=== PATIENT | female | born 1990 | race Caucasian/White ===

== ENCOUNTER 2017-10-03 16:07 | Emergency (ER) | payer BC ==
[2017-10-03] MEDS ORDERED: SODIUM CHLORIDE 0.9% 1,000 ML IV ONE (18:43)
--- NOTE | 2017-10-03 18:47 | ED ---
Anxiety HPI - General Chief Complaint: Anxiety Stated Complaint: Anxiety Time Seen by Provider: 10/03/17 18:28 Source: patient Mode of arrival: ambulatory - History of Present Illness Initial Comments: 27 year-old female patient presents to the emergency department today for complaints of tachycardia and increased anxiety. She states that beginning last evening just before bed she had a hot flushed feeling over her body and then she felt very anxious. She states that her heart was racing. She took 2 of her Xanax and went to sleep. She states that she woke this morning and felt similar. Went to work and continued to have symptoms are up-to-date. States she did check her vital signs at work multiple times and her blood pressure is elevated heart rate was in the 130s throughout the day. She states that she took her Xanax a couple of times today doesn't seem to be helping. She states that she has not ever had a panic attack to this degree. She states that she is being treated for depression, she was started on Celexa 2 weeks ago. She states that she does have counseling. She denies any triggering event in her life. She denies any chance of . She denies any significant past medical history other than the depression and anxiety. Patient denies any recent rash, fever, chills, shortness breath, chest pain, abdominal pain, nausea , vomiting, diarrhea, constipation, back pain, numbness, tingling, dizziness, weakness, hematuria, dysuria, urinary urgency, urinary frequency, headache, visual changes, or any other complaints. - Related Data Home Medications: Home Medications Medication Instructions Recorded Confirmed ALPRAZolam [Xanax] 0.25 - 0.5 mg PO DAILY PRN 08/16/16 10/03/17 Aviane 1 tab PO HS 06/23/17 10/03/17 Albuterol Inhaler [Ventolin Hfa 2 puff INHALATION RT-Q6H PRN 10/03/17 10/03/17 Inhaler] Amitriptyline HCl [Elavil] 25 mg PO HS 10/03/17 10/03/17 Citalopram Hydrobromide [CeleXA] 40 mg PO HS 10/03/17 10/03/17 diphenhydrAMINE HCL [Benadryl] 25 mg PO Q6H PRN 10/03/17 10/03/17 Allergies/Adverse Reactions: Allergies Allergy/AdvReac Type Severity Reaction Status Date / Time baclofen AdvReac DYSTONIA Verified 10/03/17 18:38 cefaclor [From Ceclor] AdvReac Abdominal Verified 10/03/17 18:38 Pain clindamycin AdvReac Nausea & Verified 10/03/17 18:38 Vomiting Review of Systems ROS Statement: Those systems with pertinent positive or pertinent negative responses have been documented in the HPI. ROS Other: All systems not noted in ROS Statement are negative. Past Medical History Past Medical History: Cancer, Osteoarthritis (OA) Additional Past Medical History / Comment(s): migranes and allergy/exercise induced asthma, anemia, arthritis bilateral knees, skin cancer with removals, constipation-past and current problem. History of Any Multi-Drug Resistant Organisms: None Reported Past Surgical History: Adenoidectomy, Orthopedic Surgery, Tonsillectomy Additional Past Surgical History / Comment(s): 08/19/16 tonsillectomy/ adenoidectomy, tympanoplasty/tubes in ears, skin cancer removed x3 and scope of left knee Past Anesthesia/Blood Transfusion Reactions: Previous Problems w/ Anesthesia, Postoperative Nausea & Vomiting (PONV) Past Psychological History: Anxiety, Depression, Panic Disorder Smoking Status: Never smoker Past Alcohol Use History: Occasional Past Drug Use History: None Reported - Past Family History Mother Family Medical History: No Reported History Father Family Medical History: Hyperlipidemia General Exam Limitations: no limitations General appearance: alert, in no apparent distress, other (Physical well- developed, well-nourished adult female patient in no acute distress. Vital signs upon presentation temperature 98.0F, pulse 110, respirations 20, blood pressure 138/83, pulse ox 100% on room air.) Eye exam: Present: normal appearance, PERRL, EOMI. Absent: scleral icterus, conjunctival injection, periorbital swelling ENT exam: Present: normal exam, normal oropharynx, mucous membranes moist, TM's normal bilaterally Neck exam: Present: normal inspection. Absent: tenderness, meningismus, lymphadenopathy Respiratory exam: Present: normal lung sounds bilaterally. Absent: respiratory distress, wheezes, rales, rhonchi, stridor Cardiovascular Exam: Present: normal rhythm, tachycardia, normal heart sounds. Absent: systolic murmur, diastolic murmur, rubs, gallop, clicks GI/Abdominal exam: Present: soft, normal bowel sounds. Absent: distended, tenderness, guarding, rebound, rigid Neurological exam: Present: alert, oriented X3, CN II-XII intact Psychiatric exam: Present: anxious, other (Tearful, rocking back and forth in the bed) Skin exam: Present: warm, dry, intact, normal color. Absent: rash Course Vital Signs 10/03/17 10/03/17 17:41 21:42 Temperature 98 F Pulse Rate 110 H 87 Respiratory 20 20 Rate Blood Pressure 138/83 114/71 O2 Sat by Pulse 100 99 Oximetry Medical Decision Making - Medical Decision Making 27 year-old female patient presented to the emergency department today for evaluation of increased anxiety and rapid heart rate. Physical examination was unremarkable., Patient was tachycardic in the low 100s. Labs reviewed and did reveal a mildly elevated white blood cell counts, no other evidence of infection. D-dimer was negative. EKG showed sinus tachycardia at 110. Patient is have a history of anxiety and does take Celexa and Xanax for this. She is feeling better upon reevaluation. Heart rate is within normal range. She'll be discharged home to follow-up with her primary care physician to discuss her prescription medication. She is instructed to return here immediate for any new, worsening, or concerning symptoms. She verbalizes understanding and agrees this plan. - Lab Data Result diagrams: 10/03/17 19:30 10/03/17 19:30 Lab Results 10/03/17 10/03/17 10/03/17 Range/Units 19:19 19:19 19:30 WBC (3.8-10.6) k/uL RBC (3.80-5.40) m/uL Hgb (11.4-16.0) gm/dL Hct (34.0-46.0) % MCV (80.0-100.0) fL MCH (25.0-35.0) pg MCHC (31.0-37.0) g/dL RDW (11.5-15.5) % Plt Count (150-450) k/uL Neutrophils % % Lymphocytes % % Monocytes % % Eosinophils % % Basophils % % Neutrophils # (1.3-7.7) k/uL Lymphocytes # (1.0-4.8) k/uL Monocytes # (0-1.0) k/uL Eosinophils # (0-0.7) k/uL Basophils # (0-0.2) k/uL Hypochromasia D-Dimer (<0.60) mg/L FEU Sodium 138 (137-145) mmol/L Potassium 3.8 (3.5-5.1) mmol/L Chloride 104 (98-107) mmol/L Carbon Dioxide 25 (22-30) mmol/L Anion Gap 9 mmol/L BUN 9 (7-17) mg/dL Creatinine 0.73 (0.52-1.04) mg/dL Est GFR (MDRD) Af Amer >60 (>60 ml/min/1.73 sqM) Est GFR (MDRD) Non-Af >60 (>60 ml/min/1.73 sqM) Glucose 83 (74-99) mg/dL Calcium 9.2 (8.4-10.2) mg/dL Magnesium 1.8 (1.6-2.3) mg/dL Total Bilirubin 0.4 (0.2-1.3) mg/dL AST 25 (14-36) U/L ALT 32 (9-52) U/L Alkaline Phosphatase 112 (38-126) U/L Total Protein 6.5 (6.3-8.2) g/dL Albumin 3.8 (3.5-5.0) g/dL TSH 1.080 (0.465-4.680) mIU/L Urine Color Yellow Urine Appearance Cloudy H (Clear) Urine pH 6.0 (5.0-8.0) Ur Specific [place] 1.014 (1.001-1.035) Urine Protein Negative (Negative) Urine Glucose (UA) Negative (Negative) Urine Ketones 1+ H (Negative) Urine Blood Negative (Negative) Urine Nitrite Negative (Negative) Urine Bilirubin Negative (Negative) Urine Urobilinogen <2.0 (<2.0) mg/dL Ur Leukocyte Esterase Moderate H (Negative) Urine RBC 4 (0-5) /hpf Urine WBC 7 H (0-5) /hpf Ur Squamous Epith Cells 3 (0-4) /hpf Urine Bacteria Occasional H (None) /hpf Urine Mucus Rare H (None) /hpf Urine HCG, Qual Not Detected (Not Detectd) Urine Opiates Screen Not Detected (NotDetected) Ur Oxycodone Screen Not Detected (NotDetected) Urine Methadone Screen Not Detected (NotDetected) Ur Propoxyphene Screen Not Detected (NotDetected) Ur Barbiturates Screen Not Detected (NotDetected) U Tricyclic Antidepress Detected H (NotDetected) Ur Phencyclidine Scrn Not Detected (NotDetected) Ur Amphetamines Screen Not Detected (NotDetected) U Methamphetamines Scrn Not Detected (NotDetected) U Benzodiazepines Scrn Detected H (NotDetected) Urine Cocaine Screen Not Detected (NotDetected) U Marijuana (THC) Screen Not Detected (NotDetected) 10/03/17 10/03/17 Range/Units 19:30 22:00 WBC 14.3 H (3.8-10.6) k/uL RBC 4.55 (3.80-5.40) m/uL Hgb 13.0 (11.4-16.0) gm/dL Hct 41.1 (34.0-46.0) % MCV 90.3 (80.0-100.0) fL MCH 28.6 (25.0-35.0) pg MCHC 31.7 (31.0-37.0) g/dL RDW 13.7 (11.5-15.5) % Plt Count 357 (150-450) k/uL Neutrophils % 63 % Lymphocytes % 26 % Monocytes % 3 % Eosinophils % 7 % Basophils % 0 % Neutrophils # 8.9 H (1.3-7.7) k/uL Lymphocytes # 3.7 (1.0-4.8) k/uL Monocytes # 0.4 (0-1.0) k/uL Eosinophils # 1.0 H (0-0.7) k/uL Basophils # 0.1 (0-0.2) k/uL Hypochromasia Slight D-Dimer 0.57 (<0.60) mg/L FEU Sodium (137-145) mmol/L Potassium (3.5-5.1) mmol/L Chloride (98-107) mmol/L Carbon Dioxide (22-30) mmol/L Anion Gap mmol/L BUN (7-17) mg/dL Creatinine (0.52-1.04) mg/dL Est GFR (MDRD) Af Amer (>60 ml/min/1.73 sqM) Est GFR (MDRD) Non-Af (>60 ml/min/1.73 sqM) Glucose (74-99) mg/dL Calcium (8.4-10.2) mg/dL Magnesium (1.6-2.3) mg/dL Total Bilirubin (0.2-1.3) mg/dL AST (14-36) U/L ALT (9-52) U/L Alkaline Phosphatase (38-126) U/L Total Protein (6.3-8.2) g/dL Albumin (3.5-5.0) g/dL TSH (0.465-4.680) mIU/L Urine Color Urine Appearance (Clear) Urine pH (5.0-8.0) Ur Specific [place] (1.001-1.035) Urine Protein (Negative) Urine Glucose (UA) (Negative) Urine Ketones (Negative) Urine Blood (Negative) Urine Nitrite (Negative) Urine Bilirubin (Negative) Urine Urobilinogen (<2.0) mg/dL Ur Leukocyte Esterase (Negative) Urine RBC (0-5) /hpf Urine WBC (0-5) /hpf Ur Squamous Epith Cells (0-4) /hpf Urine Bacteria (None) /hpf Urine Mucus (None) /hpf Urine HCG, Qual (Not Detectd) Urine Opiates Screen (NotDetected) Ur Oxycodone Screen (NotDetected) Urine Methadone Screen (NotDetected) Ur Propoxyphene Screen (NotDetected) Ur Barbiturates Screen (NotDetected) U Tricyclic Antidepress (NotDetected) Ur Phencyclidine Scrn (NotDetected) Ur Amphetamines Screen (NotDetected) U Methamphetamines Scrn (NotDetected) U Benzodiazepines Scrn (NotDetected) Urine Cocaine Screen (NotDetected) U Marijuana (THC) Screen (NotDetected) - EKG Data EKG Comments: EKG obtained at 2010 shows normal sinus rhythm with possible LVH, prolonged QT, ventricular rate is 91, MO interval 146, QRS duration 92, QT 404, QTC 496. Disposition Clinical Impression: Anxiety Disposition: HOME SELF-CARE Condition: Good Instructions: Generalized Anxiety Disorder (ED) Additional Instructions: Continue taking home medications as directed. Follow-up with your primary care physician to discuss prescription medications. Return here immediately for any new, worsening, or concerning symptoms. Referrals: Maykel Omalley MD [Primary Care Provider] - 1-2 days Time of Disposition: 22:27
[2017-10-03 19:26] LABS: Appearance,Urine Cloudy (Clear); Bacteria,Urine Occasional /hpf; Bilirubin,Urine Negative (Negative); Blood,Urine Negative (Negative); Color,Urine Yellow; Glucose,Urine (UA) Negative (Negative); Ketones,Urine 1+ (Negative); Leukocyte Esterase,Urine Moderate (Negative); Mucus,Urine Rare /hpf; Nitrite,Urine Negative (Negative); Protein,Urine Negative (Negative); RBC,Urine 4 /hpf (0-5); Specific Gravity,Urine 1.014 (1.001-1.035); Squamous Epithelial Cell,Urine 3 /hpf (0-4); Urobilinogen,Urine <2.0 mg/dL (<2.0); WBC,Urine 7 /hpf (0-5)
[2017-10-03 19:36] LABS: Amphetamine Screen,Urine Not Detected (NotDetected); Barbiturate Screen,Urine Not Detected (NotDetected); Benzodiazepines Screen,Urine Detected (NotDetected); Cocaine Screen,Urine Not Detected (NotDetected); Methadone Screen, Urine Not Detected (NotDetected); Opiate Screen,Urine Not Detected (NotDetected); Oxycodone Screen, Urine Not Detected (NotDetected); Phencyclidine Screen,Urine Not Detected (NotDetected); Tricyclic Antidepressant,Urine Detected (NotDetected); Urn Cannabinoid Scrn Not Detected (NotDetected)
[2017-10-03 19:53] LABS: Basophils # (A) 0.1 k/uL (0-0.2); Basophils % (A) 0 %; Eosinophils % (A) 7 %; HCT 41.1 % (34.0-46.0); Hypochromasia Slight; Lymphocytes # (A) 3.7 k/uL (1.0-4.8); Lymphocytes % (A) 26 %; MCH 28.6 pg (25.0-35.0); MCHC 31.7 g/dL (31.0-37.0); MCV 90.3 fL (80.0-100.0); Mean Platelet Volume 6.7; Monocytes # (A) 0.4 k/uL (0-1.0); Monocytes % (A) 3 %; Neutrophils # (A) 8.9 k/uL (1.3-7.7); Neutrophils % (A) 63 %; Platelet Count 357 k/uL (150-450); RBC 4.55 m/uL (3.80-5.40); RDW 13.7 % (11.5-15.5); WBC 14.3 k/uL (3.8-10.6)
[2017-10-03 19:59] LABS: ALT 32 U/L (9-52); AST 25 U/L (14-36); Albumin 3.8 g/dL (3.5-5.0); Alkaline Phosphatase 112 U/L (38-126); Anion Gap 9 mmol/L; Blood Urea Nitrogen 9 mg/dL (7-17); Calcium 9.2 mg/dL (8.4-10.2); Carbon Dioxide 25 mmol/L (22-30); Chloride 104 mmol/L (98-107); Glucose 83 mg/dL (74-99); Magnesium 1.8 mg/dL (1.6-2.3); Potassium 3.8 mmol/L (3.5-5.1); Sodium 138 mmol/L (137-145); Total Bilirubin 0.4 mg/dL (0.2-1.3); Total Protein 6.5 g/dL (6.3-8.2)
[2017-10-03] MEDS ORDERED: LORazepam 2 MG/ML INJ IV STA (22:31)
[2017-10-03 22:52] VITALS: BP 128/67; PULSE 92; RESP 16; TEMP 98.9
== END 2017-10-03 23:01 | disposition home or self-care (01) ==
LOC: EC 16:07
DX: F41.9 Anxiety disorder, unspecified (principal); R00.0 Tachycardia, unspecified; D72.829 Elevated white blood cell count, unspecified; F41.0 Panic disorder [episodic paroxysmal anxiety]; F32.9 Major depressive disorder, single episode, unspecified; Z85.828 Personal history of other malignant neoplasm of skin; Z79.3 Long term (current) use of hormonal contraceptives; Z79.899 Other long term (current) drug therapy; Z88.1 Allergy status to other antibiotic agents; Z88.8 Allergy status to other drugs, medicaments and biological substances
CPT/HCPCS: 99283; 96374; 96361 ×2; 36415; 93005; 85379; 80053; 84443; 83735; 85025; 81001; 81025; 80306; J2060

== ENCOUNTER → 2017-12-01 | Outpatient (CLI) | payer BC ==
--- NOTE | 2017-12-01 22:57 | MR ---
EXAMINATION TYPE: MR cervical spine wo con DATE OF EXAM: 12/01/2017 COMPARISON: NONE HISTORY: 27 year-old female cervical disc displacement, neck pain and headaches, tingling in both arm s. TECHNIQUE: Multiplanar, multisequence images of the cervical spine were acquired. FINDINGS: No craniocervical junction abnormalities, predental space widening, or prevertebral soft tissue swell ing. 9 mm cystic nodule posterior aspect of the right lower thyroid gland incidentally noted. Preserved alignment of the cervical spine. No suspicious bone marrow replacement. There is very minimal early intervertebral disc desiccation throughout the cervical spine. No focal disc herniation. No significant spinal canal or foraminal stenosis. Normal course, caliber, and signal intensity of the cervical cord. IMPRESSION: 1. Very minimal early degenerative signal changes of the intervertebral disks throughout the cervical spine. 2. No focal disc herniation or significant spinal canal or foraminal stenosis seen.
== END | disposition home or self-care (01) ==
LOC: RADMRIMAIN 20:07
PROVIDERS: ATTEND Psychiatry & Neurology Neurology
DX: M47.22 Other spondylosis with radiculopathy, cervical region (principal)
CPT/HCPCS: 72141

== ENCOUNTER → 2018-05-02 | Outpatient (CLI) | payer BC ==
[2018-05-02 11:49] LABS: Basophils # (A) 0.1 k/uL (0-0.2); Basophils % (A) 1 %; Eosinophils # (A) 0.6 k/uL (0-0.7); Eosinophils % (A) 6 %; HCT 42.5 % (34.0-46.0); HGB 13.4 gm/dL (11.4-16.0); Lymphocytes # (A) 2.5 k/uL (1.0-4.8); Lymphocytes % (A) 25 %; MCHC 31.5 g/dL (31.0-37.0); MCV 92.1 fL (80.0-100.0); Mean Platelet Volume 6.9; Monocytes # (A) 0.3 k/uL (0-1.0); Monocytes % (A) 3 %; Neutrophils # (A) 6.1 k/uL (1.3-7.7); Neutrophils % (A) 63 %; Platelet Count 373 k/uL (150-450); RBC 4.61 m/uL (3.80-5.40); RDW 13.4 % (11.5-15.5); WBC 9.7 k/uL (3.8-10.6)
== END | disposition home or self-care (01) ==
LOC: LABPAT 11:05
PROVIDERS: ATTEND Surgery
DX: Z01.812 Encounter for preprocedural laboratory examination (principal); K21.0 Gastro-esophageal reflux disease with esophagitis; D64.9 Anemia, unspecified; F17.200 Nicotine dependence, unspecified, uncomplicated
CPT/HCPCS: 36415; 85025; 86850; 86900; 86901

== ENCOUNTER 2018-05-10 09:15 | Inpatient (IN) | payer BC ==
[2018-05-02 16:03] VITALS: BMI 44.5
[~2018-05-10 09:15] MED LIST: LACTATED RINGERS 1,000 ML IV SCH; fentaNYL (PF) 50 MCG/ML 2 ML AMP IV PRN
[2018-05-10 12:16] LABS: Glucose,Whole Blood 90 mg/dL (75-99)
[2018-05-10] MEDS ORDERED: LIDOCAINE 1% 20 ML VIAL (10MG/ML) FOR IV START INTRADERMA ONE (12:20)
[2018-05-10] MEDS ORDERED: LACTATED RINGERS 1,000 ML IV ONE (12:22)
[2018-05-10] MEDS: SCOPOLAMINE 1.5MG/72HR PATCH TRANSDERM ONE ×2 (12:23→15:56)
[2018-05-10] MEDS ORDERED: DEXAMETHASONE SOD PHOSPHATE 10 MG/ML 1 ML VIAL IV ONE (12:23)
[2018-05-10] MEDS: HEPARIN SODIUM,PORCINE 5,000 UNIT/ML 1 ML VIAL SQ ONE ×2 (12:23→15:56)
[2018-05-10] MEDS ORDERED: ONDANSETRON 4 MG/2 ML VIAL IVP ONE ×2 (12:24→15:48)
[2018-05-10] MEDS ORDERED: MIDAZOLAM 2 MG/2 ML VIAL IVP ONE (12:37)
--- NOTE | 2018-05-10 13:39 | P.GSHP ---
History of Present Illness H&P Date: 05/10/18 Chief Complaint: GERD This a 27-year-old female who's had long-standing problems with reflux esophagitis. PThe patient has had long-standing problems with reflux esophagitis. The patient underwent recent EGD is found have evidence of esophagitis. Patient has been well informed on the procedure of laparoscopic Jess fundoplication. The patient is aware the risk of the conversion to the open procedure, risk of injury to the stomach, liver and spleen. The patient is also a risk of recurrent GERD and dysphagia symptoms. The patient understands there is a postoperative diet of full liquids for 2 weeks after surgery. Past Medical History Past Medical History: Cancer, GERD/Reflux, Hyperlipidemia, Osteoarthritis (OA) Additional Past Medical History / Comment(s): migranes and allergy/exercise induced asthma, anemia, arthritis bilateral knees, skin cancer with removals, constipation-past and current problem. History of Any Multi-Drug Resistant Organisms: None Reported Past Surgical History: Adenoidectomy, Orthopedic Surgery, Tonsillectomy Additional Past Surgical History / Comment(s): 08/19/16 tonsillectomy/ adenoidectomy, tympanoplasty/tubes in ears, skin cancer removed x3 and scope of left knee, lipoma removed rt lower back Past Anesthesia/Blood Transfusion Reactions: Previous Problems w/ Anesthesia, Postoperative Nausea & Vomiting (PONV) Additional Past Anesthesia/Blood Transfusion Reaction / Comment(s): "when waking from anesthesia experiences overwhelming fear" Smoking Status: Never smoker - Past Family History Mother Family Medical History: Thyroid Disorder Additional Family Medical History / Comment(s): hyperactive thyroid Father Family Medical History: Hyperlipidemia Medications and Allergies Home Medications Medication Instructions Recorded Confirmed Type ALPRAZolam [Xanax] 0.25 mg PO DAILY PRN 08/16/16 05/10/18 History Aviane 1 tab PO DAILY 06/23/17 05/10/18 History Albuterol Inhaler [Ventolin Hfa 2 puff INHALATION RT-Q6H PRN 10/03/17 05/10/18 History Inhaler] Citalopram Hydrobromide [CeleXA] 40 mg PO HS 10/03/17 05/10/18 History Biotin 1,000 mcg PO DAILY 05/02/18 05/10/18 History Folic Acid 0.4 mg PO DAILY 05/02/18 05/10/18 History Ondansetron [Zofran] 4 mg PO Q8HR PRN 05/02/18 05/10/18 History Propranolol HCl [Inderal LA] 80 mg PO HS 05/02/18 05/10/18 History Rizatriptan Benzoate [Maxalt] 10 mg PO DAILY PRN 05/02/18 05/10/18 History buPROPion SR [Wellbutrin Sr] 150 mg PO BID 05/02/18 05/10/18 History metFORMIN HCL [Glucophage] 850 mg PO BID 05/02/18 05/10/18 History traZODone HCL 50 mg PO HS 05/02/18 05/10/18 History Allergies Allergy/AdvReac Type Severity Reaction Status Date / Time adhesive tape Allergy peels skin Verified 05/10/18 11:42 and blisters baclofen AdvReac DYSTONIA Verified 05/10/18 11:42 cefaclor [From Ceclor] AdvReac Abdominal Verified 05/10/18 11:42 Pain clindamycin AdvReac Nausea & Verified 05/10/18 11:42 Vomiting Surgical - Exam Vital Signs Temp Pulse Resp BP Pulse Ox 97.4 F L 76 16 108/68 97 05/10/18 11:35 05/10/18 11:35 05/10/18 11:35 05/10/18 11:35 05/10/18 11:35 - General well developed, no distress - Eyes PERRL - ENT normal pinna - Neck no masses - Respiratory normal expansion - Cardiovascular Rhythm: regular - Abdomen Abdomen: soft, non tender Assessment and Plan Assessment: GERD. We'll perform laparoscopic Jess fundal plication.
[2018-05-10] MEDS ORDERED: ONDANSETRON 4 MG/2 ML VIAL ONE (14:06)
[2018-05-10] MEDS ORDERED: GLYCOPYRROLATE 0.2 MG/ML 2 ML VIAL ONE (14:06)
[2018-05-10] MEDS ORDERED: KETOROLAC 30 MG/ML 1 ML VIAL ONE (14:06)
[2018-05-10] MEDS ORDERED: fentaNYL (PF) 50 MCG/ML 2 ML AMP ONE (14:06)
[2018-05-10] MEDS ORDERED: MIDAZOLAM 2 MG/2 ML VIAL ONE (14:06)
[2018-05-10] MEDS ORDERED: PROPOFOL 10 MG/ML 20 ML VIAL IV ONE (14:06)
[2018-05-10] MEDS ORDERED: ROCURONIUM BROMIDE 10 MG/ML 10 ML VIAL IV ONE (14:06)
[2018-05-10] MEDS ORDERED: NEOSTIGMINE 1 MG/ML 10 ML VIAL ONE (14:06)
[2018-05-10] MEDS ORDERED: LIDOCAINE 1% INJ 10MG/ML (20 ML MDV) ONE (14:06)
[2018-05-10] MEDS ORDERED: BUPIVACAIN-EPI 0.25%-1:200,000 30 ML VIAL SQ ONE (14:29)
[2018-05-10] MEDS ORDERED: ONDANSETRON 4 MG/2 ML VIAL IVP PRN (14:54)
--- NOTE | 2018-05-10 14:54 | P.OP ---
Date of Procedure: 05/10/18 Preoperative Diagnosis: GERD Postoperative Diagnosis: GERD Procedure(s) Performed: Laparoscopic Jess fundoplication Anesthesia: JASON Surgeon: Ryne Pedro Estimated Blood Loss (ml): 5 Pathology: none sent Condition: stable Disposition: PACU Description of Procedure: The patient was placed on the operating table in the supine position. The patient received general anesthesia. And was placed in dorsal lithotomy position. The patient was prepped and draped in the usual sterile fashion. The skin incision sites were anesthetized with 1% local Xylocaine. The skin was incised in the left periumbilical area and then using a blade less 5 mm trocar under direct visualization panel cavity was entered. After adequate insufflation the laparoscope was then placed into the peritoneal cavity. Next a 5 mm trochars placed in the right epigastric position. Another 5 millimeter trocar the right lateral position. Another 5 millimeter trocar in the left lateral position a 5 mm trocar is placed in the left epigastric position. And then the initial 5 mm trocar was exchanged for a 10 mm trocar. The left lateral lobe liver was retracted. The hernia was seen. The crural defect was then dissected using the Harmonic scissors device. A 360 crural dissection was performed the esophagus stomach was reduced back into the peritoneal Cavity. The crural defect was then closed using 2-0 Ethibond suture. Next the fundus of the stomach was mobilized using the [place] scissors device. and then a 58-Polish bougie dilator was placed oropharynx passed into the esophagus and stomach the fundal plication wrap was then performed by grasping the fundus posteriorly and bringing it around the esophagus and stomach fundoplication was then performed using 2-0 Ethibond suture. Care was taken that the fundal location rested over top of the intra-abdominal esophagus. There was no injury seen to the stomach or esophagus. The dilator was then withdrawn. The abdomen was irrigated there is no bleeding seen. The trochars were then withdrawn and then skin incision sites were closed using 3-0 Monocryl suture Steri-Strips are applied. Patient thought procedure well and sent to recovery room in stable condition.
[2018-05-10] MEDS: HYDROmorphone 0.5 MG/0.5 ML SYRINGE IVP PRN ×2 (15:24→15:29)
[2018-05-10] MEDS: D5-0.45% NACL WITH KCL 20MEQ/L 1,000 ML IV SCH (17:53)
[2018-05-10] MEDS ORDERED: ALPRAZolam 0.25 MG TAB PO PRN (17:55)
[2018-05-10] MEDS ORDERED: SUMAtriptan SUCCINATE 50 MG TAB PO PRN (17:55)
[2018-05-10] MEDS ORDERED: ALBUTEROL NEBULIZED 2.5 MG/3 ML INHALATION PRN (17:55)
[2018-05-10] MEDS: FAMOTIDINE 20 MG/2 ML VIAL IV SCH (20:20)
[2018-05-10] MEDS: buPROPion SR 150 MG TABLET.ER PO SCH (20:20)
[2018-05-10] MEDS: HYDROmorphone 1 MG/ML 1 ML SYRINGE IVP PRN (20:21)
[2018-05-10] MEDS ORDERED: PROPRANOLOL LA 80 MG CAP.SA.24H PO SCH (21:00)
[2018-05-10] MEDS ORDERED: CITALOPRAM HYDROBROMIDE 20 MG TAB PO SCH (21:00)
--- NOTE | 2018-05-10 23:30 | CONS ---
CONSULTATION REASON FOR CONSULTATION: Advice regarding hyperlipidemia and other medical issues requested by Dr. Pedro. HISTORY OF PRESENT ILLNESS: This 27-year-old woman with a past medical history of GERD, hyperlipidemia, DJD, history migraine, orthopedic surgery, anxiety, depression, panic disorder, being followed by Dr. Fior Dickey in the outpatient setting, was admitted after laparoscopic Jess fundoplication. There is no history of any fever, rigors. No history of headache, loss of consciousness, seizures. PAST MEDICAL HISTORY: History of GERD, hyperlipidemia, DJD, history of anxiety, depression. MEDICATIONS PRIOR TO ADMISSION: Include home medications are: 1. Trazodone 50 mg p.o. q.h.s. 2. Glucophage 850 mg p.o. b.i.d. 3. Wellbutrin XR 150 mg p.o. b.i.d. 4. Maxalt 10 mg daily p.r.n. 5. Inderal 80 mg p.o. q.h.s. 6. Zofran 4 mg q.8h p.r.n. 7. Folic acid 0.4 mg p.o. daily. 8. Celexa 40 mg p.o. q.h.s. 9. Biotin 1000 mcg 1 p.o. daily. 11.Ventolin HFA 1-2 puffs every 6 hours p.r.n. 12.Xanax 0.5 daily p.r.n. ALLERGIES: ADHESIVE TAPES, BACLOFEN, CEFACLOR, CLINDAMYCIN. FAMILY HISTORY: History of hyperactive thyroid. SOCIAL HISTORY: No history of smoking. Occasional alcohol intake. REVIEW OF SYSTEMS: ENT: No diminished hearing, diminished vision. CARDIOVASCULAR: No angina. RESPIRATORY: No cough. GI: As mentioned earlier. : No dysuria. NERVOUS: No numbness, weakness. ALLERGY/IMMUNOLOGY: Asthma. MUSCULOSKELETAL: As mentioned earlier. HEMATOLOGY/ONCOLOGY: No history of anemia. ENDOCRINE: As mentioned earlier. CONSTITUTIONAL: As mentioned earlier. DERMATOLOGY: Negative. RHEUMATOLOGY: Negative. PSYCHIATRY: As mentioned earlier. PHYSICAL EXAMINATION: Alert and oriented x3. Pulse 88, blood pressure 102/66, respirations 16, temperature 97.5, pulse ox 95% on room air. HEENT: Conjunctivae normal. Oral mucosa moist. NECK: No jugular venous distention. No carotid bruits. No lymph node enlargement. CARDIOVASCULAR: S1, S2 muffled. RESPIRATORY: Breath sounds diminished in the bases. No rhonchi. No crackles. ABDOMEN: Soft, status post surgery. LEGS: No edema. No swelling. NERVOUS SYSTEM: Higher functions as mentioned earlier. Moves all 4 limbs. No focal motor or sensory deficits. LYMPHATIC: No lymphadenopathy in neck or axillae. SKIN: No ulcer, rash or bleeding. LABS: Glucose 90 and preop labs are reviewed, including hematology, coags and chemistry within normal limits except hyperlipidemia. Cholesterol is 219. ALT is 138. ASSESSMENT: 1. Status post laparoscopic Jess fundoplication for gastroesophageal reflux disease. 2. Hyperlipidemia. 3. Degenerative joint disease. 4. History of migraines. 5. Exercise-induced asthma. 6. adenoidectomy. 7. Degenerative joint disease. 8. Anxiety, depression, panic disorder. 9. Obesity with body mass of 44.6. RECOMMENDATION AND DISCUSSION: In this 27-year-old woman who presented with multiple medical issues, at this time I recommend to continue current medication, continue symptomatic treatment. Continue incentive spirometry, DVT prophylaxis. Resume the home medications, proton pump inhibitors. I would recommend close followup with primary physician including recheck of the lipids. Otherwise, will follow the patient closely. Thank you, Dr. Pedro, for letting us participate in this patient. Repeat labs in the morning has been also recommended. MMODL / IJN: [id number] / MTDD
[2018-05-11] MEDS: D5-0.45% NACL WITH KCL 20MEQ/L 1,000 ML IV SCH ×2 (00:22→09:17)
[2018-05-11] MEDS: HYDROmorphone 1 MG/ML 1 ML SYRINGE IVP PRN ×2 (02:54→08:09)
[2018-05-11 07:49] LABS: Basophils % (A) 0 %; Eosinophils % (A) 0 %; HGB 11.9 gm/dL (11.4-16.0); Lymphocytes # (A) 1.8 k/uL (1.0-4.8); Lymphocytes % (A) 14 %; MCH 28.4 pg (25.0-35.0); MCHC 30.4 g/dL (31.0-37.0); MCV 93.2 fL (80.0-100.0); Mean Platelet Volume 6.8; Monocytes # (A) 0.6 k/uL (0-1.0); Monocytes % (A) 5 %; Neutrophils # (A) 10.1 k/uL (1.3-7.7); Neutrophils % (A) 80 %; Platelet Count 338 k/uL (150-450); RBC 4.18 m/uL (3.80-5.40); RDW 13.3 % (11.5-15.5); WBC 12.7 k/uL (3.8-10.6)
[2018-05-11 08:01] LABS: Anion Gap 7 mmol/L; Blood Urea Nitrogen 5 mg/dL (7-17); Calcium 8.7 mg/dL (8.4-10.2); Carbon Dioxide 27 mmol/L (22-30); Chloride 105 mmol/L (98-107); Glucose 112 mg/dL (74-99); Potassium 4.5 mmol/L (3.5-5.1); Sodium 139 mmol/L (137-145)
[2018-05-11] MEDS ORDERED: FOLIC ACID 1 MG TAB PO SCH (09:00)
[2018-05-11] MEDS: buPROPion SR 150 MG TABLET.ER PO SCH (09:17)
[2018-05-11] MEDS: FAMOTIDINE 20 MG/2 ML VIAL IV SCH (09:18)
--- NOTE | 2018-05-11 09:18 | FL ---
SINGLE CONTRAST ESOPHAGRAM: CLINICAL HISTORY: 27-year-old female status post Jess fundoplication yesterday, rule out leak/obst ruction. TECHNIQUE: Single contrast exam performed with total 25 ml [id number] contrast. Fluoroscopy time: 1 minute 20 seconds. Total images: 15 FINDINGS: The patient swallowed oral contrast without difficulty or delay. Esophageal peristalsis and motility are within normal limits. There is mild delay in passage of contrast from the lower esophagus into the stomach with post surgical changes of Jess fundoplication demonstrated. At the end of the exam, the patient had ingested only half of the oral contrast and a small amount remained pooled in the di stal esophagus. There is no evidence of contrast extravasation to suggest leak. Mild postsurgical hunter e air below the right hemidiaphragm. IMPRESSION: No evidence of leak status post Jess fundoplication. There is very mild post operative obstruction. Additional mild postsurgical free air below the right hemidiaphragm.
[2018-05-11 09:50] VITALS: BP 96/64; RESP 16; TEMP 97.7
[2018-05-11 09:53] VITALS: PULSE 76
--- NOTE | 2018-05-11 11:26 | P.DS ---
Providers Date of admission: 05/10/18 09:55 Expected date of discharge: 05/11/18 Attending physician: Ryne Pedro Consults: 05/10/18 14:54 Consult Physician Routine Consulting Provider: Kaushal Kraft Consult Reason/Comments: Medical management Do you want consulting provider notified?: Yes Primary care physician: [facility] Course: 7-year-old female who has had long-standing problems with reflux esophagitis. Patient underwent a recent EGD and was found to have esophagitis. Patient elected to undergo laparoscopic jess fundoplication on May 10. The day of discharge patient was up ambulatory on the unit pain medication effective for pain control passing gas no stool tolerating surgical dressing sites were dry and tolerating jess clear liquid diet. Patient also was seen by the dietitian with information provided regarding diet Patient was felt to be hemodynamically stable and appropriate proceed with a discharge to home Impression discharge diagnoses Symptomatic reflux esophagitis failed outpatient treatment Recent EGD showed esophagitis Morbid obesity BMI 44 Postop May 10 laparoscopic Jess fundoplication for symptomatic esophageal reflex The above impression and plan of care have been discussed and directed by signing physician. Padmini Light nurse practitioner acting as scribe for signing physician. Plan - Discharge Summary Discharge Rx Participant: No New Discharge Prescriptions: New HYDROcodone/APAP 5-325MG [[place] 5-325] 1 tab PO Q6HR PRN 3 Days #12 tab PRN Reason: Mild Discomfort Continue ALPRAZolam [Xanax] 0.25 mg PO DAILY PRN PRN Reason: Anxiety Aviane 1 tab PO DAILY Citalopram Hydrobromide [CeleXA] 40 mg PO HS Albuterol Inhaler [Ventolin Hfa Inhaler] 2 puff INHALATION RT-Q6H PRN PRN Reason: Shortness Of Breath Folic Acid 0.4 mg PO DAILY metFORMIN HCL [Glucophage] 850 mg PO BID Rizatriptan Benzoate [Maxalt] 10 mg PO DAILY PRN PRN Reason: migraines Ondansetron [Zofran] 4 mg PO Q8HR PRN PRN Reason: Nausea traZODone HCL 50 mg PO HS buPROPion SR [Wellbutrin SR] 150 mg PO BID Propranolol HCl [Inderal LA] 80 mg PO HS Biotin 1000 Mcg 1 tab PO DAILY Discharge Medication List ALPRAZolam [Xanax] 0.25 mg PO DAILY PRN 08/16/16 [History] Aviane 1 tab PO DAILY 06/23/17 [History] Albuterol Inhaler [Ventolin Hfa Inhaler] 2 puff INHALATION RT-Q6H PRN 10/03/17 [ History] Citalopram Hydrobromide [CeleXA] 40 mg PO HS 10/03/17 [History] Folic Acid 0.4 mg PO DAILY 05/02/18 [History] Ondansetron [Zofran] 4 mg PO Q8HR PRN 05/02/18 [History] Propranolol HCl [Inderal LA] 80 mg PO HS 05/02/18 [History] Rizatriptan Benzoate [Maxalt] 10 mg PO DAILY PRN 05/02/18 [History] buPROPion SR [Wellbutrin SR] 150 mg PO BID 05/02/18 [History] metFORMIN HCL [Glucophage] 850 mg PO BID 05/02/18 [History] traZODone HCL 50 mg PO HS 05/02/18 [History] Biotin 1000 Mcg 1 tab PO DAILY 05/10/18 [History] HYDROcodone/APAP 5-325MG [[place] 5-325] 1 tab PO Q6HR PRN 3 Days #12 tab [Rx] Follow up Appointment(s)/Referral(s): Ryne Pedro MD [STAFF PHYSICIAN] - 1 Week Patient Instructions/Handouts: *Surgery [facility] - ([facility]) Lap Jess Fundiplication Post-Op Instructions, Fundoplication in Adults (DC) Activity/Diet/Wound Care/Special Instructions: No tub bath for six weeks. Shower daily. No lifting over 10 pounds for the next 1 weeks. May use ice packs to surgical site. No driving while taking narcotic for pain. Leave plastic dressings on will be removed in the office was Discharge Disposition: HOME SELF-CARE
[2018-05-11] MEDS ORDERED: ATORVASTATIN 20 MG TAB PO SCH (21:00)
== END 2018-05-11 12:50 | disposition home or self-care (01) | DRG 327 ==
LOC: 2ORMAIN 09:55 → 6PED 15:20
PROVIDERS: ADMIT Surgery; ATTEND Surgery
PROC: 0DV44ZZ Restriction of Esophagogastric Junction, Percutaneous Endoscopic Approach (ICD-10-PCS; principal; 2018-05-10 11:00)
DX: K21.0 Gastro-esophageal reflux disease with esophagitis (principal); Z68.41 Body mass index [BMI] 40.0-44.9, adult; E66.01 Morbid (severe) obesity due to excess calories; E78.5 Hyperlipidemia, unspecified; K44.9 Diaphragmatic hernia without obstruction or gangrene; F32.9 Major depressive disorder, single episode, unspecified; F41.0 Panic disorder [episodic paroxysmal anxiety]; J45.990 Exercise induced bronchospasm; M17.0 Bilateral primary osteoarthritis of knee; G43.909 Migraine, unspecified, not intractable, without status migrainosus; Z79.84 Long term (current) use of oral hypoglycemic drugs; Z79.899 Other long term (current) drug therapy; Z85.828 Personal history of other malignant neoplasm of skin; Z88.1 Allergy status to other antibiotic agents; Z91.048 Other nonmedicinal substance allergy status; Z83.49 Family history of other endocrine, nutritional and metabolic diseases
CPT/HCPCS: 74210; 80048; 81025; 85025; 86850; 86900; 86901

== ENCOUNTER 2018-08-18 23:59 | Emergency (ER) | payer BC ==
[2018-08-19 00:04] VITALS: RESP 16
[2018-08-19] MEDS ORDERED: diphenhydrAMINE 50 MG/ML 1 ML VIAL IVP STA (01:37)
[2018-08-19] MEDS ORDERED: METOCLOPRAMIDE 5 MG/ML 2 ML VIAL IVP STA (01:37)
[2018-08-19] MEDS ORDERED: KETOROLAC 30 MG/ML 1 ML VIAL IVP STA (01:38)
[2018-08-19] MEDS ORDERED: SODIUM CHLORIDE 0.9% 1,000 ML IV STA (01:39)
--- NOTE | 2018-08-19 01:42 | ED ---
General Adult HPI - General Chief complaint: Headache Stated complaint: Headache Time Seen by Provider: 08/19/18 01:30 Source: patient, RN notes reviewed Mode of arrival: ambulatory Limitations: no limitations - History of Present Illness Initial comments: 28-year-old female with a past medical history of migraines presents to the emergency department for a chief complaint of headache. Patient states she has been getting headaches on and off for the past few weeks. She states she has generally been able to control these with her home medications. However today her home medications did not help. Patient admits to sensitivity to lights and sound. She also admits to mild nausea. Patient states these symptoms are consistent with her previous migraines.Patient has no other complaints at this time including shortness of breath, chest pain, abdominal pain, vomiting, or visual changes. - Related Data Home Medications Medication Instructions Recorded Confirmed ALPRAZolam [Xanax] 0.25 mg PO DAILY PRN 08/16/16 05/10/18 Aviane 1 tab PO DAILY 06/23/17 05/10/18 Albuterol Inhaler [Ventolin Hfa 2 puff INHALATION RT-Q6H PRN 10/03/17 05/10/18 Inhaler] Citalopram Hydrobromide [CeleXA] 40 mg PO HS 10/03/17 05/10/18 Folic Acid 0.4 mg PO DAILY 05/02/18 05/10/18 Ondansetron [Zofran] 4 mg PO Q8HR PRN 05/02/18 05/10/18 Propranolol HCl [Inderal LA] 80 mg PO HS 05/02/18 05/10/18 Rizatriptan Benzoate [Maxalt] 10 mg PO DAILY PRN 05/02/18 05/10/18 buPROPion SR [Wellbutrin SR] 150 mg PO BID 05/02/18 05/10/18 metFORMIN HCL [Glucophage] 850 mg PO BID 05/02/18 05/10/18 traZODone HCL 50 mg PO HS 05/02/18 05/10/18 Biotin 1000 Mcg 1 tab PO DAILY 05/10/18 05/10/18 Previous Rx's Medication Instructions Recorded HYDROcodone/APAP 5-325MG [[place] 1 tab PO Q6HR PRN 3 Days #12 tab 05/11/18 5-325] Allergies Allergy/AdvReac Type Severity Reaction Status Date / Time adhesive tape Allergy peels skin Verified 08/19/18 00:03 and blisters baclofen AdvReac DYSTONIA Verified 08/19/18 00:03 cefaclor [From Ceclor] AdvReac Abdominal Verified 08/19/18 00:03 Pain clindamycin AdvReac Nausea & Verified 08/19/18 00:03 Vomiting Review of Systems ROS Statement: Those systems with pertinent positive or pertinent negative responses have been documented in the HPI. ROS Other: All systems not noted in ROS Statement are negative. Past Medical History Past Medical History: Cancer, GERD/Reflux, Hyperlipidemia, Osteoarthritis (OA) Additional Past Medical History / Comment(s): migranes and allergy/exercise induced asthma, anemia, arthritis bilateral knees, skin cancer with removals, constipation-past and current problem. History of Any Multi-Drug Resistant Organisms: None Reported Past Surgical History: Adenoidectomy, Hernia Repair, Orthopedic Surgery, Tonsillectomy Additional Past Surgical History / Comment(s): 08/19/16 tonsillectomy/ adenoidectomy, tympanoplasty/tubes in ears, skin cancer removed x3 and scope of left knee, lipoma removed rt lower back Past Anesthesia/Blood Transfusion Reactions: Previous Problems w/ Anesthesia, Postoperative Nausea & Vomiting (PONV) Additional Past Anesthesia/Blood Transfusion Reaction / Comment(s): "when waking from anesthesia experiences overwhelming fear" Past Psychological History: Anxiety, Depression, Panic Disorder Smoking Status: Never smoker Past Alcohol Use History: Occasional Past Drug Use History: None Reported - Past Family History Mother Family Medical History: Thyroid Disorder Additional Family Medical History / Comment(s): hyperactive thyroid Father Family Medical History: Hyperlipidemia General Exam Limitations: no limitations General appearance: alert, in no apparent distress Head exam: Present: atraumatic, normocephalic, normal inspection Eye exam: Present: normal appearance, PERRL, EOMI. Absent: scleral icterus, conjunctival injection, periorbital swelling ENT exam: Present: normal exam, normal oropharynx, mucous membranes moist, TM's normal bilaterally, normal external ear exam Neck exam: Present: normal inspection, full ROM. Absent: tenderness, meningismus, lymphadenopathy Respiratory exam: Present: normal lung sounds bilaterally. Absent: respiratory distress, wheezes, rales, rhonchi, stridor Cardiovascular Exam: Present: regular rate, normal rhythm, normal heart sounds. Absent: systolic murmur, diastolic murmur, rubs, gallop, clicks GI/Abdominal exam: Present: soft, normal bowel sounds. Absent: distended, tenderness, guarding, rebound, rigid Neurological exam: Present: alert, oriented X3, CN II-XII intact, normal gait Expanded Patient oriented to: Present: person, place, time Speech: Present: fluid speech Cranial nerves: EOM's Intact: Normal, Tongue Deviation: Normal, Nystagmus: Normal, Facial Sensation: Normal Cerebellar function: Finger to Nose: Normal, Heel to Frey: Normal Upper motor neuron: Pronator Drift: Normal Sensory exam: Upper Extremity Light Touch: Normal, Upper Extremity Pin Prick: Normal, Lower Extremity Light Touch: Normal, Lower Extremity Pin Prick: Normal Motor strength exam: RUE: 5, LUE: 5, RLE: 5, LLE: 5 Eye Response: (4) open spontaneously Motor Response: (6) obeys commands Verbal Response: (5) oriented Yonas Total: 15 Psychiatric exam: Present: normal affect, normal mood Course Vital Signs 08/19/18 00:00 Temperature 97.6 F Pulse Rate 88 Respiratory 16 Rate Blood Pressure 139/92 O2 Sat by Pulse 97 Oximetry Medical Decision Making - Medical Decision Making 28-year-old female presents to the emergency department for a chief complaint of headache. Patient has a history of migraines. She states this headache is consistent with previous migraines. She states it is across her forehead. She admits to sensitivity of light. Patient states has been ongoing for the past few weeks and worsened today. Patient has previously followed up with neurology for this about 6 months ago. On exam no focal neuro deficits. Patient is well-appearing. Patient was given Toradol Reglan and Benadryl and had significant improvement. On reevaluation she states her pain is much better and the pounding has stopped. She states she is ready to go home. She will follow up with primary care in 1-2 days. She'll return if she has any worsening symptoms. Disposition Clinical Impression: Headache Disposition: HOME SELF-CARE Condition: Good Instructions: Acute Headache (ED), Migraine Headache (ED) Additional Instructions: Please take medications at home as prescribed. Please follow-up with primary care and neurology. Return to the emergency department if you have any worsening symptoms. Is patient prescribed a controlled substance at d/c from ED?: No Referrals: Dane Narayan MD [Primary Care Provider] - 1-2 days Time of Disposition: 03:01
[2018-08-19 03:26] VITALS: BP 113/55; PULSE 84; TEMP 98.6
== END 2018-08-19 03:24 | disposition home or self-care (01) ==
LOC: EC 23:59
DX: R51 Headache (principal); R11.0 Nausea; E78.5 Hyperlipidemia, unspecified; M19.90 Unspecified osteoarthritis, unspecified site; D64.9 Anemia, unspecified; F32.9 Major depressive disorder, single episode, unspecified; F41.0 Panic disorder [episodic paroxysmal anxiety]; Z79.3 Long term (current) use of hormonal contraceptives; Z85.828 Personal history of other malignant neoplasm of skin; Z79.84 Long term (current) use of oral hypoglycemic drugs; Z79.899 Other long term (current) drug therapy; Z88.1 Allergy status to other antibiotic agents; Z88.8 Allergy status to other drugs, medicaments and biological substances; Z91.048 Other nonmedicinal substance allergy status
CPT/HCPCS: 99283; 96374; 96375 ×2; 96361; J1200; J2765; J1885

== ENCOUNTER 2018-12-05 09:01 | Emergency (ER) | payer BC ==
[2018-12-05 09:08] VITALS: PULSE 79; TEMP 97.6
[2018-12-05] MEDS ORDERED: SODIUM CHLORIDE 0.9% 500 ML 500 ML IV STA (09:59)
[2018-12-05] MEDS ORDERED: PROMETHAZ-COD 6.25-10 MG/5 ML 5 ML CUP PO STA (10:00)
[2018-12-05] MEDS ORDERED: KETOROLAC 30 MG/ML 1 ML VIAL IVP STA (10:27)
[2018-12-05 10:54] LABS: Basophils % (A) 0 %; Eosinophils % (A) 1 %; HGB 13.6 gm/dL (11.4-16.0); Lymphocytes # (A) 0.4 k/uL (1.0-4.8); Lymphocytes % (A) 6 %; MCH 29.5 pg (25.0-35.0); MCHC 34.1 g/dL (31.0-37.0); MCV 86.6 fL (80.0-100.0); Mean Platelet Volume 6.3; Monocytes # (A) 0.3 k/uL (0-1.0); Monocytes % (A) 4 %; Neutrophils # (A) 5.9 k/uL (1.3-7.7); Neutrophils % (A) 89 %; Platelet Count 318 k/uL (150-450); RBC 4.62 m/uL (3.80-5.40); RDW 12.2 % (11.5-15.5); WBC 6.7 k/uL (3.8-10.6)
--- NOTE | 2018-12-05 10:55 | XR ---
EXAMINATION TYPE: XR chest 2V DATE OF EXAM: 12/05/2018 COMPARISON: 01/23/2015 HISTORY: Chest pain TECHNIQUE: Frontal and lateral views of the chest are obtained. FINDINGS: There is no focal air space opacity. No evidence for pneumothorax. No pleural effusion. The cardiac silhouette size is within normal limits. The osseous structures are grossly intact. IMPRESSION: 1. No acute cardiopulmonary process.
[2018-12-05 11:03] LABS: ALT 22 U/L (9-52); AST 19 U/L (14-36); Albumin 4.3 g/dL (3.5-5.0); Alkaline Phosphatase 71 U/L (38-126); Anion Gap 11 mmol/L; Blood Urea Nitrogen 10 mg/dL (7-17); Calcium 9.7 mg/dL (8.4-10.2); Carbon Dioxide 25 mmol/L (22-30); Chloride 105 mmol/L (98-107); Glucose 107 mg/dL (74-99); Potassium 4.1 mmol/L (3.5-5.1); Sodium 141 mmol/L (137-145); Total Bilirubin 0.4 mg/dL (0.2-1.3); Total Protein 7.2 g/dL (6.3-8.2)
[2018-12-05 11:12] LABS: D-Dimer 0.4 mg/L FEU (<0.60); Partial Thromboplastin Time 24.4 sec (22.0-30.0); Prothrombin Time 10.3 sec (9.0-12.0)
[2018-12-05 11:39] VITALS: BP 115/69; RESP 16
[2018-12-05] MEDS ORDERED: ACET/COD 300 MG/30 MG STARTER PACK 6 TAB BTL PO STA (11:52)
--- NOTE | 2018-12-05 11:53 | ED ---
General Adult HPI - General Chief complaint: Recheck/Abnormal Lab/Rx Stated complaint: chest & back pain Time Seen by Provider: 12/05/18 09:48 Source: patient, RN notes reviewed Mode of arrival: ambulatory Limitations: no limitations - History of Present Illness Initial comments: 28-year-old female presents emergency Department with chief complaint of right- sided chest wall pain. Patient states that she started this with yesterday worsened today she developed a dry cough. Patient states worse with movement and deep inspiration. Patient denies any prior cardiac disease. Patient does have underlying asthma but states that she is having no difficulty with this. Patient denies nausea, vomiting diarrhea constipation no abdominal pain. Patient states pain is radiating up slightly. Patient denies any trauma no rashes. - Related Data Home Medications Medication Instructions Recorded Confirmed ALPRAZolam [Xanax] 0.25 mg PO DAILY PRN 08/16/16 12/05/18 Aviane 1 tab PO DAILY 06/23/17 12/05/18 Albuterol Inhaler [Ventolin Hfa 2 puff INHALATION RT-Q6H PRN 10/03/17 12/05/18 Inhaler] Citalopram Hydrobromide [CeleXA] 40 mg PO HS 10/03/17 12/05/18 Ondansetron [Zofran] 4 mg PO Q8HR PRN 05/02/18 12/05/18 Rizatriptan Benzoate [Maxalt] 10 mg PO DAILY PRN 05/02/18 12/05/18 buPROPion SR [Wellbutrin SR] 150 mg PO HS 05/02/18 12/05/18 metFORMIN HCL [Glucophage] 850 mg PO HS 05/02/18 12/05/18 Aspirin/Acetaminophen/Caffeine 2 tab PO Q12H PRN 12/05/18 12/05/18 [Excedrin Migraine Caplet] Ibuprofen [Motrin] 800 mg PO Q6H PRN 12/05/18 12/05/18 Vitamin C/Biotin [Hair, Skin and 1 tab PO DAILY 12/05/18 12/05/18 Nails] Zonisamide [Zonegran] 100 mg PO Q12HR 12/05/18 12/05/18 Previous Rx's Medication Instructions Recorded predniSONE 50 mg PO DAILY #3 tab 12/05/18 Allergies Allergy/AdvReac Type Severity Reaction Status Date / Time adhesive tape Allergy peels skin Verified 12/05/18 09:39 and blisters baclofen AdvReac DYSTONIA Verified 12/05/18 09:39 cefaclor [From Ceclor] AdvReac Abdominal Verified 12/05/18 09:39 Pain clindamycin AdvReac Nausea & Verified 12/05/18 09:39 Vomiting Review of Systems ROS Statement: Those systems with pertinent positive or pertinent negative responses have been documented in the HPI. ROS Other: All systems not noted in ROS Statement are negative. Past Medical History Past Medical History: Cancer, GERD/Reflux, Hyperlipidemia, Osteoarthritis (OA) Additional Past Medical History / Comment(s): migranes and allergy/exercise induced asthma, anemia, arthritis bilateral knees, skin cancer with removals, constipation-past and current problem. History of Any Multi-Drug Resistant Organisms: None Reported Past Surgical History: Adenoidectomy, Hernia Repair, Orthopedic Surgery, Tonsillectomy Additional Past Surgical History / Comment(s): 08/19/16 tonsillectomy/adenoidectomy, tympanoplasty/tubes in ears, skin cancer removed x3 and scope of left knee, lipoma removed rt lower back Past Anesthesia/Blood Transfusion Reactions: Previous Problems w/ Anesthesia, Postoperative Nausea & Vomiting (PONV) Additional Past Anesthesia/Blood Transfusion Reaction / Comment(s): "when waking from anesthesia experiences overwhelming fear" Past Psychological History: Anxiety, Depression, Panic Disorder Smoking Status: Never smoker Past Alcohol Use History: Occasional Past Drug Use History: None Reported - Past Family History Mother Family Medical History: Thyroid Disorder Additional Family Medical History / Comment(s): hyperactive thyroid Father Family Medical History: Hyperlipidemia General Exam Limitations: no limitations General appearance: alert, in no apparent distress Head exam: Present: atraumatic, normocephalic, normal inspection Eye exam: Present: normal appearance, PERRL, EOMI. Absent: scleral icterus, conjunctival injection, periorbital swelling ENT exam: Present: normal exam, normal oropharynx, mucous membranes moist Neck exam: Present: normal inspection, full ROM. Absent: tenderness, meningismus, lymphadenopathy Respiratory exam: Present: normal lung sounds bilaterally, chest wall tenderness (Moderate tenderness with palpation of the right side of the chest). Absent: respiratory distress, wheezes, rales, rhonchi, stridor Cardiovascular Exam: Present: regular rate, normal rhythm, normal heart sounds. Absent: systolic murmur, diastolic murmur, rubs, gallop, clicks GI/Abdominal exam: Present: soft, normal bowel sounds. Absent: distended, tenderness, guarding, rebound, rigid Back exam: Absent: CVA tenderness (R), CVA tenderness (L) Neurological exam: Present: alert, oriented X3, CN II-XII intact Skin exam: Present: warm, dry, intact, normal color. Absent: rash Course Vital Signs 12/05/18 12/05/18 09:05 11:39 Temperature 97.6 F Pulse Rate 79 79 Respiratory 18 16 Rate Blood Pressure 137/84 115/69 O2 Sat by Pulse 100 98 Oximetry EKG Findings - EKG Comments: EKG Findings:: EKG performed at 10:22 sinus tachycardia with a rate of 103 TN 132 QRS 84 QT/QTC 374/489 Medical Decision Making - Medical Decision Making 28-year-old female present for right-sided chest wall pain. This is reproducible chest pain. Patient's pain is worse with movement and deep inspiration. Patient has a dry cough which worsened symptoms. This is con sistent with costochondritis versus pleurisy. Patient is improved after Toradol, cough suppressant. Patient will be discharged with steroids, Tylenol with codeine. Return parameters were discussed. - Lab Data Result diagrams: 12/05/18 10:26 12/05/18 10:26 Lab Results 12/05/18 12/05/18 12/05/18 Range/Units 10:26 10:26 10:26 WBC 6.7 (3.8-10.6) k/uL RBC 4.62 (3.80-5.40) m/uL Hgb 13.6 (11.4-16.0) gm/dL Hct 40.0 (34.0-46.0) % MCV 86.6 (80.0-100.0) fL MCH 29.5 (25.0-35.0) pg MCHC 34.1 (31.0-37.0) g/dL RDW 12.2 (11.5-15.5) % Plt Count 318 (150-450) k/uL Neutrophils % 89 % Lymphocytes % 6 % Monocytes % 4 % Eosinophils % 1 % Basophils % 0 % Neutrophils # 5.9 (1.3-7.7) k/uL Lymphocytes # 0.4 L (1.0-4.8) k/uL Monocytes # 0.3 (0-1.0) k/uL Eosinophils # 0.0 (0-0.7) k/uL Basophils # 0.0 (0-0.2) k/uL PT 10.3 (9.0-12.0) sec INR 1.0 (<1.2) APTT 24.4 (22.0-30.0) sec D-Dimer 0.40 (<0.60) mg/L FEU Sodium 141 (137-145) mmol/L Potassium 4.1 (3.5-5.1) mmol/L Chloride 105 (98-107) mmol/L Carbon Dioxide 25 (22-30) mmol/L Anion Gap 11 mmol/L BUN 10 (7-17) mg/dL Creatinine 0.47 L (0.52-1.04) mg/dL Est GFR (CKD-EPI)AfAm >90 (>60 ml/min/1.73 sqM) Est GFR (CKD-EPI)NonAf >90 (>60 ml/min/1.73 sqM) Glucose 107 H (74-99) mg/dL Calcium 9.7 (8.4-10.2) mg/dL Magnesium 2.0 (1.6-2.3) mg/dL Total Bilirubin 0.4 (0.2-1.3) mg/dL AST 19 (14-36) U/L ALT 22 (9-52) U/L Alkaline Phosphatase 71 (38-126) U/L Troponin I (0.000-0.034) ng/mL Total Protein 7.2 (6.3-8.2) g/dL Albumin 4.3 (3.5-5.0) g/dL 12/05/18 Range/Units 10:26 WBC (3.8-10.6) k/uL RBC (3.80-5.40) m/uL Hgb (11.4-16.0) gm/dL Hct (34.0-46.0) % MCV (80.0-100.0) fL MCH (25.0-35.0) pg MCHC (31.0-37.0) g/dL RDW (11.5-15.5) % Plt Count (150-450) k/uL Neutrophils % % Lymphocytes % % Monocytes % % Eosinophils % % Basophils % % Neutrophils # (1.3-7.7) k/uL Lymphocytes # (1.0-4.8) k/uL Monocytes # (0-1.0) k/uL Eosinophils # (0-0.7) k/uL Basophils # (0-0.2) k/uL PT (9.0-12.0) sec INR (<1.2) APTT (22.0-30.0) sec D-Dimer (<0.60) mg/L FEU Sodium (137-145) mmol/L Potassium (3.5-5.1) mmol/L Chloride (98-107) mmol/L Carbon Dioxide (22-30) mmol/L Anion Gap mmol/L BUN (7-17) mg/dL Creatinine (0.52-1.04) mg/dL Est GFR (CKD-EPI)AfAm (>60 ml/min/1.73 sqM) Est GFR (CKD-EPI)NonAf (>60 ml/min/1.73 sqM) Glucose (74-99) mg/dL Calcium (8.4-10.2) mg/dL Magnesium (1.6-2.3) mg/dL Total Bilirubin (0.2-1.3) mg/dL AST (14-36) U/L ALT (9-52) U/L Alkaline Phosphatase (38-126) U/L Troponin I <0.012 (0.000-0.034) ng/mL Total Protein (6.3-8.2) g/dL Albumin (3.5-5.0) g/dL Disposition Clinical Impression: Costochondritis, acute, Pleurisy Disposition: HOME SELF-CARE Condition: Stable Instructions (If sedation given, give patient instructions): Costochondritis (ED) Additional Instructions: Please return to the Emergency Department if symptoms worsen or any other concerns. Prescriptions: predniSONE 50 mg PO DAILY #3 tab Is patient prescribed a controlled substance at d/c from ED?: No Referrals: Dane Narayan MD [Primary Care Provider] - 1-2 days Time of Disposition: 11:52
== END 2018-12-05 11:59 | disposition home or self-care (01) ==
LOC: EC 09:01
DX: M94.0 Chondrocostal junction syndrome [Tietze] (principal); R09.1 Pleurisy; R05 Cough; J45.909 Unspecified asthma, uncomplicated; F41.9 Anxiety disorder, unspecified; F32.9 Major depressive disorder, single episode, unspecified; Z85.828 Personal history of other malignant neoplasm of skin; Z96.22 Myringotomy tube(s) status; Z98.890 Other specified postprocedural states; Z79.3 Long term (current) use of hormonal contraceptives; Z79.84 Long term (current) use of oral hypoglycemic drugs; Z79.899 Other long term (current) drug therapy; Z88.1 Allergy status to other antibiotic agents; Z91.048 Other nonmedicinal substance allergy status
CPT/HCPCS: 36415; 93005; 85379; 80053; 83735; 84484; 85025; 85610; 85730; 71046; 99285; 96374; 96361 ×2; J1885

== ENCOUNTER 2018-12-14 22:52 | Inpatient (IN) | payer BC ==
[2018-12-14] MEDS ORDERED: ACETAMINOPHEN TAB 325 MG TAB PO STA (23:21)
--- NOTE | 2018-12-14 23:28 | ED ---
Psych HPI - General Chief Complaint: Psychiatric Symptoms Stated Complaint: Suicidal Time Seen by Provider: 12/14/18 23:05 Source: patient Mode of arrival: ambulatory - History of Present Illness Initial Comments: Alis is a pleasant 28 yo female with past medical history of depression who presents the emergency department today for evaluation of suicidal thoughts. Patient has recently been undergoing outpatient evaluation for her chronic migraines she's also been evaluated in the emergency department due to her palpitations and pleuritic chest pain. She is an outpatient workup was negative for pulmonary embolism earlier today. Patient reports that she continues to have headaches and feels overwhelmed and states that she just wants to be done with life. Patient states that after being evaluated at the hospital she went home and thought maybe if she took a nap she would feel better however she laid in bed thinking that she doesn't want to live anymore she began thinking of ways she could end her life including overdosing on any of her home medications. Patient states she did not take any of her medications or attempted overdose but did feel to him to deduce at which time she asked her boyfriend to call her mother who brought her to the ER for evaluation. - Related Data Home Medications Medication Instructions Recorded Confirmed ALPRAZolam [Xanax] 0.25 mg PO BID PRN 08/16/16 12/14/18 Aviane 1 tab PO DAILY 06/23/17 12/14/18 Albuterol Inhaler [Ventolin Hfa 2 puff INHALATION RT-Q6H PRN 10/03/17 12/14/18 Inhaler] Citalopram Hydrobromide [CeleXA] 40 mg PO HS 10/03/17 12/14/18 Ondansetron [Zofran] 4 mg PO Q8HR PRN 05/02/18 12/14/18 Rizatriptan Benzoate [Maxalt] 10 mg PO DAILY PRN 05/02/18 12/14/18 buPROPion SR [Wellbutrin SR] 150 mg PO HS 05/02/18 12/14/18 Ibuprofen [Motrin] 800 mg PO Q6H PRN 12/05/18 12/14/18 Vitamin C/Biotin [Hair, Skin and 1 tab PO DAILY 12/05/18 12/14/18 Nails] Citalopram Hydrobromide [CeleXA] 20 mg PO HS 12/14/18 12/14/18 Allergies Allergy/AdvReac Type Severity Reaction Status Date / Time adhesive tape Allergy peels skin Verified 12/14/18 23:11 and blisters baclofen AdvReac DYSTONIA Verified 12/14/18 23:11 cefaclor [From Ceclor] AdvReac Abdominal Verified 12/14/18 23:11 Pain clindamycin AdvReac Nausea & Verified 12/14/18 23:11 Vomiting Review of Systems ROS Statement: Those systems with pertinent positive or pertinent negative responses have been documented in the HPI. ROS Other: All systems not noted in ROS Statement are negative. Past Medical History Past Medical History: Cancer, GERD/Reflux, Hyperlipidemia, Osteoarthritis (OA) Additional Past Medical History / Comment(s): migranes and allergy/exercise induced asthma, anemia, arthritis bilateral knees, skin cancer with removals, constipation-past and current problem. History of Any Multi-Drug Resistant Organisms: None Reported Past Surgical History: Adenoidectomy, Hernia Repair, Orthopedic Surgery, Tonsillectomy Additional Past Surgical History / Comment(s): 08/19/16 tonsillectomy/adenoidectomy, tympanoplasty/tubes in ears, skin cancer removed x3 and scope of left knee, lipoma removed rt lower back Past Anesthesia/Blood Transfusion Reactions: Previous Problems w/ Anesthesia, Postoperative Nausea & Vomiting (PONV) Additional Past Anesthesia/Blood Transfusion Reaction / Comment(s): "when waking from anesthesia experiences overwhelming fear" Past Psychological History: Anxiety, Depression, Panic Disorder Smoking Status: Never smoker Past Alcohol Use History: Occasional Past Drug Use History: None Reported - Past Family History Mother Family Medical History: Thyroid Disorder Additional Family Medical History / Comment(s): hyperactive thyroid Father Family Medical History: Hyperlipidemia General Exam - General Exam Comments Initial Comments: Physical Exam GENERAL: Patient is well-developed and well-nourished. Patient is nontoxic and well-hydrated and is in no distress. HENT: Normocephalic, Atraumatic. EYES: PERRL, EOMI PULMONARY: Unlabored respirations. CARDIOVASCULAR: RRR ABDOMEN: Soft and nontender with normal bowel sounds. SKIN: Skin is clear with no lesions or rashes and otherwise unremarkable. : Deferred NEUROLOGIC: Patient is alert and oriented x3. Moving all extremities spontaneously MUSCULOSKELETAL: Normal extremities with adequate strength and full range of motion. No lower extremity swelling or edema. No calf tenderness. PSYCHIATRIC: Crying, depressed, suicidal Limitations: no limitations Limitations: no limitations Course Vital Signs 12/14/18 12/15/18 22:58 02:09 Temperature 98.1 F Pulse Rate 116 H 104 H Respiratory 20 16 Rate Blood Pressure 126/74 129/86 O2 Sat by Pulse 97 97 Oximetry Medical Decision Making - Medical Decision Making The patient was seen and evaluated, history obtained from patient. Patient presenting with depression not wanting to live anymore thoughts of overdosing on her home medications Patient medically cleared for evaluation by EPS, patient was evaluated at [facility] and it was determined the patient should be admitted for inpatient care. Patient signed in voluntarily. - Lab Data Lab Results 12/14/18 12/14/18 Range/Units 23:20 23:20 Urine Color Yellow Urine Appearance Clear (Clear) Urine pH 6.5 (5.0-8.0) Ur Specific [place] 1.019 (1.001-1.035) Urine Protein Negative (Negative) Urine Glucose (UA) Negative (Negative) Urine Ketones Negative (Negative) Urine Blood Trace H (Negative) Urine Nitrite Negative (Negative) Urine Bilirubin Negative (Negative) Urine Urobilinogen <2.0 (<2.0) mg/dL Ur Leukocyte Esterase Negative (Negative) Urine RBC 3 (0-5) /hpf Urine WBC 2 (0-5) /hpf Ur Squamous Epith Cells <1 (0-4) /hpf Amorphous Sediment Rare H (None) /hpf Urine Bacteria Rare H (None) /hpf Hyaline Casts 4 H (0-2) /lpf Urine Mucus Rare H (None) /hpf Urine HCG, Qual Not Detected (Not Detectd) Urine Opiates Screen Not Detected (NotDetected) Ur Oxycodone Screen Not Detected (NotDetected) Urine Methadone Screen Not Detected (NotDetected) Ur Propoxyphene Screen Not Detected (NotDetected) Ur Barbiturates Screen Not Detected (NotDetected) U Tricyclic Antidepress Not Detected (NotDetected) Ur Phencyclidine Scrn Not Detected (NotDetected) Ur Amphetamines Screen Not Detected (NotDetected) U Methamphetamines Scrn Not Detected (NotDetected) U Benzodiazepines Scrn Detected H (NotDetected) Urine Cocaine Screen Not Detected (NotDetected) U Marijuana (THC) Screen Not Detected (NotDetected) Disposition Clinical Impression: Depression Disposition: TRANSFER TO PSYCH HOSP/UNIT Condition: Serious
[2018-12-14 23:51] LABS: Amorphous Sediment,Urine Rare /hpf; Appearance,Urine Clear (Clear); Bacteria,Urine Rare /hpf; Bilirubin,Urine Negative (Negative); Blood,Urine Trace (Negative); Color,Urine Yellow; Glucose,Urine (UA) Negative (Negative); Hyaline Casts,Urine 4 /lpf (0-2); Ketones,Urine Negative (Negative); Leukocyte Esterase,Urine Negative (Negative); Mucus,Urine Rare /hpf; Nitrite,Urine Negative (Negative); PH, Urine 6.5 (5.0-8.0); Protein,Urine Negative (Negative); RBC,Urine 3 /hpf (0-5); Specific Gravity,Urine 1.019 (1.001-1.035); Squamous Epithelial Cell,Urine <1 /hpf (0-4); Urobilinogen,Urine <2.0 mg/dL (<2.0); WBC,Urine 2 /hpf (0-5)
[2018-12-15 00:01] LABS: Amphetamine Screen,Urine Not Detected (NotDetected); Barbiturate Screen,Urine Not Detected (NotDetected); Benzodiazepines Screen,Urine Detected (NotDetected); Cocaine Screen,Urine Not Detected (NotDetected); Methadone Screen, Urine Not Detected (NotDetected); Opiate Screen,Urine Not Detected (NotDetected); Oxycodone Screen, Urine Not Detected (NotDetected); Phencyclidine Screen,Urine Not Detected (NotDetected); Tricyclic Antidepressant,Urine Not Detected (NotDetected); Urn Cannabinoid Scrn Not Detected (NotDetected)
[2018-12-15] MEDS ORDERED: ACETAMINOPHEN TAB 325 MG TAB PO PRN (02:22)
[2018-12-15] MEDS ORDERED: ALBUTEROL NEBULIZED 2.5 MG/3 ML INHALATION PRN (02:46)
[2018-12-15 03:20] VITALS: BMI 44.3
[2018-12-15] MEDS: SUMAtriptan SUCCINATE 50 MG TAB PO PRN (03:41)
[2018-12-15] MEDS: LORazepam 1 MG TAB PO PRN ×3 (03:42→21:04)
[2018-12-15] MEDS ORDERED: MAG HYDROX/AL HYDROX/SIMETH 30 ML CUP PO PRN (04:00)
[2018-12-15] MEDS ORDERED: ONDANSETRON 4 MG TAB PO PRN (08:00)
[2018-12-15] MEDS ORDERED: ALBUTEROL NEBULIZED 2.5 MG/3 ML INHALATION SCH (08:00)
[2018-12-15] MEDS ORDERED: VITAMIN C PO SCH (09:00)
[2018-12-15] MEDS ORDERED: buPROPion SR 150 MG TABLET.ER PO SCH (09:00)
[2018-12-15] MEDS ORDERED: MAGNESIUM HYDROXIDE 2,400 MG/10 ML CUP PO PRN (09:00)
[2018-12-15] MEDS ORDERED: ZIPRASIDONE 20 MG VIAL IM PRN (09:00)
[2018-12-15] MEDS ORDERED: BIOTIN PO SCH (09:00)
[2018-12-15] MEDS: AVIANE PO SCH (09:03)
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
[2018-12-15] MEDS: IBUPROFEN 800 MG TAB PO PRN (16:07)
[2018-12-15] MEDS: VENLAFAXINE HCL ER 37.5 MG CAP PO SCH (20:39)
[2018-12-15] MEDS: lamoTRIgine 25 MG TAB PO SCH (20:39)
--- NOTE | 2018-12-15 21:21 | P.MDCNMH ---
History of Present Illness H&P Date: 12/15/18 Chief Complaint: Suicidal ideation Patient is a 28-year-old female with a known history of asthma, hyperlipidemia, GERD, chronic migraine headaches and history of depression presents to ER due to suicidal ideation. Patient states that she planned to take excess amount of me dications. Patient has been undergoing outpatient evaluation for chronic migraine and is not improving symptomatically. Patient also was evaluated in the ER due to palpitations and pleuritic chest pain. Patient was given prednisone for 3 days. Patient had workup for PE negative. Patient says that she continues to have headache and feels overwhelmed and states that she does want to kill herself. Patient states that after being evaluated at the hospital she went home and thought maybe if she took a nap she would feel better however she laid in bed thinking that she doesn't want to live anymore she began thinking of ways she could end her life including overdosing on any of her home medications. Patient states she did not take any of her medications or attempted overdose but did feel to him to deduce at which time she asked her boyfriend to call her mother who brought her to the ER for evaluation. Patient says that she is having left frontal and temporal headache and also states that her eyes are strained. Patient states that she stopped her medications since Tuesday and is has been having daily headaches. UDS is positive for benzodiazepines Review of Systems Constitutional: Patient denies any fever or chills . No generalized weakness or weight loss. Abdomen: Patient denied nausea vomiting and diarrhea and abdominal pain. Cardiovascular: Patient denies any chest pain or short of breath no palpitations. Respiratory: patient denied any cough is from production. No shortness of breath Neurologic: Patient denied any numbness or tingling or patient does have frontal headache. Musculoskeletal: Patient denies any complaints of joint swelling or deformity. Skin: Negative Psychiatric: Feels depressed Endocrine: No heat or cold intolerance. No recent weight gain. Genitourinary: No dysuria or hematuria. All other 14 point ROS negative except the above Past Medical History Past Medical History: Cancer, GERD/Reflux, Hyperlipidemia, Osteoarthritis (OA) Additional Past Medical History / Comment(s): migranes and allergy/exercise induced asthma, anemia, arthritis bilateral knees, skin cancer with removals, constipation-past and current problem. History of Any Multi-Drug Resistant Organisms: None Reported Past Surgical History: Adenoidectomy, Hernia Repair, Orthopedic Surgery, Tonsillectomy Additional Past Surgical History / Comment(s): 08/19/16 tonsillectomy/adenoide ctomy, tympanoplasty/tubes in ears, skin cancer removed x3 and scope of left knee, lipoma removed rt lower back Past Anesthesia/Blood Transfusion Reactions: Previous Problems w/ Anesthesia, Postoperative Nausea & Vomiting (PONV) Additional Past Anesthesia/Blood Transfusion Reaction / Comment(s): "when waking from anesthesia experiences overwhelming fear" Smoking Status: Never smoker - Past Family History Mother Family Medical History: Thyroid Disorder Additional Family Medical History / Comment(s): hyperactive thyroid Father Family Medical History: Hyperlipidemia Medications and Allergies Home Medications Medication Instructions Recorded Confirmed Type ALPRAZolam [Xanax] 0.25 mg PO BID PRN 08/16/16 12/15/18 History Aviane 1 tab PO DAILY 06/23/17 12/15/18 History Albuterol Inhaler [Ventolin Hfa 2 puff INHALATION RT-Q6H PRN 10/03/17 12/15/18 History Inhaler] Citalopram Hydrobromide [CeleXA] 40 mg PO HS 10/03/17 12/15/18 History Ondansetron [Zofran] 4 mg PO Q8HR PRN 05/02/18 12/15/18 History Rizatriptan Benzoate [Maxalt] 10 mg PO DAILY PRN 05/02/18 12/15/18 History buPROPion SR [Wellbutrin SR] 150 mg PO HS 05/02/18 12/15/18 History Ibuprofen [Motrin] 800 mg PO Q6H PRN 12/05/18 12/15/18 History Vitamin C/Biotin [Hair, Skin and 1 tab PO DAILY 12/05/18 12/15/18 History Nails] Citalopram Hydrobromide [CeleXA] 20 mg PO HS 12/14/18 12/15/18 History Allergies Allergy/AdvReac Type Severity Reaction Status Date / Time adhesive tape Allergy peels skin Verified 12/15/18 02:49 and blisters baclofen AdvReac DYSTONIA Verified 12/15/18 02:49 cefaclor [From Ceclor] AdvReac Abdominal Verified 12/15/18 02:49 Pain clindamycin AdvReac Nausea & Verified 12/15/18 02:49 Vomiting Physical Exam Vitals: Vital Signs Temp Pulse Pulse Resp BP BP Pulse Ox 12/15/18 02:58 98.7 F 104 H 18 144/84 97 12/15/18 02:09 104 H 16 129/86 97 12/14/18 22:58 98.1 F 116 H 20 126/74 97 Intake and Output 12/14/18 12/15/18 12/15/18 22:59 06:59 14:59 Other: Weight 132.903 kg PHYSICAL EXAMINATION: Patient is lying in the bed comfortably, no acute distress, awake alert and oriented.. HEENT: Normocephalic. Neck is supple. Pupils reactive. Nostrils clear. Oral cavity is moist. Ears reveal no drainage. Neck reveals no JVD, carotid bruits, or thyromegaly. CHEST EXAMINATION: Trachea is central. Symmetrical expansion. Lung cabral clear to auscultation and percussion. CARDIAC: Normal S1, S2 with no gallops. No murmurs ABDOMEN: Soft. Bowel sounds normal. No organomegaly. No abdominal bruits. Extremities: reveal no edema. No clubbing or cyanosis Neurologically awake, alert, oriented x3 with well-coordinated movements. No focal deficits noted Skin: No rash or skin lesions. Psychiatric: Coperative. Depressed with out suicidal ideation currently. Musculoskeletal: No joint swelling or deformity. Normal range of motion. Cranial Nerve Examination - Cranial Nerves Cranial Nerve I- Olfactory: Intact Cranial Nerve II- Optic: Intact Cranial Nerve III- Oculomotor: Intact Cranial Nerve IV- Trochlear: Intact Cranial Nerve V- Trigeminal: Intact Cranial Nerve - Abducens: Intact Cranial Nerve VII- Facial: Intact Cranial Nerve VIII- Auditory: Intact Cranial Nerve IX- Glossopharyngeal: Intact Cranial Nerve X- Vagus: Intact Cranial Nerve XI- Accessory: Intact Cranial Nerve XII- Hypoglossal: Intact Results Labs: Abnormal Lab Results - Last 24 Hours (Table) 12/14/18 Range/Units 23:20 Urine Blood Trace H (Negative) Amorphous Sediment Rare H (None) /hpf Urine Bacteria Rare H (None) /hpf Hyaline Casts 4 H (0-2) /lpf Urine Mucus Rare H (None) /hpf U Benzodiazepines Scrn Detected H (NotDetected) Assessment and Plan Assessment: Severe depression with suicidal ideation Acute on Chronic migraine headaches Hyperlipidemia Osteoarthritis GERD History of skin cancer removal Exercise in induced asthma early ambulation for DVT prophylaxis Plan: Patient will be continued on current medications for depression. Continue with Imitrex for migraine headaches. Current with home medications and follow up closely. Further conditions based on the clinical course. We will continue to follow with you. Thank you for your consult. Time with Patient: Greater than 30
[2018-12-16] MEDS: AVIANE PO SCH (08:19)
[2018-12-16] MEDS: IBUPROFEN 800 MG TAB PO PRN ×2 (08:29→20:17)
[2018-12-16] MEDS: LORazepam 1 MG TAB PO PRN (08:29)
[2018-12-16 09:50] LABS: Basophils # (A) 0.1 k/uL (0-0.2); Basophils % (A) 1 %; Eosinophils # (A) 0.7 k/uL (0-0.7); Eosinophils % (A) 6 %; HCT 43.9 % (34.0-46.0); HGB 13.7 gm/dL (11.4-16.0); Lymphocytes # (A) 2.3 k/uL (1.0-4.8); Lymphocytes % (A) 20 %; MCHC 31.2 g/dL (31.0-37.0); Mean Platelet Volume 6.6; Monocytes # (A) 0.5 k/uL (0-1.0); Monocytes % (A) 4 %; Neutrophils # (A) 7.8 k/uL (1.3-7.7); Neutrophils % (A) 68 %; Platelet Count 414 k/uL (150-450); RBC 4.72 m/uL (3.80-5.40); RDW 13.2 % (11.5-15.5); WBC 11.5 k/uL (3.8-10.6)
[2018-12-16 10:00] LABS: MCV 92.9 fL (80.0-100.0)
[2018-12-16 10:10] LABS: ALT 37 U/L (9-52); AST 26 U/L (14-36); Albumin 4.1 g/dL (3.5-5.0); Alkaline Phosphatase 100 U/L (38-126); Anion Gap 12 mmol/L; Bilirubin, Delta 0.1 mg/dL (0.0-0.2); Bilirubin,Unconjugated 0.6 mg/dL (0.0-1.1); Blood Urea Nitrogen 11 mg/dL (7-17); Calcium 9.7 mg/dL (8.4-10.2); Carbon Dioxide 21 mmol/L (22-30); Chloride 107 mmol/L (98-107); Cholesterol 246 mg/dL (<200); Glucose 107 mg/dL (74-99); HDL Cholesterol 54 mg/dL (40-60); LDL Cholesterol,Calculated 176 mg/dL (0-99); Potassium 4.3 mmol/L (3.5-5.1); Sodium 140 mmol/L (137-145); Total Bilirubin 0.7 mg/dL (0.2-1.3); Total Protein 6.8 g/dL (6.3-8.2); Triglycerides 80 mg/dL (<150)
[2018-12-16] MEDS ORDERED: traZODone HCL 50 MG TAB PO PRN (17:25)
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
[2018-12-16] MEDS: lamoTRIgine 25 MG TAB PO SCH (20:17)
[2018-12-16] MEDS: VENLAFAXINE HCL ER 37.5 MG CAP PO SCH (20:17)
[2018-12-16 20:22] LABS: Hemoglobin A1C 5.2 % (4.0-6.0)
[2018-12-17] MEDS: AVIANE PO SCH (08:46)
--- NOTE | 2018-12-17 18:53 | PN ---
PROGRESS NOTE DATE OF SERVICE: 12/17/2018. CHIEF COMPLAINT: The patient had depression, anxiety and suicide thoughts. INTERVAL HISTORY: The patient has been doing fairly well. She said she had some difficulties last evening where towards bedtime she started getting racing thoughts. The said she was able to get to bed about 11:30 at night. She says she slept fairly well today. She has been up. She says her mood is better. She has a better outlook. She notes that she had has not taken any Ativan today and she feels anxiety is less since she has been able to be a little more active. She says that she has had a lot of things to process as far as what she will be facing when she is back home. She says she has had some ups and downs in her mood as she goes through this though overall feels that she is making progress. She engages in group activities. She tolerates psychotropic medications. MENTAL STATUS: Patient gave good eye contact. Psychomotor activity and speech were clear. Her thoughts were coherent and goal directed. Her affect was in the reasonable range. She had a quiet manner. Her mood was reserved, though not clearly down or depressed. She did appear to be significantly distressed. There was no indication of thought disorder. Cognition was clear. ASSESSMENT: I will continue the current diagnosis and treatment plan. I will continue psychotropic medications the same. I encouraged the patient to engage in some therapeutic walking and other activities to help manage some of her anxiety complaints without needing to turn to medications. The patient is making progress. We will continue to focus on stabilization and discharge planning. GABBI / REBECCA: [id number] /
[2018-12-17] MEDS: VENLAFAXINE HCL ER 37.5 MG CAP PO SCH (20:41)
[2018-12-17] MEDS: lamoTRIgine 25 MG TAB PO SCH (20:41)
[2018-12-17] MEDS: IBUPROFEN 800 MG TAB PO PRN (23:35)
[2018-12-17] MEDS: LORazepam 1 MG TAB PO PRN (23:35)
[2018-12-18] MEDS: AVIANE PO SCH (08:31)
[2018-12-18] MEDS: LORazepam 1 MG TAB PO PRN ×2 (08:33→23:12)
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
[2018-12-18] MEDS: ALBUTEROL INHALER 60 PUFF/8 GM INHALER INHALATION PRN ×2 (13:32→22:06)
[2018-12-18] MEDS: VENLAFAXINE HCL ER 75 MG CAP PO SCH (20:49)
[2018-12-18] MEDS ORDERED: lamoTRIgine 25 MG TAB PO SCH (21:00)
[2018-12-18] MEDS: cloNIDine HCL 0.1 MG TAB PO SCH (21:36)
[2018-12-19] MEDS: cloNIDine HCL 0.1 MG TAB PO SCH ×2 (08:54→19:46)
[2018-12-19] MEDS: AVIANE PO SCH (08:55)
[2018-12-19] MEDS: ALBUTEROL INHALER 60 PUFF/8 GM INHALER INHALATION PRN ×3 (09:04→19:53)
[2018-12-19] MEDS: LORazepam 1 MG TAB PO PRN ×2 (13:49→23:09)
--- NOTE | 2018-12-19 16:32 | PN ---
PROGRESS NOTE DATE OF SERVICE: 12/19/2018. CHIEF COMPLAINT: The patient had depression, anxiety and suicide thoughts. INTERVAL HISTORY: The patient has been doing fair. She had a quiet evening last night. She slept well. Today she has been up and she comes out in the day area. She attends groups. She is appropriate and makes good effort in group. She will interact with others. She says that she has been a little more anxious and down today compared to how she had been doing. She said on Tuesday, she had a very bright day. Today she did ask for Ativan for anxiety at 1:45 in the afternoon and she did not really identify what may be setting off anxiety for her. She has been cooperative with all aspects of care. The patient does note that the morning times can sometimes be harder for her. She said that a few different times during the day today, her pulse was running high. If she said once it was taken, it was 145 and another time 120. Staff documented vital signs after her medications this morning were normal with a pulse of 80. It is noted that at 0700 her blood pressure was down to 88/53 with a pulse of 98. She reports that she has been drinking plenty of fluid. She tolerates her psychotropic medications. MENTAL STATUS: Patient gave good eye contact. Psychomotor activity was slowed. Speech was somewhat monotone. She answered questions appropriately. Her thoughts were clear. Her affect was somewhat constricted. Her mood was quiet, was not clear that she was depressed. She did appear to be significantly distressed. She did have somewhat anxious manner. There was no indication of thought disorder. Cognition was clear. She was ambulatory with normal gait and strength. ASSESSMENT: I will continue the current diagnosis and treatment plan. I will continue psychotropic medications the same. We will monitor vital signs q shift. I encouraged the patient to come to staff if she does feel she is having any rapid heart rate. The patient appears to be making progress. We will continue to focus on stabilization and discharge planning. MMCATL / IJN: [id number] /
[2018-12-19] MEDS: VENLAFAXINE HCL ER 75 MG CAP PO SCH (19:46)
[2018-12-19] MEDS: diphenhydrAMINE 50 MG CAP PO PRN (19:46)
[2018-12-19] MEDS: IBUPROFEN 800 MG TAB PO PRN (19:47)
[2018-12-20 06:46] VITALS: TEMP 98.1
[2018-12-20] MEDS: cloNIDine HCL 0.1 MG TAB PO SCH (08:25)
[2018-12-20] MEDS: AVIANE PO SCH (08:26)
[2018-12-20] MEDS: ALBUTEROL INHALER 60 PUFF/8 GM INHALER INHALATION PRN ×2 (08:31→12:05)
[2018-12-20] MEDS: diphenhydrAMINE 50 MG CAP PO PRN ×2 (09:03→20:55)
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
[2018-12-20] MEDS: cloNIDine HCL 0.2 MG TAB PO SCH ×2 (15:17→20:55)
[2018-12-20] MEDS: SUMAtriptan SUCCINATE 50 MG TAB PO PRN (15:17)
[2018-12-20] MEDS ORDERED: DIVALPROEX ER 250 MG TAB.ER.24H PO SCH (21:00)
[2018-12-20] MEDS ORDERED: VENLAFAXINE HCL ER 150 MG CAP PO SCH (21:00)
[2018-12-21 07:00] VITALS: BP 99/55; PULSE 93; RESP 18
[2018-12-21] MEDS: AVIANE PO SCH (08:32)
[2018-12-21] MEDS: IBUPROFEN 800 MG TAB PO PRN (08:35)
[2018-12-21] MEDS: cloNIDine HCL 0.2 MG TAB PO SCH (08:36)
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
== END 2018-12-21 15:01 | disposition home or self-care (01) | DRG 881 ==
LOC: EC 22:52 → 3MHU 12-15 02:11
PROVIDERS: ADMIT Psychiatry & Neurology Psychiatry; ATTEND Psychiatry & Neurology Psychiatry
DX: F32.9 Major depressive disorder, single episode, unspecified (principal); R45.851 Suicidal ideations; G43.909 Migraine, unspecified, not intractable, without status migrainosus; K21.9 Gastro-esophageal reflux disease without esophagitis; E78.5 Hyperlipidemia, unspecified; M19.90 Unspecified osteoarthritis, unspecified site; F43.10 Post-traumatic stress disorder, unspecified; M17.0 Bilateral primary osteoarthritis of knee; F41.0 Panic disorder [episodic paroxysmal anxiety]; J45.990 Exercise induced bronchospasm; Z79.899 Other long term (current) drug therapy; Z85.828 Personal history of other malignant neoplasm of skin; Z91.410 Personal history of adult physical and sexual abuse; Z91.048 Other nonmedicinal substance allergy status; Z88.1 Allergy status to other antibiotic agents; Z88.8 Allergy status to other drugs, medicaments and biological substances; Z83.438 Family history of other disorder of lipoprotein metabolism and other lipidemia; Z83.49 Family history of other endocrine, nutritional and metabolic diseases
CPT/HCPCS: 80053; 80061; 80306; 81001; 81025; 82075; 82248; 83036; 84439; 84443; 84480; 85025; 93005; 94640; 99285

== ENCOUNTER 2019-10-24 14:21 | Emergency (ER) | payer BC ==
[2019-10-24 14:30] VITALS: TEMP 97.6
[2019-10-24] MEDS ORDERED: diphenhydrAMINE 50 MG/ML 1 ML VIAL IVP STA (14:51)
[2019-10-24] MEDS ORDERED: SODIUM CHLORIDE 0.9% 1,000 ML IV STA (14:51)
[2019-10-24] MEDS ORDERED: ONDANSETRON 4 MG/2 ML VIAL IVP STA (14:51)
[2019-10-24] MEDS ORDERED: KETOROLAC 30 MG/ML 1 ML VIAL IVP STA (14:51)
--- NOTE | 2019-10-24 15:32 | ED ---
Headache HPI - General Chief Complaint: Headache Stated Complaint: migraine Time Seen by Provider: 10/24/19 14:31 Mode of arrival: ambulatory Limitations: no limitations - History of Present Illness Initial Comments: Patient is a 29-year-old female presenting to emergency Department with complaints of a headache 4 days. Patient states she has a history of migraines and this feels similar. Patient states her headache has been progressing over the past few days and she is now having nausea and vomiting. Patient reports symptoms increased by light. She denies dizziness, fever, abdominal pain, diarrhea, chest pain, shortness of breath. Denies history of trauma or falls. She denies any numbness and tingling into her extremities. She has no other complaints at this time. Upon arrival to the ER her vital signs are stable. - Related Data Home Medications Medication Instructions Recorded Confirmed Aviane 1 tab PO DAILY 06/23/17 12/15/18 Rizatriptan Benzoate [Maxalt] 10 mg PO DAILY PRN 05/02/18 12/15/18 Ibuprofen [Motrin] 800 mg PO Q6H PRN 12/05/18 12/15/18 Vitamin C/Biotin [Hair, Skin and 1 tab PO DAILY 12/05/18 12/15/18 Nails] Previous Rx's Medication Instructions Recorded Albuterol Inhaler [Ventolin Hfa 2 puff INHALATION RT-QID PRN 30 12/21/18 Inhaler] Days #1 puff Aviane 1 tab PO DAILY 12/21/18 Divalproex ER [Depakote ER] 250 mg PO 2100 30 Days #30 12/21/18 tab.er.24h Venlafaxine HCl ER [Effexor XR] 150 mg PO 2100 30 Days #30 12/21/18 cap.er.24h cloNIDine HCL [Catapres] 0.2 mg PO TID 30 Days #90 tab 12/21/18 Metoclopramide [Reglan] 10 mg PO TID PRN #15 tab 10/24/19 Allergies Allergy/AdvReac Type Severity Reaction Status Date / Time adhesive tape Allergy peels skin Verified 12/15/18 02:49 and blisters lamotrigine [From Lamictal] Allergy Rash/Hives Verified 10/24/19 14:30 zonisamide Allergy anxiety Verified 10/24/19 14:30 baclofen AdvReac DYSTONIA Verified 12/15/18 02:49 cefaclor [From Ceclor] AdvReac Abdominal Verified 12/15/18 02:49 Pain clindamycin AdvReac Nausea & Verified 12/15/18 02:49 Vomiting Review of Systems ROS Statement: Those systems with pertinent positive or pertinent negative responses have been documented in the HPI. ROS Other: All systems not noted in ROS Statement are negative. Past Medical History Past Medical History: Cancer, GERD/Reflux, Hyperlipidemia, Osteoarthritis (OA) Additional Past Medical History / Comment(s): migranes and allergy/exercise induced asthma, anemia, arthritis bilateral knees, skin cancer with removals, constipation-past and current problem. History of Any Multi-Drug Resistant Organisms: None Reported Past Surgical History: Adenoidectomy, Hernia Repair, Orthopedic Surgery, Tonsillectomy Additional Past Surgical History / Comment(s): 08/19/16 tonsillectomy/adenoidectomy, tympanoplasty/tubes in ears, skin cancer removed x3 and scope of left knee, lipoma removed rt lower back Past Anesthesia/Blood Transfusion Reactions: Previous Problems w/ Anesthesia, Postoperative Nausea & Vomiting (PONV) Additional Past Anesthesia/Blood Transfusion Reaction / Comment(s): "when waking from anesthesia experiences overwhelming fear" Past Psychological History: Anxiety, Depression, Panic Disorder Smoking Status: Never smoker Past Alcohol Use History: None Reported Past Drug Use History: None Reported - Past Family History Mother Family Medical History: Thyroid Disorder Additional Family Medical History / Comment(s): hyperactive thyroid Father Family Medical History: Hyperlipidemia General Exam - General Exam Comments Initial Comments: GENERAL: Well-appearing, well-nourished and in no acute distress, but appears uncomfortable. HEAD: Atraumatic, normocephalic. EYES: Pupils equal round and reactive to light, extraocular movements intact, sclera anicteric, conjunctiva are normal. ENT: TMs normal, nares patent, oropharynx clear without exudates. Moist mucous membranes. NECK: Normal range of motion, supple without lymphadenopathy or JVD. LUNGS: Breath sounds clear to auscultation bilaterally and equal. No wheezes rales or rhonchi. HEART: Regular rate and rhythm without murmurs, rubs or gallops. ABDOMEN: Soft, nontender, normoactive bowel sounds. No guarding, no rebound. No masses appreciated. : Deferred EXTREMITIES: Normal range of motion, no pitting or edema. No clubbing or cyanosis. NEUROLOGICAL: Cranial nerves II through XII grossly intact. Normal speech, normal gait. PSYCH: Normal mood, normal affect. SKIN: Warm, Dry, normal turgor, no rashes or lesions noted. Limitations: no limitations Course Vital Signs 10/24/19 10/24/19 10/24/19 14:28 14:29 15:29 Temperature 97.6 F Pulse Rate 95 82 Respiratory 20 20 20 Rate Blood Pressure 135/86 138/83 O2 Sat by Pulse 99 100 Oximetry Medical Decision Making - Medical Decision Making Patient is a 29-year-old female presenting with a migraine 4 days. She has history of migraines and this feels similar. No trauma or injury. No neurological deficit. Patient was given fluids, pain meds, and nausea meds. She reports improvement in her symptoms. Patient is resting comfortably. She states she feels well to go home. She will follow-up with her neurologist. Return parameters were discussed with the patient she verbalized understanding. Patient is in agreement with this plan of care. Disposition Clinical Impression: Migraine headache Disposition: HOME SELF-CARE Condition: Stable Instructions (If sedation given, give patient instructions): Acute Headache (ED) Additional Instructions: Please return to the Emergency Department if symptoms worsen or any other concerns. May use the Reglan as needed for nausea. Follow up with neurologist Prescriptions: Metoclopramide [Reglan] 10 mg PO TID PRN #15 tab PRN Reason: GERD Is patient prescribed a controlled substance at d/c from ED?: No Referrals: Dane Narayan MD [Primary Care Provider] - 1-2 days
[2019-10-24] MEDS ORDERED: METOCLOPRAMIDE 5 MG/ML 2 ML VIAL IVP STA (16:30)
[2019-10-24 17:39] VITALS: BP 106/64; PULSE 80
[2019-10-24 17:40] VITALS: RESP 20
== END 2019-10-24 17:40 | disposition home or self-care (01) ==
LOC: EC 14:21
DX: G43.909 Migraine, unspecified, not intractable, without status migrainosus (principal); M17.0 Bilateral primary osteoarthritis of knee; K59.00 Constipation, unspecified; Z88.1 Allergy status to other antibiotic agents; Z88.2 Allergy status to sulfonamides; Z88.8 Allergy status to other drugs, medicaments and biological substances; Z91.048 Other nonmedicinal substance allergy status; Z79.1 Long term (current) use of non-steroidal anti-inflammatories (NSAID); Z79.3 Long term (current) use of hormonal contraceptives; Z85.828 Personal history of other malignant neoplasm of skin; Z98.890 Other specified postprocedural states
CPT/HCPCS: 99283; 96374; 96375 ×3; 96361 ×2; J1200; J2765; J2405; J1885

== ENCOUNTER 2019-10-27 21:24 | Emergency (ER) | payer BC ==
[2019-10-27] MEDS ORDERED: SODIUM CHLORIDE 0.9% 1,000 ML IV STA (21:37)
[2019-10-27] MEDS ORDERED: ONDANSETRON 4 MG/2 ML VIAL IVP STA (21:37)
[2019-10-27] MEDS ORDERED: MAG HYDROX/AL HYDROX/SIMETH 30 ML, HYOSCYAMINE ELIXIR 10 ML, LIDOCAINE VISCOUS 2% 10 ML PO STA ×3 (21:38)
[2019-10-27] MEDS ORDERED: ONDANSETRON ODT 4 MG TAB PO STA (21:43)
[2019-10-27 22:13] LABS: Appearance,Urine Cloudy (Clear); Bacteria,Urine Rare /hpf; Bilirubin,Urine Negative (Negative); Blood,Urine Small (Negative); Color,Urine Yellow; Glucose,Urine (UA) Negative (Negative); Ketones,Urine Negative (Negative); Leukocyte Esterase,Urine Moderate (Negative); Mucus,Urine Rare /hpf; Nitrite,Urine Negative (Negative); Protein,Urine Trace (Negative); RBC,Urine 4 /hpf (0-5); Specific Gravity,Urine 1.026 (1.001-1.035); Squamous Epithelial Cell,Urine 9 /hpf (0-4); Urobilinogen,Urine <2.0 mg/dL (<2.0); WBC,Urine 16 /hpf (0-5)
--- NOTE | 2019-10-27 22:23 | XR ---
EXAMINATION TYPE: XR KUB DATE OF EXAM: 10/27/2019 COMPARISON: NONE HISTORY: Abdominal pain TECHNIQUE: 3 views upright FINDINGS: Bowel gas pattern is normal. There is no sign of intestinal obstruction or pneumoperitoneum . Fecal pattern is normal. There is no sign of a mass. There are no pathologic calcifications over th e kidneys. IMPRESSION: Nonacute abdomen.
[2019-10-27 22:36] LABS: ALT 24 U/L (4-34); AST 27 U/L (14-36); African American GFR (CKD) >90 (>60 ml/min/1.73 sqM); Albumin 4.1 g/dL (3.5-5.0); Alkaline Phosphatase 112 U/L (38-126); Amylase 46 U/L (30-110); Anion Gap 9 mmol/L; Blood Urea Nitrogen 13 mg/dL (7-17); Calcium 9.3 mg/dL (8.4-10.2); Carbon Dioxide 27 mmol/L (22-30); Chloride 102 mmol/L (98-107); Glucose 91 mg/dL (74-99); Non-African American GFR(CKD) >90 (>60 ml/min/1.73 sqM); Potassium 4.4 mmol/L (3.5-5.1); Sodium 138 mmol/L (137-145); Total Bilirubin 0.2 mg/dL (0.2-1.3); Total Protein 6.9 g/dL (6.3-8.2)
[2019-10-27 22:50] LABS: Basophils # (A) 0.1 k/uL (0-0.2); Basophils % (A) 1 %; Eosinophils # (A) 0.7 k/uL (0-0.7); Eosinophils % (A) 5 %; HCT 44.5 % (34.0-46.0); HGB 13.9 gm/dL (11.4-16.0); Lymphocytes # (A) 3.6 k/uL (1.0-4.8); Lymphocytes % (A) 26 %; MCH 28.2 pg (25.0-35.0); MCHC 31.1 g/dL (31.0-37.0); MCV 90.6 fL (80.0-100.0); Mean Platelet Volume 7.2; Monocytes # (A) 0.6 k/uL (0-1.0); Monocytes % (A) 4 %; Neutrophils # (A) 8.8 k/uL (1.3-7.7); Neutrophils % (A) 63 %; Platelet Count 361 k/uL (150-450); RBC 4.91 m/uL (3.80-5.40); RDW 13.4 % (11.5-15.5); WBC 13.9 k/uL (3.8-10.6)
[2019-10-27 22:55] VITALS: RESP 16
--- NOTE | 2019-10-27 23:04 | US ---
EXAMINATION TYPE: US gallbladder DATE OF EXAM: 10/27/2019 COMPARISON: NONE CLINICAL HISTORY: gallbladder. EXAM MEASUREMENTS: Liver Length: 17.8 cm Gallbladder Wall: 0.3 cm CBD: 0.2 cm Right Kidney: 11.4 x 4.5 x 5.5 cm Patient 5'8", 340lbs, 3 hours post prandial. Exam severely limited by these factors. Pancreas: Obscured by bowel gas Liver: upper limits of normal in size, limited views due to overlying bowel gas and obesity Gallbladder: wnl as visualized, however due to post prandial status gallbladder is contracted and pa rtially obscured by overlying bowel gas, test could be repeated with patient properly prepped for priscilla t Evidence for sonographic King's sign: no CBD: wnl as seen, very limited visualization Right Kidney: No hydronephrosis or masses seen IMPRESSION: Limited exam. No gallstones or dilated ducts. No focal liver defect.
[2019-10-27 23:42] VITALS: BP 134/90; PULSE 92; TEMP 97.7
--- NOTE | 2019-10-27 23:48 | ED ---
General Adult HPI - General Chief complaint: Abdominal Pain Stated complaint: Abd pain Time Seen by Provider: 10/27/19 21:30 Source: patient, RN notes reviewed, old records reviewed Mode of arrival: ambulatory Limitations: no limitations - History of Present Illness Initial comments: 29-year-old female patient past history of acid hernia which was repaired approximately one year ago presents to ED for chief complaint of abdominal pain, nausea and vomiting. Patient reports that after eating dinner she began experiencing epigastric right upper quadrant pain nausea and vomiting. Denies any chance of being . Denies any other complaints. Systemic: Pt denies fatigue, fever/chills, rash. Pt denies weakness, night sweats, weight loss. Neuro: Pt denies headache, visual disturbances, syncope or pre-syncope. HEENT: Pt denies ocular discharge or irritation, otalgia, rhinorrhea, pharyngitis or notable lymphadenopathy. Cardiopulmonary: Pt denies chest pain, SOB, heart palpitations, dyspnea on exertion. : Pt denies dysuria, burning w/ urination, frequency/urgency. Denies new onset urinary or bowel incontinence. MSK: Pt denies myalgia, loss of strength or function in extremities. Neuro: Pt denies new onset weakness, paresthesias. - Related Data Home Medications Medication Instructions Recorded Confirmed Aviane 1 tab PO DAILY 06/23/17 12/15/18 Rizatriptan Benzoate [Maxalt] 10 mg PO DAILY PRN 05/02/18 12/15/18 Ibuprofen [Motrin] 800 mg PO Q6H PRN 12/05/18 12/15/18 Vitamin C/Biotin [Hair, Skin and 1 tab PO DAILY 12/05/18 12/15/18 Nails] Previous Rx's Medication Instructions Recorded Albuterol Inhaler [Ventolin Hfa 2 puff INHALATION RT-QID PRN 30 12/21/18 Inhaler] Days #1 puff Aviane 1 tab PO DAILY 12/21/18 Divalproex ER [Depakote ER] 250 mg PO 2100 30 Days #30 12/21/18 tab.er.24h Venlafaxine HCl ER [Effexor XR] 150 mg PO 2100 30 Days #30 12/21/18 cap.er.24h cloNIDine HCL [Catapres] 0.2 mg PO TID 30 Days #90 tab 12/21/18 Metoclopramide [Reglan] 10 mg PO TID PRN #15 tab 10/24/19 Pantoprazole Sodium [Protonix] 40 mg PO Q24HR 10 Days #10 10/27/19 tablet. Allergies Allergy/AdvReac Type Severity Reaction Status Date / Time adhesive tape Allergy peels skin Verified 10/27/19 21:28 and blisters lamotrigine [From Lamictal] Allergy Rash/Hives Verified 10/27/19 21:28 zonisamide Allergy anxiety Verified 10/27/19 21:28 baclofen AdvReac DYSTONIA Verified 10/27/19 21:28 cefaclor [From Ceclor] AdvReac Abdominal Verified 10/27/19 21:28 Pain clindamycin AdvReac Nausea & Verified 10/27/19 21:28 Vomiting Review of Systems ROS Statement: Those systems with pertinent positive or pertinent negative responses have been documented in the HPI. ROS Other: All systems not noted in ROS Statement are negative. Past Medical History Past Medical History: Cancer, GERD/Reflux, Hyperlipidemia, Osteoarthritis (OA) Additional Past Medical History / Comment(s): migranes and allergy/exercise induced asthma, anemia, arthritis bilateral knees, skin cancer with removals, constipation-past and current problem. History of Any Multi-Drug Resistant Organisms: None Reported Past Surgical History: Adenoidectomy, Hernia Repair, Orthopedic Surgery, Tonsillectomy Additional Past Surgical History / Comment(s): 08/19/16 tonsillectomy/adenoidectomy, tympanoplasty/tubes in ears, skin cancer removed x3 and scope of left knee, lipoma removed rt lower back Past Anesthesia/Blood Transfusion Reactions: Previous Problems w/ Anesthesia, Postoperative Nausea & Vomiting (PONV) Additional Past Anesthesia/Blood Transfusion Reaction / Comment(s): "when waking from anesthesia experiences overwhelming fear" Past Psychological History: Anxiety, Depression, Panic Disorder Smoking Status: Never smoker Past Alcohol Use History: None Reported Past Drug Use History: None Reported - Past Family History Mother Family Medical History: Thyroid Disorder Additional Family Medical History / Comment(s): hyperactive thyroid Father Family Medical History: Hyperlipidemia General Exam - General Exam Comments Initial Comments: Constitutional: NAD, AOX3, Pt has pleasant affect. HEENT: NC/AT, trachea midline, neck supple, no lymphadenopathy. Posterior pharynx non erythematous, without exudates. External ears appear normal, without discharge. Mucous membranes moist. Eyes PERRLA, EOM intact. There is no scleral icterus. No pallor noted. Cardiopulmonary: RRR, no murmurs, rubs or gallops, no JVD noted. Lungs CTAB in anterior and posterior cabral. No peripheral edema. Abdominal exam: Abdomen soft and non-distended. Abdomen mildly tender to palpation in epigastric right upper quadrant region. King sign is negative.. Bowel sounds active in LLQ. No hepatosplenomegaly. No ecchymosis Neuro: CN II-XII grossly intact. No nuchal rigidity. No raccon eyes, no ivy sign, no hemotympanum. No cervical spinal tenderness. MSK: No posterior calf tenderness bilaterally, homans sign negative bilaterally. Posterior tibialis and radial pulse +2 bilaterally. Sensation intact in upper and lower extremities. Full active ROM in upper and lower extremities, 5/5 stregnth. Limitations: no limitations Course Vital Signs 10/27/19 10/27/19 10/27/19 21:25 22:54 23:41 Temperature 97.2 F L 97.7 F Pulse Rate 131 H 89 92 Respiratory 20 16 16 Rate Blood Pressure 128/77 134/90 O2 Sat by Pulse 99 100 98 Oximetry Medical Decision Making - Medical Decision Making 29-year-old female patient past history of acid hernia which was repaired approx imately one year ago presents to ED for chief complaint of abdominal pain, nausea and vomiting. Patient reports that after eating dinner she began experiencing epigastric right upper quadrant pain nausea and vomiting. Denies any chance of being . Denies any other complaints. Patient vital signs are stable, afebrile. Physical exam displayed mild tenderness right upper quadrant epigastric region. Laboratory investigation displayed mild leukocytosis, likely reactive, otherwise are non-impressive. UA contaminated with squamous epithelial cells, patient denies dysuria. KUB displayed no acute abdoen. US was limited but did not display any dilated ducts or stones. Pt feeling much improved with GI coctail, zofran. Pt will be discharged with outpatient GI and surgical follow up. Will be DC with protonix. Will return to ED if condition worsens. Case dicussed with Dr. Cervantes. - Lab Data Result diagrams: 10/27/19 22:13 10/27/19 22:13 Lab Results 10/27/19 10/27/19 10/27/19 Range/Units 22:00 22:00 22:13 WBC 13.9 H (3.8-10.6) k/uL RBC 4.91 (3.80-5.40) m/uL Hgb 13.9 (11.4-16.0) gm/dL Hct 44.5 (34.0-46.0) % MCV 90.6 (80.0-100.0) fL MCH 28.2 (25.0-35.0) pg MCHC 31.1 (31.0-37.0) g/dL RDW 13.4 (11.5-15.5) % Plt Count 361 (150-450) k/uL Neutrophils % 63 % Lymphocytes % 26 % Monocytes % 4 % Eosinophils % 5 % Basophils % 1 % Neutrophils # 8.8 H (1.3-7.7) k/uL Lymphocytes # 3.6 (1.0-4.8) k/uL Monocytes # 0.6 (0-1.0) k/uL Eosinophils # 0.7 (0-0.7) k/uL Basophils # 0.1 (0-0.2) k/uL Sodium (137-145) mmol/L Potassium (3.5-5.1) mmol/L Chloride (98-107) mmol/L Carbon Dioxide (22-30) mmol/L Anion Gap mmol/L BUN (7-17) mg/dL Creatinine (0.52-1.04) mg/dL Est GFR (CKD-EPI)AfAm (>60 ml/min/1.73 sqM) Est GFR (CKD-EPI)NonAf (>60 ml/min/1.73 sqM) Glucose (74-99) mg/dL Plasma Lactic Acid Kvng (0.7-2.0) mmol/L Calcium (8.4-10.2) mg/dL Total Bilirubin (0.2-1.3) mg/dL AST (14-36) U/L ALT (4-34) U/L Alkaline Phosphatase (38-126) U/L Total Protein (6.3-8.2) g/dL Albumin (3.5-5.0) g/dL Amylase (30-110) U/L Lipase (23-300) U/L Urine Color Yellow Urine Appearance Cloudy H (Clear) Urine pH 6.0 (5.0-8.0) Ur Specific [place] 1.026 (1.001-1.035) Urine Protein Trace H (Negative) Urine Glucose (UA) Negative (Negative) Urine Ketones Negative (Negative) Urine Blood Small H (Negative) Urine Nitrite Negative (Negative) Urine Bilirubin Negative (Negative) Urine Urobilinogen <2.0 (<2.0) mg/dL Ur Leukocyte Esterase Moderate H (Negative) Urine RBC 4 (0-5) /hpf Urine WBC 16 H (0-5) /hpf Ur Squamous Epith Cells 9 H (0-4) /hpf Urine Bacteria Rare H (None) /hpf Urine Mucus Rare H (None) /hpf Urine HCG, Qual Not Detected (Not Detectd) 10/27/19 10/27/19 Range/Units 22:13 22:13 WBC (3.8-10.6) k/uL RBC (3.80-5.40) m/uL Hgb (11.4-16.0) gm/dL Hct (34.0-46.0) % MCV (80.0-100.0) fL MCH (25.0-35.0) pg MCHC (31.0-37.0) g/dL RDW (11.5-15.5) % Plt Count (150-450) k/uL Neutrophils % % Lymphocytes % % Monocytes % % Eosinophils % % Basophils % % Neutrophils # (1.3-7.7) k/uL Lymphocytes # (1.0-4.8) k/uL Monocytes # (0-1.0) k/uL Eosinophils # (0-0.7) k/uL Basophils # (0-0.2) k/uL Sodium 138 (137-145) mmol/L Potassium 4.4 (3.5-5.1) mmol/L Chloride 102 (98-107) mmol/L Carbon Dioxide 27 (22-30) mmol/L Anion Gap 9 mmol/L BUN 13 (7-17) mg/dL Creatinine 0.85 (0.52-1.04) mg/dL Est GFR (CKD-EPI)AfAm >90 (>60 ml/min/1.73 sqM) Est GFR (CKD-EPI)NonAf >90 (>60 ml/min/1.73 sqM) Glucose 91 (74-99) mg/dL Plasma Lactic Acid Kvng 2.0 (0.7-2.0) mmol/L Calcium 9.3 (8.4-10.2) mg/dL Total Bilirubin 0.2 (0.2-1.3) mg/dL AST 27 (14-36) U/L ALT 24 (4-34) U/L Alkaline Phosphatase 112 (38-126) U/L Total Protein 6.9 (6.3-8.2) g/dL Albumin 4.1 (3.5-5.0) g/dL Amylase 46 (30-110) U/L Lipase 113 (23-300) U/L Urine Color Urine Appearance (Clear) Urine pH (5.0-8.0) Ur Specific [place] (1.001-1.035) Urine Protein (Negative) Urine Glucose (UA) (Negative) Urine Ketones (Negative) Urine Blood (Negative) Urine Nitrite (Negative) Urine Bilirubin (Negative) Urine Urobilinogen (<2.0) mg/dL Ur Leukocyte Esterase (Negative) Urine RBC (0-5) /hpf Urine WBC (0-5) /hpf Ur Squamous Epith Cells (0-4) /hpf Urine Bacteria (None) /hpf Urine Mucus (None) /hpf Urine HCG, Qual (Not Detectd) Disposition Clinical Impression: Abdominal pain, Gastritis Disposition: HOME SELF-CARE Condition: Stable Instructions (If sedation given, give patient instructions): Gastritis (ED), Abdominal Pain (ED) Additional Instructions: Follow up with PCP, GI and surgical consult tomorrow. Take medications as directed. Return to ED if condition worsens in anyway. Prescriptions: Pantoprazole Sodium [Protonix] 40 mg PO Q24HR 10 Days #10 tablet.dr Is patient prescribed a controlled substance at d/c from ED?: No Referrals: Dane Narayan MD [Primary Care Provider] - 1-2 days Wayne Amaya MD [STAFF PHYSICIAN] - 1-2 days Estephanie Honeycutt MD [STAFF PHYSICIAN] - 1-2 days
== END 2019-10-28 00:02 | disposition home or self-care (01) ==
LOC: EC 21:24
DX: K29.70 Gastritis, unspecified, without bleeding (principal); D72.829 Elevated white blood cell count, unspecified; M19.90 Unspecified osteoarthritis, unspecified site; Z88.1 Allergy status to other antibiotic agents; Z88.2 Allergy status to sulfonamides; Z88.8 Allergy status to other drugs, medicaments and biological substances; Z91.048 Other nonmedicinal substance allergy status; Z79.1 Long term (current) use of non-steroidal anti-inflammatories (NSAID); Z79.3 Long term (current) use of hormonal contraceptives; Z85.828 Personal history of other malignant neoplasm of skin; Z87.19 Personal history of other diseases of the digestive system; Z98.890 Other specified postprocedural states; Z53.8 Procedure and treatment not carried out for other reasons
CPT/HCPCS: 36415; 74018; 76705; 80053; 81001; 81025; 82150; 83605; 83690; 85025; 87086; 96360; 96361; 99285

== ENCOUNTER → 2020-01-10 | Outpatient (CLI) | payer BC ==
--- NOTE | 2020-01-10 09:56 | FL ---
Barium swallow HISTORY: Dysphagia, heartburn, history fundoplasty April 2018 Patient was given high density barium to drink. Patient was evaluated under real-time fluoroscopy. 1. 19 seconds fluoroscopy time, 14 intraoperative images obtained. Swallowing mechanism is normal. No intrinsic or extrinsic esophageal lesion. The site of patient's ga stroesophageal junction there is fundoplasty change. The cephalad location there is recurrent small h iatal hernia present. No evident gastroesophageal reflux. IMPRESSION: Recurrent hiatal hernia. Postop changes.
== END | disposition home or self-care (01) ==
LOC: RADUSWWP 08:44
PROVIDERS: ATTEND Surgery Plastic and Reconstructive Surgery
DX: Z98.890 Other specified postprocedural states (principal); Z88.1 Allergy status to other antibiotic agents; Z88.8 Allergy status to other drugs, medicaments and biological substances; Z91.048 Other nonmedicinal substance allergy status
CPT/HCPCS: 74220

== ENCOUNTER → 2020-01-15 | Outpatient (CLI) | payer BC | END | disposition home or self-care (01) | LOC: LABWHC1 10:34 | PROVIDERS: ATTEND Surgery Plastic and Reconstructive Surgery | DX: Z11.59 Encounter for screening for other viral diseases (principal) | CPT/HCPCS: 87635 ==

== ENCOUNTER 2020-01-17 09:19 | Day surgery (SDC) | payer BC ==
[2020-01-15 15:57] VITALS: BMI 49.7
--- NOTE | 2020-01-16 19:37 | P.GSHP ---
History of Present Illness H&P Date: 01/17/20 CHIEF COMPLAINT: Dysphagia HISTORY OF PRESENT ILLNESS: The patient is a 29-year-old female who presents reports dysphagia. Upper endoscopy was offered for further evaluation and management. PAST MEDICAL HISTORY: Please see list. PAST SURGICAL HISTORY: Please see list. MEDICATIONS: Please see list. ALLERGIES: Please see list. SOCIAL HISTORY: No illicit drug use FAMILY HISTORY: No reports of Crohn disease or ulcerative colitis. REVIEW OF ORGAN SYSTEMS: CONSTITUTIONAL: No reports of fevers or chills. GI: Denies any blood in stools or constipation. PHYSICAL EXAM: VITAL SIGNS: Stable GENERAL: Well-developed and pleasant in no acute distress. HEENT: No scleral icterus. Extraocular movements grossly intact. Moist buccal mucosa. NECK: Supple without lymphadenopathy. CHEST: Unlabored respirations. Equal bilateral excursions. CARDIOVASCULAR: Regular rate and rhythm. Distal 2+ pulses. ABDOMEN: Soft, nondistended. MUSCULOSKELETAL: No clubbing, cyanosis, or edema. ASSESSMENT: 1. Dysphagia PLAN: 1. Recommend proceeding with an upper endoscopy Past Medical History Past Medical History: Cancer, GERD/Reflux, Hyperlipidemia, Osteoarthritis (OA) Additional Past Medical History / Comment(s): migranes, allergy/exercise induced asthma, anemia, arthritis knees, skin cancer ,. pneumonia February 2019, Takes metoprolol for elevated heart rate caused by effexor., states recurrent hiatal hernia (previous surgery)., hx of right foot surgery 01/04/20- has walking shoe. History of Any Multi-Drug Resistant Organisms: None Reported Past Surgical History: Adenoidectomy, Hernia Repair, Orthopedic Surgery, Tonsillectomy Additional Past Surgical History / Comment(s): 08/19/16 tonsillectomy/adenoidectomy, tympanoplasty/tubes in ears, skin cancer removed x3 ,scope left knee, lipoma removed on back, Hiatal Hernia repair (Apr 2018), Right foot plantar fasciotomy (01/04/20). Past Anesthesia/Blood Transfusion Reactions: Previous Problems w/ Anesthesia, Postoperative Nausea & Vomiting (PONV) Additional Past Anesthesia/Blood Transfusion Reaction / Comment(s): "when waking from anesthesia experiences overwhelming fear" Past Psychological History: Anxiety, Depression, Panic Disorder Additional Psychological History / Comment(s): . Smoking Status: Never smoker Past Alcohol Use History: Rare Past Drug Use History: None Reported - Past Family History Mother Family Medical History: Thyroid Disorder Additional Family Medical History / Comment(s): hyperactive thyroid Father Family Medical History: Hyperlipidemia Medications and Allergies Home Medications Medication Instructions Recorded Confirmed Type Rizatriptan Benzoate [Maxalt] 10 mg PO DAILY PRN 05/02/18 01/15/20 History Vitamin C/Biotin [Hair, Skin and 1 tab PO DAILY 12/05/18 01/15/20 History Nails] Albuterol Inhaler (Mhu) [Ventolin 2 puff INHALATION RT-QID PRN 30 12/21/18 01/15/20 Rx Hfa Inhaler (Mhu)] Days #1 puff Acetaminophen-Codeine 300-30mg 1 tab PO DIRECTED PRN 01/15/20 01/15/20 History [Tylenol w/codeine #3] Divalproex ER [Depakote ER] 250 mg PO HS 01/15/20 01/15/20 History Metoprolol Tartrate [Lopressor] 50 mg PO BID 01/15/20 01/15/20 History Ondansetron [Zofran] 4 mg PO Q8HR PRN 01/15/20 01/15/20 History Pnv No.95/Ferrous Fum/Folic AC 1 each PO DAILY 01/15/20 01/15/20 History [ Multivitamin Tablet] Allergies Allergy/AdvReac Type Severity Reaction Status Date / Time adhesive tape Allergy peels skin Verified 01/15/20 15:25 and blisters lamotrigine [From Lamictal] Allergy Rash/Hives Verified 01/15/20 15:25 zonisamide Allergy anxiety Verified 01/15/20 15:25 tuberculin,PPD,multi-puncture AdvReac Unknown FALSE Verified 01/15/20 15:41 POSITIVE baclofen AdvReac DYSTONIA Verified 01/15/20 15:25 cefaclor [From Ceclor] AdvReac Abdominal Verified 01/15/20 15:25 Pain clindamycin AdvReac Nausea & Verified 01/15/20 15:25 Vomiting
[~2020-01-17 09:19] MED LIST changes: -fentaNYL (PF) 50 MCG/ML 2 ML AMP IV PRN
[2020-01-17] MEDS ORDERED: LIDOCAINE 1% (10MG/ML) FOR IV START INTRADERMA ONE (09:45)
[2020-01-17 09:48] VITALS: RESP 16; TEMP 96.8
[2020-01-17] MEDS ORDERED: DEXAMETHASONE SOD PHOS (MDV) 100 MG/10 ML VIAL IVP ONE (10:06)
[2020-01-17] MEDS ORDERED: SCOPOLAMINE 1.5MG/72HR PATCH TRANSDERM ONE (10:06)
[2020-01-17] MEDS ORDERED: ONDANSETRON 4 MG/2 ML VIAL IVP ONE (10:06)
[2020-01-17] MEDS ORDERED: PROPOFOL 10 MG/ML 20 ML VIAL IV ONE (10:46)
[2020-01-17] MEDS ORDERED: LIDOCAINE 1% INJ 10MG/ML (20 ML MDV) ONE (10:46)
--- NOTE | 2020-01-17 10:57 | P.HPADDEND ---
H&P Addendum H&P Addendum Date: 01/17/20 Patient reports recurrent abdominal pain with hiatal hernia. We'll pursue upper endoscopy.
--- NOTE | 2020-01-17 11:02 | P.PCN ---
Date of Procedure: 01/17/20 Description of Procedure: PREOPERATIVE DIAGNOSIS: Dysphagia History of hiatal hernia repair Gastroesophageal reflux disease. Morbid obesity. POSTOPERATIVE DIAGNOSIS: Recurrent diaphragmatic hiatal hernia, incarcerated History of hiatal hernia repair Gastroesophageal reflux disease. Morbid obesity. OPERATION: Esophagogastroduodenoscopy with biopsies along antrum. SURGEON: Estephanie Honeycutt MD ANESTHESIA: MAC. INDICATIONS: The patient is a 29-year-old female who presents with a history of dysphagia following hiatal hernia repair. Benefits and risks of the procedure were described. Informed consent was obtained. DESCRIPTION: The patient was brought into the endoscopy suite and laid in the left lateral decubitus position. An Olympus gastroscope was passed along the posterior oropharynx down to the distal esophagus where the squamocolumnar junction was encountered at 40 cm from the incisors. The stomach was entered and no bile reflux was found. Additional findings are listed below. Biopsies with cold forceps were obtained of the antrum. The first through third portion of the duodenum was examined and unremarkable. Retroflexion of the scope confirmed Hill grade 4 lower esophageal valve. The squamocolumnar junction demonstrated LA grade A erosive esophagitis. The stomach was desufflated. The patient tolerated the procedure well. FINDINGS: Squamocolumnar junction 35 cm from the incisors. Diaphragmatic hiatus at 38 cm. Hiatal hernia, 3 cm Hill grade 4 lower esophageal valve. LA grade B erosive esophagitis. No active duodenitis. Chronic gastritis RECOMMENDATIONS: Upper endoscopy as needed. Plan - Discharge Summary New Discharge Prescriptions: Continue Rizatriptan Benzoate [Maxalt] 10 mg PO DAILY PRN PRN Reason: migraines Vitamin C/Biotin [Hair, Skin and Nails] 1 tab PO DAILY Albuterol Inhaler (Mhu) [Ventolin Hfa Inhaler (Mhu)] 2 puff INHALATION RT-QID PRN 30 Days #1 puff PRN Reason: Shortness Of Breath Divalproex ER [Depakote ER] 250 mg PO HS Acetaminophen-Codeine 300-30mg [Tylenol w/codeine #3] 1 tab PO DIRECTED PRN PRN Reason: Pain Ondansetron [Zofran] 4 mg PO Q8HR PRN PRN Reason: Nausea Metoprolol Tartrate [Lopressor] 50 mg PO BID Pnv No.95/Ferrous Fum/Folic AC [ Multivitamin Tablet] 1 each PO DAILY Discharge Medication List Rizatriptan Benzoate [Maxalt] 10 mg PO DAILY PRN 05/02/18 [History] Vitamin C/Biotin [Hair, Skin and Nails] 1 tab PO DAILY 12/05/18 [History] Albuterol Inhaler (Mhu) [Ventolin Hfa Inhaler (Mhu)] 2 puff INHALATION RT-QID PRN 30 Days #1 puff 12/21/18 [Rx] Acetaminophen-Codeine 300-30mg [Tylenol w/codeine #3] 1 tab PO DIRECTED PRN 01/15/20 [History] Divalproex ER [Depakote ER] 250 mg PO HS 01/15/20 [History] Metoprolol Tartrate [Lopressor] 50 mg PO BID 01/15/20 [History] Ondansetron [Zofran] 4 mg PO Q8HR PRN 01/15/20 [History] Pnv No.95/Ferrous Fum/Folic AC [ Multivitamin Tablet] 1 each PO DAILY 01/15/20 [History] Follow up Appointment(s)/Referral(s): Estephanie Honeycutt MD [STAFF PHYSICIAN] - 02/05/20 Patient Instructions/Handouts: *Surgery [facility] - Scopalamine Patch Instructions, Hiatal Hernia (DC) Discharge Disposition: HOME SELF-CARE
[2020-01-17 11:39] VITALS: BP 110/78; PULSE 68
== END 2020-01-17 11:40 | disposition home or self-care (01) ==
LOC: ORWHC2ENDO 09:19
PROVIDERS: ATTEND Surgery Plastic and Reconstructive Surgery
DX: K44.0 Diaphragmatic hernia with obstruction, without gangrene (principal); K21.0 Gastro-esophageal reflux disease with esophagitis; K22.10 Ulcer of esophagus without bleeding; K29.50 Unspecified chronic gastritis without bleeding; E66.01 Morbid (severe) obesity due to excess calories; M19.90 Unspecified osteoarthritis, unspecified site; G43.909 Migraine, unspecified, not intractable, without status migrainosus; E78.5 Hyperlipidemia, unspecified; F41.9 Anxiety disorder, unspecified; F41.0 Panic disorder [episodic paroxysmal anxiety]; F32.9 Major depressive disorder, single episode, unspecified; J45.909 Unspecified asthma, uncomplicated; Z91.048 Other nonmedicinal substance allergy status; Z88.1 Allergy status to other antibiotic agents; Z79.899 Other long term (current) drug therapy; Z68.42 Body mass index [BMI] 45.0-49.9, adult; Z90.49 Acquired absence of other specified parts of digestive tract; Z98.890 Other specified postprocedural states; Z88.8 Allergy status to other drugs, medicaments and biological substances; Z90.89 Acquired absence of other organs; Z87.01 Personal history of pneumonia (recurrent); Z85.828 Personal history of other malignant neoplasm of skin; Z83.49 Family history of other endocrine, nutritional and metabolic diseases
CPT/HCPCS: 81025; 88305; 43239; J2405; J2001; J1100; J2704

== ENCOUNTER → 2020-01-22 | Outpatient (CLI) | payer BC ==
--- NOTE | 2020-01-23 07:42 | NM ---
Nuclear medicine hepatobiliary scan. HISTORY: Pain. DOSAGE: The patient received 8 ounces of ensure plus micrograms of CCK and 5.4 mCi of Technetium 9 9m Choletec. FINDINGS: There is normal hepatic extraction. The gallbladder is seen by 15 minutes. There is bilia ry to bowel clearance by 50 minutes. Ejection fraction is 78%. IMPRESSION: 1. Normal hepatobiliary exam
== END | disposition home or self-care (01) ==
LOC: RADNMMAIN 13:06
PROVIDERS: ATTEND Surgery Plastic and Reconstructive Surgery
DX: K81.1 Chronic cholecystitis (principal); Z91.048 Other nonmedicinal substance allergy status; Z88.1 Allergy status to other antibiotic agents; Z88.8 Allergy status to other drugs, medicaments and biological substances
CPT/HCPCS: 78226; A9537

== ENCOUNTER 2020-02-20 09:28 | Day surgery (SDC) | payer BC ==
[2020-02-18 12:54] VITALS: BMI 48.6
--- NOTE | 2020-02-20 08:32 | P.GSHP ---
History of Present Illness H&P Date: 02/20/20 CHIEF COMPLAINT: Abdominal pain with diarrhea HISTORY OF PRESENT ILLNESS: The patient is a 29-year-old female who presents with abdominal pain including diarrhea. Lower endoscopy was offered for further evaluation and management. PAST MEDICAL HISTORY: Please see list. PAST SURGICAL HISTORY: Please see list. MEDICATIONS: Please see list. ALLERGIES: Please see list. SOCIAL HISTORY: No illicit drug use FAMILY HISTORY: No reports of Crohn disease or ulcerative colitis. REVIEW OF ORGAN SYSTEMS: CONSTITUTIONAL: No reports of fevers or chills. No reports of weight loss despite prior attempts. GI: Has diarrhea including change in bowel habits. PHYSICAL EXAM: VITAL SIGNS: Stable GENERAL: Well-developed pleasant male in no acute distress. HEENT: No scleral icterus. Extraocular movements grossly intact. Moist buccal mucosa. NECK: Supple without lymphadenopathy. CHEST: Unlabored respirations. Equal bilateral excursions. CARDIOVASCULAR: Regular rate and rhythm. Distal 2+ pulses. ABDOMEN: Soft, nontender, nondistended. MUSCULOSKELETAL: No clubbing, cyanosis, or edema. ASSESSMENT: 1. Change in bowel habits. 2. Diarrhea PLAN: 1. Recommend proceeding with a lower endoscopy Past Medical History Past Medical History: Cancer, GERD/Reflux, Hyperlipidemia, Osteoarthritis (OA) Additional Past Medical History / Comment(s): migraines, allergy/exercise induced asthma, past hx. anemia, arthritis bilateral knees, skin cancer with removals, constipation-past and current problem, irregular BM's, takes metoprolol for past hx. arrythmia/tachycardia, taking antibiotic for cyst lanced recently near groin area History of Any Multi-Drug Resistant Organisms: None Reported Past Surgical History: Adenoidectomy, Hernia Repair, Orthopedic Surgery, Tonsillectomy Additional Past Surgical History / Comment(s): 08/19/16 tonsillectomy/adenoidectomy, tympanoplasty/tubes in ears, skin cancer removed x3 and scope of left knee, lipoma removed rt lower back, deviated septoplasty, plantar fasciotomy right foot, recent EGD Past Anesthesia/Blood Transfusion Reactions: Previous Problems w/ Anesthesia, Motion Sickness, Postoperative Nausea & Vomiting (PONV) Additional Past Anesthesia/Blood Transfusion Reaction / Comment(s): "when waking from anesthesia experiences overwhelming fear" Smoking Status: Never smoker - Past Family History Mother Family Medical History: Thyroid Disorder Additional Family Medical History / Comment(s): hyperactive thyroid Father Family Medical History: Hyperlipidemia Medications and Allergies Home Medications Medication Instructions Recorded Confirmed Type Rizatriptan Benzoate [Maxalt] 10 mg PO DAILY PRN 05/02/18 02/18/20 History Vitamin C/Biotin [Hair, Skin and 1 tab PO DAILY 12/05/18 02/18/20 History Nails] Albuterol Inhaler (Mhu) [Ventolin 2 puff INHALATION RT-QID PRN 30 12/21/18 02/18/20 Rx Hfa Inhaler (u)] Days #1 puff Divalproex ER [Depakote ER] 250 mg PO HS 01/15/20 02/18/20 History Metoprolol Tartrate [Lopressor] 50 mg PO BID 01/15/20 02/18/20 History Ondansetron [Zofran] 4 mg PO Q8HR PRN 01/15/20 02/18/20 History Pnv No.95/Ferrous Fum/Folic AC 1 each PO DAILY 01/15/20 02/18/20 History [ Multivitamin Tablet] Cephalexin [Keflex] 500 mg PO Q12HR 02/18/20 02/18/20 History Ibuprofen [Motrin] 800 mg PO Q8H PRN 02/18/20 02/18/20 History Allergies Allergy/AdvReac Type Severity Reaction Status Date / Time adhesive tape Allergy peels skin Verified 02/18/20 12:37 and blisters lamotrigine [From Lamictal] Allergy Rash/Hives Verified 02/18/20 12:37 zonisamide Allergy anxiety Verified 02/18/20 12:37 tuberculin,PPD,multi-puncture AdvReac Unknown FALSE Verified 02/18/20 12:37 POSITIVE baclofen AdvReac DYSTONIA Verified 02/18/20 12:37 cefaclor [From Ceclor] AdvReac Abdominal Verified 02/18/20 12:37 Pain clindamycin AdvReac Nausea & Verified 02/18/20 12:37 Vomiting
[2020-02-20] MEDS ORDERED: LACTATED RINGERS 1,000 ML IV ONE (09:44)
[2020-02-20 09:50] VITALS: TEMP 97.3
[2020-02-20] MEDS ORDERED: LIDOCAINE 1% (10MG/ML) FOR IV START INTRADERMA ONE (09:59)
[2020-02-20] MEDS ORDERED: fentaNYL (PF) 50 MCG/ML 2 ML AMP ONE (10:39)
[2020-02-20] MEDS ORDERED: LIDOCAINE 1% INJ 10MG/ML (20 ML MDV) ONE (10:39)
[2020-02-20] MEDS ORDERED: PROPOFOL 10 MG/ML 20 ML VIAL IV ONE (10:39)
[2020-02-20] MEDS ORDERED: MIDAZOLAM 2 MG/2 ML VIAL ONE (10:39)
[2020-02-20 11:05] VITALS: RESP 16
--- NOTE | 2020-02-20 11:14 | P.PCN ---
Date of Procedure: 02/20/20 Description of Procedure: PREOPERATIVE DIAGNOSIS: Change in bowel habits POSTOPERATIVE DIAGNOSIS: Change in bowel habits OPERATION: Colonoscopy to the cecum, ileocecal valve and appendiceal orifice. Colonoscopy with random cold forceps biopsies for microscopic colitis SURGEON: Estephanie Honeycutt MD. ANESTHESIA: MAC. INDICATIONS: The patient is a 29-year-old female who presents with abdominal pain and change in bowel habits. Benefits and risks were described and informed consent was obtained. DESCRIPTION OF PROCEDURE: The patient had Suprep. She had been brought into the operating room and laid in the left lateral decubitus position. After adequate intravenous sedation, the rectum was examined with 2% lidocaine jelly. No external hemorrhoids were encountered. The rectal tone was within normal limits. No lesions were palpated in the rectal vault. An Olympus colonoscope was advanced until the cecum, ileocecal valve and appendiceal orifice were clearly viewed. The prep was excellent with clear visualization of the mucosal folds. The scope was removed with visualization of each mucosal fold. Random biopsies on the colon were obtained particular of the ascending colon cecum and proximal transverse colon for microscopic colitis. No scattered diverticulosis was encountered. No colo katie polyps were found. Retroflexion of the scope demonstrated grade 1 internal hemorrhoids without active bleeding or inflammation. The colon was desufflated. The patient had tolerated the procedure well. Withdrawal time was over 6 minutes. FINDINGS: Aronchick preparation quality scale 1 (1-5) Internal hemorrhoids, grade 1 No external prolapsed hemorrhoids. No arteriovenous malformations. No adenomatous polyps. Random cold forceps biopsies obtained for microscopic colitis RECOMMENDATIONS: Repeat colonoscopy as needed Plan - Discharge Summary Discharge Rx Participant: No New Discharge Prescriptions: Continue Rizatriptan Benzoate [Maxalt] 10 mg PO DAILY PRN PRN Reason: migraines Vitamin C/Biotin [Hair, Skin and Nails] 1 tab PO DAILY Albuterol Inhaler (Mhu) [Ventolin Hfa Inhaler (Mhu)] 2 puff INHALATION RT-QID PRN 30 Days #1 puff PRN Reason: Shortness Of Breath Divalproex ER [Depakote ER] 250 mg PO HS Ondansetron [Zofran] 4 mg PO Q8HR PRN PRN Reason: Nausea Metoprolol Tartrate [Lopressor] 50 mg PO BID Pnv No.95/Ferrous Fum/Folic AC [ Multivitamin Tablet] 1 each PO DAILY Ibuprofen [Motrin] 800 mg PO Q8H PRN PRN Reason: Pain Cephalexin [Keflex] 500 mg PO Q12HR Discharge Medication List Rizatriptan Benzoate [Maxalt] 10 mg PO DAILY PRN 05/02/18 [History] Vitamin C/Biotin [Hair, Skin and Nails] 1 tab PO DAILY 12/05/18 [History] Albuterol Inhaler (Mhu) [Ventolin Hfa Inhaler (Mhu)] 2 puff INHALATION RT-QID PRN 30 Days #1 puff 12/21/18 [Rx] Divalproex ER [Depakote ER] 250 mg PO HS 01/15/20 [History] Metoprolol Tartrate [Lopressor] 50 mg PO BID 01/15/20 [History] Ondansetron [Zofran] 4 mg PO Q8HR PRN 01/15/20 [History] Pnv No.95/Ferrous Fum/Folic AC [ Multivitamin Tablet] 1 each PO DAILY 01/15/20 [History] Cephalexin [Keflex] 500 mg PO Q12HR 02/18/20 [History] Ibuprofen [Motrin] 800 mg PO Q8H PRN 02/18/20 [History] Follow up Appointment(s)/Referral(s): Estephanie Honeycutt MD [STAFF PHYSICIAN] - 03/11/20 Patient Instructions/Handouts: *[facility] - (Anesthesia) Endoscopy Discharge Instructions, Colonoscopy (DC) Discharge Disposition: HOME SELF-CARE
[2020-02-20 11:22] VITALS: BP 113/67; PULSE 72
== END 2020-02-20 11:57 | disposition home or self-care (01) ==
LOC: ORWHC2ENDO 09:28
PROVIDERS: ATTEND Surgery Plastic and Reconstructive Surgery
DX: K64.0 First degree hemorrhoids (principal); E66.01 Morbid (severe) obesity due to excess calories; K21.9 Gastro-esophageal reflux disease without esophagitis; M19.90 Unspecified osteoarthritis, unspecified site; E78.5 Hyperlipidemia, unspecified; G43.909 Migraine, unspecified, not intractable, without status migrainosus; J45.909 Unspecified asthma, uncomplicated; Z79.899 Other long term (current) drug therapy; Z88.1 Allergy status to other antibiotic agents; Z88.8 Allergy status to other drugs, medicaments and biological substances; Z90.89 Acquired absence of other organs; Z98.890 Other specified postprocedural states; Z91.048 Other nonmedicinal substance allergy status; Z85.828 Personal history of other malignant neoplasm of skin; Z83.49 Family history of other endocrine, nutritional and metabolic diseases; Z68.42 Body mass index [BMI] 45.0-49.9, adult
CPT/HCPCS: 81025; 88305; 45380; J2250; J2001; J3010; J2704

== ENCOUNTER → 2020-03-05 | Outpatient (CLI) | payer BC ==
--- NOTE | 2020-03-05 15:23 | P.HPBAR ---
Bariatric H&P - History & Physicial H&P Date: 03/05/20 History & Physicial: Visit/CC: Initial Visit Patient initial contact: Initial weight: 149.856 kg Initial weight in pounds: 330.38 Height: 5 ft 8 in Initial BMI: 50.2 Last weight: Current weight: 149.856 kg Current weight in pounds: 330.38 Current BMI: 50.2 [place] body weight (based on NIH guidelines): 63.503 kg Excess body weight loss: 0.0% The patient is a 29 year-old F who presents for Bariatric Assessment. She comes in for the bypass due to severe reflux disease. Already hiatal hernia repair. She reports trouble with epigastric fullness along the abdomen. She wants to get . Risks of malnutrition. Needs blood work. Recommend labs later as she just got blood work yesterday. Needs cardiology. Past Medical History Past Medical History: Cancer, GERD/Reflux, Hyperlipidemia, Osteoarthritis (OA) Additional Past Medical History / Comment(s): migraines, allergy/exercise induced asthma, past hx. anemia, arthritis bilateral knees, skin cancer with r emovals, constipation-past and current problem, irregular BM's, takes metoprolol for past hx. arrythmia/tachycardia, taking antibiotic for cyst lanced recently near groin area History of Any Multi-Drug Resistant Organisms: None Reported Past Surgical History: Adenoidectomy, Hernia Repair, Orthopedic Surgery, Tonsillectomy Additional Past Surgical History / Comment(s): 08/19/16 tonsillectomy/adenoidectomy, tympanoplasty/tubes in ears, skin cancer removed x3 and scope of left knee, lipoma removed rt lower back, deviated septoplasty, plantar fasciotomy right foot, recent EGD Past Anesthesia/Blood Transfusion Reactions: Previous Problems w/ Anesthesia, Motion Sickness, Postoperative Nausea & Vomiting (PONV) Additional Past Anesthesia/Blood Transfusion Reaction / Comm: "when waking from anesthesia experiences overwhelming fear" Smoking Status: Never smoker - Past Family History Mother Family Medical History: Thyroid Disorder Additional Family Medical History / Comment(s): hyperactive thyroid Father Family Medical History: Hyperlipidemia Surgical - Exam Vital Signs Temp Pulse Resp BP 98.7 F 119 H 16 146/81 03/05/20 14:57 03/05/20 14:57 03/05/20 14:57 03/05/20 14:57 Bariatric Checklist Checklist: Plan: Checklist: EGD: 1. Hiatal hernia: 2. H. Pylori: HgbA1c: Vitamin D: Smoking: Never smoker Primary care physician referral: Dane Narayan MD Psychiatry clearance: Cardiology clearance: Sleep study: Diet journal: VTE risk score: VTE risk level: Rehab needs at discharge:
[2020-03-07 09:31] VITALS: BP 146/81; PULSE 119; RESP 16; TEMP 98.7; BMI 50.2
== END | disposition home or self-care (01) ==
LOC: BARWHC3 14:19
PROVIDERS: ATTEND Surgery Plastic and Reconstructive Surgery
DX: K21.9 Gastro-esophageal reflux disease without esophagitis (principal); R93.3 Abnormal findings on diagnostic imaging of other parts of digestive tract; Z98.890 Other specified postprocedural states
CPT/HCPCS: 99211

== ENCOUNTER → 2020-03-19 | Outpatient (CLI) | payer BC ==
[2020-03-19 09:52] LABS: HCT 44.3 % (34.0-46.0); MCH 29.7 pg (25.0-35.0); MCHC 31.5 g/dL (31.0-37.0); MCV 94.3 fL (80.0-100.0); Mean Platelet Volume 7.4; Platelet Count 352 k/uL (150-450); RDW 13.5 % (11.5-15.5); WBC 12.5 k/uL (3.8-10.6)
[2020-03-19 16:48] LABS: % Iron Saturation 15.47 (12.00-45.00); ALT 23 U/L (8-44); AST 19 U/L (13-35); African American GFR (CKD) 116.3 (60.0-200.0); Albumin/Globulin Ratio 2.32 (1.60-3.17); Alkaline Phosphatase 120 U/L (41-126); BUN/Creat Ratio 18.75 Ratio (12.00-20.00); Calcium 9.8 mg/dL (8.7-10.3); Carbon Dioxide 27.5 mmol/L (21.6-31.8); Chloride 101 mmol/L (96-109); Cholesterol 240 mg/dL (0-200); Globulin 1.9 g/dL (1.6-3.3); Glucose 90 mg/dL (70-110); Iron 56 ug/dL (50-170); Magnesium 1.9 mg/dL (1.5-2.4); Non-African American GFR(CKD) 100.3 (60.0-200.0); Phosphorus 3.9 mg/dL (2.4-5.1); Potassium 4.4 mmol/L (3.5-5.5); Sodium 139 mmol/L (135-145); Total Bilirubin 0.6 mg/dL (0.3-1.2); Total Iron Binding Capacity 362 ug/dL (228-460); Total Protein 6.3 g/dL (6.2-8.2)
[2020-03-19 16:58] LABS: Ferritin 73.8 ng/mL (10.0-291.0)
[2020-03-19 16:59] LABS: Folate, Serum >24.0 ng/mL
[2020-03-19 17:37] LABS: INR 0.97 (0.90-1.11); Partial Thromboplastin Time 28.7 sec (24.7-29.9); Prothrombin Time 10.4 sec (9.9-11.9)
[2020-03-19 20:18] LABS: Hemoglobin A1C 5.4 % (4.0-6.0)
[2020-03-20 13:25] LABS: Zinc, Serum 118 ug/dL (60-130)
[2020-03-21 06:52] LABS: Vitamin A 51 ug/dL (38-106)
[2020-03-21 13:34] LABS: Vit B1(Thiamine) 91 ug/L (38-122)
[2020-03-23 04:13] LABS: Selenium 91 mcg/L (63-160)
== END | disposition home or self-care (01) ==
LOC: LABWHC1 08:48
PROVIDERS: ATTEND Surgery Plastic and Reconstructive Surgery
DX: E21.1 Secondary hyperparathyroidism, not elsewhere classified (principal); D50.9 Iron deficiency anemia, unspecified; E44.0 Moderate protein-calorie malnutrition; E55.9 Vitamin D deficiency, unspecified; K74.1 Hepatic sclerosis; N19 Unspecified kidney failure; K50.90 Crohn's disease, unspecified, without complications
CPT/HCPCS: 36415; 80053; 80061; 82306; 82525; 82607; 82728; 82746; 83036; 83540; 83550; 83735; 83970; 84100; 84134; 84255; 84425; 84443; 84590; 84630; 85027; 85610; 85730

== ENCOUNTER → 2020-04-16 | Outpatient (CLI) | payer BC ==
[2020-04-16 15:23] VITALS: BP 140/86; PULSE 106; RESP 18; TEMP 98.2
--- NOTE | 2020-04-16 15:41 | P.PN ---
Subjective Progress Note Date: 04/16/20 She is looking into gastric bypass for GERD. Depakote and Metoprolol. She is trying to get . Labs reviewed. Objective - Vital Signs Vital signs: Vital Signs Temp 98.2 F 04/16/20 15:15 Pulse 106 H 04/16/20 15:15 Resp 18 04/16/20 15:15 BP 140/86 04/16/20 15:15 Pulse Ox Intake & Output 04/15/20 04/16/20 04/16/20 18:59 06:59 18:59 Weight 150.593 kg
== END | disposition home or self-care (01) ==
LOC: BARWHC3 14:21
PROVIDERS: ATTEND Surgery Plastic and Reconstructive Surgery
DX: K21.9 Gastro-esophageal reflux disease without esophagitis (principal); Z79.899 Other long term (current) drug therapy
CPT/HCPCS: 99211

== ENCOUNTER → 2020-04-16 | Outpatient (CLI) | payer BC | END | disposition home or self-care (01) | LOC: BARWHC3 14:21 | PROVIDERS: ATTEND Surgery Plastic and Reconstructive Surgery | DX: Z53.9 Procedure and treatment not carried out, unspecified reason (principal) ==

== ENCOUNTER → 2020-04-21 | Outpatient (CLI) | payer BC ==
[2020-04-21 11:13] VITALS: BMI 50.5
== END | disposition home or self-care (01) ==
LOC: BARWHC3 09:24
PROVIDERS: ATTEND Surgery Plastic and Reconstructive Surgery
DX: Z13.21 Encounter for screening for nutritional disorder (principal); Z71.3 Dietary counseling and surveillance
CPT/HCPCS: 97804

== ENCOUNTER → 2020-05-16 | Outpatient (CLI) | payer BC | END | disposition home or self-care (01) | LOC: LABPAT 13:11 | PROVIDERS: ATTEND Surgery Plastic and Reconstructive Surgery | DX: Z01.818 Encounter for other preprocedural examination (principal) | CPT/HCPCS: 93005 ==

== ENCOUNTER 2020-05-19 09:29 | Inpatient (IN) | payer BC ==
[2020-05-15 09:05] VITALS: BMI 49.7
--- NOTE | 2020-05-19 06:43 | P.GSHP ---
History of Present Illness H&P Date: 05/19/20 CHIEF COMPLAINT: Paraesophageal hiatal hernia with gastroesophageal reflux disease. HISTORY OF PRESENT ILLNESS: The patient is a 29-year-old female who presents with paraesophageal hiatal hernia. She has completed an upper endoscopy workup. Now she presents for surgical intervention. PAST MEDICAL HISTORY: Please see list. PAST SURGICAL HISTORY: Please see list. MEDICATIONS: Please see list. ALLERGIES: Please see list. SOCIAL HISTORY: Please see list. FAMILY HISTORY: Please see list. REVIEW OF ORGAN SYSTEMS: CONSTITUTIONAL: No reports of fevers or chills. GI: Denies any blood in stools or constipation. PHYSICAL EXAM: VITAL SIGNS: Stable GENERAL: Well-developed pleasant and in no acute distress. HEENT: No scleral icterus. Extraocular movements grossly intact. Moist buccal mucosa. NECK: Supple without lymphadenopathy. CHEST: Unlabored respirations. Equal bilateral excursions. CARDIOVASCULAR: Regular rate and rhythm. Distal 2+ pulses. ABDOMEN: Soft, nondistended. No peritoneal signs. MUSCULOSKELETAL: No clubbing, cyanosis, or edema. SKIN: Well-perfused. Good skin turgor. ASSESSMENT: 1. Diaphragmatic paraesophageal hiatal hernia with severe gastroesophageal reflux disease. PLAN: 1. Recommend proceeding with a robotic paraesophageal hiatal hernia with possible mesh. 2. Benefits and risks of surgical intervention was discussed including possibility of open technique. 3. Inpatient hospitalization recommended of 2 nights 4. DVT prophylaxis. 5. Antibiotic prophylaxis. 6. She has also completed a very low caloric high-protein diet to address underlying hepatomegaly. Past Medical History Past Medical History: Cancer, GERD/Reflux, Hyperlipidemia, Osteoarthritis (OA) Additional Past Medical History / Comment(s): migraines, allergy/exercise induced asthma, past hx. anemia, arthritis bilateral knees, skin cancer with removals, constipation-past and current problem, irregular BM's, takes metoprolol for past hx. arrythmia/tachycardia, History of Any Multi-Drug Resistant Organisms: None Reported Past Surgical History: Adenoidectomy, Hernia Repair, Orthopedic Surgery, Tonsillectomy Additional Past Surgical History / Comment(s): 08/19/16 tonsillectomy/adenoidectomy, tympanoplasty/tubes in ears, skin cancer removed x3 and scope of left knee, lipoma removed rt lower back, deviated septoplasty, plantar fasciotomy right foot, recent EGD Past Anesthesia/Blood Transfusion Reactions: Previous Problems w/ Anesthesia, Motion Sickness, Postoperative Nausea & Vomiting (PONV) Additional Past Anesthesia/Blood Transfusion Reaction / Comment(s): "when waking from anesthesia experiences overwhelming fear" Smoking Status: Never smoker - Past Family History Mother Family Medical History: Thyroid Disorder Additional Family Medical History / Comment(s): hyperactive thyroid Father Family Medical History: Hyperlipidemia Medications and Allergies Home Medications Medication Instructions Recorded Confirmed Type Rizatriptan Benzoate [Maxalt] 10 mg PO DAILY PRN 05/02/18 05/15/20 History Vitamin C/Biotin [Hair, Skin and 1 tab PO DAILY 12/05/18 05/15/20 History Nails] Albuterol Inhaler (Mhu) [Ventolin 2 puff INHALATION RT-QID PRN 30 12/21/18 05/15/20 Rx Hfa Inhaler (Mhu)] Days #1 puff Metoprolol Tartrate [Lopressor] 50 mg PO BID 01/15/20 05/15/20 History Ondansetron [Zofran] 4 mg PO Q8HR PRN 01/15/20 05/15/20 History Pnv No.95/Ferrous Fum/Folic AC 1 each PO DAILY 01/15/20 05/15/20 History [ Multivitamin Tablet] Ergocalciferol (Vitamin D2) 50,000 unit PO ONCE 04/16/20 05/15/20 History [Vitamin D2] Cyclobenzaprine [Flexeril] 10 mg PO BID 05/15/20 05/15/20 History Allergies Allergy/AdvReac Type Severity Reaction Status Date / Time adhesive tape Allergy peels skin Verified 05/15/20 08:56 and blisters lamotrigine [From Lamictal] Allergy Rash/Hives Verified 05/15/20 08:56 zonisamide Allergy anxiety Verified 05/15/20 08:56 tuberculin,PPD,multi-puncture AdvReac Unknown FALSE Verified 05/15/20 08:56 POSITIVE baclofen AdvReac DYSTONIA Verified 05/15/20 08:56 cefaclor [From Ceclor] AdvReac Abdominal Verified 05/15/20 08:56 Pain clindamycin AdvReac Nausea & Verified 05/15/20 08:56 Vomiting
[~2020-05-19 09:29] MED LIST changes: +ACETAMINOPHEN TAB 500 MG TAB PO STA; +CHLORHEXIDINE GLUCONATE 15 ML CUP MUCOUS MEM ONE; +DEXAMETHASONE SOD PHOSPHATE 10 MG/ML 1 ML VIAL IV ONE; +ENOXAPARIN 40 MG/0.4 ML SYRINGE SQ STA; +GABAPENTIN 300 MG CAP PO STA; +HYDROmorphone 0.5 MG/0.5 ML SYRINGE IVP PRN; +ONDANSETRON 4 MG/2 ML VIAL IVP ONE; +PANTOPRAZOLE 40 MG/10 ML VIAL IV STA; +SCOPOLAMINE 1.5MG/72HR PATCH TRANSDERM ONE; +ceFAZolin 3 GM in SODIUM CHLORIDE 0.9% 100 ML IVPB ONE
[2020-05-19 10:13] LABS: Basophils # (A) 0.1 k/uL (0-0.2); Basophils % (A) 1 %; Eosinophils # (A) 0.7 k/uL (0-0.7); Eosinophils % (A) 7 %; HCT 44.7 % (34.0-46.0); HGB 14.7 gm/dL (11.4-16.0); Lymphocytes # (A) 2.8 k/uL (1.0-4.8); Lymphocytes % (A) 27 %; MCH 29.3 pg (25.0-35.0); Monocytes # (A) 0.4 k/uL (0-1.0); Monocytes % (A) 4 %; Neutrophils # (A) 6.2 k/uL (1.3-7.7); Neutrophils % (A) 60 %; Platelet Count 409 k/uL (150-450); RBC 5.02 m/uL (3.80-5.40); WBC 10.3 k/uL (3.8-10.6)
[2020-05-19] MEDS ORDERED: fentaNYL (PF) 50 MCG/ML 2 ML AMP ONE (10:14)
[2020-05-19] MEDS ORDERED: PROPOFOL 10 MG/ML 20 ML VIAL IV ONE (10:14)
[2020-05-19] MEDS ORDERED: KETAMINE 10 MG/ML 20 ML VIAL ONE (10:14)
[2020-05-19] MEDS ORDERED: ROCURONIUM BROMIDE 10 MG/ML 5 ML VIAL IV ONE (10:14)
[2020-05-19] MEDS ORDERED: LIDOCAINE 1% INJ 10MG/ML (20 ML MDV) ONE (10:14)
[2020-05-19] MEDS ORDERED: MIDAZOLAM 2 MG/2 ML VIAL ONE (10:14)
[2020-05-19] MEDS ORDERED: METOPROLOL TARTRATE 5 MG/5 ML VIAL IVP ONE (10:14)
[2020-05-19] MEDS ORDERED: HYDROmorphone (PF) 1 MG/ML ONE (10:14)
[2020-05-19] MEDS ORDERED: ESMOLOL 100 MG/10 ML VIAL ONE (10:14)
[2020-05-19] MEDS ORDERED: NEOSTIGMINE 1 MG/ML 10 ML VIAL ONE (10:14)
[2020-05-19] MEDS ORDERED: GLYCOPYRROLATE 0.2 MG/ML 2 ML VIAL ONE (10:14)
[2020-05-19] MEDS ORDERED: SUCCINYLCHOLINE CHLORIDE VIAL 200 MG/10 ML VIAL IV ONE (10:14)
[2020-05-19 10:22] LABS: ALT 68 U/L (4-34); AST 67 U/L (14-36); African American GFR (CKD) >90 (>60 ml/min/1.73 sqM); Albumin 4.7 g/dL (3.5-5.0); Alkaline Phosphatase 104 U/L (38-126); Anion Gap 13 mmol/L; Blood Urea Nitrogen 9 mg/dL (7-17); Calcium 9.6 mg/dL (8.4-10.2); Carbon Dioxide 18 mmol/L (22-30); Chloride 107 mmol/L (98-107); Glucose 92 mg/dL (74-99); Non-African American GFR(CKD) >90 (>60 ml/min/1.73 sqM); Sodium 138 mmol/L (137-145); Total Bilirubin 1.1 mg/dL (0.2-1.3); Total Protein 7.6 g/dL (6.3-8.2)
[2020-05-19 10:32] LABS: Potassium 4.6 mmol/L (3.5-5.1)
[2020-05-19] MEDS ORDERED: LIDOCAINE 1%-EPI 1:100,000 20 ML VIAL SQ ONE (10:46)
[2020-05-19] MEDS ORDERED: NALOXONE 0.4 MG/ML 1 ML VIAL IV PRN (12:18)
[2020-05-19] MEDS ORDERED: ALBUTEROL NEBULIZED 2.5 MG/3 ML INHALATION PRN (12:22)
--- NOTE | 2020-05-19 12:33 | P.OP ---
Date of Procedure: 05/19/20 Description of Procedure: SURGEON: AMARI WILEY MD PREOPERATIVE DIAGNOSES: 1. Paraesophageal hiatal hernia, midline, recurrent 2. Gastroesophageal reflux disease. 3. History of previous Jess fundoplasty 4. Epigastric abdominal pain 5. Hypertensive heart disease POSTOPERATIVE DIAGNOSES: 1. Paraesophageal hiatal hernia, midline, recurrent 2. Gastroesophageal reflux disease. 3. History of previous Jess fundoplasty 4. Epigastric abdominal pain 5. Hypertensive heart disease OPERATION: 1. Robotic-assisted da Darlyn Xi laparoscopic takedown of Jess fundoplasty 2. Robotic-assisted da Darlyn Xi laparoscopic extensive lysis of adhesions over 30 minutes for perigastric adhesions 3. Robotic-assisted da Darlyn Xi laparoscopic reduction and repair of recurrent incarcerated paraesophageal hiatal hernia, 4 x 4 cm, with Nash Biopatch A 7 x 10 cm. 4. Intraoperative esophagogastroduodenoscopy 5. Placement of 56-Swiss bougie for pre-existing esophageal dysmotility Implants: Nash Biopatch A 7 x 10 cm Anesthesia: GETA, local Estimated Blood Loss (ml): 5 Pathology: none sent Condition: stable Disposition: floor Operative Findings: 1. Recurrent incarcerated paraesophageal hiatal hernia, x 4 cm 2. Adhesions perigastric with incarcerated hiatal hernia with previous Jess fundoplasty requiring over 39 minutes 3. Division and take down of fundoplasty using vessel sealer 4. Placement of 56 Fr bougie 5. Hill grade 1 lower esophageal sphincter confirmed upon upper endoscopy with mid esophageal mucosal defect, 3-cm INDICATIONS: The patient is a 29-year-old female who presents with gastroesophageal reflux and a symptomatic diaphragmatic hiatal hernia. Pr eoperative workup including upper endoscopy demonstrated recurrent hiatal hernia Jess fundoplasty. Given the severity of his symptoms, particularly of her symptomatic diaphragmatic hiatal hernia, surgical intervention was offered. Benefits and risks including bleeding, infection, recurrence, dysphagia, injury to the esophagus, and stomach injury to the lung, need for further surgery was described at length. Informed consent was obtained. DESCRIPTION: The patient was brought into the operating room and placed in supine position. Preoperatively she had received subcutaneously DVT prophylaxis. After general induction, the abdomen was prepped and draped in standard sterile fashion. Ioban draping was placed along the abdomen. A timeout protocol was confirmed with the surgical team, for which the patient's name, procedure to be performed including DVT prophylaxis with bilateral SCDs, and preoperative antibiotics were also confirmed. Robotic da Darlyn Xi system was prepped and primed. At 12 cm from the xiphoid to just below the umbilicus, proposed port sites were marked with indelible marker along the left axillary line, left mid-clavicular line with each ports were marked 10 cm from each other. A 5 mm 0 degrees laparoscopic trocar entry was performed along the left upper quadrant. The abdomen was insufflated to 15 mmHg pressure was tolerated well. Diagnostic laparoscopy demonstrated no injury to bowel, viscera, or mesentery. No injury had occurred to the small bowel or viscera. Along the hiatus, perigastric adhesions were found from the previous fundoplasty. Next, one 8 mm robotic port was placed along the right upper abdomen. An 8-mm port was were placed along the left lateral abdominal wall. The camera 8-mm port was maintained along the epigastrium. A 12 mm port was placed along the left upper abdominal wall after exchanging the 5 mm port. Please note that the ports were placed at least 20 cm away from the target anatomy. Care was taken to check that each robotic arm were safely away from collision with the bed or the patient. At the epigastrium, a medium sized Jayshree liver retractor was placed under direct visualization with the Iron Engine Assembly Supervisor placed under the right shoulder of the patient. The additional third robotic arm was used. The patient was repositioned in reverse Trendelenburg position at 21-degrees after lowering the bed. The robot was docked at the left side of the patient. Using a grasper for arm 3, a grasper for arm 1, including vessel sealer for arm 4, the robotic system was docked and primed as described. Instruments were interchanged by the mortgage loan assistant. I had sat at the console. The phrenoesophageal ligament had moderate scarring where the distal esophagus was mobilized circumferentially. Care was taken to avoid any injury to the stomach and esophagus. The hiatal hernia sac was incarcerated into the mediastinum and divided to allow complete mobilization and freeing of the distal esophagus into the abdominal cavity. Care was taken to avoid any gastrotomy with takedown of the Jess fundoplasty. Lysis of adhesions went for 30 minutes for dissection of the adherent stomach. The hernia sac was divided to release mobility of the esophagus. Dissection went to the mid esophagus. The measured defect was consistent with 4 cm axial length and 4 cm in width. Intra-abdominal esophageal length of over 3 cm was obtained. Once the hiatus and crura was dissected, nonabsorbable2-0 VLOC suture was placed as a running suture to re-approximate the diaphragmatic hiatus posteriorly. To buttress the repair, a Nash Biopatch A was prepared along the back table and cut to reinforce the repair as an underlay. The mesh was placed along the crural repair posteriorly then cut in half and tagged using horizontal mattress sutures using 2-0 VLOC. I went to the head of the bed to perform intraoperative esophagogastroduodenoscopy. An Olympus gastroscope was passed through posterior oropharynx, where the GE junction was found just distal to the diaphragmatic hiatus. Complete takedown of the Jess was confirmed as a tortuous winding stomach was unraveled. The stomach was entered. Chronic gastritis was found. Retroflexion of the scope confirmed Hill grade 1 lower esophageal sphincter. Intra-abdominal length of 3 cm was confirmed. The diaphragmatic hiatus was confirmed at 33 cm. The squamocolumnar junction was found at 36 cm. A 56-Swiss bougie was placed for 1 minute. The scope was reintroduced demonstrating a small 2 cm esophageal superficial mucosal defect. The stomach had been desufflated. This concluded the endoscopic portion of the case. The robot was undocked from the patient. I re-scrubbed into the case. All instruments and pneumoperitoneum were evacuated from the abdominal cavity. Incisions were reapproximated using 4-0 Monocryl in an interrupted subcuticular fashion. All incisions were cleaned using dilute hydrogen peroxide. Fascial incisions were less than 8 mm in size. Liquid glue was applied to the skin. Local anesthetic was infiltrated in all wounds for postop analgesia. Multiple intra-abdominal films were obtained. At the end of the procedure, needle, sponge, and instrument count was verified correct by the surgical garment assembly supervisor. The patient had tolerated the procedure well and was taken to the postanesthesia unit in stable condition. Intraoperative films were reviewed with the patient's family who were pleased with the level of care. Console time 45 minutes
[2020-05-19] MEDS: ALBUTEROL NEBULIZED 2.5 MG/3 ML INHALATION SCH ×2 (15:59→19:27)
[2020-05-19] MEDS: PIPERACILLIN-TAZOBACTAM 3.375 GM in SODIUM CHLORIDE 0.9% 100 ML IVPB SCH (16:50)
[2020-05-19] MEDS: 0.9% NACL WITH KCL 20 MEQ/L 1,000 ML IV SCH (16:50)
[2020-05-19] MEDS: HYOSCYAMINE ORAL DROPS 1.875 MG/15 ML BOTTLE PO SCH (16:54)
[2020-05-19] MEDS: SIMETHICONE 40 MG/0.6 ML DROPS 2,000 MG/30 ML BOTTLE PO SCH (16:54)
[2020-05-19] MEDS: KETOROLAC 15 MG/ML 1 ML VIAL IVP SCH (16:55)
--- NOTE | 2020-05-19 19:01 | P.PN ---
Progress Note - Text Progress Note Date: 05/19/20 Patient seen and evaluated. She reports dry throat. Otherwise no troubles with swallowing. Findings of upper endoscopy including surgery reviewed. Patient will continue with nothing by mouth except ice chips including antibiotics for small mucosal defect. Upper GI to be scheduled in 48 hours. Continue hospitalization for antibiotics including IV fluid hydration following complex hiatal hernia repair with takedown of Jess fundoplasty
[2020-05-19] MEDS: HYDROmorphone 1 MG/ML 1 ML SYRINGE IVP PRN (20:13)
[2020-05-19] MEDS: METOPROLOL TARTRATE 50 MG TAB PO SCH (20:14)
[2020-05-20] MEDS: 0.9% NACL WITH KCL 20 MEQ/L 1,000 ML IV SCH ×4 (00:03→17:23)
[2020-05-20] MEDS: PIPERACILLIN-TAZOBACTAM 3.375 GM in SODIUM CHLORIDE 0.9% 100 ML IVPB SCH ×4 (00:03→23:43)
[2020-05-20] MEDS: SIMETHICONE 40 MG/0.6 ML DROPS 2,000 MG/30 ML BOTTLE PO SCH ×5 (00:03→23:42)
[2020-05-20] MEDS: HYOSCYAMINE ORAL DROPS 1.875 MG/15 ML BOTTLE PO SCH ×5 (00:05→23:42)
[2020-05-20] MEDS: KETOROLAC 15 MG/ML 1 ML VIAL IVP SCH ×5 (00:05→23:41)
[2020-05-20] MEDS: ALBUTEROL NEBULIZED 2.5 MG/3 ML INHALATION SCH ×4 (07:26→20:39)
[2020-05-20] MEDS: PANTOPRAZOLE 40 MG/10 ML VIAL IV SCH (08:36)
[2020-05-20] MEDS: ENOXAPARIN 40 MG/0.4 ML SYRINGE SQ SCH (08:36)
[2020-05-20] MEDS: METOPROLOL TARTRATE 50 MG TAB PO SCH ×2 (08:36→20:57)
[2020-05-20 09:15] LABS: Basophils % (A) 0 %; Eosinophils # (A) 0.1 k/uL (0-0.7); Eosinophils % (A) 0 %; HCT 45.3 % (34.0-46.0); HGB 14.4 gm/dL (11.4-16.0); Lymphocytes # (A) 2.3 k/uL (1.0-4.8); Lymphocytes % (A) 18 %; MCH 28.9 pg (25.0-35.0); MCHC 31.7 g/dL (31.0-37.0); MCV 91.2 fL (80.0-100.0); Mean Platelet Volume 7.1; Monocytes # (A) 0.5 k/uL (0-1.0); Monocytes % (A) 4 %; Neutrophils # (A) 9.9 k/uL (1.3-7.7); Neutrophils % (A) 77 %; Platelet Count 361 k/uL (150-450); RBC 4.97 m/uL (3.80-5.40); RDW 13.2 % (11.5-15.5); WBC 12.9 k/uL (3.8-10.6)
[2020-05-20 09:19] LABS: African American GFR (CKD) >90 (>60 ml/min/1.73 sqM); Anion Gap 12 mmol/L; Blood Urea Nitrogen 6 mg/dL (7-17); Calcium 9.1 mg/dL (8.4-10.2); Carbon Dioxide 18 mmol/L (22-30); Chloride 109 mmol/L (98-107); Non-African American GFR(CKD) >90 (>60 ml/min/1.73 sqM); Phosphorus 2.9 mg/dL (2.5-4.5); Potassium 4.1 mmol/L (3.5-5.1); Sodium 139 mmol/L (137-145)
[2020-05-20] MEDS: HYDROmorphone 1 MG/ML 1 ML SYRINGE IVP PRN ×2 (09:54→21:44)
[2020-05-20] MEDS ORDERED: SCOPOLAMINE 1.5MG/72HR PATCH TRANSDERM SCH (12:30)
--- NOTE | 2020-05-20 14:49 | P.PN ---
Subjective Progress Note Date: 05/20/20 CHIEF COMPLAINT: Paraesophageal hiatal hernia with gastroesophageal reflux disease. HISTORY OF PRESENT ILLNESS: Patient is reporting abdominal pain. She is rating her pain 5 out of 10. She is reporting more pain in the left upper abdomen. She is passing gas. Denies any nausea or vomiting. She is tolerating ice chips. She is afebrile. White count 12.9. PHYSICAL EXAM: VITAL SIGNS: Reviewed GENERAL: Well-developed in no acute distress. HEENT: No sclera icterus. Extraocular movements grossly intact. Moist buccal mucosa. Head is atraumatic, normocephalic. Hears conversational speech. No nasal drainage. NECK: Supple without lymphadenopathy. CHEST: Non-labored respirations and equal bilateral excursions. CARDIOVASCULAR: Regular rate with regular rhythm. Palpable 2+ radial pulses. ABDOMEN: Soft. Nondistended. Incision sites clean dry and intact MUSCULOSKELETAL: No clubbing or cyanosis. NEUROLOGIC: No focal or lateralizing signs. Cranial nerves II through XII grossly intact. PSYCH: Appropriate affect. Alert and oriented to person, place and time. SKIN: Well perfused. Good skin turgor. ASSESSMENT: 1. Paraesophageal hiatal hernia, midline, recurrent . Status post Robotic- assisted da Darlyn Xi laparoscopic takedown of Jess fundoplasty, Robotic- assisted da Darlyn Xi laparoscopic extensive lysis of adhesions over 30 minutes for perigastric adhesions, Robotic-assisted da Darlyn Xi laparoscopic reduction and repair of recurrent incarcerated paraesophageal hiatal hernia,Intraoperative esophagogastroduodenoscopy and placement of 56-Romanian bougie for pre-existing e sophageal dysmotility 2. Gastroesophageal reflux disease. 3. History of previous Jess fundoplasty 4. Epigastric abdominal pain 5. Hypertensive heart disease PLAN: -Continue nothing by mouth except for ice chips -Check CBC and BMP in a.m. -Continue IV fluids -Continue pain medication as needed -Encourage patient to ambulate and use incentive spirometer Physician Cable Former note has been reviewed by physician. Signing provider agrees with the documented findings, assessment, and plan of care. Objective - Vital Signs Vital signs: Vital Signs Temp 98.2 F 05/20/20 12:10 Pulse 74 05/20/20 12:10 Resp 16 05/20/20 12:10 BP 102/56 05/20/20 12:10 Pulse Ox 95 05/20/20 12:10 Intake & Output 05/19/20 05/20/20 05/20/20 18:59 06:59 18:59 Intake Total 900 1740 770 Output Total 305 700 800 Balance 595 1040 -30 Weight 148.325 kg Intake: IV 900 Intake, IV Titration 650 Amount 0.9% NaCl with KCl 20 Meq 650 /l 1,000 ml @ 100 mls/hr IV .Q10H VISHAL Rx#: [id number] Oral 1740 Other 120 Output: Urine 300 700 800 Estimated Blood Loss 5 Other: # Voids 2 - Labs CBC & Chem 7: 05/20/20 08:43 05/20/20 08:43 Labs: Abnormal Lab Results - Last 24 Hours (Table) 05/20/20 05/20/20 Range/Units 08:43 08:43 WBC 12.9 H (3.8-10.6) k/uL Neutrophils # 9.9 H (1.3-7.7) k/uL Chloride 109 H (98-107) mmol/L Carbon Dioxide 18 L (22-30) mmol/L BUN 6 L (7-17) mg/dL
[2020-05-21] MEDS: HYDROmorphone 1 MG/ML 1 ML SYRINGE IVP PRN (01:12)
[2020-05-21 04:51] LABS: Basophils # (A) 0.1 k/uL (0-0.2); Basophils % (A) 1 %; Eosinophils # (A) 0.6 k/uL (0-0.7); Eosinophils % (A) 6 %; HCT 39.9 % (34.0-46.0); HGB 12.6 gm/dL (11.4-16.0); Lymphocytes # (A) 3.7 k/uL (1.0-4.8); Lymphocytes % (A) 37 %; MCH 28.5 pg (25.0-35.0); MCHC 31.5 g/dL (31.0-37.0); MCV 90.5 fL (80.0-100.0); Mean Platelet Volume 7.3; Monocytes # (A) 0.4 k/uL (0-1.0); Monocytes % (A) 4 %; Neutrophils % (A) 52 %; Platelet Count 282 k/uL (150-450); RBC 4.41 m/uL (3.80-5.40); RDW 13.4 % (11.5-15.5); WBC 9.8 k/uL (3.8-10.6)
[2020-05-21 04:58] LABS: African American GFR (CKD) >90 (>60 ml/min/1.73 sqM); Anion Gap 7 mmol/L; Blood Urea Nitrogen 4 mg/dL (7-17); Calcium 8.6 mg/dL (8.4-10.2); Carbon Dioxide 21 mmol/L (22-30); Chloride 109 mmol/L (98-107); Glucose 77 mg/dL (74-99); Non-African American GFR(CKD) >90 (>60 ml/min/1.73 sqM); Potassium 3.9 mmol/L (3.5-5.1); Sodium 137 mmol/L (137-145)
[2020-05-21] MEDS: KETOROLAC 15 MG/ML 1 ML VIAL IVP SCH ×2 (06:15→10:50)
[2020-05-21] MEDS: SIMETHICONE 40 MG/0.6 ML DROPS 2,000 MG/30 ML BOTTLE PO SCH ×4 (06:15→23:38)
[2020-05-21] MEDS: HYOSCYAMINE ORAL DROPS 1.875 MG/15 ML BOTTLE PO SCH ×4 (06:15→23:37)
[2020-05-21] MEDS: 0.9% NACL WITH KCL 20 MEQ/L 1,000 ML IV SCH ×4 (06:23→23:49)
[2020-05-21] MEDS: ALBUTEROL NEBULIZED 2.5 MG/3 ML INHALATION SCH ×4 (07:39→20:26)
[2020-05-21] MEDS: PIPERACILLIN-TAZOBACTAM 3.375 GM in SODIUM CHLORIDE 0.9% 100 ML IVPB SCH ×3 (08:37→23:41)
[2020-05-21] MEDS: ENOXAPARIN 40 MG/0.4 ML SYRINGE SQ SCH (08:38)
[2020-05-21] MEDS: PANTOPRAZOLE 40 MG/10 ML VIAL IV SCH (08:40)
[2020-05-21] MEDS: METOPROLOL TARTRATE 50 MG TAB PO SCH ×2 (08:43→21:21)
[2020-05-21] MEDS ORDERED: diphenhydrAMINE 50 MG/ML 1 ML VIAL IVP STA (09:40)
[2020-05-21] MEDS ORDERED: DEXAMETHASONE SOD PHOSPHATE 10 MG/ML 1 ML VIAL IV STA (09:40)
--- NOTE | 2020-05-21 13:28 | P.PN ---
Subjective Progress Note Date: 05/21/20 CHIEF COMPLAINT: Paraesophageal hiatal hernia with gastroesophageal reflux disease. HISTORY OF PRESENT ILLNESS: Patient is reporting improvement in her pain. She is passing gas. Denies any nausea or vomiting. She started on a bariatric clears. Esophagram results are pending. She is complaining of a rash underneath her breasts that goes in a straight line likely related to tape or dressing. It is itchy. White count normalized at 9.8 hemoglobin 12.6. She is afebrile. PHYSICAL EXAM: VITAL SIGNS: Reviewed GENERAL: Well-developed in no acute distress. HEENT: No sclera icterus. Extraocular movements grossly intact. Moist buccal mucosa. Head is atraumatic, normocephalic. Hears conversational speech. No nasal drainage. NECK: Supple without lymphadenopathy. CHEST: Non-labored respirations and equal bilateral excursions. CARDIOVASCULAR: Regular rate with regular rhythm. Palpable 2+ radial pulses. ABDOMEN: Soft. Nondistended. Incision sites clean dry and intact. Except mild erythema around 2 lower abdomen incisions MUSCULOSKELETAL: No clubbing or cyanosis. NEUROLOGIC: No focal or lateralizing signs. Cranial nerves II through XII grossly intact. PSYCH: Appropriate affect. Alert and oriented to person, place and time. SKIN: Well perfused. Good skin turgor. Patient has a rash noted underneath her breasts. ASSESSMENT: 1. Paraesophageal hiatal hernia, midline, recurrent. Status post Robotic- assisted da Darlyn Xi laparoscopic takedown of Jess fundoplasty, Robotic- assisted da Darlyn Xi laparoscopic extensive lysis of adhesions over 30 minutes for perigastric adhesions, Robotic-assisted da Darlyn Xi laparoscopic reduction and repair of recurrent incarcerated paraesophageal hiatal hernia,Intraoperative esophagogastroduodenoscopy and placement of 56-Albanian bougie for pre-existing esophageal dysmotility 2. Gastroesophageal reflux disease. 3. History of previous Jess fundoplasty 4. Epigastric abdominal pain 5. Hypertensive heart disease PLAN: -Patient started on bariatric clear liquid diet -Follow up on esophagram results -1 dose of Decadron and IV Benadryl given for rash -Continue IV fluids -Continue IV Zosyn -Continue pain medication as needed -Encourage patient to ambulate and use incentive spirometer -Lovenox for DVT prophylaxis and GI prophylaxis Protonix Physician Associate Professor Of Communication note has been reviewed by physician. Signing provider agrees with the documented findings, assessment, and plan of care. Objective - Vital Signs Vital signs: Vital Signs Temp 97.7 F 05/21/20 12:15 Pulse 94 05/21/20 12:15 Resp 18 05/21/20 12:15 BP 107/66 05/21/20 12:15 Pulse Ox 95 05/21/20 12:15 Intake & Output 05/20/20 05/21/20 05/21/20 18:59 06:59 18:59 Intake Total 770 3160 705 Output Total 800 3450 1100 Balance -30 -290 -395 Weight 148.325 kg Intake: Intake, IV Titration 650 800 525 Amount 0.9% NaCl with KCl 20 Meq 650 700 450 /l 1,000 ml @ 100 mls/hr IV .Q10H VISHAL Rx#: [id number] Piperacillin-Tazobactam 3 100 75 .375 gm In Sodium Chloride 0.9% 100 ml @ 25 mls/hr IVPB Q8HR VISHAL Rx# :[id number] Oral 1740 Other 120 620 180 Output: Urine 800 3450 1100 Other: # Voids 2 1 2 - Labs CBC & Chem 7: 05/21/20 04:21 05/21/20 04:21 Labs: Abnormal Lab Results - Last 24 Hours (Table) 05/21/20 Range/Units 04:21 Chloride 109 H (98-107) mmol/L Carbon Dioxide 21 L (22-30) mmol/L BUN 4 L (7-17) mg/dL
--- NOTE | 2020-05-21 13:45 | FL ---
EXAMINATION TYPE: FL esophagus cervic/pharynx DATE OF EXAM: 05/21/2020 COMPARISON: None HISTORY: Post Giovanny fundoplication TECHNIQUE: Fluoroscopy time: 0.53 minutes Contrast: 2 ounces [id number] Images: 14 Esophagus dilates to normal caliber has normal contour to the gastroesophageal junction. The gastroes ophageal junction is tight with moderate hesitancy of contrast passing through the post Giovanny fundop lication. No extravasation of contrast is evident. No free air is identified. The stomach is visualized appears normal. IMPRESSIONS: 1. Moderate hesitancy passing through the Giovanny fundoplication level. 2. No extravasation of contrast is evident.
[2020-05-21] MEDS: DEXAMETHASONE SOD PHOSPHATE 4 MG/ML 1 ML VIAL IV SCH ×2 (16:57→23:40)
[2020-05-21] MEDS: diphenhydrAMINE 50 MG/ML 1 ML VIAL IVP PRN ×2 (16:57→23:00)
[2020-05-22] MEDS: diphenhydrAMINE 50 MG/ML 1 ML VIAL IVP PRN ×2 (04:53→11:51)
[2020-05-22] MEDS: DEXAMETHASONE SOD PHOSPHATE 4 MG/ML 1 ML VIAL IV SCH ×2 (05:49→11:51)
[2020-05-22] MEDS: HYOSCYAMINE ORAL DROPS 1.875 MG/15 ML BOTTLE PO SCH ×2 (05:49→11:52)
[2020-05-22] MEDS: SIMETHICONE 40 MG/0.6 ML DROPS 2,000 MG/30 ML BOTTLE PO SCH ×2 (05:50→11:51)
[2020-05-22] MEDS: ALBUTEROL NEBULIZED 2.5 MG/3 ML INHALATION SCH ×3 (07:32→15:13)
[2020-05-22] MEDS: PIPERACILLIN-TAZOBACTAM 3.375 GM in SODIUM CHLORIDE 0.9% 100 ML IVPB SCH ×2 (08:45→15:59)
[2020-05-22] MEDS: 0.9% NACL WITH KCL 20 MEQ/L 1,000 ML IV SCH (08:45)
[2020-05-22] MEDS: METOPROLOL TARTRATE 50 MG TAB PO SCH (08:46)
[2020-05-22] MEDS: ENOXAPARIN 40 MG/0.4 ML SYRINGE SQ SCH (08:46)
[2020-05-22] MEDS: PANTOPRAZOLE 40 MG/10 ML VIAL IV SCH (08:46)
[2020-05-22 10:31] LABS: Basophils % (A) 0 %; Eosinophils # (A) 0.1 k/uL (0-0.7); Eosinophils % (A) 1 %; HGB 14.1 gm/dL (11.4-16.0); Lymphocytes # (A) 0.8 k/uL (1.0-4.8); Lymphocytes % (A) 7 %; MCH 30.1 pg (25.0-35.0); MCHC 33.5 g/dL (31.0-37.0); MCV 89.8 fL (80.0-100.0); Mean Platelet Volume 7.4; Monocytes # (A) 0.4 k/uL (0-1.0); Monocytes % (A) 3 %; Neutrophils # (A) 10.2 k/uL (1.3-7.7); Neutrophils % (A) 89 %; Platelet Count 352 k/uL (150-450); RBC 4.68 m/uL (3.80-5.40); RDW 13.4 % (11.5-15.5); WBC 11.4 k/uL (3.8-10.6)
--- NOTE | 2020-05-22 14:47 | P.DS ---
Providers Date of admission: 05/19/20 09:29 Expected date of discharge: 05/22/20 Attending physician: Estephanie Honeycutt Primary care physician: Dane [place] Hospital Course: Discharge diagnosis 1. Paraesophageal hiatal hernia, midline, recurrent. Status post Robotic- assisted da Darlyn Xi laparoscopic takedown of Jess fundoplasty, Robotic- assisted da Darlyn Xi laparoscopic extensive lysis of adhesions over 30 minutes for perigastric adhesions, Robotic-assisted da Darlyn Xi laparoscopic reduction and repair of recurrent incarcerated paraesophageal hiatal hernia, Intraoperative esophagogastroduodenoscopy and placement of 56-[place]icarag[place] bougie for pre-existing esophageal dysmotility 2. Gastroesophageal reflux disease. 3. History of previous Jess fundoplasty 4. Epigastric abdominal pain 5. Hypertensive heart disease 6. Leukocytosis secondary to Decadron Hospital course The patient is a 29-year-old female who presents with paraesophageal hiatal hernia. She is status post Robotic-assisted da Darlyn Xi laparoscopic takedown of Jess fundoplasty, Robotic-assisted da Darlyn Xi laparoscopic extensive lysis of adhesions over 30 minutes for perigastric adhesions, Robotic-assisted da Darlyn Xi laparoscopic reduction and repair of recurrent incarcerated paraesophageal hiatal hernia, Intraoperative esophagogastroduodenoscopy and placement of 56-Nicarag[place] bougie for pre-existing esophageal dysmotility. She had esophagram completed showing moderate hesitancy passing through the niece and publication level. No extravasation of contrast is evident. Patient has tolerated diet. Denies any difficulty swallowing. She is afebrile. She's up and ambulating. She is passing gas. She denies any abdominal pain. Physician Parasitology Teacher note has been reviewed by physician. Signing provider agrees with the documented findings, assessment, and plan of care. Patient Condition at Discharge: Stable Plan - Discharge Summary Discharge Rx Participant: Yes New Discharge Prescriptions: New bisacodyL [Dulcolax] 5 mg PO DAILY PRN #10 tablet.dr PRN Reason: Constipation Simethicone 40 mg/0.6 ml Drops [Mylicon Drops] 40 mg PO PCHS PRN #30 ml PRN Reason: Gas Omeprazole [PriLOSEC] 40 mg PO DAILY #30 capsule.dr Acetaminophen Oral Susp [Tylenol Oral Susp] 500 mg PO Q4-6H PRN #400 ml PRN Reason: Pain Ondansetron Odt [Zofran Odt] 4 mg PO Q8HR PRN #9 tab PRN Reason: Nausea Continue Rizatriptan Benzoate [Maxalt] 10 mg PO DAILY PRN PRN Reason: migraines Albuterol Inhaler (Mhu) [Ventolin Hfa Inhaler (Mhu)] 2 puff INHALATION RT-QID PRN 30 Days #1 puff PRN Reason: Shortness Of Breath Ondansetron [Zofran] 4 mg PO Q8HR PRN PRN Reason: Nausea Metoprolol Tartrate [Lopressor] 50 mg PO BID Cyclobenzaprine [Flexeril] 10 mg PO BID Discontinued Vitamin C/Biotin [Hair, Skin and Nails] 1 tab PO DAILY Pnv No.95/Ferrous Fum/Folic AC [ Multivitamin Tablet] 1 each PO DAILY Ergocalciferol (Vitamin D2) [Vitamin D2] 50,000 unit PO ONCE Acetaminophen [Tylenol] 500 mg PO DAILY PRN PRN Reason: Pain Discharge Medication List Rizatriptan Benzoate [Maxalt] 10 mg PO DAILY PRN 05/02/18 [History] Albuterol Inhaler (Mhu) [Ventolin Hfa Inhaler (Mhu)] 2 puff INHALATION RT-QID PRN 30 Days #1 puff 12/21/18 [Rx] Metoprolol Tartrate [Lopressor] 50 mg PO BID 01/15/20 [History] Ondansetron [Zofran] 4 mg PO Q8HR PRN 01/15/20 [History] Cyclobenzaprine [Flexeril] 10 mg PO BID 05/15/20 [History] Acetaminophen Oral Susp [Tylenol Oral Susp] 500 mg PO Q4-6H PRN #400 ml 05/22/20 [Rx] Omeprazole [PriLOSEC] 40 mg PO DAILY #30 capsule. 05/22/20 [Rx] Ondansetron Odt [Zofran Odt] 4 mg PO Q8HR PRN #9 tab 05/22/20 [Rx] Simethicone 40 mg/0.6 ml Drops [Mylicon Drops] 40 mg PO PCHS PRN #30 ml 05/22/20 [Rx] bisacodyL [Dulcolax] 5 mg PO DAILY PRN #10 tablet. 05/22/20 [Rx] Follow [facility]ment(s[facility] [place] [place] [facility] [place] [facility] Patient Instructions/Handouts: Ketorolac (By injection), Pain Management (ED), Laparoscopic Hiatal Hernia Repair (DC) Activity/Diet/Wound Care/Special Instructions: Liquid diet only. No carbonated beverages. No straws. No lifting over 4 pounds in 4 weeks, March 12. May shower. No bath tub soaks for 2 weeks until February 26. May take [id number] Tylenol for pain. Do not remove scopolamine patch for 3 days, if present Discharge Disposition: HOME SELF-CARE
[2020-05-22 16:06] VITALS: BP 101/57; PULSE 102; RESP 20; TEMP 97.1
== END 2020-05-22 17:10 | disposition home or self-care (01) | DRG 327 ==
LOC: 2ORMAIN 09:29 → 6PED 13:13
PROVIDERS: ADMIT Surgery Plastic and Reconstructive Surgery; ATTEND Surgery Plastic and Reconstructive Surgery
PROC: 0DN64ZZ Release Stomach, Percutaneous Endoscopic Approach (ICD-10-PCS; principal; 2020-05-19 11:25)
PROC: 8E0W4CZ Robotic Assisted Procedure of Trunk Region, Percutaneous Endoscopic Approach (ICD-10-PCS; principal; 2020-05-19 11:25)
PROC: 0DV44ZZ Restriction of Esophagogastric Junction, Percutaneous Endoscopic Approach (ICD-10-PCS; principal; 2020-05-19 11:25)
PROC: 0BUT4JZ Supplement Diaphragm with Synthetic Substitute, Percutaneous Endoscopic Approach (ICD-10-PCS; principal; 2020-05-19 11:25)
PROC: 0DJ08ZZ Inspection of Upper Intestinal Tract, Via Natural or Artificial Opening Endoscopic (ICD-10-PCS; principal; 2020-05-19 11:25)
DX: K44.0 Diaphragmatic hernia with obstruction, without gangrene (principal); Z68.42 Body mass index [BMI] 45.0-49.9, adult; I27.20 Pulmonary hypertension, unspecified; I11.9 Hypertensive heart disease without heart failure; E66.01 Morbid (severe) obesity due to excess calories; I73.9 Peripheral vascular disease, unspecified; R16.0 Hepatomegaly, not elsewhere classified; K21.9 Gastro-esophageal reflux disease without esophagitis; K29.50 Unspecified chronic gastritis without bleeding; K22.4 Dyskinesia of esophagus; K66.0 Peritoneal adhesions (postprocedural) (postinfection); D72.829 Elevated white blood cell count, unspecified; T38.0X5A Adverse effect of glucocorticoids and synthetic analogues, initial encounter; E78.5 Hyperlipidemia, unspecified; M17.0 Bilateral primary osteoarthritis of knee; G43.909 Migraine, unspecified, not intractable, without status migrainosus; K59.00 Constipation, unspecified; J45.990 Exercise induced bronchospasm; R21 Rash and other nonspecific skin eruption; Z79.899 Other long term (current) drug therapy; Z85.828 Personal history of other malignant neoplasm of skin; Z90.89 Acquired absence of other organs; Z87.19 Personal history of other diseases of the digestive system; Z87.39 Personal history of other diseases of the musculoskeletal system and connective tissue; Z87.2 Personal history of diseases of the skin and subcutaneous tissue; Z86.2 Personal history of diseases of the blood and blood-forming organs and certain disorders involving the immune mechanism; Z87.09 Personal history of other diseases of the respiratory system; Z86.79 Personal history of other diseases of the circulatory system; Z98.890 Other specified postprocedural states; Z71.3 Dietary counseling and surveillance; Z88.1 Allergy status to other antibiotic agents; Z88.7 Allergy status to serum and vaccine; Z88.8 Allergy status to other drugs, medicaments and biological substances; Z91.048 Other nonmedicinal substance allergy status; Z83.49 Family history of other endocrine, nutritional and metabolic diseases
CPT/HCPCS: 74210; 80048; 80051; 80053; 81025; 82310; 82565; 83735; 84100; 84520; 85025; 94640

== ENCOUNTER → 2020-07-02 | Outpatient (CLI) | payer BC ==
[2020-07-02 15:59] VITALS: BP 129/84; PULSE 66; TEMP 98.5; BMI 47.2
--- NOTE | 2020-07-02 16:18 | P.PN ---
Subjective Progress Note Date: 07/02/20 DATE OF SERVICE: 07/02/2020 CHIEF COMPLAINT: Morbid Obesity HISTORY OF PRESENT ILLNESS: Alis Bah is a 30-year-old female who comes with lifelong morbid obesity. She comes in looking into the gastric bypass. She has a long-standing history of gastroesophageal reflux disease including prior Jess fundoplication with hiatal hernia with recurrence. She is status post takedown of fundoplication including repair of recurrent hiatal hernia. She reports 5 pound weight gain in 1 month. She has occasional reflux with spicey foods however not like before since her recurrent hiatal hernia repair. She has undergone medical supervised weight loss over 6 months with overall success with net weight loss. Her highest weight was 340 pounds. She takes Omeprazole as needed for gastroesophageal reflux disease. She has a family with obesity. She does family support. She has developed hypertensive heart disease, osteoarthritis of the bilateral knees and hips, hyperlipidemia as a result of her morbid obesity. Now she is looking into permanent options for weight loss. She is looking into the gastric bypass for history of recurrent reflux disease. At height of 5 feet 8 inches, her ideal body weight is 163 pounds. Her highest weight was 340 pounds, BMI 51.8. She comes in 310 pounds, BMI 47.3. She has lost 30 pounds from her highest. She is 147 pounds overweight. PAST MEDICAL HISTORY: 1. Morbid obesity due to excess calories 2. Body mass index of 51.8 initial 3. Osteoarthritis of the knees. 4. Osteoarthritis of the lower back. 5. Hypertensive heart disease. 6. Gastroesophageal reflux disease 7. Hyperlipidemia 8. Asthma 9. Migraines 10. Tachyarrhythmia 11. Skin cancer, resected 12. Plantar fasciitis 13. Postoperative nausea and vomiting 14. Anxiety disorder 15. Depressive disorder 16. Panic disorder PAST SURGICAL HISTORY: 1. Jess fundoplication with hiatal hernia repair 2. Takedown this of fundoplication with repair of recurrent hiatal hernia 3. Tonsillectomy/adenoidectomy 4. Upper endoscopy 5. Repair of deviated septum 6. Plantar fasciotomy 7. Left knee arthroscopy 8. Skin cancer removal 3 9. Excision of back lipoma HOME MEDICATIONS: Home Medications Medication Instructions Recorded Confirmed Rizatriptan Benzoate [Maxalt] 10 mg PO DAILY PRN 05/02/18 05/28/20 Metoprolol Tartrate [Lopressor] 50 mg PO BID 01/15/20 05/28/20 Ondansetron [Zofran] 4 mg PO Q8HR PRN 01/15/20 05/28/20 Cyclobenzaprine [Flexeril] 10 mg PO BID 05/15/20 05/28/20 Previous Rx's Medication Instructions Recorded Albuterol Inhaler (Mhu) [Ventolin 2 puff INHALATION RT-QID PRN 30 12/21/18 Hfa Inhaler (Mhu)] Days #1 puff Acetaminophen Oral Susp [Tylenol 500 mg PO Q4-6H PRN #400 ml 05/22/20 Oral Susp] Omeprazole [PriLOSEC] 40 mg PO DAILY #30 capsule. 05/22/20 Ondansetron Odt [Zofran Odt] 4 mg PO Q8HR PRN #9 tab 05/22/20 Simethicone 40 mg/0.6 ml Drops 40 mg PO PCHS PRN #30 ml 05/22/20 [Mylicon Drops] bisacodyL [Dulcolax] 5 mg PO DAILY PRN #10 tablet. 05/22/20 ALLERGIES: Allergies Allergy/AdvReac Type Severity Reaction Status Date / Time adhesive tape Allergy peels skin Verified 05/28/20 15:05 and blisters lamotrigine [From Lamictal] Allergy Rash/Hives Verified 05/28/20 15:05 zonisamide Allergy anxiety Verified 05/28/20 15:05 tuberculin,PPD,multi-puncture AdvReac Unknown FALSE Verified 05/28/20 15:05 POSITIVE baclofen AdvReac DYSTONIA Verified 05/28/20 15:05 cefaclor [From Ceclor] AdvReac Abdominal Verified 05/28/20 15:05 Pain clindamycin AdvReac Nausea & Verified 05/28/20 15:05 Vomiting SOCIAL HISTORY: No past tobacco use. FAMILY HISTORY: No family history of ulcerative colitis disease or Crohn's disease. Family history of morbid obesity. No lupus in the family. No reports of stomach or esophageal cancer. REVIEW OF ORGAN SYSTEMS: CONSTITUTIONAL: At height of 5 feet 8 inches, her ideal body weight is 163 pounds. Her highest weight was 340 pounds, BMI 51.8. HEENT: Denies any active troubles with vision or hearing. Has troubles with swallowing. ENDOCRINE: No diabetes. No hypothyroidism. CARDIOVASCULAR: Past reports of palpitations or heart attacks or chest pain. RESPIRATORY: No daytime somnolence. Has asthma. GASTROINTESTINAL: Denies any bright red blood per rectum. Occasional diarrhea and constipation. MUSCULOSKELETAL: Has lower back pain and joint pain. Has osteoarthritis of the knees and hips NEURO: Has headaches. No seizure disorders. PSYCH: Has depression. No suicidal ideation. Has anxiety. RHEUMATOLOGIC: No lupus. No rheumatoid arthritis. HEMATOLOGIC: Denies any abnormal bleeding or bruising. No personal history of DVTs. SKIN: No rash. Past skin cancer. PHYSICAL EXAM: VITAL SIGNS: Height 5 foot 8 inches, weight 310 pounds. BMI 47.3 Vital Signs Temp 98.5 F 07/02/20 15:51 Pulse 66 07/02/20 15:51 Resp BP 129/84 07/02/20 15:51 Pulse Ox GENERAL: Well-developed in no acute distress. HEENT: No scleral icterus. Extraocular movements grossly intact. Hears conversational speech. No nasal drainage. NECK: Supple without lymphadenopathy. CHEST: Nonlabored respirations with equal bilateral excursions. CARDIOVASCULAR: Regular rate and regular rhythm. Distal 2+ pulses. ABDOMEN: Obese, soft, nontender, nondistended. MUSCULOSKELETAL: No clubbing, cyanosis. NEURO: No focal or lateralizing signs. Cranial nerves 2 through 12 grossly within normal limits. PSYCH: Appropriate affect. Alert and oriented to person, place and time. SKIN: Good skin turgor. Well perfused. LABS: Reviewed. Hemoglobin normal 14.1. Hemoglobin A1c normal at 5.4%. Total cholesterol elevated 240. Vitamin D low 24 ASSESSMENT: 1. Morbid obesity due to excess calories 2. Body mass index of 51.8 initial 3. Osteoarthritis of the knees. 4. Osteoarthritis of the lower back. 5. Hypertensive heart disease. 6. Gastroesophageal reflux disease 7. Hyperlipidemia 8. Asthma 9. Migraines 10. Tachyarrhythmia 11. Skin cancer, resected 12. Plantar fasciitis 13. Postoperative nausea and vomiting 14. Anxiety disorder 15. Depressive disorder 16. Panic disorder 17. Vitamin D deficiency PLAN: 1. Bariatric options between a sleeve, band and a Zion-en-Y gastric bypass were reviewed in detail. The patient elected for a gastric bypass. Robotic assisted approach described. 2. The [place] [facility] Data was also reviewed with benefits and risks as described. 3. An 8 page second-generation bariatric consent form was reviewed in detail including potential of bleeding, infection, leaks, adequate weight loss, nutritional deficiencies which the patient demonstrated understanding of the risks. 4. A 2 week high-protein low caloric 800 kcal diet described to address hepatomegaly. 5. Preoperative labs including complete metabolic panel and CBC with type and screen recommended. 6. DVT prophylaxis per [place] [facility]. 7. Antibiotic prophylaxis. 8. Inpatient hospitalization anticipated for more than 2 nights. 9. All questions and concerns were addressed with the patient. 10. She is at elevated risk for perioperative complications due to previous gastric surgeries. 11. Overall, patient has expressed understanding of bariatric care including postoperative diet and commitment of lifestyle. Patient should should benefit from surgical intervention for correction of her morbid obesity. Objective - Vital Signs Vital signs: Vital Signs Temp 98.5 F 07/02/20 15:51 Pulse 66 07/02/20 15:51 Resp BP 129/84 07/02/20 15:51 Pulse Ox Intake & Output 07/01/20 07/02/20 07/02/20 18:59 06:59 18:59 Weight 141.067 kg
--- NOTE | 2020-07-02 16:24 | P.PN ---
Progress Note - Text Progress Note Date: 07/02/20 To whom it may concern: Alis Bah is under my surgical care. She may return to work immediately without restrictions. Regards, Estephanie Honeycutt MD
== END | disposition home or self-care (01) ==
LOC: BARWHC3 14:48
PROVIDERS: ATTEND Surgery Plastic and Reconstructive Surgery
DX: E66.01 Morbid (severe) obesity due to excess calories (principal); Z68.43 Body mass index [BMI] 50.0-59.9, adult; M17.0 Bilateral primary osteoarthritis of knee; I11.9 Hypertensive heart disease without heart failure; K21.9 Gastro-esophageal reflux disease without esophagitis; E78.5 Hyperlipidemia, unspecified; J45.909 Unspecified asthma, uncomplicated; G43.909 Migraine, unspecified, not intractable, without status migrainosus; R00.0 Tachycardia, unspecified; M72.2 Plantar fascial fibromatosis; R11.2 Nausea with vomiting, unspecified; F41.9 Anxiety disorder, unspecified; F32.9 Major depressive disorder, single episode, unspecified; F41.0 Panic disorder [episodic paroxysmal anxiety]; E55.9 Vitamin D deficiency, unspecified; Z85.828 Personal history of other malignant neoplasm of skin
CPT/HCPCS: 99211

== ENCOUNTER → 2020-09-24 | Outpatient (CLI) | payer BC ==
[2020-09-24 13:20] VITALS: BP 135/81; PULSE 111; RESP 18; TEMP 98.6; BMI 47.4
--- NOTE | 2020-09-24 14:17 | P.PN ---
Subjective Progress Note Date: 09/24/20 DATE OF SERVICE: 09/24/2020 CHIEF COMPLAINT: Morbid Obesity HISTORY OF PRESENT ILLNESS: Alis Bah is a 30-year-old female who comes with lifelong morbid obesity. She comes in with recurrent gastroesophageal reflux disease despite previous hiatal hernia repair at least twice. She has developed hypertensive heart disease, osteoarthritis of the bilateral knees and hips, hyperlipidemia as a result of her morbid obesity. She is looking into the gastric bypass for history of recurrent reflux disease and morbid obesity. She has completed medical supervised weight loss. At height of 5 feet 8 inches, her ideal body weight is 163 pounds. Her highest weight was 340 pounds, BMI 51.8. She comes in 311 pounds from 310 pounds, 2 months ago. She has gained 1 pound in 2 months. She is 148 pounds overweight. PAST MEDICAL HISTORY: 1. Morbid obesity due to excess calories 2. Body mass index of 51.8 initial 3. Osteoarthritis of the knees. 4. Osteoarthritis of the lower back. 5. Hypertensive heart disease. 6. Gastroesophageal reflux disease 7. Hyperlipidemia 8. Asthma 9. Migraines 10. Tachyarrhythmia 11. Skin cancer, resected 12. Plantar fasciitis 13. Postoperative nausea and vomiting 14. Anxiety disorder 15. Depressive disorder 16. Panic disorder PAST SURGICAL HISTORY: 1. Jess fundoplication with hiatal hernia repair 2. Takedown this of fundoplication with repair of recurrent hiatal hernia 3. Tonsillectomy/adenoidectomy 4. Upper endoscopy 5. Repair of deviated septum 6. Plantar fasciotomy 7. Left knee arthroscopy 8. Skin cancer removal 3 9. Excision of back lipoma HOME MEDICATIONS: Home Medications Medication Instructions Recorded Confirmed Rizatriptan Benzoate [Maxalt] 10 mg PO DAILY PRN 05/02/18 09/24/20 Ondansetron [Zofran] 4 mg PO Q8HR PRN 01/15/20 09/24/20 Previous Rx's Medication Instructions Recorded Albuterol Inhaler (Mhu) [Ventolin 2 puff INHALATION RT-QID PRN 30 12/21/18 Hfa Inhaler (Mhu)] Days #1 puff Acetaminophen Oral Susp [Tylenol 500 mg PO Q4-6H PRN #400 ml 05/22/20 Oral Susp] Omeprazole [PriLOSEC] 40 mg PO DAILY #30 capsule. 05/22/20 Ondansetron Odt [Zofran Odt] 4 mg PO Q8HR PRN #9 tab 05/22/20 Simethicone 40 mg/0.6 ml Drops 40 mg PO PCHS PRN #30 ml 05/22/20 [Mylicon Drops] bisacodyL [Dulcolax] 5 mg PO DAILY PRN #10 tablet. 05/22/20 ALLERGIES: Allergies Allergy/AdvReac Type Severity Reaction Status Date / Time adhesive tape Allergy peels skin Verified 09/24/20 13:16 and blisters lamotrigine [From Lamictal] Allergy Rash/Hives Verified 09/24/20 13:16 zonisamide Allergy anxiety Verified 09/24/20 13:16 tuberculin,PPD,multi-puncture AdvReac Unknown FALSE Verified 09/24/20 13:16 POSITIVE baclofen AdvReac DYSTONIA Verified 09/24/20 13:16 cefaclor [From Ceclor] AdvReac Abdominal Verified 09/24/20 13:16 Pain clindamycin AdvReac Nausea & Verified 09/24/20 13:16 Vomiting SOCIAL HISTORY: No past tobacco use. FAMILY HISTORY: No family history of ulcerative colitis disease or Crohn's disease. Family history of morbid obesity. No lupus in the family. No reports of stomach or esophageal cancer. REVIEW OF ORGAN SYSTEMS: CONSTITUTIONAL: At height of 5 feet 8 inches, her ideal body weight is 163 pounds. Her highest weight was 340 pounds, BMI 51.8. HEENT: Denies any active troubles with vision or hearing. Has troubles with swallowing. ENDOCRINE: No diabetes. No hypothyroidism. CARDIOVASCULAR: Past reports of palpitations or heart attacks or chest pain. RESPIRATORY: No daytime somnolence. Has asthma. GASTROINTESTINAL: Denies any bright red blood per rectum. Occasional diarrhea and constipation. MUSCULOSKELETAL: Has lower back pain and joint pain. Has osteoarthritis of the knees and hips NEURO: Has headaches. No seizure disorders. PSYCH: Has depression. No suicidal ideation. Has anxiety. RHEUMATOLOGIC: No lupus. No rheumatoid arthritis. HEMATOLOGIC: Denies any abnormal bleeding or bruising. No personal history of DVTs. SKIN: No rash. Past skin cancer. PHYSICAL EXAM: VITAL SIGNS: Height 5 foot 8 inches, weight 311 pounds. BMI 47.4 Vital Signs Temp 98.6 F 09/24/20 13:14 Pulse 111 H 09/24/20 13:14 Resp 18 09/24/20 13:14 BP 135/81 09/24/20 13:14 Pulse Ox GENERAL: Well-developed in no acute distress. HEENT: No scleral icterus. Extraocular movements grossly intact. Hears conversational speech. No nasal drainage. NECK: Supple without lymphadenopathy. CHEST: Nonlabored respirations with equal bilateral excursions. CARDIOVASCULAR: Tachycardia. Distal 2+ pulses. ABDOMEN: Obese, soft, nontender, nondistended. MUSCULOSKELETAL: No clubbing, cyanosis. NEURO: No focal or lateralizing signs. Cranial nerves 2 through 12 grossly within normal limits. PSYCH: Appropriate affect. Alert and oriented to person, place and time. SKIN: Good skin turgor. Well perfused. ASSESSMENT: 1. Morbid obesity due to excess calories 2. Body mass index of 51.8 initial to 47.4 3. Osteoarthritis of the knees. 4. Osteoarthritis of the lower back. 5. Hypertensive heart disease. 6. Gastroesophageal reflux disease, intractable 7. Hyperlipidemia 8. Asthma 9. Migraines 10. Tachyarrhythmia 11. Skin cancer, resected 12. Plantar fasciitis 13. Postoperative nausea and vomiting 14. Anxiety disorder 15. Depressive disorder 16. Panic disorder 17. Vitamin D deficiency 18. Status post hiatal hernia repair PLAN: 1. Bariatric options between a sleeve, band and a Zion-en-Y gastric bypass were reviewed in detail. To address her reflux disease and morbid obesity, she elected for a gastric bypass. Robotic assisted approach described. 2. The [place] [facility] Data was also reviewed with benefits and risks described. 3. She is elevated risk for complications with multiple gastric operations including risk for leaks, stricture for which her risks are high. 4. A 2 week high-protein low caloric 800 kcal diet described to address hepatomegaly. 5. Preoperative labs including complete metabolic panel and CBC with type and screen recommended. 6. DVT prophylaxis per [place] [facility]. 7. Antibiotic prophylaxis. 8. Inpatient hospitalization anticipated for more than 2 nights. 9. All questions and concerns were addressed with the patient. Objective - Vital Signs Vital signs: Vital Signs Temp 98.6 F 09/24/20 13:14 Pulse 111 H 09/24/20 13:14 Resp 18 09/24/20 13:14 BP 135/81 09/24/20 13:14 Pulse Ox Intake & Output 09/23/20 09/24/20 09/24/20 18:59 06:59 18:59 Weight 141.521 kg
== END | disposition home or self-care (01) ==
LOC: BARWHC3 12:45
PROVIDERS: ATTEND Surgery Plastic and Reconstructive Surgery
DX: E66.01 Morbid (severe) obesity due to excess calories (principal); Z68.43 Body mass index [BMI] 50.0-59.9, adult; M17.0 Bilateral primary osteoarthritis of knee; M47.816 Spondylosis without myelopathy or radiculopathy, lumbar region; I11.9 Hypertensive heart disease without heart failure; K21.9 Gastro-esophageal reflux disease without esophagitis; E78.5 Hyperlipidemia, unspecified; J45.909 Unspecified asthma, uncomplicated; G43.909 Migraine, unspecified, not intractable, without status migrainosus; R00.0 Tachycardia, unspecified; M72.2 Plantar fascial fibromatosis; R11.2 Nausea with vomiting, unspecified; F41.9 Anxiety disorder, unspecified; F32.9 Major depressive disorder, single episode, unspecified; F41.0 Panic disorder [episodic paroxysmal anxiety]; Z85.828 Personal history of other malignant neoplasm of skin; Z98.890 Other specified postprocedural states; Z79.899 Other long term (current) drug therapy
CPT/HCPCS: 99211

== ENCOUNTER → 2020-09-30 | Outpatient (CLI) | payer BC ==
[2020-09-30 14:03] LABS: Basophils # (A) 0.1 k/uL (0-0.2); Basophils % (A) 1 %; Eosinophils # (A) 0.7 k/uL (0-0.7); Eosinophils % (A) 5 %; HCT 46.4 % (34.0-46.0); HGB 15.2 gm/dL (11.4-16.0); Lymphocytes # (A) 3.1 k/uL (1.0-4.8); Lymphocytes % (A) 23 %; MCH 29.6 pg (25.0-35.0); MCHC 32.8 g/dL (31.0-37.0); MCV 90.5 fL (80.0-100.0); Mean Platelet Volume 6.9; Monocytes # (A) 0.4 k/uL (0-1.0); Monocytes % (A) 3 %; Neutrophils # (A) 9.2 k/uL (1.3-7.7); Neutrophils % (A) 68 %; Platelet Count 358 k/uL (150-450); RBC 5.13 m/uL (3.80-5.40); RDW 13.9 % (11.5-15.5); WBC 13.6 k/uL (3.8-10.6)
[2020-09-30 14:14] LABS: ALT 37 U/L (4-34); AST 34 U/L (14-36); African American GFR (CKD) >90 (>60 ml/min/1.73 sqM); Albumin 4.8 g/dL (3.5-5.0); Alkaline Phosphatase 105 U/L (38-126); Anion Gap 13 mmol/L; Blood Urea Nitrogen 16 mg/dL (7-17); Calcium 9.9 mg/dL (8.4-10.2); Carbon Dioxide 24 mmol/L (22-30); Chloride 102 mmol/L (98-107); Glucose 82 mg/dL (74-99); Non-African American GFR(CKD) >90 (>60 ml/min/1.73 sqM); Potassium 4.2 mmol/L (3.5-5.1); Sodium 139 mmol/L (137-145); Total Bilirubin 0.8 mg/dL (0.2-1.3); Total Protein 7.8 g/dL (6.3-8.2)
== END | disposition home or self-care (01) ==
LOC: LABPAT 12:56
PROVIDERS: ATTEND Surgery Plastic and Reconstructive Surgery
DX: Z01.818 Encounter for other preprocedural examination (principal)
CPT/HCPCS: 80053; 85025

== ENCOUNTER 2020-10-06 07:30 | Inpatient (IN) | payer BC ==
--- NOTE | 2020-10-06 06:29 | P.GSHP ---
History of Present Illness H&P Date: 10/06/20 CHIEF COMPLAINT: Morbid Obesity HISTORY OF PRESENT ILLNESS: Alis Bah is a 30-year-old female who comes with lifelong morbid obesity. She comes in with recurrent gastroesophageal reflux disease despite previous hiatal hernia repair at least twice. She has developed hypertensive heart disease, osteoarthritis of the bilateral knees and hips, hyperlipidemia as a result of her morbid obesity. She is looking into the gastric bypass for history of recurrent reflux disease and morbid obesity. She has completed medical supervised weight loss. At height of 5 feet 8 inches, her ideal body weight is 163 pounds. Her highest weight was 340 pounds, BMI 51.8. She comes in 311 pounds from 310 pounds, 2 months ago. She has gained 1 pound in 2 months. She is 148 pounds overweight. PAST MEDICAL HISTORY: 1. Morbid obesity due to excess calories 2. Body mass index of 51.8 initial 3. Osteoarthritis of the knees. 4. Osteoarthritis of the lower back. 5. Hypertensive heart disease. 6. Gastroesophageal reflux disease 7. Hyperlipidemia 8. Asthma 9. Migraines 10. Tachyarrhythmia 11. Skin cancer, resected 12. Plantar fasciitis 13. Postoperative nausea and vomiting 14. Anxiety disorder 15. Depressive disorder 16. Panic disorder PAST SURGICAL HISTORY: 1. Jess fundoplication with hiatal hernia repair 2. Takedown this of fundoplication with repair of recurrent hiatal hernia 3. Tonsillectomy/adenoidectomy 4. Upper endoscopy 5. Repair of deviated septum 6. Plantar fasciotomy 7. Left knee arthroscopy 8. Skin cancer removal 3 9. Excision of back lipoma HOME MEDICATIONS: Home Medications Medication Instructions Recorded Confirmed Rizatriptan Benzoate [Maxalt] 10 mg PO DAILY PRN 05/02/18 09/24/20 Ondansetron [Zofran] 4 mg PO Q8HR PRN 01/15/20 09/24/20 Previous Rx's Medication Instructions Recorded Albuterol Inhaler (Mhu) [Ventolin 2 puff INHALATION RT-QID PRN 30 12/21/18 Hfa Inhaler (Mhu)] Days #1 puff Acetaminophen Oral Susp [Tylenol 500 mg PO Q4-6H PRN #400 ml 05/22/20 Oral Susp] Omeprazole [PriLOSEC] 40 mg PO DAILY #30 mynor. 05/22/20 Ondansetron Odt [Zofran Odt] 4 mg PO Q8HR PRN #9 tab 05/22/20 Simethicone 40 mg/0.6 ml Drops 40 mg PO PCHS PRN #30 ml 05/22/20 [Mylicon Drops] bisacodyL [Dulcolax] 5 mg PO DAILY PRN #10 tablet. 05/22/20 ALLERGIES: Allergies Allergy/AdvReac Type Severity Reaction Status Date / Time adhesive tape Allergy peels skin Verified 09/24/20 13:16 and blisters lamotrigine [From Lamictal] Allergy Rash/Hives Verified 09/24/20 13:16 zonisamide Allergy anxiety Verified 09/24/20 13:16 tuberculin,PPD,multi-puncture AdvReac Unknown FALSE Verified 09/24/20 13:16 POSITIVE baclofen AdvReac DYSTONIA Verified 09/24/20 13:16 cefaclor [From Ceclor] AdvReac Abdominal Verified 09/24/20 13:16 Pain clindamycin AdvReac Nausea & Verified 09/24/20 13:16 Vomiting SOCIAL HISTORY: No past tobacco use. FAMILY HISTORY: No family history of ulcerative colitis disease or Crohn's dis ease. Family history of morbid obesity. No lupus in the family. No reports of stomach or esophageal cancer. REVIEW OF ORGAN SYSTEMS: CONSTITUTIONAL: At height of 5 feet 8 inches, her ideal body weight is 163 pounds. Her highest weight was 340 pounds, BMI 51.8. HEENT: Denies any active troubles with vision or hearing. Has troubles with swallowing. ENDOCRINE: No diabetes. No hypothyroidism. CARDIOVASCULAR: Past reports of palpitations or heart attacks or chest pain. RESPIRATORY: No daytime somnolence. Has asthma. GASTROINTESTINAL: Denies any bright red blood per rectum. Occasional diarrhea and constipation. MUSCULOSKELETAL: Has lower back pain and joint pain. Has osteoarthritis of the knees and hips NEURO: Has headaches. No seizure disorders. PSYCH: Has depression. No suicidal ideation. Has anxiety. RHEUMATOLOGIC: No lupus. No rheumatoid arthritis. HEMATOLOGIC: Denies any abnormal bleeding or bruising. No personal history of DVTs. SKIN: No rash. Past skin cancer. PHYSICAL EXAM: VITAL SIGNS: Height 5 foot 8 inches, weight 311 pounds. BMI 47.4 GENERAL: Well-developed in no acute distress. HEENT: No scleral icterus. Extraocular movements grossly intact. Hears conversational speech. No nasal drainage. NECK: Supple without lymphadenopathy. CHEST: Nonlabored respirations with equal bilateral excursions. CARDIOVASCULAR: Tachycardia. Distal 2+ pulses. ABDOMEN: Obese, soft, nontender, nondistended. MUSCULOSKELETAL: No clubbing, cyanosis. NEURO: No focal or lateralizing signs. Cranial nerves 2 through 12 grossly within normal limits. PSYCH: Appropriate affect. Alert and oriented to person, place and time. SKIN: Good skin turgor. Well perfused. ASSESSMENT: 1. Morbid obesity due to excess calories 2. Body mass index of 51.8 initial to 47.4 3. Osteoarthritis of the knees. 4. Osteoarthritis of the lower back. 5. Hypertensive heart disease. 6. Gastroesophageal reflux disease, intractable 7. Hyperlipidemia 8. Asthma 9. Migraines 10. Tachyarrhythmia 11. Skin cancer, resected 12. Plantar fasciitis 13. Postoperative nausea and vomiting 14. Anxiety disorder 15. Depressive disorder 16. Panic disorder 17. Vitamin D deficiency 18. Status post hiatal hernia repair PLAN: 1. Bariatric options between a sleeve, band and a Izon-en-Y gastric bypass were reviewed in detail. To address her reflux disease and morbid obesity, she elected for a gastric bypass. Robotic assisted approach described. 2. The [place] [facility] Data was also reviewed with benefits and risks described. 3. She is elevated risk for complications with multiple gastric operations including risk for leaks, stricture for which her risks are high. 4. A 2 week high-protein low caloric 800 kcal diet described to address hepatomegaly. 5. Preoperative labs including complete metabolic panel and CBC with type and screen recommended. 6. DVT prophylaxis per [place] [facility]. 7. Antibiotic prophylaxis. 8. Inpatient hospitalization anticipated for more than 2 nights. 9. All questions and concerns were addressed with the patient. Past Medical History Past Medical History: Cancer, GERD/Reflux, Hyperlipidemia, Osteoarthritis (OA) Additional Past Medical History / Comment(s): migraines, allergy/exercise induced asthma, past hx. anemia, arthritis bilateral knees, skin cancer with removals, constipation-past and current problem, irregular BM's, History of Any Multi-Drug Resistant Organisms: None Reported Past Surgical History: Adenoidectomy, Hernia Repair, Orthopedic Surgery, Tonsillectomy Additional Past Surgical History / Comment(s): tympanoplasty/tubes in ears, skin cancer removed x3 and scope of left knee, lipoma removed rt lower back, deviated septoplasty, plantar fasciotomy right foot, recent EGD take down of jess 05-19-20 Past Anesthesia/Blood Transfusion Reactions: Previous Problems w/ Anesthesia, Motion Sickness, Postoperative Nausea & Vomiting (PONV) Additional Past Anesthesia/Blood Transfusion Reaction / Comment(s): "when waking from anesthesia experiences overwhelming fear" Smoking Status: Never smoker - Past Family History Mother Family Medical History: Thyroid Disorder Additional Family Medical History / Comment(s): hyperactive thyroid Father Family Medical History: Hyperlipidemia Medications and Allergies Home Medications Medication Instructions Recorded Confirmed Type Rizatriptan Benzoate [Maxalt] 10 mg PO DAILY PRN 05/02/18 09/29/20 History Albuterol Inhaler (Mhu) [Ventolin 2 puff INHALATION RT-QID PRN 30 12/21/18 09/29/20 Rx Hfa Inhaler (Mhu)] Days #1 puff Ondansetron [Zofran] 4 mg PO Q8HR PRN 01/15/20 09/29/20 History Omeprazole [PriLOSEC] 40 mg PO DAILY #30 capsule. 05/22/20 09/29/20 Rx Allergies Allergy/AdvReac Type Severity Reaction Status Date / Time adhesive tape Allergy peels skin Verified 09/29/20 15:15 and blisters lamotrigine [From Lamictal] Allergy Rash/Hives Verified 09/29/20 15:15 zonisamide Allergy anxiety Verified 09/29/20 15:15 tuberculin,PPD,multi-puncture AdvReac Unknown FALSE Verified 09/29/20 15:15 POSITIVE baclofen AdvReac DYSTONIA Verified 09/29/20 15:15 cefaclor [From Ceclor] AdvReac Abdominal Verified 09/29/20 15:15 Pain clindamycin AdvReac Nausea & Verified 09/29/20 15:15 Vomiting
[~2020-10-06 07:30] MED LIST changes: +ACETAMINOPHEN TAB 500 MG TAB PO ONE; -ACETAMINOPHEN TAB 500 MG TAB PO STA; -CHLORHEXIDINE GLUCONATE 15 ML CUP MUCOUS MEM ONE; +CHLORHEXIDINE GLUCONATE 15 ML CUP MUCOUS MEM PRN; -DEXAMETHASONE SOD PHOSPHATE 10 MG/ML 1 ML VIAL IV ONE; +DEXAMETHASONE SOD PHOSPHATE 4 MG/ML 1 ML VIAL IV ONE; +ENOXAPARIN 40 MG/0.4 ML SYRINGE SQ PRN; -ENOXAPARIN 40 MG/0.4 ML SYRINGE SQ STA; +GABAPENTIN 300 MG CAP PO ONE; -GABAPENTIN 300 MG CAP PO STA; -LACTATED RINGERS 1,000 ML IV SCH; -ONDANSETRON 4 MG/2 ML VIAL IVP ONE; -PANTOPRAZOLE 40 MG/10 ML VIAL IV STA; +PANTOPRAZOLE 40 MG/10 ML VIAL IVP PRN; -SCOPOLAMINE 1.5MG/72HR PATCH TRANSDERM ONE; +SCOPOLAMINE 1.5MG/72HR PATCH TRANSDERM SCH; -ceFAZolin 3 GM in SODIUM CHLORIDE 0.9% 100 ML IVPB ONE; +ceFAZolin 3 GM in SODIUM CHLORIDE 0.9% 100 ML IVPB PRN
[2020-10-06] MEDS ORDERED: MELOXICAM 7.5 MG TAB PO SCH (09:00)
[2020-10-06] MEDS: LACTATED RINGERS 1,000 ML IV SCH (11:51)
[2020-10-06] MEDS: ONDANSETRON 4 MG/2 ML VIAL IVP ONE ×3 (11:52→17:04)
[2020-10-06] MEDS ORDERED: MIDAZOLAM 2 MG/2 ML VIAL IV ONE (11:52)
[2020-10-06] MEDS ORDERED: KETOROLAC 15 MG/ML 1 ML VIAL ONE (13:32)
[2020-10-06] MEDS ORDERED: ROCURONIUM 10 MG/ML (10 ML VIAL) IV ONE (13:32)
[2020-10-06] MEDS ORDERED: HYDROmorphone (PF) 1 MG/ML ONE (13:32)
[2020-10-06] MEDS ORDERED: GLYCOPYRROLATE 0.2 MG/ML 2 ML VIAL ONE (13:32)
[2020-10-06] MEDS ORDERED: PROPOFOL 10 MG/ML 20 ML VIAL IV ONE (13:32)
[2020-10-06] MEDS ORDERED: fentaNYL (PF) 50 MCG/ML 2 ML AMP ONE (13:32)
[2020-10-06] MEDS ORDERED: NEOSTIGMINE 1 MG/ML 10 ML VIAL ONE (13:32)
[2020-10-06] MEDS ORDERED: LABETALOL 5 MG/ML VIAL MDV ONE (13:32)
[2020-10-06] MEDS ORDERED: MIDAZOLAM 2 MG/2 ML VIAL ONE (13:32)
[2020-10-06] MEDS ORDERED: LIDOCAINE 1%-EPI 1:100,000 20 ML VIAL SQ ONE (15:05)
[2020-10-06] MEDS ORDERED: LACTATED RINGERS 1,000 ML IV ONE ×3 (15:06→16:23)
--- NOTE | 2020-10-06 16:50 | P.OP ---
Date of Procedure: 10/06/20 Description of Procedure: SURGEON: AMARI WILEY MD PREOPERATIVE DIAGNOSES: 1. Morbid obesity due to excess calories 2. Body mass index of 51.8 initial to 47.4 3. Osteoarthritis of the knees. 4. Osteoarthritis of the lower back. 5. Hypertensive heart disease. 6. Gastroesophageal reflux disease, intractable 7. Hyperlipidemia 8. Asthma 9. Migraines 10. Tachyarrhythmia 11. Skin cancer, resected 12. Plantar fasciitis 13. Postoperative nausea and vomiting 14. Anxiety disorder 15. Depressive disorder 16. Panic disorder 17. Vitamin D deficiency 18. Status post hiatal hernia repair POSTOPERATIVE DIAGNOSES: 1. Morbid obesity due to excess calories 2. Body mass index of 51.8 initial to 47.4 3. Osteoarthritis of the knees. 4. Osteoarthritis of the lower back. 5. Hypertensive heart disease. 6. Gastroesophageal reflux disease, intractable 7. Hyperlipidemia 8. Asthma 9. Migraines 10. Tachyarrhythmia 11. Skin cancer, resected 12. Plantar fasciitis 13. Postoperative nausea and vomiting 14. Anxiety disorder 15. Depressive disorder 16. Panic disorder 17. Vitamin D deficiency 18. Status post hiatal hernia repair OPERATION: 1. Robotic assisted da Darlyn Xi laparoscopic Michael-en-Y gastric bypass, 100 cm antecolic antegastric Michael limb, with 25 mm EEA. 2. Intraoperative esophagogastrojejunoscopy and snare of Jorden 25 mm anvil ANESTHESIA: GETA and local ESTIMATED BLOOD LOSS: 5 mL SPECIMENS REMOVED: None. COMPLICATIONS: NONE. INDICATIONS: Alis Bah is a 30-year-old female who comes with lifelong morbid obesity. She comes in with recurrent gastroesophageal reflux disease despite previous hiatal hernia repair at least twice. She has developed hypertensive heart disease, osteoarthritis of the bilateral knees and hips, hyperlipidemia as a result of her morbid obesity. She is looking into the gastric bypass for history of recurrent reflux disease and morbid obesity. At height of 5 feet 8 inches, her ideal body weight is 163 pounds. Her highest weight was 340 pounds, BMI 51.8. She comes in 300 pounds from 311 pounds, 2 months ago. She has lost 11 pounds in 2 months. She is 137 pounds overweight. A second-generation bariatric consent form was described in detail including the possibility of protein malnutrition, leaks, gastrojejunal stricture, venous thrombosis, need for further surgery for which she demonstrated understanding. Benefits and risks of the procedure were described at length. Informed consent was obtained. DESCRIPTION: The patient was brought into the operating room theater. She was placed supine. She had received Lovenox subcutaneously for DVT prophylaxis. Additionally she Peridex oral solution as an oral decontaminant was placed per anesthesia. After general induction, the abdomen was prepped and draped in standard sterile fashion. Ioban draping was placed along the abdomen. Barney catheter was placed A robotic da Darlyn Xi system was prepped and primed. Incisions were proposed at 15 cm from the xiphoid. Proposed port sites were marked with indelible marker along the anterior axillary line bilaterally, mid clavicular line bilaterally with each port marked 10 cm from each other. The robotic stapler port was marked for the right midclavicular line including along the left midclavicular line. A 5 mm 0 degrees laparoscopic trocar entry was performed along the left upper quadrant. The abdomen was insufflated to 15 mmHg pressure, which she tolerated well. Diagnostic laparoscopy demonstrated no injury to bowel, viscera, or mesentery. The liver had round edge after her her 2-week protein diet. A recurrent hiatal hernia anteriorly was identified. An 8 mm camera port was placed left lateral to the umbilicus at the epigastrium, 15 cm distal to the xiphoid. Next, 12-mm robot stapler port was placed along the right mid abdomen. An 12 mm port was exchanged along the left upper quadrant. An 8 mm port was placed on the left lateral abdominal wall under direct visualization Please note that the ports were placed 18 to 20 cm away from the target anatomy of the stomach. Care was taken to check that each robotic arm was safely away from collision with the bed or the patient. At the epigastrium, a medium sized Jayshree liver retractor was placed under direct visualization with the [employer] Licensed [employer] Spray Technician placed under the right shoulder of the patient. The patient was repositioned in reverse Trendelenburg position at 21-degrees after lowering the bed. The robot was docked over the patient. Using grasper for arm 3, a grasper for arm 1, including vessel sealer for arm 4, the robotic system was docked and primed as described. Instruments were interchanged by the assistant professor of communication including endoscissors, the needle motor pool driver, and stapler. I had sat at the console. Next, the transverse mesocolon was reflected into the upper abdomen after dividing the mesentery and preparing for the jejunojejunostomy portion of the case. The ligament of Treitz was identified and measured 60 cm antegrade and marked using 3-0 Silk. The jejunum was divided at the 60 cm point using 60-mm white loads above the suture measurement. The biliopancreatic limb was held in place. The Michael limb was measured 100 cm in an antegrade fashion to avoid tension along the proposed gastrojejunal anastomosis. At 100 cm along the anti-mesenteric border of the Michael limb, a jejunojejunostomy was proposed whereby enterotomies were created along the biliopancreatic limb including the Michael limb using a Bovie cautery. A stay suture of 3-0 Slik was placed to align and create the anastomosis. The enterotomies along the anti- mesenteric borders were created followed by unidirectional fire from the patient's right side using 60 mm blue loads Smart technology robotic stapler. The jejunojejunostomy was found to be hemostatic. The enterotomy was closed after horizontal mattress stitch of 3-0 silk used to elevate the enterotomy followed by closure with the robotic stapler blue load. The jejunal limb was temporarily tacked along the left upper quadrant. Attention was now brought to the creation of the gastrojejunostomy. Along the lesser curvature of the stomach, dissection was made along the retrogastric space to allow first firing of the robotic staple. Green loads of 60 mm staplers were used to divide the stomach to create the gastric pouch. The patient was then prepared for placement of a Orvil. The patient was Mallampati 2. A 25-mm Orvil was placed by the nurse obstetrics teacher however unable to pass by the hiatus. I went to the head of the bed. An Olympus gastroscope was placed along the stomach after snaring the anvil into the gastric pouch. The Orvil tubing was further passed by the obstetrics teacher assist placed anterior to the staple line of the gastric pouch and brought out through the left inferior lateral port. I re-scrubbed into the case. The robotic arms were temporarily undocked. The Orvil was then carefully and successfully navigated with the help of the nurse obstetrics teacher into the gastric pouch. The sutures were identified and divided. The tubing was from the 25 mm anvil. As the Orvil had been placed, the blind jejunal limb was brought proximally into the upper abdomen. No torsion was found upon the Michael limb. No tension was identified as the limb was brought along the upper abdomen. The blind jejunal limb was previously opened using endo-scissors with cautery. The 25-mm EEA stapler was brought through the left anterior lateral port site from the left side. The EEA stapler was brought through the open jejunal limb and its needle was deployed at the antimesenteric border where the anvil were mated for approximately 1 minute upon firing. The stapler was removed after irrigating the shaft of the instrument with warm normal saline. Donuts were found to be intact and on both sides. The [employer] Xi robot arms were then re-docked. I sat at the console. The open jejunal limb defect was closed using 60 mm blue loads after releasing any tension from the blind jejunal limb. Care was taken to avoid any long blind limb to avoid candycane syndrome. Reinforcement sutures were placed along the gastrojejunal anastomosis and placed along the 9:00 and 3 o'clock position using 3-0 Vicryl. The jejunojejunostomy and Aragon mesenteric defect were closed using 2-0 VLOC. I then went to the head of the bed to perform the esophagogastrojejunoscopy and a leak test. An Olympus gastroscope was passed alongthe posterior oropharynx which was unremarkable for any injury to the vocal cords. The scope was passed down to the proximal portion of the pouch, whereby no active bleeding was encountered. Excellent visualization of the gastrojejunostomy anastomosis, including the Michael limb was encountered with endoscopic image obtained. The anastomosis was found to be patent. The gastrointestinal tract was desufflated. No evidence of intraoperative leak was encountered as the gastric pouch and anastomosis were submerged under normal saline solution. The robot was then undocked. I then went back to the bedside of the patient, whereby with coordinated effort of the assistant professor of communication, irrigation was aspirated from the upper abdominal cavity. Tisseel was placed circumferentially over the anastomosis of the gastrojejunostomy. The fascial defect of the EEA stapler was closed using Louis Torrez and 0 Vicryl. All instruments and pneumoperitoneum were evacuated from the abdominal cavity. The port correlating with the EEA stapler device was cleansed with normal saline solution and hydrogen peroxide. The rest of incisions were reapproximated using 4-0 Monocryl in an interrupted subcuticular fashion. Local anesthetic was infiltrated along the skin for postop analgesia. Liquid glue was applied to the skin. OptiFoam dressing was placed along the EEA stapler site. At the end of the procedure, needle, sponge and instrument count had been verified correct by the medical or surgical instrument maker. The patient had tolerated the procedure well and was extubated and taken to the postanesthesia unit in stable condition. Intraoperative findings were described to the patient's family who were very pleased with the level of care. Operative Findings: 1. Biliopancreatic limb 60 cm 2. Bypass performed using 100 cm michael limb secondary to avoid increased tension at 150 cm. 3. Jejunojejunostomy and Aragon defects closed using 2-0 VLOC 4. Leak test negative with gastrojejunal anastomosis patent and hemostatic. 5. Reinforcement sutures were placed along the gastrojejunal anastomosis at 9:00 and 3:00 6. Gastric pouch made with 460 millimeter hector , 3 green loads and 1 blue staple loads
[2020-10-06] MEDS ORDERED: NALOXONE 0.4 MG/ML 1 ML VIAL IV PRN (17:04)
[2020-10-06] MEDS ORDERED: diphenhydrAMINE 50 MG/ML 1 ML VIAL IVP PRN (17:04)
[2020-10-06] MEDS ORDERED: DEXAMETHASONE SOD PHOSPHATE 10 MG/ML 1 ML VIAL IV PRN (17:04)
[2020-10-06] MEDS ORDERED: TRIMETHOBENZAMIDE 100 MG/ML 2 ML VIAL IM PRN (17:04)
[2020-10-06] MEDS ORDERED: ALBUTEROL NEBULIZED 2.5 MG/3 ML INHALATION PRN (17:08)
[2020-10-06] MEDS ORDERED: SUMAtriptan succinate 50 MG TAB PO PRN (17:08)
[2020-10-06] MEDS ORDERED: ACETAMINOPHEN IV (For NPO) 1,000 MG in EMPTY BAG 1 BAG IVPB ONE (17:30)
[2020-10-06] MEDS: DEXAMETHASONE SOD PHOSPHATE 4 MG/ML 1 ML VIAL IV SCH ×2 (18:08→22:40)
[2020-10-06] MEDS: ACETAMINOPHEN IV (For NPO) 1,000 MG in EMPTY BAG 1 BAG IVPB SCH ×2 (18:09→22:45)
[2020-10-06] MEDS: SIMETHICONE 40 MG/0.6 ML DROPS 2,000 MG/30 ML BOTTLE PO SCH ×2 (18:09→22:41)
[2020-10-06] MEDS: ALBUTEROL NEBULIZED 2.5 MG/3 ML INHALATION SCH (19:50)
[2020-10-06] MEDS: 0.9% NACL WITH KCL 20 MEQ/L 1,000 ML IV SCH ×2 (21:03→23:34)
[2020-10-06] MEDS: ceFAZolin 3 GM in SODIUM CHLORIDE 0.9% 100 ML IVPB SCH (21:03)
[2020-10-06] MEDS: HYDROmorphone 1 MG/ML 1 ML SYRINGE IVP PRN (21:16)
[2020-10-06] MEDS: ONDANSETRON 4 MG/2 ML VIAL IVP SCH (22:41)
[2020-10-07] MEDS: LACTATED RINGERS 1,000 ML IV SCH ×2 (03:50→23:58)
[2020-10-07] MEDS: HYDROmorphone 1 MG/ML 1 ML SYRINGE IVP PRN ×4 (03:52→19:40)
[2020-10-07] MEDS: DEXAMETHASONE SOD PHOSPHATE 4 MG/ML 1 ML VIAL IV SCH ×4 (05:04→23:55)
[2020-10-07] MEDS: SIMETHICONE 40 MG/0.6 ML DROPS 2,000 MG/30 ML BOTTLE PO SCH ×4 (05:04→23:55)
[2020-10-07] MEDS: ONDANSETRON 4 MG/2 ML VIAL IVP SCH ×4 (05:04→23:55)
[2020-10-07] MEDS: ENOXAPARIN 40 MG/0.4 ML SYRINGE SQ SCH (05:05)
[2020-10-07] MEDS: ACETAMINOPHEN IV (For NPO) 1,000 MG in EMPTY BAG 1 BAG IVPB SCH ×2 (05:05→12:23)
[2020-10-07] MEDS: 0.9% NACL WITH KCL 20 MEQ/L 1,000 ML IV SCH ×3 (05:06→19:43)
[2020-10-07] MEDS: ceFAZolin 3 GM in SODIUM CHLORIDE 0.9% 100 ML IVPB SCH (05:56)
[2020-10-07] MEDS: PANTOPRAZOLE 40 MG/10 ML VIAL IV SCH (07:21)
[2020-10-07] MEDS: ALBUTEROL NEBULIZED 2.5 MG/3 ML INHALATION SCH ×4 (07:54→21:23)
[2020-10-07 09:31] LABS: Basophils # (A) 0.02 X 10*3/uL (0.00-0.10); Basophils % (A) 0.1 %; Eosinophils # (A) 0 X 10*3/uL (0.04-0.35); Eosinophils % (A) 0 %; HCT 40.1 % (37.2-46.3); HGB 12.8 g/dL (12.0-15.0); Lymphocytes # (A) 0.74 X 10*3/uL (0.90-5.00); Lymphocytes % (A) 3.7 %; MCH 29.6 pg (27.0-32.0); MCHC 31.9 g/dL (32.0-37.0); MCV 92.8 fL (80.0-97.0); Mean Platelet Volume 10.7 fL (9.5-12.2); Neutrophils # (A) 18.65 X 10*3/uL (1.80-7.70); Neutrophils % (A) 92.8 %; Platelet Count 328 X 10*3/uL (140-440); RBC 4.32 X 10*6/uL (4.10-5.20); RDW 13.3 % (11.5-14.5); WBC 20.09 X 10*3/uL (4.50-10.00)
[2020-10-07 10:04] LABS: African American GFR (CKD) 115.5 (60.0-200.0); Calcium 8.6 mg/dL (8.7-10.3); Magnesium 1.7 mg/dL (1.5-2.4); Non-African American GFR(CKD) 99.6 (60.0-200.0); Phosphorus 3.3 mg/dL (2.4-5.1); Potassium 4.6 mmol/L (3.5-5.5)
--- NOTE | 2020-10-07 11:57 | P.PN ---
Subjective Progress Note Date: 10/07/20 CHIEF COMPLAINT: Morbid obesity HISTORY OF PRESENT ILLNESS: Patient is status post Robotic assisted da Darlyn Xi laparoscopic Zion-en-Y gastric bypass and intraoperative esophagogastrojejunoscopy. Patient is sitting in bed receiving nebulizer treatment. She is complaining of nausea and abdominal pain. She does report improvement with medication. She has been ambulating. She is currently on a bariatric clears. Afebrile. WBC 20.09 elevated Hgb 12.8 magnesium 1.7 PHYSICAL EXAM: VITAL SIGNS: Reviewed GENERAL: Well-developed in no acute distress. HEENT: No sclera icterus. Extraocular movements grossly intact. Moist buccal mucosa. Head is atraumatic, normocephalic. Hears conversational speech. No nasal drainage. NECK: Supple without lymphadenopathy. CHEST: Non-labored respirations and equal bilateral excursions. CARDIOVASCULAR: Palpable 2+ radial pulses. ABDOMEN: Soft. Nondistended. Incision sites clean dry and intact MUSCULOSKELETAL: No clubbing or cyanosis. NEUROLOGIC: No focal or lateralizing signs. Cranial nerves II through XII grossly intact. PSYCH: Appropriate affect. Alert and oriented to person, place and time. SKIN: Well perfused. Good skin turgor. ASSESSMENT: 1. Morbid obesity due to excess calories status post Robotic assisted da Darlyn Xi laparoscopic Zion-en-Y gastric bypass and intraoperative esophagogastrojejunoscopy 2. Body mass index of 51.8 initial to 47.4 3. Osteoarthritis of the knees. 4. Osteoarthritis of the lower back. 5. Hypertensive heart disease. 6. Gastroesophageal reflux disease, intractable 7. Hyperlipidemia 8. Asthma 9. Migraines 10. Tachyarrhythmia 11. Skin cancer, resected 12. Plantar fasciitis 13. Postoperative nausea and vomiting 14. Anxiety disorder 15. Depressive disorder 16. Panic disorder 17. Vitamin D deficiency 18. Status post hiatal hernia repair PLAN: -Continue bariatric clear liquid diet -Continue IV Tylenol and IV Dilaudid for pain -Continue the dexamethasone and Zofran for nausea -Encourage patient to ambulate -Continue to use ice as needed -GI prophylaxis Protonix and DVT prophylaxis Lovenox Physician Contact Lens Blocker And Cutter note has been reviewed by physician. Signing provider agrees with the documented findings, assessment, and plan of care. Objective - Vital Signs Vital signs: Vital Signs Temp 98.3 F 10/07/20 07:28 Pulse 60 10/07/20 11:14 Resp 16 10/07/20 11:14 BP 109/68 10/07/20 07:28 Pulse Ox 94 L 10/07/20 07:28 Intake & Output 10/06/20 10/07/20 10/07/20 18:59 06:59 18:59 Intake Total 2600 Output Total 105 Balance 2495 Weight 136.2 kg Intake: IV 2600 Output: Urine 100 Estimated Blood Loss 5 Other: Voiding Method Toilet Toilet # Voids 3 - Labs CBC & Chem 7: 10/07/20 06:16 10/07/20 06:16 Labs: Abnormal Lab Results - Last 24 Hours (Table) 10/07/20 10/07/20 Range/Units 06:16 06:16 WBC 20.09 H (4.50-10.00) X 10*3/uL MCHC 31.9 L (32.0-37.0) g/dL Immature Gran # 0.08 H (0.00-0.04) X 10*3/uL Neutrophils # 18.65 H (1.80-7.70) X 10*3/uL Lymphocytes # 0.74 L (0.90-5.00) X 10*3/uL Eosinophils # 0 L (0.04-0.35) X 10*3/uL Carbon Dioxide 19.0 L (21.6-31.8) mmol/L BUN 7.0 L (9.0-27.0) mg/dL Calcium 8.6 L (8.7-10.3) mg/dL
[2020-10-07] MEDS: PIPERACILLIN-TAZOBACTAM 3.375 GM in SODIUM CHLORIDE 0.9% 100 ML IVPB SCH ×2 (12:24→19:40)
[2020-10-07 14:06] VITALS: BMI 45.6
[2020-10-08] MEDS: HYDROmorphone 1 MG/ML 1 ML SYRINGE IVP PRN ×2 (02:43→07:26)
[2020-10-08] MEDS: 0.9% NACL WITH KCL 20 MEQ/L 1,000 ML IV SCH (02:56)
[2020-10-08] MEDS: PIPERACILLIN-TAZOBACTAM 3.375 GM in SODIUM CHLORIDE 0.9% 100 ML IVPB SCH ×2 (02:57→12:14)
[2020-10-08] MEDS: SIMETHICONE 40 MG/0.6 ML DROPS 2,000 MG/30 ML BOTTLE PO SCH ×2 (05:26→12:14)
[2020-10-08] MEDS: ENOXAPARIN 40 MG/0.4 ML SYRINGE SQ SCH (05:27)
[2020-10-08] MEDS: DEXAMETHASONE SOD PHOSPHATE 4 MG/ML 1 ML VIAL IV SCH ×2 (05:27→12:14)
[2020-10-08] MEDS: ONDANSETRON 4 MG/2 ML VIAL IVP SCH ×2 (05:27→12:14)
[2020-10-08] MEDS: MAGNESIUM SULFATE-D5W PMX 1 GM in DEXTROSE/WATER 1 100ML.BAG IVPB SCH ×2 (07:25→10:16)
[2020-10-08] MEDS: PANTOPRAZOLE 40 MG/10 ML VIAL IV SCH (07:25)
[2020-10-08 07:38] LABS: Basophils % (A) 0 %; Eosinophils # (A) 0.2 k/uL (0-0.7); Eosinophils % (A) 1 %; HCT 38.9 % (34.0-46.0); HGB 12.6 gm/dL (11.4-16.0); Lymphocytes # (A) 0.9 k/uL (1.0-4.8); Lymphocytes % (A) 5 %; MCH 29.6 pg (25.0-35.0); MCHC 32.3 g/dL (31.0-37.0); MCV 91.8 fL (80.0-100.0); Mean Platelet Volume 7.6; Monocytes # (A) 0.3 k/uL (0-1.0); Monocytes % (A) 2 %; Neutrophils # (A) 14.4 k/uL (1.3-7.7); Neutrophils % (A) 91 %; Platelet Count 311 k/uL (150-450); RBC 4.24 m/uL (3.80-5.40); RDW 13.6 % (11.5-15.5); WBC 15.7 k/uL (3.8-10.6)
[2020-10-08 07:40] VITALS: BP 135/66; RESP 20; TEMP 98
[2020-10-08 07:48] LABS: African American GFR (CKD) >90 (>60 ml/min/1.73 sqM); Anion Gap 10 mmol/L; Blood Urea Nitrogen 6 mg/dL (7-17); Calcium 8.8 mg/dL (8.4-10.2); Carbon Dioxide 21 mmol/L (22-30); Chloride 106 mmol/L (98-107); Glucose 135 mg/dL (74-99); Non-African American GFR(CKD) >90 (>60 ml/min/1.73 sqM); Phosphorus 2.6 mg/dL (2.5-4.5); Potassium 4.6 mmol/L (3.5-5.1); Sodium 137 mmol/L (137-145)
[2020-10-08] MEDS ORDERED: bisacodyL 5 MG TABLET.DR PO PRN (08:00)
[2020-10-08] MEDS: ALBUTEROL NEBULIZED 2.5 MG/3 ML INHALATION SCH ×2 (09:10→12:06)
[2020-10-08 12:09] VITALS: PULSE 66
--- NOTE | 2020-10-08 12:59 | P.DS ---
Providers Date of admission: 10/06/20 11:19 Expected date of discharge: 10/08/20 Attending physician: Estephanie Honeycutt Primary care physician: D[facility] [place] [facility] Hospital Course: Discharge diagnosis 1. Morbid obesity due to excess calories status post Robotic assisted da Darlyn Xi laparoscopic Zion-en-Y gastric bypass and intraoperative esophagogastrojejunoscopy 2. Body mass index of 51.8 initial to 47.4 3. Osteoarthritis of the knees. 4. Osteoarthritis of the lower back. 5. Hypertensive heart disease. 6. Gastroesophageal reflux disease, intractable 7. Hyperlipidemia 8. Asthma 9. Migraines 10. Tachyarrhythmia 11. Skin cancer, resected 12. Plantar fasciitis 13. Postoperative nausea and vomiting 14. Anxiety disorder 15. Depressive disorder 16. Panic disorder 17. Vitamin D deficiency 18. Status post hiatal hernia repair Hospital course Alis Bah is a 30-year-old female who comes with lifelong morbid obesity. She comes in with recurrent gastroesophageal reflux disease despite previous hiatal hernia repair at least twice. She has developed hypertensive heart disease, osteoarthritis of the bilateral knees and hips, hyperlipidemia as a result of her morbid obesity. Patient is status post Robotic assisted da Darlyn Xi laparoscopic Zion-en-Y gastric bypass and intraoperative esophagogastrojejunoscopy. Patient tolerated surgery well. She is tolerating diet. She is ambulating. She is afebrile. She is stable for discharge. Physician Glass Etcher Helper note has been reviewed by physician. Signing provider agrees with the documented findings, assessment, and plan of care. Patient Condition at Discharge: Stable Plan - Discharge Summary Discharge Rx Participant: Yes New Discharge Prescriptions: New bisacodyL [Dulcolax] 5 mg PO DAILY PRN #10 tablet. PRN Reason: Constipation Simethicone 40 mg/0.6 ml Drops [Mylicon Drops] 40 mg PO PCHS PRN #30 ml PRN Reason: Gas Omeprazole [PriLOSEC] 40 mg PO DAILY #30 capsule. Ondansetron Odt [Zofran Odt] 4 mg PO Q8HR PRN #9 tab PRN Reason: Nausea Acetaminophen Oral Susp [Tylenol Oral Susp] 1,000 mg PO Q4-6H PRN #400 ml PRN Reason: Pain Continue Rizatriptan Benzoate [Maxalt] 10 mg PO DAILY PRN PRN Reason: migraines Albuterol Inhaler (Mhu) [Ventolin Hfa Inhaler (Mhu)] 2 puff INHALATION RT-QID PRN 30 Days #1 puff PRN Reason: Shortness Of Breath Ondansetron [Zofran] 4 mg PO Q8HR PRN PRN Reason: Nausea Discontinued Omeprazole [PriLOSEC] 40 mg PO DAILY #30 capsule. Discharge Medication List Rizatriptan Benzoate [Maxalt] 10 mg PO DAILY PRN 05/02/18 [History] Albuterol Inhaler (Mhu) [Ventolin Hfa Inhaler (Mhu)] 2 puff INHALATION RT-QID PRN 30 Days #1 puff 12/21/18 [Rx] Ondansetron [Zofran] 4 mg PO Q8HR PRN 01/15/20 [History] Acetaminophen Oral Susp [Tylenol Oral Susp] 1,000 mg PO Q4-6H PRN #400 ml 10/06/20 [Rx] Omeprazole [PriLOSEC] 40 mg PO DAILY #30 capsule. 10/06/20 [Rx] Ondansetron Odt [Zofran Odt] 4 mg PO Q8HR PRN #9 tab 10/06/20 [Rx] Simethicone 40 mg/0.6 ml Drops [Mylicon Drops] 40 mg PO PCHS PRN #30 ml 10/06/20 [Rx] bisacodyL [Dulcolax] 5 mg PO DAILY PRN #10 tablet. 10/06/20 [Rx] Follow up Appointment(s)/Referral(s): [place], [place] [NON-STAFF] - 10/10/20 10:00 am Patient Instructions/Handouts: Abdominal Binder (DC), Nutrition after Bariatric Surgery (GEN), Zion-en-Y Gastric Bypass (DC) Activity/Diet/Wound Care/Special Instructions: Liquid diet only for 2 weeks until Oct 20 No lifting over 4 pounds in 4 weeks, November 03December Shower. No soaking in bath tubs, until Oct 20 Please notify your surgeon if you develop nausea and vomiting including new onset of abdominal pain. Continue to use incentive spirometry to prevent pneumonias. Please continue to ambulate at home to prevent blood clots in legs. You have new prescriptions at your local pharmacy. Follow-up at the bariatric center. May shower. Dressings to be discontinued by surgeon in the office. Drink 64 oz of fluid daily. Start protein shakes on . Notify bariatric center for temp over 101.0, increased pain, drainage from incisions. No straws or carbonated beverages. Liquid diet only. Sugar content should be less than 6 g to avoid dumping syndrome. Take MOM for constipation. CRUSH, OPEN, OR CUT TABLETS LARGER THAN A SIZE OF A TIC TAC Discharge Disposition: HOME SELF-CARE
== END 2020-10-08 14:48 | disposition home or self-care (01) | DRG 621 ==
LOC: 2ORMAIN 11:19 → 4SSUR 16:40
PROVIDERS: ADMIT Surgery Plastic and Reconstructive Surgery; ATTEND Surgery Plastic and Reconstructive Surgery
PROC: 8E0W4CZ Robotic Assisted Procedure of Trunk Region, Percutaneous Endoscopic Approach (ICD-10-PCS; 2020-10-06)
PROC: 0DJ08ZZ Inspection of Upper Intestinal Tract, Via Natural or Artificial Opening Endoscopic (ICD-10-PCS; 2020-10-06)
PROC: 0D164ZA Bypass Stomach to Jejunum, Percutaneous Endoscopic Approach (ICD-10-PCS; principal; 2020-10-06 12:50)
DX: E66.01 Morbid (severe) obesity due to excess calories (principal); Z68.42 Body mass index [BMI] 45.0-49.9, adult; I11.9 Hypertensive heart disease without heart failure; K21.9 Gastro-esophageal reflux disease without esophagitis; E78.5 Hyperlipidemia, unspecified; M15.9 Polyosteoarthritis, unspecified; M47.816 Spondylosis without myelopathy or radiculopathy, lumbar region; J45.909 Unspecified asthma, uncomplicated; G43.909 Migraine, unspecified, not intractable, without status migrainosus; F41.0 Panic disorder [episodic paroxysmal anxiety]; F32.9 Major depressive disorder, single episode, unspecified; E55.9 Vitamin D deficiency, unspecified; Z71.3 Dietary counseling and surveillance; Z79.899 Other long term (current) drug therapy; Z85.828 Personal history of other malignant neoplasm of skin; Z98.890 Other specified postprocedural states; Z88.1 Allergy status to other antibiotic agents; Z88.8 Allergy status to other drugs, medicaments and biological substances; Z91.048 Other nonmedicinal substance allergy status; Z83.49 Family history of other endocrine, nutritional and metabolic diseases; Z83.438 Family history of other disorder of lipoprotein metabolism and other lipidemia
CPT/HCPCS: 80048; 80051; 81025; 82310; 82565; 83735; 84100; 84520; 85025; 86850; 86900; 86901; 94640

== ENCOUNTER → 2020-10-10 | Outpatient (CLI) | payer BC ==
--- NOTE | 2020-10-10 10:23 | P.PN ---
Subjective Progress Note Date: 10/10/20 DATE OF SERVICE: 10/10/2020 CHIEF COMPLAINT: Status post gastric bypass HISTORY OF PRESENT ILLNESS: Alis Bah is a 30-year-old female status post gastric bypass, 10/06/2020. She is POD 4. She confirms resolved gastroesophageal reflux disease following her gastric bypass. She reports appropriate left upper quadrant incisional tenderness. She is wearing an abdominal binder. She had a bowel movement that was dark as to be expected. She is only taking down one protein shake which is inadequate. At height of 5 feet 8 inches, her ideal body weight is 163 pounds. Her highest weight was 340 pounds, BMI 51.8. She comes in 311 pounds from 310 pounds, 2 months ago. She has gained 1 pound in 2 months. She is 148 pounds overweight. PHYSICAL EXAM: VITAL SIGNS: Height 5 foot 8 inches, weight 300 pounds. BMI 45.8 Vital Signs Temp 98.2 F 10/10/20 11:13 Pulse 80 10/10/20 11:13 Resp BP 101/70 10/10/20 11:13 Pulse Ox GENERAL: Well-developed in no acute distress. HEENT: No scleral icterus. Extraocular movements grossly intact. Hears conversational speech. No nasal drainage. NECK: Supple without lymphadenopathy. CHEST: Nonlabored respirations with equal bilateral excursions. CARDIOVASCULAR: Tachycardia. Distal 2+ pulses. ABDOMEN: No signs of infection otherwise noted. Dressing at left upper quadrant removed. MUSCULOSKELETAL: No clubbing, cyanosis. NEURO: No focal or lateralizing signs. Cranial nerves 2 through 12 grossly within normal limits. PSYCH: Appropriate affect. Alert and oriented to person, place and time. SKIN: Good skin turgor. Well perfused. ASSESSMENT: 1. Morbid obesity due to excess calories 2. Body mass index of 51.8 initial to 45.8 3. Osteoarthritis of the knees. 4. Osteoarthritis of the lower back. 5. Hypertensive heart disease. 6. Gastroesophageal reflux disease, intractable 7. Hyperlipidemia 8. Asthma 9. Migraines 10. Tachyarrhythmia 11. Skin cancer, resected 12. Plantar fasciitis 13. Postoperative nausea and vomiting 14. Anxiety disorder 15. Depressive disorder 16. Panic disorder 17. Vitamin D deficiency 18. Status post hiatal hernia repair 19. Status post gastric bypass PLAN: 1. Recommend increased protein shake as tolerated. 2. Follow-up in one week.
[2020-10-10 11:16] VITALS: BP 101/70; PULSE 80; TEMP 98.2; BMI 44.4
== END | disposition home or self-care (01) ==
LOC: BARWHC3 09:57
PROVIDERS: ATTEND Surgery Plastic and Reconstructive Surgery
DX: E66.01 Morbid (severe) obesity due to excess calories (principal); M17.0 Bilateral primary osteoarthritis of knee; M47.9 Spondylosis, unspecified; E78.5 Hyperlipidemia, unspecified; J45.909 Unspecified asthma, uncomplicated; K21.9 Gastro-esophageal reflux disease without esophagitis; G43.909 Migraine, unspecified, not intractable, without status migrainosus; F41.9 Anxiety disorder, unspecified; F32.9 Major depressive disorder, single episode, unspecified; E55.9 Vitamin D deficiency, unspecified; R00.0 Tachycardia, unspecified; F41.0 Panic disorder [episodic paroxysmal anxiety]; R11.2 Nausea with vomiting, unspecified; I11.9 Hypertensive heart disease without heart failure; M72.2 Plantar fascial fibromatosis; Z85.828 Personal history of other malignant neoplasm of skin; Z68.42 Body mass index [BMI] 45.0-49.9, adult; Z98.84 Bariatric surgery status; Z98.890 Other specified postprocedural states
CPT/HCPCS: 99211

== ENCOUNTER 2020-10-12 04:10 | Emergency (ER) | payer BC ==
[2020-10-12 04:19] VITALS: TEMP 98.6
[2020-10-12] MEDS ORDERED: SODIUM CHLORIDE 0.9% 500 ML 500 ML IV STA (04:38)
[2020-10-12] MEDS ORDERED: PANTOPRAZOLE 40 MG/10 ML VIAL IVP STA (04:38)
[2020-10-12] MEDS ORDERED: MORPHINE SULFATE 4 MG/ML SYRINGE IV STA (04:38)
[2020-10-12] MEDS ORDERED: ONDANSETRON 4 MG/2 ML VIAL IVP STA (04:38)
[2020-10-12] MEDS ORDERED: SODIUM CHLORIDE 0.9% 1,000 ML IV STA ×2 (04:38)
--- NOTE | 2020-10-12 04:38 | ED ---
Nausea/Vomiting/Diarrhea HPI - General Chief complaint: Nausea/Vomiting/Diarrhea Stated complaint: Dehydrated Time Seen by Provider: 10/12/20 04:13 Source: patient, RN notes reviewed, old records reviewed Mode of arrival: ambulatory Limitations: no limitations - History of Present Illness Initial comments: This is a 30-year-old female DF for evaluation patient Dese for evaluation for persistent nausea and vomiting. Nausea vomiting pain severe abdominal pain patient also has recent Zion-en-Y gastric bypass surgery. Patient is 6 days out of surgery pain became significant worse last night into today. A no fevers. Without vomiting or without her puking she has no pain MD complaint: nausea, vomiting, abdominal pain (When she is vomiting) -: hour(s) Description of Vomiting: watery Description of Diarrhea: water Associated Abdominal Pain: Yes Location: periumbilical Radiation: none Severity: moderate Severity scale (1-10): 4 Quality: cramping, stabbing Consistency: intermittent Improves with: none Worsens with: vomiting Context: history of abdominal surgery Associated Symptoms: denies other symptoms - Related Data Home Medications Medication Instructions Recorded Confirmed Rizatriptan Benzoate [Maxalt] 10 mg PO DAILY PRN 05/02/18 10/10/20 Ondansetron [Zofran] 4 mg PO Q8HR PRN 01/15/20 10/10/20 Previous Rx's Medication Instructions Recorded Albuterol Inhaler (Mhu) [Ventolin 2 puff INHALATION RT-QID PRN 30 12/21/18 Hfa Inhaler (Mhu)] Days #1 puff Acetaminophen Oral Susp [Tylenol 1,000 mg PO Q4-6H PRN #400 ml 10/06/20 Oral Susp] Omeprazole [PriLOSEC] 40 mg PO DAILY #30 capsule. 10/06/20 Ondansetron Odt [Zofran Odt] 4 mg PO Q8HR PRN #9 tab 10/06/20 Simethicone 40 mg/0.6 ml Drops 40 mg PO PCHS PRN #30 ml 10/06/20 [Mylicon Drops] bisacodyL [Dulcolax] 5 mg PO DAILY PRN #10 tablet. 10/06/20 Allergies Allergy/AdvReac Type Severity Reaction Status Date / Time adhesive tape Allergy peels skin Verified 10/12/20 04:19 and blisters lamotrigine [From Lamictal] Allergy Rash/Hives Verified 10/12/20 04:19 zonisamide Allergy anxiety Verified 10/12/20 04:19 tuberculin,PPD,multi-puncture AdvReac Unknown FALSE Verified 10/12/20 04:19 POSITIVE baclofen AdvReac DYSTONIA Verified 10/12/20 04:19 cefaclor [From Ceclor] AdvReac Abdominal Verified 10/12/20 04:19 Pain clindamycin AdvReac Nausea & Verified 10/12/20 04:19 Vomiting Review of Systems ROS Statement: Those systems with pertinent positive or pertinent negative responses have been documented in the HPI. ROS Other: All systems not noted in ROS Statement are negative. Past Medical History Past Medical History: Cancer, GERD/Reflux, Hyperlipidemia, Osteoarthritis (OA) Additional Past Medical History / Comment(s): migraines, allergy/exercise induced asthma, past hx. anemia, arthritis bilateral knees, skin cancer with removals, constipation-past and current problem, irregular BM's, takes metopr olol for past hx. arrythmia/tachycardia, COVID Jul 2020 History of Any Multi-Drug Resistant Organisms: None Reported Past Surgical History: Adenoidectomy, Bariatric Surgery, Hernia Repair, Orthopedic Surgery, Tonsillectomy Additional Past Surgical History / Comment(s): 08/19/16 tonsillectomy/adenoidectomy, tympanoplasty/tubes in ears, skin cancer removed x3 and scope of left knee, lipoma removed rt lower back, deviated septoplasty, plantar fasciotomy right foot, recent EGD take down of kristal 05-19-20 gastric bypass 10-06-20 Past Anesthesia/Blood Transfusion Reactions: Previous Problems w/ Anesthesia, Motion Sickness, Postoperative Nausea & Vomiting (PONV) Additional Past Anesthesia/Blood Transfusion Reaction / Comment(s): "when waking from anesthesia experiences overwhelming fear" Past Psychological History: Anxiety, Depression, Panic Disorder Smoking Status: Never smoker Past Alcohol Use History: Rare Past Drug Use History: None Reported - Past Family History Mother Family Medical History: Thyroid Disorder Additional Family Medical History / Comment(s): hyperactive thyroid Father Family Medical History: Hyperlipidemia General Exam Limitations: no limitations General appearance: alert, in no apparent distress, obese Head exam: Present: atraumatic, normocephalic, normal inspection Eye exam: Present: normal appearance, PERRL, EOMI. Absent: scleral icterus, conjunctival injection, periorbital swelling ENT exam: Present: normal exam, mucous membranes moist Neck exam: Present: normal inspection. Absent: tenderness, meningismus, lymphadenopathy Respiratory exam: Present: normal lung sounds bilaterally. Absent: respiratory distress, wheezes, rales, rhonchi, stridor Cardiovascular Exam: Present: regular rate, normal rhythm, normal heart sounds. Absent: systolic murmur, diastolic murmur, rubs, gallop, clicks GI/Abdominal exam: Present: soft, normal bowel sounds. Absent: distended, tenderness, guarding, rebound, rigid Extremities exam: Present: normal inspection, full ROM, normal capillary refill. Absent: tenderness, pedal edema, joint swelling, calf tenderness Back exam: Present: normal inspection Neurological exam: Present: alert, oriented X3, CN II-XII intact Psychiatric exam: Present: normal affect, normal mood Skin exam: Present: warm, dry, intact, normal color. Absent: rash Course Vital Signs 10/12/20 10/12/20 10/12/20 04:16 05:20 06:10 Temperature 98.6 F Pulse Rate 89 87 84 Respiratory 18 20 18 Rate Blood Pressure 148/81 118/71 110/73 O2 Sat by Pulse 97 97 97 Oximetry 10/12/20 10/12/20 08:00 08:45 Temperature 98.6 F Pulse Rate 84 82 Respiratory 18 18 Rate Blood Pressure 106/62 113/71 O2 Sat by Pulse 97 97 Oximetry - Reevaluation(s) Reevaluation #1: 10/12/20 06:06 Medical record is reviewed - Consultations Consultation #1: spoke w Dr Honeycutt who will see patirent this week Medical Decision Making - Medical Decision Making 30 female DF for evaluation of persistent nausea vomiting. Patient presents today for evaluation of persistent nausea vomiting postop abdominal pain. Symptoms resolved improved here in the ER, patient discharged from the fall with general surgery - Lab Data Result diagrams: 10/12/20 05:13 10/12/20 05:50 Lab Results 10/12/20 10/12/20 10/12/20 Range/Units 05:13 05:13 05:50 WBC 12.5 H (3.8-10.6) k/uL RBC 5.06 (3.80-5.40) m/uL Hgb 14.5 (11.4-16.0) gm/dL Hct 44.8 (34.0-46.0) % MCV 88.5 (80.0-100.0) fL MCH 28.7 (25.0-35.0) pg MCHC 32.5 (31.0-37.0) g/dL RDW 13.7 (11.5-15.5) % Plt Count 412 (150-450) k/uL MPV 7.1 Neutrophils % 64 % Lymphocytes % 23 % Monocytes % 3 % Eosinophils % 8 % Basophils % 0 % Neutrophils # 8.0 H (1.3-7.7) k/uL Lymphocytes # 2.9 (1.0-4.8) k/uL Monocytes # 0.4 (0-1.0) k/uL Eosinophils # 1.0 H (0-0.7) k/uL Basophils # 0.1 (0-0.2) k/uL Sodium 136 L (137-145) mmol/L Potassium 4.1 (3.5-5.1) mmol/L Chloride 99 (98-107) mmol/L Carbon Dioxide 24 (22-30) mmol/L Anion Gap 13 mmol/L BUN 11 (7-17) mg/dL Creatinine 0.75 (0.52-1.04) mg/dL Est GFR (CKD-EPI)AfAm >90 (>60 ml/min/1.73 sqM) Est GFR (CKD-EPI)NonAf >90 (>60 ml/min/1.73 sqM) Glucose 91 (74-99) mg/dL Plasma Lactic Acid Kvng 1.0 (0.7-2.0) mmol/L Calcium 9.6 (8.4-10.2) mg/dL Total Bilirubin 1.8 H (0.2-1.3) mg/dL AST 25 (14-36) U/L ALT 27 (4-34) U/L Alkaline Phosphatase 92 (38-126) U/L Total Protein 7.2 (6.3-8.2) g/dL Albumin 4.3 (3.5-5.0) g/dL Amylase 49 (30-110) U/L Lipase 99 (23-300) U/L - Radiology Data Radiology results: report reviewed (CT of the abdomenand pelvis negative for acute disease), image reviewed Disposition Clinical Impression: Dehydration, Nausea & vomiting Disposition: HOME SELF-CARE Condition: Good Instructions (If sedation given, give patient instructions): Acute Nausea and Vomiting (ED) Is patient prescribed a controlled substance at d/c from ED?: No Referrals: Dane Narayan MD [Primary Care Provider] - 1-2 days
[2020-10-12 05:30] LABS: Basophils # (A) 0.1 k/uL (0-0.2); Basophils % (A) 0 %; Eosinophils % (A) 8 %; HCT 44.8 % (34.0-46.0); HGB 14.5 gm/dL (11.4-16.0); Lymphocytes # (A) 2.9 k/uL (1.0-4.8); Lymphocytes % (A) 23 %; MCH 28.7 pg (25.0-35.0); MCHC 32.5 g/dL (31.0-37.0); MCV 88.5 fL (80.0-100.0); Mean Platelet Volume 7.1; Monocytes # (A) 0.4 k/uL (0-1.0); Monocytes % (A) 3 %; Neutrophils % (A) 64 %; Platelet Count 412 k/uL (150-450); RBC 5.06 m/uL (3.80-5.40); RDW 13.7 % (11.5-15.5); WBC 12.5 k/uL (3.8-10.6)
[2020-10-12 06:11] LABS: ALT 27 U/L (4-34); AST 25 U/L (14-36); African American GFR (CKD) >90 (>60 ml/min/1.73 sqM); Albumin 4.3 g/dL (3.5-5.0); Alkaline Phosphatase 92 U/L (38-126); Amylase 49 U/L (30-110); Anion Gap 13 mmol/L; Blood Urea Nitrogen 11 mg/dL (7-17); Calcium 9.6 mg/dL (8.4-10.2); Carbon Dioxide 24 mmol/L (22-30); Chloride 99 mmol/L (98-107); Glucose 91 mg/dL (74-99); Lipase 99 U/L (23-300); Non-African American GFR(CKD) >90 (>60 ml/min/1.73 sqM); Potassium 4.1 mmol/L (3.5-5.1); Sodium 136 mmol/L (137-145); Total Bilirubin 1.8 mg/dL (0.2-1.3); Total Protein 7.2 g/dL (6.3-8.2)
--- NOTE | 2020-10-12 06:33 | CT ---
EXAM: CT Abdomen and Pelvis With Intravenous Contrast CLINICAL HISTORY: ITS.REASON CT Reason: abdominal pain TECHNIQUE: Axial computed tomography images of the abdomen and pelvis with intravenous contrast. CTDI is 50.37 mGy and DLP is 2274.9 mGy-cm. This CT exam was performed using one or more of the following dose reduction techniques: automated exposure control, adjustment of the mA and/or kV according to patient size, and/or use of iterative reconstruction technique. COMPARISON: Ultrasound study of 10/27/2019. CT imaging of 08/01/2015. FINDINGS: Lung bases: Minimal areas of scarring and presumed atelectasis posterior medially at the lung bases. Heart: Heart is normal in size. ABDOMEN: Liver: Fatty liver. Gallbladder and bile ducts: Gallbladder is unremarkable. No calcified stones. No ductal dilation. Pancreas: See below. Spleen: Spleen enhance uniformly peered Adrenals: The adrenal glands, the head, body, tail of the pancreas are unremarkable. Kidneys and ureters: Both kidneys are shown to excrete contrast bilaterally without renal calculus or hydronephrosis per Stomach and bowel: Post surgical changes about the stomach to Moderate quantity of stool throughout the colon. No bowel obstruction. No evidence of bowel surgery left epigastrium involving small bowel loops. No mucosal thickening. PELVIS: Appendix: The appendix is seen on coronal image 64 and is unremarkable. Bladder: The bladder is underdistended. Reproductive: Unremarkable as visualized. ABDOMEN and PELVIS: Intraperitoneal space: Moderate quantity of free fluid within the pelvis. No free air. Bones/joints: Mild to moderate osteoarthritic changes about the sacral iliac joints. No spondylolysis or spondylolisthesis. No acute fracture. No dislocation. Soft tissues: Ischiorectal fat is clean. There is haziness within the subcutaneous tissues of the mid anterior abdominal wall possibly on the basis of bruising or edema versus cellulitis. Clinical correlation is advised. Vasculature: Flow is demonstrated within the celiac, SMA, renal arteries, and RODRIGUEZ. Portal vein is patent. No abdominal aortic aneurysm. Lymph nodes: No retroperitoneal lymphadenopathy. No pelvic or inguinal lymphadenopathy. Other findings: Elevation of the right hemidiaphragm. IMPRESSION: 1. Gallbladder is unremarkable. 2. No renal calculus or hydronephrosis. 3. Appendix is unremarkable. 4. No bowel obstruction. 5. Moderate simple free fluid within the pelvis.
[2020-10-12] MEDS ORDERED: DEXAMETHASONE SOD PHOSPHATE 10 MG/ML 1 ML VIAL IV STA (07:04)
[2020-10-12] MEDS ORDERED: SCOPOLAMINE 1.5MG/72HR PATCH TRANSDERM STA (07:04)
[2020-10-12 07:12] VITALS: RESP 18
[2020-10-12 08:58] VITALS: BP 113/71; PULSE 82
== END 2020-10-12 08:47 | disposition home or self-care (01) ==
LOC: EC 04:10
DX: E86.0 Dehydration (principal); R11.2 Nausea with vomiting, unspecified; G43.909 Migraine, unspecified, not intractable, without status migrainosus; Z91.048 Other nonmedicinal substance allergy status; Z88.1 Allergy status to other antibiotic agents; Z88.8 Allergy status to other drugs, medicaments and biological substances; Z98.84 Bariatric surgery status; Z85.828 Personal history of other malignant neoplasm of skin
CPT/HCPCS: 80053; 82150; 83605; 83690; 85025; 74177; 99284; 96374; 96375 ×3; 96361 ×3; J2270; J1100; J2405; C9113; Q9967; 99285

== ENCOUNTER → 2020-10-15 | Outpatient (CLI) | payer BC ==
--- NOTE | 2020-10-15 14:10 | P.PN ---
Subjective Progress Note Date: 10/15/20 DATE OF SERVICE: 10/15/2020 CHIEF COMPLAINT: Status post gastric bypass HISTORY OF PRESENT ILLNESS: Alis Bah is a 30-year-old female status post gastric bypass, 10/06/2020. She is 1 week out. She came into the ER over the weekend for dehydration. Her incisional pain has improved. She is usually a nxious. She is taking Prilosec for pouch care. She reports no more heartburn. Her protein intake is inadequate at 1 protein shake daily. She is still struggling with dietary recommendations and fluid intake. Her bowel movements are daily. She reports being recently engaged. At height of 5 feet 8 inches, her ideal body weight is 163 pounds. Her highest weight was 340 pounds, BMI 51.8. She comes in 288 pounds from 311 pounds, 1 week ago. She has lost 12 pounds in 1 week. Lifetime weight loss 52 pounds. Lifetime percent excess weight loss of 29%. She is 125 pounds overweight. PHYSICAL EXAM: VITAL SIGNS: Height 5 foot 8 inches, weight 288 pounds. BMI 43.9 Vital Signs Temp 97.7 F 10/15/20 13:11 Pulse 82 10/15/20 13:29 Resp 16 10/15/20 13:11 BP 113/79 10/15/20 13:11 Pulse Ox GENERAL: Well-developed in no acute distress. HEENT: No scleral icterus. Extraocular movements grossly intact. Hears conversational speech. No nasal drainage. NECK: Supple without lymphadenopathy. CHEST: Nonlabored respirations with equal bilateral excursions. CARDIOVASCULAR: Regular rate and rhythm. Distal 2+ pulses. ABDOMEN: No cellulitis, infection. No incisional hernia MUSCULOSKELETAL: No clubbing, cyanosis. NEURO: No focal or lateralizing signs. Cranial nerves 2 through 12 grossly within normal limits. PSYCH: Appropriate affect. Alert and oriented to person, place and time. SKIN: Good skin turgor. Well perfused. ASSESSMENT: 1. Morbid obesity due to excess calories 2. Body mass index of 51.8 initial to 43.9 3. Osteoarthritis of the knees. 4. Osteoarthritis of the lower back. 5. Hypertensive heart disease. 6. Gastroesophageal reflux disease, intractable 7. Hyperlipidemia 8. Asthma 9. Migraines 10. Tachyarrhythmia 11. Skin cancer, resected 12. Plantar fasciitis 13. Postoperative nausea and vomiting 14. Anxiety disorder 15. Depressive disorder 16. Panic disorder 17. Vitamin D deficiency 18. Status post hiatal hernia repair 19. Status post gastric bypass PLAN: 1. Recommend increase protein intake to 75 grams daily. 2. Increase fluid intake 64 oz daily. 3. Follow up 1 month post op or sooner for issues. Objective - Vital Signs Vital signs: Vital Signs Temp 97.7 F 10/15/20 13:11 Pulse 82 10/15/20 13:29 Resp 16 10/15/20 13:11 BP 113/79 10/15/20 13:11 Pulse Ox Intake & Output 10/14/20 10/15/20 10/15/20 18:59 06:59 18:59 Weight 131.088 kg
== END | disposition home or self-care (01) ==
CPT/HCPCS: 97803; 99211

== ENCOUNTER → 2020-10-25 | Outpatient (CLI) | payer BC ==
[~2020-10-25] MED LIST changes: -ACETAMINOPHEN TAB 500 MG TAB PO ONE; -CHLORHEXIDINE GLUCONATE 15 ML CUP MUCOUS MEM PRN; -DEXAMETHASONE SOD PHOSPHATE 4 MG/ML 1 ML VIAL IV ONE; -ENOXAPARIN 40 MG/0.4 ML SYRINGE SQ PRN; -GABAPENTIN 300 MG CAP PO ONE; -HYDROmorphone 0.5 MG/0.5 ML SYRINGE IVP PRN; +LACTATED RINGERS 1,000 ML IV SCH; -PANTOPRAZOLE 40 MG/10 ML VIAL IVP PRN; +SCOPOLAMINE 1.5MG/72HR PATCH TRANSDERM ONE; -SCOPOLAMINE 1.5MG/72HR PATCH TRANSDERM SCH; +SODIUM CHLORIDE 0.9% 2,000 ML IV ONE; -ceFAZolin 3 GM in SODIUM CHLORIDE 0.9% 100 ML IVPB PRN
[2020-10-25 17:33] LABS: Basophils # (A) 0.1 k/uL (0-0.2); Basophils % (A) 1 %; Eosinophils # (A) 0.6 k/uL (0-0.7); Eosinophils % (A) 6 %; HCT 42.4 % (34.0-46.0); HGB 13.9 gm/dL (11.4-16.0); Lymphocytes # (A) 2.8 k/uL (1.0-4.8); Lymphocytes % (A) 29 %; MCH 29.2 pg (25.0-35.0); MCHC 32.9 g/dL (31.0-37.0); MCV 88.9 fL (80.0-100.0); Mean Platelet Volume 7.7; Monocytes # (A) 0.4 k/uL (0-1.0); Monocytes % (A) 4 %; Neutrophils # (A) 5.7 k/uL (1.3-7.7); Neutrophils % (A) 59 %; Platelet Count 346 k/uL (150-450); RBC 4.78 m/uL (3.80-5.40); RDW 13.2 % (11.5-15.5); WBC 9.6 k/uL (3.8-10.6)
--- NOTE | 2020-10-25 17:37 | P.PN ---
Subjective Progress Note Date: 10/25/20 She reports new troubles with swallowed pureed today from this morning. Reports she tolerated chicken salad, protein shake and water yesterday. She is 3 weeks out from surgery. CBC obtained and normal. Plan for IV fluid hydration. May need EGD with dilation pending clinical course. Pre-op patient was deemed high risk to develop stricture due to multiple gastric procedures. Objective - Vital Signs Vital signs: Intake & Output 10/24/20 10/25/20 10/25/20 18:59 06:59 18:59 Weight 128.8 kg - Labs CBC & Chem 7: 10/25/20 17:15
[2020-10-25 17:43] LABS: African American GFR (CKD) >90 (>60 ml/min/1.73 sqM); Anion Gap 12 mmol/L; Blood Urea Nitrogen 13 mg/dL (7-17); Calcium 9.7 mg/dL (8.4-10.2); Carbon Dioxide 23 mmol/L (22-30); Chloride 103 mmol/L (98-107); Glucose 88 mg/dL (74-99); Magnesium 1.9 mg/dL (1.6-2.3); Non-African American GFR(CKD) >90 (>60 ml/min/1.73 sqM); Potassium 4.2 mmol/L (3.5-5.1); Sodium 138 mmol/L (137-145)
== END | disposition home or self-care (01) ==
LOC: PEDOP 19:13
PROVIDERS: ATTEND Surgery Plastic and Reconstructive Surgery
DX: E86.0 Dehydration (principal)
CPT/HCPCS: 80048; 83735; 85025; 96360; 96361

== ENCOUNTER → 2020-10-27 | Outpatient (CLI) | payer BC ==
[2020-10-27 11:46] VITALS: BP 125/77; RESP 16; TEMP 97.8
[2020-10-27] MEDS: SODIUM CHLORIDE 0.9% 1,000 ML IV ONE ×2 (11:53→12:43)
--- NOTE | 2020-10-27 12:09 | P.PN ---
Subjective Progress Note Date: 10/27/20 She reports trouble swallowing thick liquids. She is behind on her fluids. She is brought in for IV fluids. Recommend esophogram. Objective - Vital Signs Vital signs: Vital Signs Temp 97.8 F 10/27/20 11:42 Pulse Resp 16 10/27/20 11:42 BP 125/77 10/27/20 11:42 Pulse Ox Intake & Output 10/26/20 10/27/20 10/27/20 18:59 06:59 18:59 Weight 128.82 kg
--- NOTE | 2020-10-27 14:43 | FL ---
EXAMINATION TYPE: FL barium swallow DATE OF EXAM: 10/27/2020 LIMITED upper GI/esophagram: CLINICAL HISTORY: Morbid Obesity, status post gastric bypass surgery October 06 New onset dysphagia for 3 days with vomiting. History of hiatal hernia repair twice in the past befo re bypass surgery. TECHNIQUE: Limited esophagram is performed utilizing 30 oz of Omnipaque 350. A total of 122 seconds of fluoroscopic time was utilized during procedure and 57 images obtained. COMPARISON: CT abdomen and pelvis September 2020.. FINDINGS: The patient swallowed contrast without difficulty or delay. Esophageal peristalsis and mo tility are satisfactory. There is good flow of contrast along the diaphragmatic hiatus into gastric remnant which appears within normal limits. There is less than moderate to severe delay in passing fr om remnant into the anastomotic small bowel loop. There are subsequent reflux of contrast into the di stal esophagus. After roughly 2 minutes there is eventual slow passage of contrast into the efferent small bowel loop which is initially slow but then eventually shows improved passage and caliber chann el documented on 2 projections appears perhaps mildly narrowed at best. There is satisfactory flow af ter this point. Patient remained asymptomatic without increased nausea or vomiting. Patient tolerated procedure well and left the department in satisfactory condition. IMPRESSION: Initial moderate to severe obstruction but eventual passage into anastomotic small bowel loop with perhaps mild to minimal narrowing at the anastomosis after initial 2 to 3 minute delay.
== END ==
LOC: PROCWHC3 11:35
PROVIDERS: ATTEND Surgery Plastic and Reconstructive Surgery
DX: E86.0 Dehydration (principal)
CPT/HCPCS: 74220; 96360; 96361

== ENCOUNTER 2020-10-29 09:56 | Day surgery (SDC) | payer BC ==
[2020-10-28 12:46] VITALS: BMI 43.2
--- NOTE | 2020-10-29 08:55 | P.GSHP ---
History of Present Illness H&P Date: 10/29/20 CHIEF COMPLAINT: GERD HISTORY OF PRESENT ILLNESS: The patient is a 30-year-old female who presents reports gastroesophageal reflux disease. Upper endoscopy was offered for further evaluation and management. PAST MEDICAL HISTORY: Please see list. PAST SURGICAL HISTORY: Please see list. MEDICATIONS: Please see list. ALLERGIES: Please see list. SOCIAL HISTORY: No illicit drug use FAMILY HISTORY: No reports of Crohn disease or ulcerative colitis. REVIEW OF ORGAN SYSTEMS: CONSTITUTIONAL: No reports of fevers or chills. GI: Denies any blood in stools or constipation. PHYSICAL EXAM: VITAL SIGNS: Stable GENERAL: Well-developed and pleasant in no acute distress. HEENT: No scleral icterus. Extraocular movements grossly intact. Moist buccal mucosa. NECK: Supple without lymphadenopathy. CHEST: Unlabored respirations. Equal bilateral excursions. CARDIOVASCULAR: Regular rate and rhythm. Distal 2+ pulses. ABDOMEN: Soft, nondistended. MUSCULOSKELETAL: No clubbing, cyanosis, or edema. ASSESSMENT: 1. Gastroesophageal reflux disease PLAN: 1. Recommend proceeding with an upper endoscopy Past Medical History Past Medical History: Cancer, GERD/Reflux, Hyperlipidemia, Osteoarthritis (OA) Additional Past Medical History / Comment(s): migraines, allergy/exercise induced asthma, hx. anemia, arthritis bilateral knees, skin cancer, constipation,, irregular BM's, past hx arrythmia/tachycardia after pneumonia -no current problems, COVID Jul 2020, hiatal hernia x 2, History of Any Multi-Drug Resistant Organisms: None Reported Past Surgical History: Adenoidectomy, Bariatric Surgery, Ear Surgery, Hernia Repair, Orthopedic Surgery, Tonsillectomy Additional Past Surgical History / Comment(s): tympanoplasty/tubes in ears, skin cancer removed x3, arthroscopy left knee, lipoma removed rt lower back, deviated septoplasty, plantar fasciotomy right foot, EGD take down of kristal/hernia repair 05-19-20, gastric bypass 10-06-20 Past Anesthesia/Blood Transfusion Reactions: Previous Problems w/ Anesthesia, Motion Sickness, Postoperative Nausea & Vomiting (PONV) Additional Past Anesthesia/Blood Transfusion Reaction / Comment(s): "when waking from anesthesia experiences overwhelming anxiety/ fear" Smoking Status: Never smoker - Past Family History Mother Family Medical History: No Reported History Additional Family Medical History / Comment(s): . Father Family Medical History: Hyperlipidemia Medications and Allergies Home Medications Medication Instructions Recorded Confirmed Type Rizatriptan Benzoate [Maxalt] 10 mg PO DAILY PRN 05/02/18 10/28/20 History Albuterol Inhaler (Mhu) [Ventolin 2 puff INHALATION RT-QID PRN 30 12/21/18 10/28/20 Rx Hfa Inhaler (Mhu)] Days #1 puff Ondansetron [Zofran] 4 mg PO Q8HR PRN 01/15/20 10/28/20 History Omeprazole [PriLOSEC] 40 mg PO DAILY #30 capsule. 10/06/20 10/28/20 Rx Simethicone 40 mg/0.6 ml Drops 40 mg PO PCHS PRN #30 ml 10/06/20 10/28/20 Rx [Mylicon Drops] bisacodyL [Dulcolax] 5 mg PO DAILY PRN #10 tablet. 10/06/20 10/28/20 Rx Allergies Allergy/AdvReac Type Severity Reaction Status Date / Time adhesive tape Allergy peels skin Verified 10/28/20 12:36 and blisters lamotrigine [From Lamictal] Allergy Rash/Hives Verified 10/28/20 12:36 zonisamide Allergy anxiety Verified 10/28/20 12:36 tuberculin,PPD,multi-puncture AdvReac Unknown FALSE Verified 10/28/20 12:36 POSITIVE baclofen AdvReac DYSTONIA Verified 10/28/20 12:36 cefaclor [From Ceclor] AdvReac Abdominal Verified 10/28/20 12:36 Pain clindamycin AdvReac Nausea & Verified 10/28/20 12:36 Vomiting
[2020-10-29] MEDS ORDERED: LACTATED RINGERS 1,000 ML IV ONE (10:31)
[2020-10-29 10:32] VITALS: TEMP 97
[2020-10-29] MEDS ORDERED: LIDOCAINE 1% (10MG/ML) FOR IV START INTRADERMA ONE (10:33)
[2020-10-29] MEDS ORDERED: PROPOFOL 10 MG/ML 20 ML VIAL IV ONE (10:55)
[2020-10-29] MEDS ORDERED: LIDOCAINE 1% INJ 10MG/ML (20 ML MDV) ONE (10:55)
--- NOTE | 2020-10-29 11:23 | P.PCN ---
Date of Procedure: 10/29/20 Description of Procedure: PREOPERATIVE DIAGNOSIS: Dysphagia. Intractable nausea and vomiting Abnormal barium swallow demonstrated stricture POSTOPERATIVE DIAGNOSIS: Dysphagia. Intractable nausea and vomiting Gastric stricture Gastrojejunal stricture without chronic ulcer without perforation OPERATION: Esophagogastrojejunoscopy with balloon dilatation from 8 to 12 mm. SURGEON: Estephanie Honeycutt MD ANESTHESIA: MAC. INDICATIONS: The patient is a 30-year-old female who presents with a history of dysphagia including new-onset nausea and vomiting. Benefits and risks of the procedure were described. Informed consent was obtained. DESCRIPTION: The patient was brought into the endoscopy suite and laid in the left lateral decubitus position. After a timeout was confirmed, the procedure was initiated. An Olympus gastroscope was passed along the posterior oropharynx down to the distal esophagus where the squamocolumnar junction was unremarkable. The gastric pouch was entered. A gastrojejunal stricture of 8 mm was found as the adult gastroscope was 9.5 mm in size. A [employer] balloon dilator was placed through the scope. Final insufflation up to 12 mm was performed with a total of 2 minutes. The scope was advanced up to 60 cm from the incisors into the [place] limb. The mucosa of the gastrojejunal anastomosis was intact. No chronic gastrojejunal marginal ulcer was encountered. No full-thickness injury was encountered. The GI tract was desufflated. The patient tolerated the procedure well. FINDINGS: Squamocolumnar junction unremarkable at 35 cm Diaphragmatic hiatal hernia, 2 cm Stricture of approximately 8 mm encountered. No chronic gastrojejunal ulceration encountered. Successful balloon dilatation to 12 mm. RECOMMENDATIONS: Start combined therapy of Carafate and omeprazole of at least 4 weeks. Repeat upper endoscopy in 4 weeks Plan - Discharge Summary New Discharge Prescriptions: New Sucralfate [Carafate] 1 gm PO BID #60 tab Continue Rizatriptan Benzoate [Maxalt] 10 mg PO DAILY PRN PRN Reason: migraines Albuterol Inhaler (Mhu) [Ventolin Hfa Inhaler (Mhu)] 2 puff INHALATION RT-QID PRN 30 Days #1 puff PRN Reason: Shortness Of Breath Ondansetron [Zofran] 4 mg PO Q8HR PRN PRN Reason: Nausea bisacodyL [Dulcolax] 5 mg PO DAILY PRN #10 tablet.dr PRN Reason: Constipation Simethicone 40 mg/0.6 ml Drops [Mylicon Drops] 40 mg PO PCHS PRN #30 ml PRN Reason: Gas Omeprazole [PriLOSEC] 40 mg PO DAILY #30 capsule. Discharge Medication List Rizatriptan Benzoate [Maxalt] 10 mg PO DAILY PRN 05/02/18 [History] Albuterol Inhaler (Mhu) [Ventolin Hfa Inhaler (Mhu)] 2 puff INHALATION RT-QID PRN 30 Days #1 puff 12/21/18 [Rx] Ondansetron [Zofran] 4 mg PO Q8HR PRN 01/15/20 [History] Omeprazole [PriLOSEC] 40 mg PO DAILY #30 capsule. 10/06/20 [Rx] Simethicone 40 mg/0.6 ml Drops [Mylicon Drops] 40 mg PO PCHS PRN #30 ml 10/06/20 [Rx] bisacodyL [Dulcolax] 5 mg PO DAILY PRN #10 tablet. 10/06/20 [Rx] Sucralfate [Carafate] 1 gm PO BID #60 tab 10/29/20 [Rx] Follow up Appointment(s[facility] [place] [facility] - 11/26/20 Patient Instructions/Handouts: Esophageal Dilation (GEN) Activity/Diet/Wound Care/Special Instructions: Liquid diet today. Start Carafate with Protonix/Omeprazole Discharge Disposition: HOME SELF-CARE
[2020-10-29 11:31] VITALS: BP 110/70; PULSE 77; RESP 16
== END 2020-10-29 12:19 | disposition home or self-care (01) ==
LOC: ORWHC2ENDO 09:56
PROVIDERS: ATTEND Surgery Plastic and Reconstructive Surgery
DX: K95.89 Other complications of other bariatric procedure (principal); K21.9 Gastro-esophageal reflux disease without esophagitis; E78.5 Hyperlipidemia, unspecified; M19.90 Unspecified osteoarthritis, unspecified site; G43.909 Migraine, unspecified, not intractable, without status migrainosus; J45.990 Exercise induced bronchospasm; D64.9 Anemia, unspecified; J45.909 Unspecified asthma, uncomplicated; Z86.16 Personal history of COVID-19; M17.0 Bilateral primary osteoarthritis of knee; Z85.828 Personal history of other malignant neoplasm of skin; Z87.01 Personal history of pneumonia (recurrent); I49.9 Cardiac arrhythmia, unspecified; Z98.890 Other specified postprocedural states; Z90.89 Acquired absence of other organs; Z83.438 Family history of other disorder of lipoprotein metabolism and other lipidemia; Z79.899 Other long term (current) drug therapy; Z88.1 Allergy status to other antibiotic agents; Z88.7 Allergy status to serum and vaccine; Z88.8 Allergy status to other drugs, medicaments and biological substances; Z91.09 Other allergy status, other than to drugs and biological substances
CPT/HCPCS: 81025; 43245; J2001; J2704; C1727

== ENCOUNTER → 2020-10-29 | Outpatient (CLI) | payer BC ==
[2020-10-29 10:23] LABS: HCT 44.4 % (34.0-46.0); HGB 14.6 gm/dL (11.4-16.0); MCH 29.5 pg (25.0-35.0); MCHC 32.8 g/dL (31.0-37.0); MCV 89.9 fL (80.0-100.0); Mean Platelet Volume 7.9; Platelet Count 350 k/uL (150-450); RBC 4.94 m/uL (3.80-5.40); RDW 13.4 % (11.5-15.5); WBC 9.2 k/uL (3.8-10.6)
[2020-10-29 13:36] VITALS: BP 134/74; PULSE 85; RESP 18; TEMP 97.9; BMI 42.4
--- NOTE | 2020-10-29 14:01 | P.PN ---
Subjective Progress Note Date: 10/29/20 She is now feeling better from the upper endoscopy. Follow up at 4 weeks. Needs more omeprazole. Objective - Vital Signs Vital signs: Vital Signs Temp 97.9 F 10/29/20 13:14 Pulse 85 10/29/20 13:14 Resp 18 10/29/20 13:14 BP 134/74 10/29/20 13:14 Pulse Ox Intake & Output 10/28/20 10/29/20 10/29/20 18:59 06:59 18:59 Weight 126.552 kg - Labs CBC & Chem 7: 10/29/20 09:55
--- NOTE | 2020-10-29 14:06 | P.PN ---
Progress Note - Text Progress Note Date: 10/29/20 To whom it may concern: Alis Bah is under my surgical care. She may return to work without restrictions TuesdayNovember 03. Regards, Etsephanie Honeycutt MD
[2020-10-29 22:28] LABS: % Iron Saturation 16.83 (12.00-45.00); African American GFR (CKD) 115.5 (60.0-200.0); Albumin 4.6 g/dL (3.80-4.90); Albumin/Globulin Ratio 2.09 (1.60-3.17); Anion Gap 18.3 mmol/L (4.00-12.00); Calcium 10.3 mg/dL (8.7-10.3); Carbon Dioxide 18.7 mmol/L (21.6-31.8); Chol/HDL Ratio 6.03; Globulin 2.2 g/dL (1.6-3.3); LDL Cholesterol,Calculated 161.6 mg/dL (0.0-131.0); Magnesium 1.8 mg/dL (1.5-2.4); Non-African American GFR(CKD) 99.6 (60.0-200.0); Phosphorus 4.5 mg/dL (2.4-5.1); Potassium 4.5 mmol/L (3.5-5.5); Total Protein 6.8 g/dL (6.2-8.2); VLDL Calculation 19.4 mg/dL (5.00-40.00)
[2020-10-29 22:37] LABS: Ferritin 155.4 ng/mL (10.0-291.0)
[2020-10-29 23:19] LABS: Folate, Serum 16.9 ng/mL
[2020-10-30 01:13] LABS: INR 0.99 (0.90-1.11); Partial Thromboplastin Time 32.8 sec (23.5-31.0); Prothrombin Time 10.8 sec (9.9-11.9)
[2020-10-30 13:34] LABS: Zinc, Serum 98 ug/dL (60-130)
[2020-10-31 06:57] LABS: Vitamin A 30 ug/dL (38-106)
[2020-10-31 07:12] LABS: Vit B1(Thiamine) 61 ug/L (38-122)
[2020-11-02 18:32] LABS: Selenium 101 mcg/L (63-160)
== END ==
LOC: BARWHC3 08:48
PROVIDERS: ATTEND Surgery Plastic and Reconstructive Surgery
DX: Z02.79 Encounter for issue of other medical certificate (principal)
CPT/HCPCS: 80053; 80061; 82306; 82525; 82607; 82728; 82746; 83036; 83540; 83550; 83735; 83970; 84100; 84134; 84255; 84425; 84443; 84590; 84630; 85027; 85610; 85730; 97803; 99211

== ENCOUNTER 2020-11-26 08:33 | Day surgery (SDC) | payer BC ==
[2020-11-20 17:02] VITALS: BMI 40.7
--- NOTE | 2020-11-26 07:43 | P.GSHP ---
History of Present Illness H&P Date: 11/26/20 CHIEF COMPLAINT: GERD HISTORY OF PRESENT ILLNESS: The patient is a 30-year-old female who presents reports gastroesophageal reflux disease. Upper endoscopy was offered for further evaluation and management. PAST MEDICAL HISTORY: Please see list. PAST SURGICAL HISTORY: Please see list. MEDICATIONS: Please see list. ALLERGIES: Please see list. SOCIAL HISTORY: No illicit drug use FAMILY HISTORY: No reports of Crohn disease or ulcerative colitis. REVIEW OF ORGAN SYSTEMS: CONSTITUTIONAL: No reports of fevers or chills. GI: Denies any blood in stools or constipation. PHYSICAL EXAM: VITAL SIGNS: Stable GENERAL: Well-developed and pleasant in no acute distress. HEENT: No scleral icterus. Extraocular movements grossly intact. Moist buccal mucosa. NECK: Supple without lymphadenopathy. CHEST: Unlabored respirations. Equal bilateral excursions. CARDIOVASCULAR: Regular rate and rhythm. Distal 2+ pulses. ABDOMEN: Soft, nondistended. MUSCULOSKELETAL: No clubbing, cyanosis, or edema. ASSESSMENT: 1. Gastroesophageal reflux disease PLAN: 1. Recommend proceeding with an upper endoscopy Past Medical History Past Medical History: Cancer, GERD/Reflux, Hyperlipidemia, Osteoarthritis (OA) Additional Past Medical History / Comment(s): Migraines, allergy/exercise induced asthma, hx. anemia, arthritis bilateral knees, skin cancer, constipation, irregular BM's, past hx arrythmia/tachycardia after pneumonia -no current problems, COVID Jul 2020, hiatal hernia X2. History of Any Multi-Drug Resistant Organisms: None Reported Past Surgical History: Adenoidectomy, Bariatric Surgery, Ear Surgery, Hernia Repair, Orthopedic Surgery, Tonsillectomy Additional Past Surgical History / Comment(s): Tympanoplasty/tubes in ears, skin cancer removed X3, arthroscopy left knee, lipoma removed rt lower back, deviated septoplasty, plantar fasciotomy right foot, EGD take down of kristal/hernia repair 05-19-20, gastric bypass 10-06-20. Past Anesthesia/Blood Transfusion Reactions: Previous Problems w/ Anesthesia, Motion Sickness, Postoperative Nausea & Vomiting (PONV) Additional Past Anesthesia/Blood Transfusion Reaction / Comment(s): "when waking from anesthesia experiences overwhelming anxiety/fear." Past Psychological History: Anxiety, Depression, Panic Disorder Smoking Status: Never smoker Past Alcohol Use History: Rare Past Drug Use History: None Reported - Past Family History Mother Family Medical History: No Reported History Additional Family Medical History / Comment(s): . Father Family Medical History: Hyperlipidemia Medications and Allergies Home Medications Medication Instructions Recorded Confirmed Type Rizatriptan Benzoate [Maxalt] 10 mg PO DAILY PRN 05/02/18 11/20/20 History Albuterol Inhaler (u) [Ventolin 2 puff INHALATION RT-QID PRN 30 12/21/18 11/20/20 Rx Hfa Inhaler (Mhu)] Days #1 puff Ondansetron [Zofran] 4 mg PO Q8HR PRN 01/15/20 11/20/20 History Simethicone 40 mg/0.6 ml Drops 40 mg PO [facility] PRN #30 ml 10/06/20 11/20/20 Rx [Mylicon Drops] bisacodyL [Dulcolax] 5 mg PO DAILY PRN #10 tablet. 10/06/20 11/20/20 Rx Omeprazole [PriLOSEC] 40 mg PO DAILY #60 cap 10/29/20 11/20/20 Rx Sucralfate [Carafate] 1 gm PO BID #60 tab 10/29/20 11/20/20 Rx Multivitamins, Thera [Multivitamin 1 tab PO DAILY 11/20/20 11/20/20 History (formulary)] Allergies Allergy/AdvReac Type Severity Reaction Status Date / Time adhesive tape Allergy peels skin Verified 11/20/20 16:56 and blisters lamotrigine [From Lamictal] Allergy Rash/Hives Verified 11/20/20 16:56 zonisamide Allergy anxiety Verified 11/20/20 16:56 tuberculin,PPD,multi-puncture AdvReac Unknown FALSE Verified 11/20/20 16:56 POSITIVE baclofen AdvReac DYSTONIA Verified 11/20/20 16:56 cefaclor [From Ceclor] AdvReac Abdominal Verified 11/20/20 16:56 Pain clindamycin AdvReac Nausea & Verified 11/20/20 16:56 Vomiting
[~2020-11-26 08:33] MED LIST changes: -SCOPOLAMINE 1.5MG/72HR PATCH TRANSDERM ONE; -SODIUM CHLORIDE 0.9% 2,000 ML IV ONE
[2020-11-26 08:56] VITALS: RESP 16; TEMP 97.7
[2020-11-26] MEDS ORDERED: LACTATED RINGERS 1,000 ML IV ONE (09:05)
[2020-11-26] MEDS ORDERED: LIDOCAINE 1% (10MG/ML) FOR IV START INTRAPLEUR ONE (09:10)
[2020-11-26] MEDS ORDERED: MIDAZOLAM 2 MG/2 ML VIAL IVP ONE (09:19)
[2020-11-26] MEDS ORDERED: PROPOFOL 10 MG/ML 20 ML VIAL IV ONE (09:54)
[2020-11-26] MEDS ORDERED: LIDOCAINE 1% INJ 10MG/ML (20 ML MDV) ONE (09:54)
--- NOTE | 2020-11-26 10:17 | P.PCN ---
Date of Procedure: 11/26/20 Description of Procedure: PREOPERATIVE DIAGNOSIS: Dysphagia. Nausea with vomiting. Morbid obesity. POSTOPERATIVE DIAGNOSIS: Dysphagia. Nausea with vomiting. Morbid obesity. Gastric stenosis Gastrojejunal stricture without chronic ulcer without perforation OPERATION: Esophagogastrojejunoscopy with balloon dilatation from 9 to 15 mm. SURGEON: Estephanie Honeycutt MD ANESTHESIA: MAC. INDICATIONS: The patient is a 30-year-old female who presents with a history of dysphagia, nausea and vomiting. Benefits and risks of the procedure were described. Informed consent was obtained. DESCRIPTION: The patient was brought into the endoscopy suite and laid in the left lateral decubitus position. After a timeout was confirmed, the procedure was initiated. An Olympus gastroscope was passed along the posterior oropharynx down to the distal esophagus where the squamocolumnar junction was unremarkable. The gastric pouch was entered. A gastrojejunal stricture of 9 mm was found as the adult gastroscope was 9.5 mm in size. A [employer] balloon dilator was placed through the scope. Final insufflation up to 15 mm was performed with a total of 2 minutes. The scope was advanced up to 60 cm from the incisors into the [place] limb. The mucosa of the gastrojejunal anastomosis was intact. No chronic gastrojejunal marginal ulcer was encountered. No full-thickness injury was encountered. The GI tract was desufflated. The patient tolerated the procedure well. FINDINGS: Stricture of approximately 9 mm encountered. No erosive esophagitis No chronic gastrojejunal ulceration encountered. Successful balloon dilatation to 15 mm. RECOMMENDATIONS: Continue Carafate and omeprazole of at least 4 weeks. Plan - Discharge Summary Discharge Rx Participant: No New Discharge Prescriptions: Continue Rizatriptan Benzoate [Maxalt] 10 mg PO DAILY PRN PRN Reason: migraines Albuterol Inhaler (Mhu) [Ventolin Hfa Inhaler (Mhu)] 2 puff INHALATION RT-QID PRN 30 Days #1 puff PRN Reason: Shortness Of Breath Ondansetron [Zofran] 4 mg PO Q8HR PRN PRN Reason: Nausea bisacodyL [Dulcolax] 5 mg PO DAILY PRN #10 tablet.dr PRN Reason: Constipation Simethicone 40 mg/0.6 ml Drops [Mylicon Drops] 40 mg PO PCHS PRN #30 ml PRN Reason: Gas Sucralfate [Carafate] 1 gm PO BID #60 tab Omeprazole [PriLOSEC] 40 mg PO DAILY #60 cap ALPRAZolam [Xanax] 0.25 mg PO BID Multivitamins, Thera [Multivitamin (formulary)] 1 tab PO DAILY Discharge Medication List Rizatriptan Benzoate [Maxalt] 10 mg PO DAILY PRN 05/02/18 [History] Albuterol Inhaler (u) [Ventolin Hfa Inhaler (u)] 2 puff INHALATION RT-QID PRN 30 Days #1 puff 12/21/18 [Rx] Ondansetron [Zofran] 4 mg PO Q8HR PRN 01/15/20 [History] Simethicone 40 mg/0.6 ml Drops [Mylicon Drops] 40 mg PO [facility] PRN #30 ml 10/06/20 [Rx] bisacodyL [Dulcolax] 5 mg PO DAILY PRN #10 tablet. 10/06/20 [Rx] Omeprazole [PriLOSEC] 40 mg PO DAILY #60 cap 10/29/20 [Rx] Sucralfate [Carafate] 1 gm PO BID #60 tab 10/29/20 [Rx] Multivitamins, Thera [Multivitamin (formulary)] 1 tab PO DAILY 11/20/20 [History] ALPRAZolam [Xanax] 0.25 mg PO BID 11/26/20 [History] Follow up Appointment(s)/Referral(s): [facility] [place] [[place]] - 11/26/20 Patient Instructions/Handouts: Esophageal Dilation (DC) Activity/Diet/Wound Care/Special Instructions: Liquids today. Soft diet tomorrow Discharge Disposition: HOME SELF-CARE
[2020-11-26 10:26] VITALS: BP 110/78; PULSE 80
== END 2020-11-26 10:49 | disposition home or self-care (01) ==
LOC: ORWHC2ENDO 08:33
PROVIDERS: ATTEND Surgery Plastic and Reconstructive Surgery
DX: K31.89 Other diseases of stomach and duodenum (principal); K56.699 Other intestinal obstruction unspecified as to partial versus complete obstruction; R13.10 Dysphagia, unspecified; R11.2 Nausea with vomiting, unspecified; E66.01 Morbid (severe) obesity due to excess calories; K21.9 Gastro-esophageal reflux disease without esophagitis; E78.5 Hyperlipidemia, unspecified; M19.90 Unspecified osteoarthritis, unspecified site; F32.9 Major depressive disorder, single episode, unspecified; F41.9 Anxiety disorder, unspecified; F41.0 Panic disorder [episodic paroxysmal anxiety]; J45.909 Unspecified asthma, uncomplicated; Z79.899 Other long term (current) drug therapy; Z82.49 Family history of ischemic heart disease and other diseases of the circulatory system; Z86.16 Personal history of COVID-19; Z85.9 Personal history of malignant neoplasm, unspecified; Z98.84 Bariatric surgery status; Z88.1 Allergy status to other antibiotic agents; Z88.8 Allergy status to other drugs, medicaments and biological substances; Z91.048 Other nonmedicinal substance allergy status
CPT/HCPCS: 81025; 43249; J2250; J2001; J2704; C1726

== ENCOUNTER → 2020-11-26 | Outpatient (CLI) | payer BC ==
[2020-11-26 13:15] VITALS: BP 117/76; PULSE 83; RESP 18; TEMP 97.7; BMI 40.8
--- NOTE | 2020-11-26 13:29 | P.PN ---
Subjective Progress Note Date: 11/26/20 DATE OF SERVICE: 11/26/2020 CHIEF COMPLAINT: Status post gastric bypass HISTORY OF PRESENT ILLNESS: Alis Bah is a 30-year-old female status post gastric bypass, 10/06/2020. She is 2 months out. She had dysphagia to textured foods. She is feeling better after her upper endoscopy. She is tolerating liquids. She reports new hair loss. At height of 5 feet 8 inches, her ideal body weight is 163 pounds. Her highest weight was 340 pounds, BMI 51.8. She comes in 268 pounds from 278 pounds, 4 wee ks ago. She has lost 10 pounds in 4 weeks. Lifetime weight loss 72 pounds. Lifetime percent excess weight loss of 40 %. She is 105 pounds overweight. PHYSICAL EXAM: VITAL SIGNS: Height 5 foot 8 inches, weight 268 pounds. BMI 40.9 Vital Signs Temp 97.7 F 11/26/20 13:03 Pulse 83 11/26/20 13:03 Resp 18 11/26/20 13:03 BP 117/76 11/26/20 13:03 Pulse Ox GENERAL: Well-developed in no acute distress. HEENT: No scleral icterus. Extraocular movements grossly intact. Hears conversational speech. No nasal drainage. NECK: Supple without lymphadenopathy. CHEST: Nonlabored respirations with equal bilateral excursions. CARDIOVASCULAR: Regular rate and rhythm. Distal 2+ pulses. ABDOMEN: Non-tender. Non-distended. MUSCULOSKELETAL: No clubbing, cyanosis. NEURO: No focal or lateralizing signs. Cranial nerves 2 through 12 grossly within normal limits. PSYCH: Appropriate affect. Alert and oriented to person, place and time. SKIN: Good skin turgor. Well perfused. ASSESSMENT: 1. Morbid obesity due to excess calories 2. Body mass index of 51.8 initial to 40.9 3. Osteoarthritis of the knees. 4. Osteoarthritis of the lower back. 5. Hypertensive heart disease. 6. Gastroesophageal reflux disease, intractable 7. Hyperlipidemia 8. Asthma 9. Migraines 10. Tachyarrhythmia 11. Skin cancer, resected 12. Plantar fasciitis 13. Postoperative nausea and vomiting 14. Anxiety disorder 15. Depressive disorder 16. Panic disorder 17. Vitamin D deficiency 18. Status post hiatal hernia repair 19. Status post gastric bypass 20. Gastrojejunal stricture PLAN: 1. She reports feeling better after endoscopy and recommended upper endoscopy as needed. 2. Recommend continued Carafate and omeprazole for 4 weeks. 3. Follow up in 1 month. 4. For hair loss, recommend protein intake 80 g daily. Objective - Vital Signs Vital signs: Vital Signs Temp 97.7 F 11/26/20 13:03 Pulse 83 11/26/20 13:03 Resp 18 11/26/20 13:03 BP 117/76 11/26/20 13:03 Pulse Ox Intake & Output 11/25/20 11/26/20 11/26/20 18:59 06:59 18:59 Weight 122.016 kg
== END ==
LOC: BARWHC3 12:51
PROVIDERS: ATTEND Surgery Plastic and Reconstructive Surgery
DX: E66.01 Morbid (severe) obesity due to excess calories (principal); E55.9 Vitamin D deficiency, unspecified; E78.5 Hyperlipidemia, unspecified; K21.9 Gastro-esophageal reflux disease without esophagitis; R13.10 Dysphagia, unspecified; Z68.41 Body mass index [BMI] 40.0-44.9, adult
CPT/HCPCS: 99211

== ENCOUNTER → 2021-01-21 | Outpatient (CLI) | payer BC ==
[2021-01-21 09:45] LABS: HCT 42.7 % (34.0-46.0); HGB 14.1 gm/dL (11.4-16.0); MCH 30.3 pg (25.0-35.0); MCV 91.7 fL (80.0-100.0); Mean Platelet Volume 7.7; Platelet Count 296 k/uL (150-450); RBC 4.66 m/uL (3.80-5.40); RDW 13.8 % (11.5-15.5); WBC 8.1 k/uL (3.8-10.6)
[2021-01-21 09:59] LABS: Partial Thromboplastin Time 27.1 sec (22.0-30.0); Prothrombin Time 10.4 sec (9.0-12.0)
[2021-01-21 13:55] VITALS: BP 113/80; PULSE 90; RESP 18; TEMP 98.2; BMI 37.4
--- NOTE | 2021-01-21 14:19 | P.PN ---
Subjective Progress Note Date: 01/21/21 She has lost 100 pounds. She has patellar tracking syndrome. She is happy with her weight loss. She can do leg lifts. She is encouraged to do medial muscles. She feels great!. She is working out to the gym. She completed. No stuck since dilation. No more GERD. Objective - Vital Signs Vital signs: Vital Signs Temp 98.2 F 01/21/21 13:52 Pulse 90 01/21/21 13:52 Resp 18 01/21/21 13:52 BP 113/80 01/21/21 13:52 Pulse Ox Intake & Output 01/20/21 01/21/21 01/21/21 18:59 06:59 18:59 Weight 111.674 kg - Labs CBC & Chem 7: 01/21/21 09:18
[2021-01-21 19:08] LABS: Hemoglobin A1C 4.6 % (4.0-6.0)
[2021-01-21 21:02] LABS: % Iron Saturation 22.75 (12.00-45.00); ALT 19 U/L (8-44); AST 16 U/L (13-35); African American GFR (CKD) 115.5 (60.0-200.0); Albumin/Globulin Ratio 2.33 (1.60-3.17); Alkaline Phosphatase 119 U/L (41-126); BUN/Creat Ratio 11.25 Ratio (12.00-20.00); Calcium 9.9 mg/dL (8.7-10.3); Carbon Dioxide 23.5 mmol/L (21.6-31.8); Chloride 106 mmol/L (96-109); Cholesterol 228 mg/dL (0-200); Globulin 2.1 g/dL (1.6-3.3); Glucose 94 mg/dL (70-110); Iron 76 ug/dL (50-170); Magnesium 2.1 mg/dL (1.5-2.4); Non-African American GFR(CKD) 99.6 (60.0-200.0); Phosphorus 3.9 mg/dL (2.4-5.1); Potassium 4.5 mmol/L (3.5-5.5); Sodium 141 mmol/L (135-145); Total Bilirubin 1.3 mg/dL (0.3-1.2); Total Iron Binding Capacity 334 ug/dL (228-460)
[2021-01-21 21:12] LABS: Ferritin 97.9 ng/mL (10.0-291.0)
[2021-01-21 21:15] LABS: Folate, Serum >24.0 ng/mL
[2021-01-22 16:17] LABS: Zinc, Serum 98 ug/dL (60-130)
[2021-01-23 07:04] LABS: Vit B1(Thiamine) 64 ug/L (38-122)
[2021-01-23 07:20] LABS: Vitamin A 34 ug/dL (38-106)
[2021-01-25 17:00] LABS: Selenium 92 mcg/L (63-160)
== END ==
LOC: BARWHC3 09:05
PROVIDERS: ATTEND Surgery Plastic and Reconstructive Surgery
DX: E66.01 Morbid (severe) obesity due to excess calories (principal); Z71.3 Dietary counseling and surveillance; D50.8 Other iron deficiency anemias; E44.0 Moderate protein-calorie malnutrition; E55.9 Vitamin D deficiency, unspecified; K74.1 Hepatic sclerosis; N19 Unspecified kidney failure; K50.90 Crohn's disease, unspecified, without complications; Z91.048 Other nonmedicinal substance allergy status; Z88.8 Allergy status to other drugs, medicaments and biological substances; Z88.1 Allergy status to other antibiotic agents; Z68.37 Body mass index [BMI] 37.0-37.9, adult
CPT/HCPCS: 36415; 80053; 80061; 82306; 82525; 82607; 82728; 82746; 83036; 83540; 83550; 83735; 83970; 84100; 84134; 84255; 84425; 84443; 84590; 84630; 85027; 85610; 85730; 97803; 99211

== ENCOUNTER → 2021-03-23 | Outpatient (CLI) | payer BC ==
[2021-03-23 13:20] LABS: INR 0.9 (<1.2); Partial Thromboplastin Time 25.6 sec (22.0-30.0); Prothrombin Time 9.8 sec (9.0-12.0)
[2021-03-23 18:44] LABS: HCT 39.4 % (37.2-46.3); HGB 12.3 g/dL (12.0-15.0); MCH 29.8 pg (27.0-32.0); MCHC 31.2 g/dL (32.0-37.0); MCV 95.4 fL (80.0-97.0); Mean Platelet Volume 11.1 fL (9.5-12.2); Platelet Count 314 X 10*3/uL (140-440); RBC 4.13 X 10*6/uL (4.10-5.20); RDW 13.4 % (11.5-14.5); WBC 7.32 X 10*3/uL (4.50-10.00)
[2021-03-23 19:01] LABS: Ferritin 96.7 ng/mL (10.0-291.0)
[2021-03-23 19:28] LABS: % Iron Saturation 38.8 (12.00-45.00); African American GFR (CKD) 135.7 (60.0-200.0); Albumin 4.3 g/dL (3.80-4.90); Albumin/Globulin Ratio 2.39 (1.60-3.17); Anion Gap 8.9 mmol/L (4.00-12.00); BUN/Creat Ratio 15.71 Ratio (12.00-20.00); Calcium 9.1 mg/dL (8.7-10.3); Carbon Dioxide 26.1 mmol/L (21.6-31.8); Chol/HDL Ratio 3.98; Folate, Serum 16.5 ng/mL; Globulin 1.8 g/dL (1.6-3.3); LDL Cholesterol,Calculated 118.2 mg/dL (0.0-131.0); Magnesium 1.8 mg/dL (1.5-2.4); Non-African American GFR(CKD) 117.1 (60.0-200.0); Phosphorus 3.9 mg/dL (2.4-5.1); Potassium 4.2 mmol/L (3.5-5.5); Total Bilirubin 1.6 mg/dL (0.3-1.2); Total Protein 6.1 g/dL (6.2-8.2); VLDL Calculation 12.8 mg/dL (5.00-40.00)
[2021-03-23 21:01] LABS: Hemoglobin A1C 4.7 % (4.0-6.0)
[2021-03-24 11:51] LABS: Zinc, Serum 75 ug/dL (60-130)
[2021-03-25 07:09] LABS: Vitamin A 42 ug/dL (38-106)
[2021-03-25 07:51] LABS: Vit B1(Thiamine) 68 ug/L (38-122)
== END | disposition home or self-care (01) ==
LOC: LABWHC1 11:20
PROVIDERS: ATTEND Surgery Plastic and Reconstructive Surgery
DX: E89.1 Postprocedural hypoinsulinemia (principal); D50.8 Other iron deficiency anemias; K90.89 Other intestinal malabsorption; E55.9 Vitamin D deficiency, unspecified; K74.1 Hepatic sclerosis; N19 Unspecified kidney failure; K50.90 Crohn's disease, unspecified, without complications
CPT/HCPCS: 36415; 80053; 80061; 82306; 82525; 82607; 82728; 82746; 83036; 83540; 83550; 83735; 83970; 84100; 84134; 84255; 84425; 84443; 84590; 84630; 85027; 85610; 85730

== ENCOUNTER → 2021-05-18 | Outpatient (CLI) | payer BC ==
--- NOTE | 2021-05-18 09:00 | US ---
EXAMINATION TYPE: US gallbladder DATE OF EXAM: 05/18/2021 COMPARISON: CT 10/12/2020 CLINICAL HISTORY: R10.31 Right lower quadrant abdominal pain. RUQ pain per patient as well EXAM MEASUREMENTS: Liver Length: 15.5 Gallbladder Wall: 0.2cm CBD: 0.2cm Right Kidney: 11.5x4.8x5.7cm Small amount of debris seen within the GB Pancreas: wnl Liver: wnl Gallbladder: Small amount of sludge/ debris seen within the GB Evidence for sonographic King's sign: no CBD: wnl Right Kidney: wnl IMPRESSION: Small amount of sludge and debris within the gallbladder lumen.
--- NOTE | 2021-05-18 11:47 | NM ---
EXAMINATION TYPE: NM hepatobiliary w CCK DATE OF EXAM: 05/18/2021 COMPARISON: Ultrasound gallbladder 05/18/2021 HISTORY: Right upper quadrant pain TECHNIQUE: After the intravenous administration of 5.1 mCi Tc 99m Mebrofenin hepatobiliary scintigrap hy is performed. Immediate images post injection. FINDINGS: There is satisfactory initial accumulation of tracer by the liver. The gallbladder is visualized wit hin 34 minutes. The small bowel activity is noted within 4 minutes. At one hour CCK was administere d, patient was injected with 2.0 mcg of Kinevac, and gallbladder ejection fraction is calculated at 3 7 %, in the normal range. Therefore there is no scintigraphic evidence of cystic or common bile duct obstruction to suggest acute cholecystitis. IMPRESSION: Exam is within normal limits.
== END | disposition home or self-care (01) ==
LOC: RADUSWWP 08:21
PROVIDERS: ATTEND Surgery Plastic and Reconstructive Surgery
DX: K82.8 Other specified diseases of gallbladder (principal)
CPT/HCPCS: 76705; 78227; A9537; J2805

== ENCOUNTER 2021-06-22 08:22 | Day surgery (SDC) | payer BC ==
[2021-06-18 12:47] VITALS: BMI 31.9
--- NOTE | 2021-06-22 07:48 | P.GSHP ---
History of Present Illness H&P Date: 06/22/21 CHIEF COMPLAINT: Cholecystitis HISTORY OF PRESENT ILLNESS: The patient is a 30-year-old female who presents with history of epigastric including right upper quadrant abdominal pain. She underwent diagnostic studies for her gallbladder. Separately her clinical picture was consistent with cholecystitis. Now she presents for surgical intervention. PAST MEDICAL HISTORY: Please see list PAST SURGICAL HISTORY: Please see list MEDICATIONS: Please see list ALLERGIES: Please see list SOCIAL HISTORY: Please see list FAMILY HISTORY: Please see list REVIEW OF ORGAN SYSTEMS: CONSTITUTIONAL: No reports of fevers or chills. HEENT: Denies any troubles with the vision or hearing. ENDOCRINE: No reports of hypothyroidism. No diabetes. RESPIRATORY: No recent pneumonias. CARDIOVASCULAR: Denies chest pain or palpitations GI: No blood in stools or constipation. MUSCULOSKELETAL: Has occasional joint pain including back pain. NEURO: No seizure disorders or headaches. No recent stroke. PSYCH: No depression or suicidal ideation. GENITOURINARY: No active blood in urine. No urinary hesitancy. HEMATOLOGIC: No personal or family history of DVTs or pulmonary emboli. SKIN: No skin cancer. PHYSICAL EXAM: VITAL SIGNS: Afebrile vital signs stable GENERAL: Well-developed pleasant in no acute distress. HEENT: No scleral icterus. Extraocular movements grossly intact. Moist buccal mucosa. NECK: Supple without lymphadenopathy. CHEST: Unlabored respirations. Equal bilateral excursions. CARDIOVASCULAR: Regular rate regular rhythm rhythm. Distal 2+ pulses. ABDOMEN: Soft, nondistended. Tender along the epigastrium and right upper quadrant. MUSCULOSKELETAL: No clubbing, cyanosis, or edema. NEURO: Cranial nerves II to XII within normal limits. No focal or lateralizing signs. PSYCH: Alert and oriented to person, place and time. SKIN: Well-perfused good skin turgor. ASSESSMENT: 1. Epigastric and right upper quadrant abdominal pain 2. Chronic cholecystitis 3. Symptomatic gallstones. PLAN: 1. Will need a robotic cholecystectomy possible open. Benefits and risks were described. 2. Heparin for DVT prophylaxis 5000 units. 3. Antibiotic prophylaxis. Past Medical History Past Medical History: Cancer, GERD/Reflux, Hyperlipidemia, Osteoarthritis (OA) Additional Past Medical History / Comment(s): Migraines, allergy/exercise induced asthma, hx. anemia, arthritis bilateral knees, skin cancer, constipa tion, irregular BM's, past hx arrythmia/tachycardia after pneumonia -no current problems, COVID Jul 2020, hiatal hernia X2. GALLBLADDER DISORDER History of Any Multi-Drug Resistant Organisms: None Reported Past Surgical History: Adenoidectomy, Bariatric Surgery, Ear Surgery, Hernia Repair, Orthopedic Surgery, Tonsillectomy Additional Past Surgical History / Comment(s): Tympanoplasty/tubes in ears, skin cancer removed X3, arthroscopy left knee, lipoma removed rt lower back, deviated septoplasty, plantar fasciotomy right foot, EGD take down of kristal/hernia repair 05-19-20, gastric bypass 10-06-20. Past Anesthesia/Blood Transfusion Reactions: Previous Problems w/ Anesthesia, Motion Sickness, Postoperative Nausea & Vomiting (PONV) Additional Past Anesthesia/Blood Transfusion Reaction / Comment(s): "when waking from anesthesia experiences overwhelming anxiety/fear." Smoking Status: Never smoker - Past Family History Mother Family Medical History: No Reported History Additional Family Medical History / Comment(s): . Father Family Medical History: Hyperlipidemia Medications and Allergies Home Medications Medication Instructions Recorded Confirmed Type Rizatriptan Benzoate [Maxalt] 10 mg PO DAILY PRN 05/02/18 06/18/21 History Albuterol Inhaler (Mhu) [Ventolin 2 puff INHALATION RT-QID PRN 30 12/21/18 06/18/21 Rx Hfa Inhaler (Mhu)] Days #1 puff Ondansetron [Zofran] 4 mg PO Q8HR PRN 01/15/20 06/18/21 History Omeprazole [PriLOSEC] 40 mg PO DAILY #60 cap 10/29/20 06/18/21 Rx Multivitamins, Thera [Multivitamin 1 tab PO DAILY 11/20/20 06/18/21 History (formulary)] ALPRAZolam [Xanax] 0.25 mg PO BID 11/26/20 06/18/21 History Cholecalciferol (Vitamin D3) 125 mcg PO DAILY 01/21/21 06/18/21 History [Vitamin D3 (5000 Iu)] Vitamin A [Vitamin A (8,000 Units 10,000 unit PO DAILY 01/21/21 06/18/21 History = 2,400 MCG)] Calcium Carbonate/Vitamin D3 1 tab PO TID 06/18/21 06/18/21 History [Calcium 500 mg Chewable Tablet] L.acidoph,Paracasei, B.lactis 1 each PO DAILY 06/18/21 06/18/21 History [Probiotic] Magnesium Oxide [Magox 400] 400 mg PO BID 06/18/21 06/18/21 History Naproxen [Naprosyn] 500 mg PO Q12HR PRN 06/18/21 06/18/21 History Allergies Allergy/AdvReac Type Severity Reaction Status Date / Time adhesive tape Allergy peels skin Verified 06/18/21 12:29 and blisters lamotrigine [From Lamictal] Allergy Rash/Hives Verified 06/18/21 12:29 zonisamide Allergy anxiety Verified 06/18/21 12:29 tuberculin,PPD,multi-puncture AdvReac Unknown FALSE Verified 06/18/21 12:29 POSITIVE baclofen AdvReac DYSTONIA Verified 06/18/21 12:29 cefaclor [From Ceclor] AdvReac Abdominal Verified 06/18/21 12:29 Pain clindamycin AdvReac Nausea & Verified 06/18/21 12:29 Vomiting
[~2021-06-22 08:22] MED LIST changes: +ACETAMINOPHEN TAB 500 MG TAB PO STA; +GABAPENTIN 300 MG CAP PO STA; +INDOCYANINE GREEN 25 MG VIAL IV STA; -LACTATED RINGERS 1,000 ML IV SCH
[2021-06-22] MEDS ORDERED: DEXAMETHASONE SOD PHOSPHATE 4 MG/ML 1 ML VIAL IV ONE (09:08)
[2021-06-22] MEDS ORDERED: MIDAZOLAM 2 MG/2 ML VIAL IV PRN (09:08)
[2021-06-22] MEDS ORDERED: ONDANSETRON 4 MG/2 ML VIAL IVP ONE ×3 (09:08→12:05)
[2021-06-22] MEDS ORDERED: SCOPOLAMINE 1.5MG/72HR PATCH TRANSDERM ONE (09:08)
[2021-06-22] MEDS: LACTATED RINGERS 1,000 ML IV SCH ×2 (09:17→10:37)
[2021-06-22 09:46] LABS: HCT 38.2 % (34.0-46.0); HGB 12.8 gm/dL (11.4-16.0); MCH 31.9 pg (25.0-35.0); MCHC 33.6 g/dL (31.0-37.0); MCV 95.1 fL (80.0-100.0); Mean Platelet Volume 7.8; Platelet Count 258 k/uL (150-450); RBC 4.02 m/uL (3.80-5.40); RDW 12.6 % (11.5-15.5); WBC 6.6 k/uL (3.8-10.6)
[2021-06-22 09:57] LABS: ALT 21 U/L (4-34); AST 27 U/L (14-36); African American GFR (CKD) >90 (>60 ml/min/1.73 sqM); Albumin 3.8 g/dL (3.5-5.0); Alkaline Phosphatase 79 U/L (38-126); Anion Gap 6 mmol/L; Blood Urea Nitrogen 7 mg/dL (7-17); Calcium 9.3 mg/dL (8.4-10.2); Carbon Dioxide 24 mmol/L (22-30); Chloride 108 mmol/L (98-107); Glucose 93 mg/dL (74-99); Non-African American GFR(CKD) >90 (>60 ml/min/1.73 sqM); Sodium 138 mmol/L (137-145); Total Bilirubin 1.1 mg/dL (0.2-1.3); Total Protein 6.1 g/dL (6.3-8.2)
[2021-06-22 10:08] LABS: INR 0.9 (<1.2); Partial Thromboplastin Time 26.3 sec (22.0-30.0); Prothrombin Time 10.1 sec (9.0-12.0)
[2021-06-22 10:09] LABS: Magnesium 1.9 mg/dL (1.6-2.3)
[2021-06-22] MEDS ORDERED: LIDOCAINE 1% INJ 10MG/ML (20 ML MDV) ONE (10:33)
[2021-06-22] MEDS ORDERED: HEPARIN SODIUM,PORCINE 5,000 UNIT/ML 1 ML VIAL ONE (10:33)
[2021-06-22] MEDS ORDERED: ROCURONIUM 10 MG/ML (5 ML VIAL) IV ONE (10:33)
[2021-06-22] MEDS ORDERED: fentaNYL (PF) 50 MCG/ML 2 ML AMP ONE (10:33)
[2021-06-22] MEDS ORDERED: SUCCINYLCHOLINE CHLORIDE 100 MG/5 ML SYR IV ONE (10:33)
[2021-06-22] MEDS ORDERED: NEOSTIGMINE 1 MG/ML 10 ML VIAL ONE (10:33)
[2021-06-22] MEDS ORDERED: KETOROLAC 15 MG/ML 1 ML VIAL ONE (10:33)
[2021-06-22] MEDS ORDERED: PROPOFOL 10 MG/ML 20 ML VIAL IV ONE (10:33)
[2021-06-22] MEDS ORDERED: GLYCOPYRROLATE 0.2 MG/ML 2 ML VIAL ONE (10:33)
[2021-06-22] MEDS ORDERED: LIDOCAINE 1%-EPI 1:100,000 20 ML VIAL SQ ONE (10:59)
[2021-06-22] MEDS ORDERED: HEPARIN SODIUM,PORCINE/PF 5,000 UNIT/0.5 ML SYRINGE SQ ONE (11:06)
[2021-06-22] MEDS: HYDROmorphone 0.5 MG/0.5 ML SYRINGE IVP PRN ×3 (12:04→12:27)
[2021-06-22 12:09] VITALS: TEMP 98.5
--- NOTE | 2021-06-22 12:22 | P.OP ---
Date of Procedure: 06/22/21 Description of Procedure: SURGEON: AMARI WILEY MD PREOPERATIVE DIAGNOSES: 1. Symptomatic gallstone 2. Right upper quadrant abdominal pain 3. Osteoarthritis of the knees. 4. Osteoarthritis of the lower back. 5. Hypertensive heart disease. 6. Gastroesophageal reflux disease, intractable 7. Hyperlipidemia 8. Asthma 9. Migraines 10. Tachyarrhythmia 11. Skin cancer, resected 12. Plantar fasciitis 13. Postoperative nausea and vomiting 14. Anxiety disorder 15. Depressive disorder 16. Panic disorder 17. Vitamin D deficiency 18. Status post hiatal hernia repair 19. Status post gastric bypass 20. Gastrojejunal stricture 21. Morbid obesity due to excess calories 22. Body mass index of 51.8 initial to 32.7 POSTOPERATIVE DIAGNOSES: 1. Symptomatic gallstone with chronic cholecystitis 2. Right upper quadrant abdominal pain 3. Osteoarthritis of the knees. 4. Osteoarthritis of the lower back. 5. Hypertensive heart disease. 6. Gastroesophageal reflux disease, intractable 7. Hyperlipidemia 8. Asthma 9. Migraines 10. Tachyarrhythmia 11. Skin cancer, resected 12. Plantar fasciitis 13. Postoperative nausea and vomiting 14. Anxiety disorder 15. Depressive disorder 16. Panic disorder 17. Vitamin D deficiency 18. Status post hiatal hernia repair 19. Status post gastric bypass 20. Gastrojejunal stricture 21. Morbid obesity due to excess calories 22. Body mass index of 51.8 initial to 32.7 OPERATION: Robotic-assisted da Darlyn Xi laparoscopic cholecystectomy, multiport with FIREFLY ESTIMATED BLOOD LOSS: 5 mL. SPECIMENS REMOVED: Gallbladder. COMPLICATIONS: None. OPERATIVE FINDINGS: 1. Small bowel unremarkable with history of gastric bypass 2. Adhesive been left upper quadrant incision INDICATIONS: The patient is a 30-year-old female who presents with symptomatic gallstones. Robotic assisted laparoscopic approach was described. Benefits and risks of the procedure including but not limited to bleeding, infection, injury to the biliary tree was described. Informed consent was obtained. DESCRIPTION OF PROCEDURE: Patient was brought to the operating room, placed in supine position. After general induction, the abdomen had been prepped and draped in standard sterile fashion. The robotic da Darlyn XI system was primed. After a timeout protocol was performed, the patient had been prepped and draped in standard sterile fashion. The patient was injected with indocyanine green. A 5 mm 0 degrees laparoscopic trocar entry was performed along the left upper quadrant. The abdomen insufflated to 15 mmHg pressure which was tolerated well. Diagnostic laparoscopy demonstrated no injury to bowel viscera or mesentery. The liver surface was unremarkable. Next, two 8 mm robotic ports were placed along the right upper abdomen. The camera 8-mm port was maintained along the epigastrium. Another 8 mm port was placed along the left upper abdominal wall after exchanging the 5 mm port. Please note that the ports were placed at least 10 to 15 cm away from the target anatomy of the gallbladder. The robot was docked along the left lateral abdomen. The patient was repositioned in reverse Trendelenburg position. Using a grasper for arm 3, a grasper for arm 4, including hook cautery for arm 1, the robotic system was docked and primed as described. Instruments were interchanged by the assistant program director including hook cautery, Bovie cautery and clip appliers. I had sat at the console. Next attention was brought to the infundibulum and cystic structures. The infundibulum and cystic duct were dissected free from surrounding tissues. The cystic duct was isolated. FIREFLY was used to identify the cystic artery and cystic structures. A critical view of safety was obtained. Large PLASTIC clips were used throughout the entire case. Using a clip technology strategist, 2 clips were placed at the junction of the infundibulum and cystic duct. The cystic duct was divided between clips. Next, the cystic artery was similarly clipped and cauterized. Electro-Bovie cautery was used to remove the gallbladder from the hepatic fossa. Hemostasis was checked and found to be adequate. The robot was undocked. I re-scrubbed into the case. Using a 10 mm Endo Catch bag via the left upper quadrant incision, the specimen was removed from the abdominal cavity. All pneumoperitoneum instruments were evacuated from the abdominal cavity. The incisions were reapproximated using 4-0 Monocryl in an interrupted subcuticular fashion. Fascial defects were less than 8 mm in size. Please note along the trocar sites, local anesthetic was placed as a field block prior to insertion of all instruments. Liquid glue was applied to the skin. At the end of the procedure needle, sponge, and instrument count had been verified correct by the surgical physician assistant. The patient was transferred to postanesthesia care unit in stable condition. Intraoperative films were shared with the patient's family. Plan - Discharge Summary Discharge Rx Participant: Yes New Discharge Prescriptions: New Simethicone [Gas-X] 125 mg PO AC-TID PRN #20 capsule PRN Reason: Pain Acetaminophen Tab [Tylenol Tab] 1,000 mg PO Q6HR PRN #30 tablet PRN Reason: Pain Continue Rizatriptan Benzoate [Maxalt] 10 mg PO DAILY PRN PRN Reason: migraines Albuterol Inhaler (Mhu) [Ventolin Hfa Inhaler (Mhu)] 2 puff INHALATION RT-QID PRN 30 Days #1 puff PRN Reason: Shortness Of Breath Ondansetron [Zofran] 4 mg PO Q8HR PRN PRN Reason: Nausea Omeprazole [PriLOSEC] 40 mg PO DAILY #60 cap ALPRAZolam [Xanax] 0.25 mg PO BID Cholecalciferol (Vitamin D3) [Vitamin D3 (5000 Iu)] 125 mcg PO DAILY Magnesium Oxide [Magox 400] 400 mg PO BID Multivitamins, Thera [Multivitamin (formulary)] 1 tab PO DAILY Vitamin A [Vitamin A (8,000 Units = 2,400 MCG)] 10,000 unit PO DAILY L.acidoph,Paracasei, B.lactis [Probiotic] 1 each PO DAILY Calcium Carbonate/Vitamin D3 [Calcium 500 mg Chewable Tablet] 1 tab PO TID Discontinued Naproxen [Naprosyn] 500 mg PO Q12HR PRN PRN Reason: Pain Discharge Medication List Rizatriptan Benzoate [Maxalt] 10 mg PO DAILY PRN 05/02/18 [History] Albuterol Inhaler (Mhu) [Ventolin Hfa Inhaler (Mhu)] 2 puff INHALATION RT-QID PRN 30 Days #1 puff 12/21/18 [Rx] Ondansetron [Zofran] 4 mg PO Q8HR PRN 01/15/20 [History] Omeprazole [PriLOSEC] 40 mg PO DAILY #60 cap 10/29/20 [Rx] Multivitamins, Thera [Multivitamin (formulary)] 1 tab PO DAILY 11/20/20 [History] ALPRAZolam [Xanax] 0.25 mg PO BID 11/26/20 [History] Cholecalciferol (Vitamin D3) [Vitamin D3 (5000 Iu)] 125 mcg PO DAILY 01/21/21 [History] Vitamin A [Vitamin A (8,000 Units = 2,400 MCG)] 10,000 unit PO DAILY 01/21/21 [History] Calcium Carbonate/Vitamin D3 [Calcium 500 mg Chewable Tablet] 1 tab PO TID 06/18/21 [History] L.acidoph,Paracasei, B.lactis [Probiotic] 1 each PO DAILY 06/18/21 [History] Magnesium Oxide [Magox 400] 400 mg PO BID 06/18/21 [History] Acetaminophen Tab [Tylenol Tab] 1,000 mg PO Q6HR PRN #30 tablet 06/22/21 [Rx] Simethicone [Gas-X] 125 mg PO AC-TID PRN #20 capsule 06/22/21 [Rx] [facility]Ref[facility] [place] [facility]24[facility]21 2:00 pm Patient Instructions/Handouts: *[facility] - Managing Your Pain After Surgery Without Opioids, *[facility] - (Anesthesia) Discharge Instructions Outpatient Surgery, Low Fat Diet (DC), Laparoscopic Cholecystectomy (DC) Activity/Diet/Wound Care/Special Instructions: Recommend low-fat diet for the next 2 days. No lifting over 10 pounds in 2 weeks until Jul 06. December shower. No bath tub soaks for two weeks until Jul 06. Diet as tolerated. Use Tylenol, simethicone and ibuprofen or Aleve scheduled for the next 24-48 hours for best pain relief. Use ice along incisions for today to prevent swelling. Discharge Disposition: HOME SELF-CARE
[2021-06-22] MEDS ORDERED: LACTATED RINGERS 1,000 ML IV ONE ×2 (12:53)
[2021-06-22] MEDS ORDERED: SIMETHICONE 80 MG CHEWABLE PO ONE (13:43)
[2021-06-22 14:02] VITALS: BP 115/72; PULSE 90; RESP 16
[2021-06-23 13:00] LABS: Zinc, Serum 69 ug/dL (60-130)
[2021-06-24 06:51] LABS: Vitamin A 37 ug/dL (38-106)
[2021-06-24 06:57] LABS: Vit B1(Thiamine) 79 ug/L (38-122)
[2021-06-24 17:58] LABS: % Iron Saturation 12.11 (12.00-45.00); Folate, Serum 12.5 ng/mL (4.40-31.00); Prealbumin 18.7 mg/dL (18.0-42.0)
[2021-06-24 17:59] LABS: Chol/HDL Ratio 3.45 Ratio; HDL Cholesterol 48.7 mg/dL (40.00-60.00); LDL Cholesterol,Calculated 105.3 mg/dL (0.0-131.0); Triglycerides 70.1 mg/dL (0.00-149.00); VLDL Calculation 14.02 mg/dL (5.00-40.00)
== END 2021-06-22 14:12 | disposition home or self-care (01) ==
LOC: OR 08:22
PROVIDERS: ATTEND Surgery Plastic and Reconstructive Surgery
DX: K81.1 Chronic cholecystitis (principal); K21.9 Gastro-esophageal reflux disease without esophagitis; E78.5 Hyperlipidemia, unspecified; I11.9 Hypertensive heart disease without heart failure; M19.90 Unspecified osteoarthritis, unspecified site; G43.909 Migraine, unspecified, not intractable, without status migrainosus; J45.990 Exercise induced bronchospasm; M17.0 Bilateral primary osteoarthritis of knee; Z86.16 Personal history of COVID-19; D64.9 Anemia, unspecified; Z85.828 Personal history of other malignant neoplasm of skin; Z98.84 Bariatric surgery status; Z90.49 Acquired absence of other specified parts of digestive tract; Z98.890 Other specified postprocedural states; Z83.438 Family history of other disorder of lipoprotein metabolism and other lipidemia; Z79.899 Other long term (current) drug therapy; Z88.1 Allergy status to other antibiotic agents; Z88.8 Allergy status to other drugs, medicaments and biological substances; Z91.09 Other allergy status, other than to drugs and biological substances; E55.9 Vitamin D deficiency, unspecified; E66.01 Morbid (severe) obesity due to excess calories; Z68.32 Body mass index [BMI] 32.0-32.9, adult; F32.9 Major depressive disorder, single episode, unspecified; M72.2 Plantar fascial fibromatosis; F41.0 Panic disorder [episodic paroxysmal anxiety]; R00.0 Tachycardia, unspecified
CPT/HCPCS: 47562; S2900; 80053; 80061; 81025; 82306; 82525; 82607; 82728; 82746; 83036; 83540; 83550; 83735; 83970; 84100; 84134; 84255; 84425; 84443; 84590; 84630; 85027; 85610; 85730; 88304

== ENCOUNTER → 2021-09-07 | Outpatient (CLI) | payer BC ==
[2021-09-07 09:27] LABS: INR 0.9 (<1.2); Partial Thromboplastin Time 26.2 sec (22.0-30.0); Prothrombin Time 9.9 sec (9.0-12.0)
[2021-09-07 14:15] LABS: HCT 44.4 % (37.2-46.3); HGB 13.6 g/dL (12.0-15.0); MCH 29.4 pg (27.0-32.0); MCHC 30.6 g/dL (32.0-37.0); MCV 95.9 fL (80.0-97.0); Mean Platelet Volume 10.6 fL (9.5-12.2); Platelet Count 337 X 10*3/uL (140-440); RBC 4.63 X 10*6/uL (4.10-5.20); RDW 12.7 % (11.5-14.5); WBC 7.11 X 10*3/uL (4.50-10.00)
[2021-09-07 15:55] LABS: % Iron Saturation 28.13 (12.00-45.00); ALT 17 U/L (8-44); AST 14 U/L (13-35); African American GFR (CKD) 127.9 (60.0-200.0); Albumin 4.7 g/dL (3.8-4.9); Albumin/Globulin Ratio 2.62 (1.60-3.17); Alkaline Phosphatase 92 U/L (41-126); BUN/Creat Ratio 15.32 Ratio (12.00-20.00); Blood Urea Nitrogen 11.2 mg/dL (9.0-27.0); Calcium 9.6 mg/dL (8.7-10.3); Carbon Dioxide 22.5 mmol/L (20.0-27.5); Chloride 102 mmol/L (96-109); Chol/HDL Ratio 3.39 Ratio; Globulin 1.8 g/dL (1.6-3.3); Glucose 86 mg/dL (70-110); Iron 102 ug/dL (50-170); LDL Cholesterol,Calculated 115.2 mg/dL (0.0-131.0); Magnesium 2.1 mg/dL (1.5-2.4); Non-African American GFR(CKD) 110.3 (60.0-200.0); Phosphorus 4.1 mg/dL (2.4-5.1); Potassium 4.3 mmol/L (3.5-5.5); Prealbumin 23.3 mg/dL (18.0-42.0); Sodium 139 mmol/L (135-145); Total Iron Binding Capacity 363 ug/dL (228-460); Total Protein 6.6 g/dL (6.2-8.2); VLDL Calculation 13.84 mg/dL (5.00-40.00)
[2021-09-08 13:48] LABS: Zinc, Serum 73 ug/dL (60-130)
[2021-09-09 06:10] LABS: Vitamin A 46 ug/dL (38-106)
[2021-09-09 06:14] LABS: Vit B1(Thiamine) 77 ug/L (38-122)
== END | disposition home or self-care (01) ==
LOC: LABWHC1 08:40
PROVIDERS: ATTEND Surgery Plastic and Reconstructive Surgery
DX: E66.01 Morbid (severe) obesity due to excess calories (principal); D50.8 Other iron deficiency anemias; E44.0 Moderate protein-calorie malnutrition; E55.9 Vitamin D deficiency, unspecified; K74.1 Hepatic sclerosis; N19 Unspecified kidney failure; K50.90 Crohn's disease, unspecified, without complications; E89.1 Postprocedural hypoinsulinemia
CPT/HCPCS: 36415; 80053; 80061; 82306; 82525; 82607; 82728; 82746; 83036; 83540; 83550; 83735; 83970; 84100; 84134; 84255; 84425; 84443; 84590; 84630; 85027; 85610; 85730

== ENCOUNTER → 2021-09-23 | Outpatient (CLI) | payer BC ==
[2021-09-23 14:53] VITALS: BP 116/69; PULSE 70; RESP 16; TEMP 97.9; BMI 30.1
--- NOTE | 2021-09-23 15:29 | P.BASOAP ---
Subjective Progress Note Date: 09/23/21 DATE OF SERVICE: 09/23/2021 CHIEF COMPLAINT: Status post gastric bypass HISTORY OF PRESENT ILLNESS: Alis Bah is a 31-year-old female status post gastric bypass, 10/06/2020. She is almost 1 year out. She denies any further gastroesophageal reflux disease. She is still losing weight. At height of 5 feet 8 inches, her ideal body weight is 163 pounds. Her highest weight was 340 pounds, BMI 51.8. She comes in 197 pounds from 216 pounds, 3 months ago. She has lost 18 pounds in 3 months. Lifetime weight loss 142 pounds. Lifetime percent excess weight loss of 80 %. She is 35 pounds overweight. PHYSICAL EXAM: VITAL SIGNS: Height 5 foot 8 inches, weight 198 pounds. BMI 30.1 Vital Signs Temp 97.9 F 09/23/21 14:51 Pulse 70 09/23/21 14:51 Resp 16 09/23/21 14:51 BP 116/69 09/23/21 14:51 Pulse Ox GENERAL: Well-developed in no acute distress. HEENT: No scleral icterus. Extraocular movements grossly intact. Hears conversational speech. No nasal drainage. NECK: Supple without lymphadenopathy. CHEST: Nonlabored respirations with equal bilateral excursions. CARDIOVASCULAR: Regular rate and rhythm. Distal 2+ pulses. ABDOMEN: Non-tender. Non-distended. MUSCULOSKELETAL: No clubbing, cyanosis. NEURO: No focal or lateralizing signs. Cranial nerves 2 through 12 grossly within normal limits. PSYCH: Appropriate affect. Alert and oriented to person, place and time. SKIN: Good skin turgor. Well perfused. LABS: Reviewed. No vitamin deficiences. ASSESSMENT: 1. Morbid obesity due to excess calories 2. Body mass index of 51.8 initial to 30.1 3. Osteoarthritis of the knees. 4. Osteoarthritis of the lower back. 5. Hypertensive heart disease. 6. Gastroesophageal reflux disease, resolved 7. Hyperlipidemia 8. Asthma 9. Migraines 10. Tachyarrhythmia 11. Skin cancer, resected 12. Plantar fasciitis 13. Postoperative nausea and vomiting 14. Anxiety disorder 15. Depressive disorder 16. Panic disorder 17. Vitamin D deficiency 18. Status post hiatal hernia repair 19. Status post gastric bypass 20. Gastrojejunal stricture 21. Constipation 22. Status post cholecystectomy PLAN: 1. All labs reviewed. She is 1 year out and doing well. 2. Recommend start of vitamins reviewed. Objective - Vital Signs Vital signs: Vital Signs Temp 97.9 F 09/23/21 14:51 Pulse 70 09/23/21 14:51 Resp 16 09/23/21 14:51 BP 116/69 09/23/21 14:51 Pulse Ox Intake & Output 09/22/21 09/23/21 09/23/21 18:59 06:59 18:59 Weight 89.811 kg Assessment/Plan Plan: Date: 09/23/21 Initial Weight: 149.856 kg Initial BMI: 50.2 Current Weight: 89.811 kg Current BMI: 30.1 Type of Surgery: Total Volume in Band: Previous Volume: Volume Removed: Volume Added: Band Size:
== END ==
LOC: BARWHC3 14:08
PROVIDERS: ATTEND Surgery Plastic and Reconstructive Surgery
DX: E66.01 Morbid (severe) obesity due to excess calories (principal); M17.0 Bilateral primary osteoarthritis of knee; M47.9 Spondylosis, unspecified; I11.9 Hypertensive heart disease without heart failure; K21.9 Gastro-esophageal reflux disease without esophagitis; E78.5 Hyperlipidemia, unspecified; J45.909 Unspecified asthma, uncomplicated; G43.909 Migraine, unspecified, not intractable, without status migrainosus; I49.8 Other specified cardiac arrhythmias; C43.9 Malignant melanoma of skin, unspecified; M72.2 Plantar fascial fibromatosis; R11.2 Nausea with vomiting, unspecified; F41.1 Generalized anxiety disorder; F32.A Depression, unspecified; F41.0 Panic disorder [episodic paroxysmal anxiety]; E55.9 Vitamin D deficiency, unspecified; Z98.890 Other specified postprocedural states; Z98.84 Bariatric surgery status; K59.00 Constipation, unspecified; Z90.49 Acquired absence of other specified parts of digestive tract; Z68.30 Body mass index [BMI] 30.0-30.9, adult; Z91.040 Latex allergy status; Z88.7 Allergy status to serum and vaccine; Z88.1 Allergy status to other antibiotic agents
CPT/HCPCS: 99211

== ENCOUNTER → 2022-03-15 | Outpatient (CLI) | payer BC ==
[2022-03-15 18:47] LABS: Basophils # (A) 0.05 X 10*3/uL (0.00-0.10); Basophils % (A) 0.4 %; Eosinophils # (A) 0.29 X 10*3/uL (0.04-0.35); Eosinophils % (A) 2.6 %; HCT 40.8 % (37.2-46.3); HGB 12.9 g/dL (12.0-15.0); Immature Grans, Automated 0.4 %; Lymphocytes # (A) 2.36 X 10*3/uL (0.90-5.00); MCH 29.9 pg (27.0-32.0); MCHC 31.6 g/dL (32.0-37.0); MCV 94.4 fL (80.0-97.0); Mean Platelet Volume 10.6 fL (9.5-12.2); Monocytes # (A) 0.68 X 10*3/uL (0.20-1.00); NRBC Per 100 WBC 0 /100 WBCS (0.0-0.0); Neutrophils # (A) 7.82 X 10*3/uL (1.80-7.70); Neutrophils % (A) 69.6 %; Platelet Count 315 X 10*3/uL (140-440); RBC 4.32 X 10*6/uL (4.10-5.20); RDW 12.5 % (11.5-14.5); WBC 11.24 X 10*3/uL (4.50-10.00)
[2022-03-15 20:06] LABS: African American GFR (CKD) 141.8 (60.0-200.0); Albumin 4.4 g/dL (3.8-4.9); Albumin/Globulin Ratio 1.91 (1.60-3.17); Anion Gap 10.8 mmol/L (10.00-18.00); Blood Urea Nitrogen 9.6 mg/dL (9.0-27.0); Calcium 9.3 mg/dL (8.7-10.3); Carbon Dioxide 22.2 mmol/L (20.0-27.5); Globulin 2.3 g/dL (1.6-3.3); Non-African American GFR(CKD) 122.3 (60.0-200.0); Potassium 4.5 mmol/L (3.5-5.5); Total Bilirubin 0.8 mg/dL (0.30-1.20); Total Protein 6.7 g/dL (6.2-8.2)
== END | disposition home or self-care (01) ==
LOC: LABWHC1 13:33
PROVIDERS: ATTEND Family Medicine
DX: I10 Essential (primary) hypertension (principal); R53.82 Chronic fatigue, unspecified
CPT/HCPCS: 36415; 80053; 85025

== ENCOUNTER 2022-09-16 09:58 | Outpatient (CLI) | payer BC, OTHER ==
[2022-09-16 11:04] VITALS: BP 93/60; PULSE 60; RESP 14; TEMP 97.8
--- NOTE | 2022-09-17 08:01 | P.MSEPDOC ---
Presenting Problems - Arrival Data Date of Arrival on Unit: 09/16/22 Time of Arrival on Unit: 09:58 Mode of Transport: Ambulatory - Complaint OB-Reason for Admission/Chief Complaint: NST Comment: GDM and Cholestasis Medical History - Information : 1 Para: 0 Term: 0 : 0 Abortions: Spontaneous or Elective: 0 Number of Living Children: 0 - Gestational Age Gestational Age by THAO (wks/days): 35 Weeks and 4 Days - History Complications: GDM Comment: Insulin Lantus HS 5units, Cholestasis Review of Systems - Review of Systems Constitutional: No problems Breast: No problems ENT: No problems Cardiovascular: No problems Respiratory: No problems Gastrointestinal: No problems Genitourinary: No problems Musculoskeletal: No problems Neurological: No problems Skin: Itching Vital Signs - Temperature Temperature: 97.8 F Temperature Source: Temporal Artery Scan - Pulse Right Pulse Rate: 60 Pulse Assessment Method: Automatic Cuff - Respirations Respiratory Rate: 14 Oxygen Delivery Method: Room Air O2 Sat by Pulse Oximetry: 98 - Blood Pressure Right Arm Blood Pressure: 93/60 Blood Pressure Mean: 71 Blood Pressure Source: Automatic Cuff Medical Screen Scoring - Uterine Contractions Frequency From (mins): 0 - Assessment - Baby A Baseline FHR: 130 Heart Rate - NICHD Category: Category I (Normal) NST: Reactive Physician Notification - Physician Notified Physician Notified Date: 09/16/22 Physician Notified Time: 10:24 Physician: Hernandez Rivas New Order Received: Yes (Do NST, follow up in office Tuesday for Celest) Maternal Triage Index - Maternal Triage Index Presenting for scheduled procedure w/no complaint: Yes - Scheduled/Requesting Priority 5 Scheduled/Requesting Priority 5: No Disposition - Disposition OB Disposition: Triage, Discharge to home, Written follow up instructions reviewed Discharge Date: 09/16/22 Discharge Time: 10:30 I agree with the RN Medical Screening Exam: Yes Case reviewed; plan agreed upon as documented in EMR&OBIX.: Yes Diagnosis: RELATED CONDITIONS, UNSPECIFIED, THIRD TRIMESTER
== END 2022-09-16 10:30 | disposition home or self-care (01) ==
LOC: FBPOP 09:58
PROVIDERS: ATTEND Obstetrics & Gynecology
DX: O26.93 Pregnancy related conditions, unspecified, third trimester (principal); Z3A.35 35 weeks gestation of pregnancy; Z91.048 Other nonmedicinal substance allergy status; Z88.1 Allergy status to other antibiotic agents; Z88.6 Allergy status to analgesic agent; Z88.7 Allergy status to serum and vaccine; Z88.8 Allergy status to other drugs, medicaments and biological substances; O26.613 Liver and biliary tract disorders in pregnancy, third trimester; K83.1 Obstruction of bile duct; O24.419 Gestational diabetes mellitus in pregnancy, unspecified control
CPT/HCPCS: 59025

== ENCOUNTER 2022-09-21 06:15 | Inpatient (IN) | payer BC, OTHER ==
[2022-09-21] MEDS: BETAMET ACET-BETAMETH SOD PHOS 6 MG/ML MDV IM SCH (15:40)
[2022-09-21 15:47] LABS: Glucose,Whole Blood 84 mg/dL (70-110)
[2022-09-21 21:07] LABS: Glucose,Whole Blood 100 mg/dL (70-110)
[2022-09-21] MEDS: MAGNESIUM OXIDE 400 MG TAB PO SCH (21:07)
[2022-09-21] MEDS: FAMOTIDINE 20 MG TAB PO SCH (21:08)
[2022-09-21] MEDS: diphenhydrAMINE 50 MG CAP PO PRN (21:08)
[2022-09-21] MEDS: INSULIN DETEMIR (LEVEMIR) 100 UNIT/ML SYR SQ SCH (21:08)
[2022-09-22 07:26] LABS: Glucose,Whole Blood 83 mg/dL (70-110)
[2022-09-22] MEDS: MAGNESIUM OXIDE 400 MG TAB PO SCH ×2 (07:28→21:36)
[2022-09-22] MEDS: ZINC SULFATE 220 MG CAP PO SCH (07:39)
[2022-09-22 11:58] LABS: Glucose,Whole Blood 89 mg/dL (70-110)
--- NOTE | 2022-09-22 12:49 | P.HPOB ---
History of Present Illness H&P Date: 09/21/22 Chief Complaint: Cholestasis of 32-year-old presents at 36 weeks and 2 days for inpatient management of her sugars while we gave her Celestone injections. The plan is to deliver this patient at 36 weeks and 4 day due to cholestasis of . Patient also has gestational right diabetes and is on insulin. I did give this patient the Celestone outpatient considering her sugars may not be controlled. So she is admitted inpatient to give the Celestone injections and watch her cholestasis until induction on . Review of Systems All systems: negative Constitutional: Denies chills, Denies fever Eyes: denies blurred vision, denies pain Ears, nose, mouth and throat: Denies headache, Denies sore throat Cardiovascular: Denies chest pain, Denies shortness of breath Respiratory: Denies cough Gastrointestinal: Denies abdominal pain, Denies diarrhea, Denies nausea, Denies vomiting Genitourinary: Denies dysuria, Denies hematuria Musculoskeletal: Denies myalgias Integumentary: Denies pruritus, Denies rash Neurological: Denies numbness, Denies weakness Psychiatric: Denies anxiety, Denies depression Endocrine: Denies fatigue, Denies weight change Past Medical History Past Medical History: Cancer, GERD/Reflux, Hyperlipidemia, Osteoarthritis (OA) Additional Past Medical History / Comment(s): Migraines, allergy/exercise induced asthma, hx. anemia, arthritis bilateral knees, skin cancer, constipation, irregular BM's, past hx arrythmia/tachycardia after pneumonia -no current problems, COVID Jul 2020 and December 2021, hiatal hernia X2 History of Any Multi-Drug Resistant Organisms: None Reported Past Surgical History: Adenoidectomy, Bariatric Surgery, Cholecystectomy, Ear Surgery, Hernia Repair, Orthopedic Surgery, Tonsillectomy Additional Past Surgical History / Comment(s): Tympanoplasty/tubes in ears, skin cancer removed X3, arthroscopy left knee, lipoma removed rt lower back, deviated septoplasty, plantar fasciotomy right foot, EGD take down of kristal/hernia repair 05-19-20, gastric bypass 10-06-20. Past Anesthesia/Blood Transfusion Reactions: Previous Problems w/ Anesthesia, Motion Sickness, Postoperative Nausea & Vomiting (PONV) Additional Past Anesthesia/Blood Transfusion Reaction / Comment(s): "when waking from anesthesia experiences overwhelming anxiety/fear." Past Psychological History: Anxiety, Depression, Panic Disorder Smoking Status: Never smoker Past Alcohol Use History: None Reported Past Drug Use History: None Reported - Past Family History Mother Family Medical History: No Reported History Additional Family Medical History / Comment(s): . Father Family Medical History: Hyperlipidemia Medications and Allergies Home Medications Medication Instructions Recorded Confirmed Type Magnesium Oxide [Magox 400] 400 mg PO BID 06/18/21 09/21/22 History Insulin Glargine [Lantus Vial] 5 unit SQ HS 09/16/22 09/21/22 History Zinc Gluconate [Zinc] 25 mg PO DAILY 09/16/22 09/21/22 History diphenhydrAMINE [Benadryl] 50 mg PO HS PRN 09/16/22 09/21/22 History ursodioL [Ursodiol] 300 mg PO TID 09/16/22 09/21/22 History Famotidine [Pepcid] 10 mg PO HS 09/21/22 09/21/22 History Pnv No.154/Iron Fum/Folic Acid 2 capsule PO DAILY 09/21/22 09/21/22 History [ Plus Vitamin Tablet] Allergies Allergy/AdvReac Type Severity Reaction Status Date / Time adhesive tape Allergy peels skin Verified 09/21/22 14:40 and blisters lamotrigine [From Lamictal] Allergy Rash/Hives Verified 09/21/22 14:40 zonisamide Allergy anxiety Verified 09/21/22 14:40 tuberculin,PPD,multi-puncture AdvReac Unknown FALSE Verified 09/21/22 14:40 POSITIVE baclofen AdvReac DYSTONIA Verified 09/21/22 14:40 cefaclor [From Ceclor] AdvReac Abdominal Verified 09/21/22 14:40 Pain clindamycin AdvReac Nausea & Verified 09/21/22 14:40 Vomiting Exam Osteopathic Statement: *. No significant issues noted on an osteopathic structural exam other than those noted in the History and Physical/Consult. Vital Signs Temp Pulse Resp BP Pulse Ox 09/22/22 08:00 97.3 F L 75 18 110/60 99 09/22/22 01:33 97.1 F L 65 18 98/50 96 09/21/22 23:50 97.7 F 83 15 92/53 98 09/21/22 14:24 97.7 F 71 17 102/61 98 Intake and Output 09/21/22 09/22/22 09/22/22 22:59 06:59 14:59 Intake Total 480 Balance 480 Intake: Oral 480 Other: # Voids 2 1 Heart: Regular rate and rhythm Lungs: Clear to auscultation bilaterally Abdomen: Soft, nontender Extremities: Negative Homans sign Assessment and Plan (1) 36 to 37 weeks gestation of Current Visit: Yes Status: Acute Code(s): [id number] - SNOMED Code(s): 445436978 (2) Cholestasis during Current Visit: Yes Status: Acute Code(s): O26.619 - LIVER AND BILIARY TRACT DISORD IN , UNSP TRIMESTER; K83.1 - OBSTRUCTION OF BILE DUCT SNOMED Code(s): 883566937 (3) Gestational diabetes mellitus, class A2 Current Visit: Yes Status: Acute Code(s): O24.419 - GESTATIONAL DIABETES MELLITUS IN , UNSP CONTROL SNOMED Code(s): 08432156 (4) History of gastric bypass Current Visit: Yes Status: Acute Code(s): Z98.84 - BARIATRIC SURGERY STATUS SNOMED Code(s): 619277530 Plan: 1. Mid to family place 2. NST every shift 3. Celestone injections 12 mg IM 24 hours apart 4. Monitor blood sugars and give insulin as appropriate 5. Continue home meds including those for cholestasis and diabetes
[2022-09-22] MEDS: BETAMET ACET-BETAMETH SOD PHOS 6 MG/ML MDV IM SCH (15:37)
[2022-09-22 16:34] LABS: Glucose,Whole Blood 109 mg/dL (70-110)
[2022-09-22] MEDS: diphenhydrAMINE 50 MG CAP PO PRN (21:36)
[2022-09-22] MEDS: FAMOTIDINE 20 MG TAB PO SCH (21:36)
[2022-09-22] MEDS: INSULIN DETEMIR (LEVEMIR) 100 UNIT/ML SYR SQ SCH (21:38)
[2022-09-22 21:40] LABS: Glucose,Whole Blood 112 mg/dL (70-110)
[2022-09-23] MEDS ORDERED: LIDOCAINE 0.5% (PF) 5 MG/ML (50 ML SDV) SQ PRN (05:49)
[2022-09-23] MEDS ORDERED: TERBUTALINE 1 MG/ML VIAL SQ PRN (05:49)
[2022-09-23] MEDS ORDERED: OXYTOCIN 30 UNITS/500 ML NS 30 UNIT in SALINE 1 500ML.BAG IV SCH (06:00)
[2022-09-23] MEDS: LACTATED RINGERS 1,000 ML IV SCH ×3 (06:12→13:27)
[2022-09-23 06:45] LABS: Basophils % (A) 0 %; Eosinophils % (A) 0 %; HCT 36.6 % (34.0-46.0); HGB 12.3 gm/dL (11.4-16.0); Lymphocytes # (A) 1.2 k/uL (1.0-4.8); Lymphocytes % (A) 8 %; MCHC 33.5 g/dL (31.0-37.0); MCV 92.5 fL (80.0-100.0); Mean Platelet Volume 8.4; Monocytes # (A) 0.4 k/uL (0-1.0); Monocytes % (A) 2 %; Neutrophils # (A) 14.1 k/uL (1.3-7.7); Neutrophils % (A) 90 %; Platelet Count 254 k/uL (150-450); RBC 3.95 m/uL (3.80-5.40); RDW 12.8 % (11.5-15.5); WBC 15.8 k/uL (3.8-10.6)
[2022-09-23 06:48] LABS: Glucose,Whole Blood 99 mg/dL (70-110)
--- NOTE | 2022-09-23 09:58 | P.PN ---
Progress Note - Text Progress Note Date: 09/23/22 32-year-old at 36 weeks and 4 days for induction of labor due to cholestasis. Her cervix is 1-2cm dilated, 80% effaced, and -1 station. She is taylor irregularly. heart tones 135 with moderate variability and reactive. Her sugar this morning was 99. She is status post 2 doses of Celestone. Amniotomy was performed and clear fluid noted. Pitocin augmentation was also been started.
[2022-09-23] MEDS ORDERED: SODIUM CHLORIDE 0.9% 100 ML BAG ONE (10:51)
[2022-09-23] MEDS ORDERED: fentaNYL (PF) 50 MCG/ML 5 ML AMP ONE (10:51)
[2022-09-23] MEDS ORDERED: ROPIVACAINE 5 MG/ML 20 ML AMPULE ONE (10:51)
[2022-09-23 11:14] LABS: Glucose,Whole Blood 89 mg/dL (70-110)
[2022-09-23 12:12] LABS: Glucose,Whole Blood 87 mg/dL (70-110)
[2022-09-23 13:21] LABS: Glucose,Whole Blood 82 mg/dL (70-110)
[2022-09-23] MEDS ORDERED: BENZOCAINE/MENTHOL SPRAY 1 GM/SPRAY AEROSOL TOPICAL PRN (15:26)
[2022-09-23] MEDS ORDERED: diphenhydrAMINE 25 MG CAP PO PRN (15:26)
[2022-09-23] MEDS ORDERED: diphenhydrAMINE 50 MG/ML 1 ML VIAL IVP PRN ×2 (15:26)
[2022-09-23] MEDS ORDERED: HYDROCORTISONE 2.5% RECTAL CREAM 30 GM TUBE RECTAL PRN (15:26)
[2022-09-23] MEDS ORDERED: diphenhydrAMINE 50 MG CAP PO PRN (15:26)
[2022-09-23] MEDS ORDERED: SIMETHICONE 80 MG CHEWABLE PO PRN (15:26)
[2022-09-23] MEDS ORDERED: LANOLIN CREAM 5 GM TUBE TOPICAL PRN (15:26)
[2022-09-23] MEDS ORDERED: ZOLPIDEM 5 MG TAB PO PRN (15:26)
[2022-09-23] MEDS ORDERED: MEASLES-MUMPS-RUBELLA VACC/PF 12,500 UNIT/0.5 ML VIAL SQ ONE (15:26)
[2022-09-23] MEDS: KETOROLAC 15 MG/ML 1 ML VIAL IVP SCH ×2 (16:26→23:56)
--- NOTE | 2022-09-23 16:52 | P.PROBDLV ---
Vaginal Delivery Note - . Vaginal Delivery Note: 32-year-old at 36 weeks and 4 days for induction of labor due to cholestasis. Her cervix is 1-2cm dilated, 80% effaced, and -1 station. She is taylor irregularly. heart tones 135 with moderate variability and reactive. Pitocin augmentation was started and amniotomy performed at 7:19 AM, clear fluid noted. She quickly got uncomfortable and asked for an epidural. Her cervix was completely dilated around 2 PM area to pushed, delivered a viable female infant over intact perineum under epidural anesthesia at 1411. Head delivered OA, nuchal cord 2 easily reduced, anterior shoulder delivered gentle downward guidance followed by posterior shoulder and rest of body. Nose and mouth bulb suctioned, cord clamped and cut, infant placed on mother's abdomen. Apgars 9, 10, weight 4 lbs. 15 oz. Placenta delivered spontaneously, intact with three-vessel cord at 1413. Vagina, cervix, perineum inspected. Right labial laceration and a first-degree midline laceration were repaired with 3-0 Vicryl. Estimated blood loss 100 mL. Mother and baby in stable condition.
[2022-09-23] MEDS: MAGNESIUM OXIDE 400 MG TAB PO SCH ×2 (17:53→20:42)
[2022-09-23] MEDS: ZINC SULFATE 220 MG CAP PO SCH (17:53)
[2022-09-23] MEDS: ACETAMINOPHEN TAB 325 MG TAB PO PRN (20:41)
[2022-09-23] MEDS: SENNOSIDES-DOCUSATE SODIUM 1 EACH TAB PO SCH (20:41)
[2022-09-23] MEDS: FAMOTIDINE 20 MG TAB PO SCH (20:42)
[2022-09-24] MEDS: ACETAMINOPHEN TAB 325 MG TAB PO PRN ×2 (05:03→10:51)
[2022-09-24 05:07] VITALS: BP 99/65; PULSE 73; RESP 16; TEMP 98.1
[2022-09-24] MEDS: KETOROLAC 15 MG/ML 1 ML VIAL IVP SCH (05:48)
[2022-09-24 08:18] LABS: Basophils % (A) 0 %; Eosinophils # (A) 0.1 k/uL (0-0.7); Eosinophils % (A) 1 %; HCT 33.3 % (34.0-46.0); HGB 10.8 gm/dL (11.4-16.0); Lymphocytes # (A) 2.7 k/uL (1.0-4.8); Lymphocytes % (A) 19 %; MCH 31.2 pg (25.0-35.0); MCHC 32.6 g/dL (31.0-37.0); MCV 95.7 fL (80.0-100.0); Mean Platelet Volume 8.5; Monocytes # (A) 0.5 k/uL (0-1.0); Monocytes % (A) 4 %; Neutrophils # (A) 10.9 k/uL (1.3-7.7); Neutrophils % (A) 75 %; Platelet Count 239 k/uL (150-450); RBC 3.48 m/uL (3.80-5.40); RDW 13.3 % (11.5-15.5); WBC 14.4 k/uL (3.8-10.6)
[2022-09-24] MEDS: SENNOSIDES-DOCUSATE SODIUM 1 EACH TAB PO SCH (08:33)
--- NOTE | 2022-09-24 08:56 | P.DS ---
Providers Date of admission: 09/21/22 13:59 Expected date of discharge: 09/24/22 Attending physician: Stephenie Neil Primary care physician: Stated None - Discharge Diagnosis(es) (1) 36 to 37 weeks gestation of Current Visit: Yes Status: Resolved (2) Cholestasis during Current Visit: Yes Status: Resolved (3) Gestational diabetes mellitus, class A2 Current Visit: Yes Status: Resolved (4) History of gastric bypass Current Visit: Yes Status: Chronic (5) Status post normal vaginal delivery Current Visit: Yes Status: Acute Hospital Course: Patient presented for steroid injections and then induction of labor for cholestasis of . She underwent this procedure without complication. She had a normal vaginal delivery. course has been uneventful. She denies nausea, vomiting, chest pain, shortness of breath or calf pain. Her cramping is minimal and her bleeding is decreasing. Patient will be discharged home day #1 in stable condition to follow-up with me in 6 weeks. Plan - Discharge Summary New Discharge Prescriptions: No Action Magnesium Oxide [Magox 400] 400 mg PO BID diphenhydrAMINE [Benadryl] 50 mg PO HS PRN PRN Reason: insomnia Insulin Glargine [Lantus Vial] 5 unit SQ HS Zinc Gluconate [Zinc] 25 mg PO DAILY ursodioL [Ursodiol] 300 mg PO TID Famotidine [Pepcid] 10 mg PO HS Pnv No.154/Iron Fum/Folic Acid [ Plus Vitamin Tablet] 2 capsule PO DAILY Discharge Medication List Magnesium Oxide [Magox 400] 400 mg PO BID 06/18/21 [History] Insulin Glargine [Lantus Vial] 5 unit SQ HS 09/16/22 [History] Zinc Gluconate [Zinc] 25 mg PO DAILY 09/16/22 [History] diphenhydrAMINE [Benadryl] 50 mg PO HS PRN 09/16/22 [History] ursodioL [Ursodiol] 300 mg PO TID 09/16/22 [History] Famotidine [Pepcid] 10 mg PO HS 09/21/22 [History] Pnv No.154/Iron Fum/Folic Acid [ Plus Vitamin Tablet] 2 capsule PO DAILY 09/21/22 [History] Follow up Appointment(s)/Referral(s): Stephenie Neil DO [Doctor of Osteopathic Medicine] - 11/01/22 3:00 pm Discharge Disposition: HOME SELF-CARE
== END 2022-09-24 17:56 | disposition home or self-care (01) | DRG 805 ==
LOC: 4FBP 13:59
PROVIDERS: ADMIT Obstetrics & Gynecology; ATTEND Obstetrics & Gynecology
PROC: 10E0XZZ Delivery of Products of Conception, External Approach (ICD-10-PCS; principal; 2022-09-23)
PROC: 0HQ9XZZ Repair Perineum Skin, External Approach (ICD-10-PCS; 2022-09-23)
PROC: 10907ZC Drainage of Amniotic Fluid, Therapeutic from Products of Conception, Via Natural or Artificial Opening (ICD-10-PCS; 2022-09-23)
PROC: 3E033VJ Introduction of Other Hormone into Peripheral Vein, Percutaneous Approach (ICD-10-PCS; 2022-09-23)
PROC: 4A0HXCZ Measurement of Products of Conception, Cardiac Rate, External Approach (ICD-10-PCS; 2022-09-23)
DX: O26.62 Liver and biliary tract disorders in childbirth (principal); K83.1 Obstruction of bile duct; Z37.0 Single live birth; O99.354 Diseases of the nervous system complicating childbirth; E78.5 Hyperlipidemia, unspecified; F32.A Depression, unspecified; F41.0 Panic disorder [episodic paroxysmal anxiety]; M17.0 Bilateral primary osteoarthritis of knee; O24.424 Gestational diabetes mellitus in childbirth, insulin controlled; O70.0 First degree perineal laceration during delivery; O69.81X0 Labor and delivery complicated by cord around neck, without compression, not applicable or unspecified; O99.284 Endocrine, nutritional and metabolic diseases complicating childbirth; O99.344 Other mental disorders complicating childbirth; O99.844 Bariatric surgery status complicating childbirth; Z85.828 Personal history of other malignant neoplasm of skin; Z88.8 Allergy status to other drugs, medicaments and biological substances; Z91.048 Other nonmedicinal substance allergy status; Z86.16 Personal history of COVID-19; G43.909 Migraine, unspecified, not intractable, without status migrainosus; D64.9 Anemia, unspecified; O99.02 Anemia complicating childbirth; K21.9 Gastro-esophageal reflux disease without esophagitis; O99.62 Diseases of the digestive system complicating childbirth; Z90.49 Acquired absence of other specified parts of digestive tract; Z87.01 Personal history of pneumonia (recurrent)
CPT/HCPCS: 85025; 86850; 86900; 86901; 90471; 90707

== ENCOUNTER → 2022-11-10 | Outpatient (CLI) | payer OTHER ==
[2022-11-10 11:59] VITALS: BMI 26.3
--- NOTE | 2022-11-10 12:04 | P.HPBAR ---
Bariatric H&P - History & Physicial H&P Date: 11/10/22 History & Physicial: Visit/CC: bypass F/U Patient initial contact: Initial weight: 149.856 kg Initial weight in pounds: 330.38 Height: 5 ft 8 in Initial BMI: 50.2 Last weight: Current weight: 78.471 kg Current weight in pounds: 173.00 Current BMI: 26.3 [place] body weight (based on NIH guidelines): 63.503 kg Excess body weight loss: 82.6% The patient is a 32 year-old F who presents for Bariatric Assessment. NO heartburn. She just had baby. She was 4 pound baby. She had intrahepatic cholelithiasis. She was diagnosed with gestational diabetes. She had the gastric bypass. [facility] placed her on insulin for gestational diabetes. She was high risk . She was taking her vitamins. She is doing well. She had blood work done. No dysphagia. She is doing well. Her lowest is at present. Past Medical History Past Medical History: Cancer, GERD/Reflux, Hyperlipidemia, Osteoarthritis (OA) Additional Past Medical History / Comment(s): Migraines, allergy/exercise induced asthma, hx. anemia, arthritis bilateral knees, skin cancer, constipation, irregular BM's, past hx arrythmia/tachycardia after pneumonia -no current problems, COVID Jul 2020 and December 2021, hiatal hernia X2 History of Any Multi-Drug Resistant Organisms: None Reported Past Surgical History: Adenoidectomy, Bariatric Surgery, Cholecystectomy, Ear Surgery, Hernia Repair, Orthopedic Surgery, Tonsillectomy Additional Past Surgical History / Comment(s): Tympanoplasty/tubes in ears, skin cancer removed X3, arthroscopy left knee, lipoma removed rt lower back, deviated septoplasty, plantar fasciotomy right foot, EGD take down of kristal/hernia repair 05-19-20, gastric bypass 10-06-20. Past Anesthesia/Blood Transfusion Reactions: Previous Problems w/ Anesthesia, Motion Sickness, Postoperative Nausea & Vomiting (PONV) Additional Past Anesthesia/Blood Transfusion Reaction / Comm: "when waking from anesthesia experiences overwhelming anxiety/fear." Past Psychological History: Anxiety, Depression, Panic Disorder Additional Psychological History / Comment(s): . Smoking Status: Never smoker Past Alcohol Use History: None Reported Past Drug Use History: None Reported - Past Family History Mother Family Medical History: No Reported History Additional Family Medical History / Comment(s): . Father Family Medical History: Hyperlipidemia Bariatric Checklist Checklist: Plan: Checklist: EGD: 1. Hiatal hernia: 2. H. Pylori: HgbA1c: Vitamin D: Smoking: Never smoker Primary care physician referral: Helene Psychiatry clearance: Cardiology clearance: Sleep study: Diet journal: VTE risk score: VTE risk level: Rehab needs at discharge:
[2022-11-10 12:49] VITALS: BP 120/83; PULSE 110; TEMP 98.1
== END ==
LOC: BARWHC3 11:40
PROVIDERS: ATTEND Surgery Plastic and Reconstructive Surgery
DX: E66.01 Morbid (severe) obesity due to excess calories (principal); O24.419 Gestational diabetes mellitus in pregnancy, unspecified control; K21.9 Gastro-esophageal reflux disease without esophagitis; E78.5 Hyperlipidemia, unspecified; M17.0 Bilateral primary osteoarthritis of knee; Z91.048 Other nonmedicinal substance allergy status; Z88.1 Allergy status to other antibiotic agents; Z88.6 Allergy status to analgesic agent
CPT/HCPCS: 99211

== ENCOUNTER 2023-04-14 06:07 | Day surgery (SDC) | payer OTHER ==
[~2023-04-14 06:07] MED LIST changes: -ACETAMINOPHEN TAB 500 MG TAB PO STA; -GABAPENTIN 300 MG CAP PO STA; -INDOCYANINE GREEN 25 MG VIAL IV STA; +SODIUM CHLORIDE 0.9% 1,000 ML IV SCH
[2023-04-14] MEDS ORDERED: SODIUM CHLORIDE 0.9% 500 ML 500 ML IV ONE (06:42)
[2023-04-14 06:59] VITALS: PULSE 62; RESP 16; TEMP 97.8
[2023-04-14 08:35] VITALS: BP 104/57
--- NOTE | 2023-04-14 15:56 | P.EPCON ---
Electrophysiology Consult - EP Consult Electrophysiology Consult: Diagnosis Recurrent presyncope Twelve-lead EKG shows sinus rhythm normal OK narrow QRS normal ST segments normal QT interval of less than 460 ms no epsilon waves Tilt table test per protocol Baseline heart rate 59 beats a minute Baseline blood pressure 105/58 mmHg Patient was tilted upright at regular 70 per protocol No significant change in heart rate and blood pressure towards the end of the procedure the patient felt a little dizzy but her blood pressure that was 102/66 mmHg heart rate 92 beats a minute Patient is laid supine heart rate and blood pressure remained normal Impression Normal twelve-lead EKG No evidence for neurocardiogenic syncope No evidence for postural tachycardia
== END 2023-04-14 08:37 | disposition home or self-care (01) ==
LOC: CATHEP 06:07
PROVIDERS: ATTEND Internal Medicine Clinical Cardiac Electrophysiology
DX: R42 Dizziness and giddiness (principal); Z79.1 Long term (current) use of non-steroidal anti-inflammatories (NSAID); Z79.899 Other long term (current) drug therapy; Z88.1 Allergy status to other antibiotic agents; Z88.0 Allergy status to penicillin; Z88.8 Allergy status to other drugs, medicaments and biological substances; Z91.09 Other allergy status, other than to drugs and biological substances
CPT/HCPCS: 81025; 93660

== ENCOUNTER 2023-09-23 04:37 | Emergency (ER) | payer OTHER ==
[2023-09-23 05:20] LABS: Basophils # (A) 0.1 k/uL (0-0.2); Basophils % (A) 0 %; Eosinophils # (A) 0.2 k/uL (0-0.7); Eosinophils % (A) 1 %; HCT 45.3 % (34.0-46.0); HGB 14.9 gm/dL (11.4-16.0); Lymphocytes # (A) 0.4 k/uL (1.0-4.8); Lymphocytes % (A) 2 %; MCH 30.7 pg (25.0-35.0); MCHC 32.9 g/dL (31.0-37.0); MCV 93.3 fL (80.0-100.0); Mean Platelet Volume 7.3; Monocytes # (A) 0.5 k/uL (0-1.0); Monocytes % (A) 3 %; Neutrophils # (A) 15.9 k/uL (1.3-7.7); Neutrophils % (A) 93 %; Platelet Count 318 k/uL (150-450); RBC 4.85 m/uL (3.80-5.40); RDW 12.3 % (11.5-15.5); WBC 17.2 k/uL (3.8-10.6)
[2023-09-23 05:32] LABS: ALT 32 U/L (4-34); AST 29 U/L (14-36); African American GFR (CKD) >90 (>60 ml/min/1.73 sqM); Albumin 4.6 g/dL (3.5-5.0); Alkaline Phosphatase 86 U/L (38-126); Amylase 96 U/L (30-110); Anion Gap 6 mmol/L; Blood Urea Nitrogen 25 mg/dL (7-17); Calcium 8.8 mg/dL (8.4-10.2); Carbon Dioxide 24 mmol/L (22-30); Chloride 107 mmol/L (98-107); Glucose 100 mg/dL (74-99); Lipase 209 U/L (23-300); Non-African American GFR(CKD) >90 (>60 ml/min/1.73 sqM); Potassium 4.3 mmol/L (3.5-5.1); Sodium 137 mmol/L (137-145); Total Bilirubin 1.8 mg/dL (0.2-1.3); Total Protein 7.4 g/dL (6.3-8.2)
[2023-09-23] MEDS ORDERED: diphenhydrAMINE 50 MG/ML 1 ML VIAL IVP STA (05:40)
[2023-09-23] MEDS ORDERED: METOCLOPRAMIDE 5 MG/ML 2 ML VIAL IVP STA (05:40)
[2023-09-23] MEDS ORDERED: SODIUM CHLORIDE 0.9% 1,000 ML IV ONE (05:40)
--- NOTE | 2023-09-23 05:42 | ED ---
Nausea/Vomiting/Diarrhea HPI - General Chief complaint: Nausea/Vomiting/Diarrhea Stated complaint: N/V/D abd pain Time Seen by Provider: 09/23/23 05:00 Source: patient Mode of arrival: ambulatory Limitations: no limitations - History of Present Illness Initial comments: 33-year-old female presents to the emergency department reporting abdominal pain. States that the pain started after dinner last night. Her significant other ate the same food and has not been sick. Patient reports to generalized lower abdominal pain with nausea and vomiting. No hematemesis. Denies any black or bloody stools. No changes in her urination. No fevers. Denies any vaginal bleeding or discharge. No concern for . She did take a Zofran however it did not alleviate her symptoms. Patient does have history of gastric bypass 3 years ago. No other alleviating, precipitating modifying factors - Related Data Home Medications Medication Instructions Recorded Confirmed Pnv No.154/Iron Fum/Folic Acid 1 capsule PO DAILY 09/21/22 04/14/23 [ Plus Vitamin Tablet] ALPRAZolam [Xanax] 0.25 mg PO BID PRN 04/08/23 04/08/23 Albuterol Inhaler [Ventolin Hfa 1 - 2 puff INHALATION Q6H PRN 04/08/23 04/08/23 Inhaler] [place] Control 1 tab PO DAILY 04/08/23 04/14/23 Citalopram Hydrobromide [CeleXA] 20 mg PO DAILY 04/08/23 04/14/23 Isoniazid 300 mg PO DAILY 04/08/23 04/14/23 Naproxen [EC-Naprosyn] 500 mg PO DIRECTED PRN 04/08/23 04/08/23 Ondansetron [Zofran] 4 mg PO Q8HR PRN 04/08/23 04/08/23 Pyridoxine HCl (Vitamin B6) 100 mg PO DAILY 04/08/23 04/14/23 [Vitamin B-6] Rizatriptan Benzoate [Maxalt] 10 mg PO DIRECTED PRN 04/08/23 04/14/23 Previous Rx's Medication Instructions Recorded Albuterol Inhaler [Ventolin Hfa 1 - 2 puff INHALATION Q6H PRN #1 05/08/23 Inhaler] each Albuterol Inhaler [Ventolin Hfa 1 - 2 puff INHALATION Q6H PRN 30 05/08/23 Inhaler] Days #1 each Benzonatate [Tessalon Perle] 200 mg PO TID #15 cap 05/08/23 Benzonatate [Tessalon Perle] 200 mg PO TID PRN #15 capsule 05/08/23 Allergies Allergy/AdvReac Type Severity Reaction Status Date / Time adhesive tape Allergy peels skin Verified 09/23/23 04:46 and blisters lamotrigine [From Lamictal] Allergy Rash/Hives Verified 09/23/23 04:46 zonisamide Allergy anxiety Verified 09/23/23 04:46 tuberculin,PPD,multi-puncture AdvReac Unknown FALSE Verified 09/23/23 04:46 POSITIVE baclofen AdvReac DYSTONIA Verified 09/23/23 04:46 cefaclor [From Ceclor] AdvReac Abdominal Verified 09/23/23 04:46 Pain clindamycin AdvReac Nausea & Verified 09/23/23 04:46 Vomiting Review of Systems ROS Statement: Those systems with pertinent positive or pertinent negative responses have been documented in the HPI. ROS Other: All systems not noted in ROS Statement are negative. Past Medical History Past Medical History: Asthma, Cancer, Hyperlipidemia, Osteoarthritis (OA) Additional Past Medical History / Comment(s): Migraines, allergy/exercise induced asthma, hx. anemia, arthritis bilateral knees, skin cancer, constipation, irregular BM's, past hx arrythmia/tachycardia after pneumonia -no current problems, COVID Jul 2020 and December 2021, hiatal hernia X2, lightheaded, dizziness when gets up, can affect vision, hypotension, current tx. for "latent tb", see Dr Edmond H & P History of Any Multi-Drug Resistant Organisms: None Reported Past Surgical History: Adenoidectomy, Bariatric Surgery, Cholecystectomy, Ear Surgery, Hernia Repair, Orthopedic Surgery, Tonsillectomy Additional Past Surgical History / Comment(s): Tympanoplasty/tubes in ears, skin cancer removed X3, arthroscopy left knee, lipoma removed rt lower back, deviated septoplasty, plantar fasciotomy right foot, EGD take down of kristal/hernia repair 05-19-20, gastric bypass 10-06-20. Past Anesthesia/Blood Transfusion Reactions: Previous Problems w/ Anesthesia, Motion Sickness, Postoperative Nausea & Vomiting (PONV) Additional Past Anesthesia/Blood Transfusion Reaction / Comment(s): "when waking from anesthesia experiences overwhelming anxiety/fear." Past Psychological History: Anxiety, Depression, Panic Disorder Smoking Status: Never smoker Past Alcohol Use History: None Reported Past Drug Use History: None Reported - Past Family History Mother Family Medical History: No Reported History Additional Family Medical History / Comment(s): . Father Family Medical History: Hyperlipidemia General Exam Limitations: no limitations General appearance: alert, in no apparent distress Head exam: Present: atraumatic, normocephalic, normal inspection Eye exam: Present: normal appearance, PERRL, EOMI. Absent: scleral icterus, conjunctival injection, periorbital swelling ENT exam: Present: normal exam, mucous membranes moist Neck exam: Present: normal inspection. Absent: tenderness, meningismus, lymphadenopathy Respiratory exam: Present: normal lung sounds bilaterally. Absent: respiratory distress, wheezes, rales, rhonchi, stridor Cardiovascular Exam: Present: regular rate, normal rhythm, normal heart sounds. Absent: systolic murmur, diastolic murmur, rubs, gallop, clicks GI/Abdominal exam: Present: soft, tenderness (Periumbilical), normal bowel sounds. Absent: distended, guarding, rebound, rigid Extremities exam: Present: normal inspection, full ROM, normal capillary refill. Absent: tenderness, pedal edema, joint swelling, calf tenderness Back exam: Present: normal inspection Neurological exam: Present: alert, oriented X3, CN II-XII intact Psychiatric exam: Present: normal affect, normal mood Skin exam: Present: warm, dry, intact, normal color. Absent: rash Course Vital Signs 09/23/23 09/23/23 04:43 09:57 Temperature 98.8 F 99.3 F Pulse Rate 107 H 65 Respiratory 18 20 Rate Blood Pressure 106/67 101/65 O2 Sat by Pulse 98 97 Oximetry Medical Decision Making - Medical Decision Making Was pt. sent in by a medical professional or institution (, PA, ASSOCIATE MEDIA DIRECTOR, urgent care, hospital, or jail...) When possible be specific @ -No Did you speak to anyone other than the patient for history (EMS, parent, family, police, friend...)? What history was obtained from this source @ -No Did you review nursing and triage notes (agree or disagree)? Why? @ -I reviewed and agree with nursing and triage notes Were old charts reviewed (outside hosp., previous admission, EMS record, old EKG, old radiological studies, urgent care reports/EKG's, jail records)? Report findings @ -No old charts were reviewed Differential Diagnosis (chest pain, altered mental status, abdominal pain women, abdominal pain men, vaginal bleeding, weakness, fever, dyspnea, syncope, headache, dizziness, GI bleed, back pain, seizure, CVA, palpatations, mental he alth, musculoskeletal)? @ -Differential Abdominal Pain Women: Appendicitis, Cholecystitis, diverticulosis, ischemic bowel, pancreatitis, hepatitis, UTI, gastroenteritis, AAA, incarcerated hernia, bowel obstruction, constipation, inflammatory bowel, hepatitis, peptic ulcer disease, splenic infarction, perforated viscus, vulvitis, ovarian torsion, PID, kidney stone, placenta abruption, this is not meant to be an all-inclusive list EKG interpreted by me (3pts min.). @ -Not done X-rays interpreted by me (1pt min.). @ -None done CT interpreted by me (1pt min.). @ -Yes and demonstrates no acute process U/S interpreted by me (1pt. min.). @ -None done What testing was considered but not performed or refused? (CT, X-rays, U/S, labs)? Why? @ -None What meds were considered but not given or refused? Why? @ -None Did you discuss the management of the patient with other professionals (gricelda lyn i.e. , PA, ASSOCIATE MEDIA DIRECTOR, lab, RT, psych nurse, social worker aide, business development professional, teacher, railway patrol officer, case checker)? Give summary @ -No Was smoking cessation discussed for >3mins.? @ -No Was critical care preformed (if so, how long)? @ -No Were there social determinants of health that impacted care today? How? (Homelessness, low income, unemployed, alcoholism, drug addiction, transportation, low edu. Level, literacy, decrease access to med. care, custodial, rehab)? @ -No Was there de-escalation of care discussed even if they declined (Discuss DNR or withdrawal of care, Hospice)? DNR status @ -No What co-morbidities impacted this encounter? (DM, HTN, Smoking, COPD, CAD, Cancer, CVA, ARF, Chemo, Hep., AIDS, mental health diagnosis, sleep apnea, morbid obesity)? @ -History of gastric bypass Was patient admitted / discharged? Hospital course, mention meds given and route, prescriptions, significant lab abnormalities, going to OR and other pertinent info. @ -Discharged. Upon arrival patient was placed into room 2. Thorough history and physical exam was performed. IV access was established. Patient was given antiemetics and and IV fluids. Laboratory studies are conducted. CT was perfor med. Upon reevaluation the patient feels improved at this time. She will be discharged home. Instructed to follow-up with her primary care doctor and return for any new or worsening symptoms Undiagnosed new problem with uncertain prognosis? @ -Yes Drug Therapy requiring intensive monitoring for toxicity (Heparin, Nitro, Insulin, Cardizem)? @ -No Were any procedures done? @ -No Diagnosis/symptom? @ -Acute nausea, vomiting, diarrhea Acute, or Chronic, or Acute on Chronic? @ -Acute Uncomplicated (without systemic symptoms) or Complicated (systemic symptoms)? @ -Complicated Side effects of treatment? @ -No Exacerbation, Progression, or Severe Exacerbation? @ -No Poses a threat to life or bodily function? How? (Chest pain, USA, CT, pneumonia, PE, COPD, DKA, ARF, appy, cholecystitis, CVA, Diverticulitis, Homicidal, Suicidal, threat to staff... and all critical care pts) @ -No - Lab Data Result diagrams: 09/23/23 05:09 09/23/23 05:09 Lab Results 09/23/23 09/23/23 09/23/23 Range/Units 05:09 05:09 06:03 WBC 17.2 H (3.8-10.6) k/uL RBC 4.85 (3.80-5.40) m/uL Hgb 14.9 (11.4-16.0) gm/dL Hct 45.3 (34.0-46.0) % MCV 93.3 (80.0-100.0) fL MCH 30.7 (25.0-35.0) pg MCHC 32.9 (31.0-37.0) g/dL RDW 12.3 (11.5-15.5) % Plt Count 318 (150-450) k/uL MPV 7.3 Neutrophils % 93 % Lymphocytes % 2 % Monocytes % 3 % Eosinophils % 1 % Basophils % 0 % Neutrophils # 15.9 H (1.3-7.7) k/uL Lymphocytes # 0.4 L (1.0-4.8) k/uL Monocytes # 0.5 (0-1.0) k/uL Eosinophils # 0.2 (0-0.7) k/uL Basophils # 0.1 (0-0.2) k/uL Sodium 137 (137-145) mmol/L Potassium 4.3 (3.5-5.1) mmol/L Chloride 107 (98-107) mmol/L Carbon Dioxide 24 (22-30) mmol/L Anion Gap 6 mmol/L BUN 25 H (7-17) mg/dL Creatinine 0.57 (0.52-1.04) mg/dL Est GFR (CKD-EPI)AfAm >90 (>60 ml/min/1.73 sqM) Est GFR (CKD-EPI)NonAf >90 (>60 ml/min/1.73 sqM) Glucose 100 H (74-99) mg/dL Calcium 8.8 (8.4-10.2) mg/dL Total Bilirubin 1.8 H (0.2-1.3) mg/dL AST 29 (14-36) U/L ALT 32 (4-34) U/L Alkaline Phosphatase 86 (38-126) U/L Total Protein 7.4 (6.3-8.2) g/dL Albumin 4.6 (3.5-5.0) g/dL Amylase 96 (30-110) U/L Lipase 209 (23-300) U/L Urine Color Yellow Urine Appearance Clear (Clear) Urine pH 5.5 (5.0-8.0) Ur Specific [place] 1.037 H (1.001-1.035) Urine Protein Negative (Negative) Urine Glucose (UA) Negative (Negative) Urine Ketones Negative (Negative) Urine Blood Negative (Negative) Urine Nitrite Negative (Negative) Urine Bilirubin Negative (Negative) Urine Urobilinogen <2.0 (<2.0) mg/dL Ur Leukocyte Esterase Negative (Negative) Disposition Clinical Impression: Nausea and vomiting, Hx of gastric bypass Disposition: HOME SELF-CARE Condition: Stable Instructions (If sedation given, give patient instructions): Acute Nausea and Vomiting (ED) Additional Instructions: Use Zofran as needed for nausea. Eat binding foods. Follow-up with your doctor and return for any new or worsening symptoms Is patient prescribed a controlled substance at d/c from ED?: No Referrals: Dane Narayan MD [Primary Care Provider] - 1-2 days Estephanie Honeycutt MD [STAFF PHYSICIAN] - 1-2 days Time of Disposition: 09:42
[2023-09-23 06:30] LABS: Appearance,Urine Clear (Clear); Bilirubin,Urine Negative (Negative); Blood,Urine Negative (Negative); Color,Urine Yellow; Glucose,Urine (UA) Negative (Negative); Ketones,Urine Negative (Negative); Leukocyte Esterase,Urine Negative (Negative); Nitrite,Urine Negative (Negative); PH, Urine 5.5 (5.0-8.0); Protein,Urine Negative (Negative); Specific Gravity,Urine 1.037 (1.001-1.035); Urobilinogen,Urine <2.0 mg/dL (<2.0)
--- NOTE | 2023-09-23 08:07 | CT ---
EXAMINATION TYPE: CT abdomen pelvis w con DATE OF EXAM: 09/23/2023 COMPARISON: 10/12/2020 HISTORY: 33-year-old female Pt. states she was eating dinner last night around 1900 and has N/V/D wit h lower abdominal cramping since. Pt. took zofran at 0230 with no relief. Pt. had gastric bypass x3 y ears ago. TECHNIQUE: Contiguous axial scanning of the abdomen and pelvis following administration of 100 ml Iso zaida 300 IV contrast. Delayed images through the kidneys and coronal/sagittal reconstructions perform ed. CT DLP: 984.2 mGycm Automated exposure control for dose reduction was used. FINDINGS: Heart normal size without pericardial effusion. There is a small hiatal hernia and additional postsurgical changes of Alex-en-Y gastric bypass. No focal liver lesion or biliary ductal dilatation. Portal venous system is patent. Gallbladder surgi adam absent. Adrenal glands, kidneys, spleen, and pancreas appear within normal limits. Prominent fluid-filled small bowel loops throughout the abdomen and pelvis without any abnormal dilat ation. Additional prominent liquid stool throughout most of the colon. No pericolonic inflammatory ch ashli. No dilated small bowel, free fluid, or free air. No mesenteric or retroperitoneal adenopathy. Appendix not clearly identified. No secondary findings of acute appendicitis in the right lower quadr ant. Bladder partially distended. Uterus anteverted. Suspect visualization of the ovaries with a 2.3 cm do minant follicle or functional cyst of the right ovary. No abnormal fluid collection in the pelvis or pelvic lymphadenopathy. Bones: No osseous destructive process. IMPRESSION: 1. THERE IS A SMALL HIATAL HERNIA. PATIENT IS STATUS POST ALEX-EN-Y GASTRIC BYPASS. 2. MULTIPLE FLUID-FILLED SMALL BOWEL LOOPS WITHIN THE ABDOMEN AND PELVIS ALONG WITH LIQUID STOOL THRO UGHOUT MOST OF THE COLON. CORRELATE FOR ENTERITIS AND DIARRHEAL STATE.
[2023-09-23 10:01] VITALS: BP 101/65; PULSE 65; RESP 20; TEMP 99.3
== END 2023-09-23 09:58 | disposition home or self-care (01) ==
LOC: EC 04:37
DX: K44.9 Diaphragmatic hernia without obstruction or gangrene (principal); J45.909 Unspecified asthma, uncomplicated; M19.90 Unspecified osteoarthritis, unspecified site; F41.9 Anxiety disorder, unspecified; F32.A Depression, unspecified; Z79.899 Other long term (current) drug therapy; Z79.1 Long term (current) use of non-steroidal anti-inflammatories (NSAID); Z88.1 Allergy status to other antibiotic agents; Z91.09 Other allergy status, other than to drugs and biological substances; Z88.6 Allergy status to analgesic agent; Z88.8 Allergy status to other drugs, medicaments and biological substances; Z98.84 Bariatric surgery status
CPT/HCPCS: 36415; 80053; 82150; 83690; 85025; 81003; 74177; 99284; 96374; 96375; 96361; J1200; J2765; Q9967

== ENCOUNTER → 2023-10-25 | Outpatient (CLI) | payer OTHER ==
--- NOTE | 2023-10-25 16:53 | XR ---
EXAMINATION TYPE: XR chest 2V DATE OF EXAM: 10/25/2023 3:18 PM CLINICAL INDICATION:Female, 33 years old with history of R053 PERSISTENT COUGH; [facility] COMPARISON: Chest radiographs from 05/08/2023 TECHNIQUE: XR chest 2V Frontal and lateral views of the chest. FINDINGS: Lungs/Pleura: There is no evidence of pleural effusion, focal consolidation, or pneumothorax. Pulmonary vascularity: Unremarkable. Heart/mediastinum: Cardiomediastinal silhouette is unremarkable. Musculoskeletal: No acute osseous pathology. Other findings: None IMPRESSION: No acute cardiopulmonary disease/process.
== END | disposition home or self-care (01) ==
LOC: RADXRYALE 15:09
PROVIDERS: ATTEND Nurse Practitioner Family
DX: R05.3 Chronic cough (principal)
CPT/HCPCS: 71046

== ENCOUNTER → 2023-11-16 | Outpatient (CLI) | payer OTHER ==
--- NOTE | 2023-11-16 16:05 | P.BASOAP ---
Subjective Progress Note Date: 11/16/23 Increase 20 pounds in 1 year. 173 to 193 pounds. New steroids and SSRI new medications. She comes in with her baby! Down from 197 pounds. Had TB latent for 9 months and nursing. No abdominal pain. Was in ER with gastroenteritis. CT scan reviewed. Labs look great. Vitamin D needed. Assessment/Plan Plan: Date: Initial Weight: 149.856 kg Initial BMI: Current Weight: Current BMI: Type of Surgery: Total Volume in Band: Previous Volume: Volume Removed: Volume Added: Band Size:
[2023-11-16 16:52] VITALS: BP 102/70; PULSE 72; RESP 16; TEMP 98.7; BMI 29.3
== END ==
LOC: BARWHC3 14:01
PROVIDERS: ATTEND Surgery Plastic and Reconstructive Surgery
DX: E66.01 Morbid (severe) obesity due to excess calories (principal); Z53.9 Procedure and treatment not carried out, unspecified reason
CPT/HCPCS: 99211